=== PATIENT | female | born 1950 | race Caucasian/White ===

== ENCOUNTER 2017-09-28 16:41 | Observation (INO) | payer OTHER ==
--- NOTE | 2017-09-28 17:12 | RAD REPORT ---
EXAM DESCRIPTION: CT - Ct Stroke Brain Wo Cont - 09/28/2017 5:03 pm CLINICAL HISTORY: Right-sided numbness COMPARISON: None. TECHNIQUE: Computed axial tomography of the head was obtained. IV contrast was not requested. All CT scans are performed using dose optimization technique as appropriate and may include automated exposure control or mA/KV adjustment according to patient size. FINDINGS: An intracranial bleed is not seen . The ventricles are normal in caliber. No extra-axial fluid collection is noted. Fluid within the sinuses/ mastoids is not seen. IMPRESSION: No acute intracranial abnormality is seen. If patient's symptoms persist MRI of the bra in would be recommended. The exam was discussed with Doctor Henriquez 5:06 p.m. 09/28/2017
--- NOTE | 2017-09-28 17:13 | RAD REPORT ---
EXAM DESCRIPTION: Toby Single View09/28/2017 5:06 pm CLINICAL HISTORY: Chest pain COMPARISON: none FINDINGS: The lungs appear clear of acute infiltrate. The heart is normal size IMPRESSION: No acute abnormalities displayed
[2017-09-28] MEDS ORDERED: CLOPIDOGREL 75 MG TABLET ONE (17:17)
[2017-09-28] MEDS ORDERED: ASPIRIN 81 MG CHEWABLE TABLET ONE (17:17)
[2017-09-28] MEDS ORDERED: NA CHLORIDE 0.9% 1,000 ML ONE (17:18)
[2017-09-28] MEDS ORDERED: FOLIC ACID 5 MG/ML VIAL ONE (17:18)
--- NOTE | 2017-09-28 17:19 | EDPHYS ---
Physician Documentation [facility] Name: Kylee Mercado Age: 67 yrs Sex: Female : 1950 Arrival Date: 09/28/2017 Time: 16:46 Bed 2 Private MD: ED Physician Abundio Henriquez HPI: 09/28 17:08 This 67 yrs old Female presents to ER via Ambulatory with complaints of S/S alivia of Possible Stroke. 17:08 The patient's problem is reported as weakness, in the right upper extremity, in the alivia right lower extremity, in the right side of face. Onset: The symptoms/episode began/occurred this morning, 530 am. Duration: The episode is continuous, improved, only right face feels numb, tingling like. Context: occurred at home. The symptoms are alleviated by nothing. The symptoms are aggravated by nothing. Associated signs and symptoms: The patient has no apparent associated signs or symptoms. Severity of symptoms: At their worst the symptoms were mild in the emergency department the symptoms are unchanged. Patient's baseline: Neuro: alert and fully oriented, Motor: no deficits, Ambulation: walks without assistance, Speech: normal, normal for age. The patient has not experienced similar symptoms in the past. Historical: - Allergies: 17:35 pheradex; sv 17:35 possibly iodine; sv - Home Meds: 17:12 Levemir 100 unit/mL subcutaneous soln 18 unit daily [Active]; Cymbalta oral oral sg [Active]; BRILINTA oral oral [Active]; aspirin 81 mg Oral chew 1 tab once daily [Active]; Victoza 2-Adrian subcutaneous subcutaneous once daily [Active]; metformin 1,000 mg Oral tr24 1 tab once daily [Active]; - PMHx: 17:12 Diabetes - IDDM; sg 17:35 Myocardial infarction; Hypertension; sv - PSHx: 17:35 cardiac stents; sv - Immunization history:: Adult Immunizations unknown. - Family history:: not pertinent. - Social history:: Smoking status: . - Ebola Screening: : No symptoms or risks identified at this time. ROS: 17:08 Constitutional: Negative for fever, chills, and weight loss, Eyes: Negative for injury, alivia pain, redness, and discharge, ENT: Negative for injury, pain, and discharge, Neck: Negative for injury, pain, and swelling, Cardiovascular: Negative for chest pain, palpitations, and edema, Respiratory: Negative for shortness of breath, cough, wheezing, and pleuritic chest pain, Abdomen/GI: Negative for abdominal pain, nausea, vomiting, diarrhea, and constipation, Back: Negative for injury and pain, : Negative for injury, bleeding, discharge, and swelling, Skin: Negative for injury, rash, and discoloration, Psych: Negative for depression, anxiety, suicide ideation, homicidal ideation, and hallucinations, Allergy/Immunology: Negative for hives, rash, and allergies, Endocrine: Negative for neck swelling, polydipsia, polyuria, polyphagia, and marked weight changes. 17:08 MS/extremity: Positive for paresthesias, tingling, of the right arm and right leg and right cheek. Exam: 17:08 Radiologist reports: neg per dr orly bunch 17:08 Constitutional: This is a well developed, well nourished patient who is awake, alert, and in no acute distress. Head/Face: Normocephalic, atraumatic. Eyes: Pupils equal round and reactive to light, extra-ocular motions intact. Lids and lashes normal. Conjunctiva and sclera are non-icteric and not injected. Cornea within normal limits. Periorbital areas with no swelling, redness, or edema. ENT: Nares patent. No nasal discharge, no septal abnormalities noted. Tympanic membranes are normal and external auditory canals are clear. Oropharynx with no redness, swelling, or masses, exudates, or evidence of obstruction, uvula midline. Mucous membranes moist. Neck: Trachea midline, no thyromegaly or masses palpated, and no cervical lymphadenopathy. Supple, full range of motion without nuchal rigidity, or vertebral point tenderness. No Meningismus. Chest/axilla: Normal chest wall appearance and motion. Nontender with no deformity. No lesions are appreciated. Cardiovascular: Regular rate and rhythm with a normal S1 and S2. No gallops, murmurs, or rubs. Normal PMI, no JVD. No pulse deficits. Respiratory: Lungs have equal breath sounds bilaterally, clear to auscultation and percussion. No rales, rhonchi or wheezes noted. No increased work of breathing, no retractions or nasal flaring. Abdomen/GI: Soft, non-tender, with normal bowel sounds. No distension or tympany. No guarding or rebound. No evidence of tenderness throughout. Back: No spinal tenderness. No costovertebral tenderness. Full range of motion. Skin: Warm, dry with normal turgor. Normal color with no rashes, no lesions, and no evidence of cellulitis. MS/ Extremity: Pulses equal, no cyanosis. Neurovascular intact. Full, normal range of motion. Neuro: Awake and alert, GCS 15, oriented to person, place, time, and situation. Cranial nerves II-XII grossly intact. Motor strength 5/5 in all extremities. Sensory grossly intact. Cerebellar exam normal. Normal gait. Psych: Awake, alert, with orientation to person, place and time. Behavior, mood, and affect are within normal limits. Vital Signs: 17:01 Temp 98.3(TE); ss 17:13 BP 138 / 78; Pulse 70; Resp 18 S; Pulse Ox 100% on R/A; sg 19:07 BP 93 / 81; Pulse 74; Resp 16; Pulse Ox 99% ; sv 20:15 BP 135 / 64; Pulse 66; Resp 16; Pulse Ox 100% on R/A; Pain 0/10; aa1 NIH Stroke Scale Scores: 17:05 NIHSS Score: 0 sv 17:12 NIHSS Score: 0 alivia [place] Coma Score: 17:13 Eye Response: spontaneous(4). Verbal Response: oriented(5). Motor Response: obeys sg commands(6). Total: 15. MDM: 16:56 Patient medically screened. [facility] 17:12 Data reviewed: vital signs, nurses notes, lab test result(s), EKG, radiologic studies, [facility] CT scan, MRI, plain films. 18:45 ED course: no a tpa candidate, symptoms began well ove 3 hrs ago and have improved. [facility] 09/28 17:07 Order name: Basic Metabolic Panel; Complete Time: 17:55 [facility] 09/28 17:07 Order name: CBC with Diff; Complete Time: 17:55 [facility] 09/28 17:07 Order name: Ckmb; Complete Time: 17:55 [facility] 09/28 17:07 Order name: CPK; Complete Time: 17:55 [facility] 09/28 17:07 Order name: LFT's; Complete Time: 17:55 [facility] 09/28 17:07 Order name: Magnesium; Complete Time: 17:55 [facility] 09/28 17:07 Order name: NT PRO-BNP; Complete Time: 17:55 [facility] 09/28 17:07 Order name: PT-INR; Complete Time: 17:55 [facility] 09/28 17:07 Order name: Ptt, Activated; Complete Time: 17:55 [facility] 09/28 17:07 Order name: Troponin (emerg Dept Use Only); Complete Time: 17:55 [facility] 09/28 17:07 Order name: CRP; Complete Time: 17:55 [facility] 09/28 17:07 Order name: Sed Rate; Complete Time: 17:55 [facility] 09/28 17:13 Order name: Urine Culture [facility] 09/28 17:13 Order name: Urine Culture; Complete Time: 17:15 [facility] 09/28 16:54 Order name: CT Stroke Brain w/o Contrast; Complete Time: 17:55 09/28 17:04 Order name: Chest Single View; Complete Time: 17:55 [facility] 09/28 17:07 Order name: EKG; Complete Time: 17:08 [facility] 09/28 17:07 Order name: Brain Wo Cont MRI [facility] 09/28 17:13 Order name: US Carotid Artery Bilateral [facility] 09/28 17:24 Order name: CONS Physician Consult [facility] 09/28 17:24 Order name: Echo without Doppler (2D) [facility] 09/28 18:38 Order name: US; Complete Time: 18:44 [facility] 09/28 18:57 Order name: MRI; Complete Time: 19:03 [facility] 09/28 17:07 Order name: Cardiac monitoring; Complete Time: 17:45 [facility] 09/28 17:07 Order name: EKG - Nurse/Tech; Complete Time: 17:45 [facility] 09/28 17:07 Order name: IV Saline Lock; Complete Time: 17:45 [facility] 09/28 17:07 Order name: Labs collected and sent; Complete Time: 17:45 [facility] 09/28 17:07 Order name: O2 Per Protocol; Complete Time: 17:44 [facility] 09/28 17:07 Order name: O2 Sat Monitoring; Complete Time: 17:45 [facility] Administered Medications: 17:31 Drug: PlaVIX 75 mg Route: PO; sv 17:44 Follow up: Response: No adverse reaction sv 17:33 Drug: Aspirin Chewable Tablet 324 mg Route: PO; sv 17:44 Follow up: Response: No adverse reaction sv 17:33 Drug: NS 0.9% 1000 ml Route: IV; Rate: 1 bolus; Site: right antecubital; sv 18:24 Follow up: Response: No adverse reaction; IV Status: Completed infusion; IV Intake: sv 1000ml 17:33 Drug: foLIC Acid 1 mg Route: IVPB; Site: right antecubital; sv 18:24 Follow up: Response: No adverse reaction; IV Status: Completed infusion sv 18:24 Drug: Ativan 1 mg Route: IVP; Site: right antecubital; sv 19:00 Follow up: Response: No adverse reaction sv 19:04 Drug: Magnesium Sulfate 1 grams Route: IVPB; Infused Over: 1 hrs; Site: right sv antecubital; 20:25 Follow up: IV Status: Completed infusion aa1 Point of Care Testing: Blood Glucose: 17:02 Blood Glucose: 208 mg/dL; ss Ranges: Critical Glucose Levels:Adult <50 mg/dl or >400 mg/dl <40 mg/dl or >180 mg/dl Disposition: 09/28/17 17:18 Hospitalization ordered by Renetta Mejia for Observation. Preliminary diagnosis are Transient cerebral ischemic attack, unspecified, Type 1 diabetes mellitus, Hypo-osmolality and hyponatremia, Hypomagnesemia. - Bed requested for Telemetry/MedSurg (observation). - Status is Observation. aa1 - Condition is Fair. - Problem is new. - Symptoms have improved. UTI on Admission? No NIH Stroke Scale - NIH Stroke Score Date: 09/28/2017 Time: 17:05 Total Score = 0 1a. Level of Consciousness (LOC) - 0(Alert) 1b. Level of Consciousness (LOC) (Year \T\ Age) - 0(Both) 1c. LOC Commands (Open \T\ Closes Eyes/Lay Out Former) - 0(Both) 2. Best Gaze (Lateral Gaze Paresis) - 0(Normal) 3. Visual Field Loss - 0(No visual loss) 4. Facial Palsy - 0(Normal) 5a. Left Arm: Motor (10-second hold) - 0(No drift) 5b. Right Arm: Motor (10-second hold) - 0(No drift) 6a. Left Leg: Motor (5-second hold - always test supine) - 0(No drift) 6b. Right Leg: Motor (5-second hold - always test supine) - 0(No drift) 7. Limb Ataxia (finger/nose \T\ heel/dexter - test with eyes open) - 0(Absent) 8. Sensory Loss (pinprick arms/legs/face) - 0(Normal) 9. Best Language: Aphasia (description/naming/reading) - 0(No aphasia) 10. Dysarthria (speech clarity - read or repeat words) - 0(Normal) 11. Extinction and Inattention (visual/tactile/auditory/spatial/personal) - 0(No abnormality) Initials: NIH Stroke Scale - NIH Stroke Score Date: 09/28/2017 Time: 17:12 Total Score = 0 1a. Level of Consciousness (LOC) - 0(Alert) 1b. Level of Consciousness (LOC) (Year \T\ Age) - 0(Both) 1c. LOC Commands (Open \T\ Closes Eyes/Lay Out Former) - 0(Both) 2. Best Gaze (Lateral Gaze Paresis) - 0(Normal) 3. Visual Field Loss - 0(No visual loss) 4. Facial Palsy - 0(Normal) 5a. Left Arm: Motor (10-second hold) - 0(No drift) 5b. Right Arm: Motor (10-second hold) - 0(No drift) 6a. Left Leg: Motor (5-second hold - always test supine) - 0(No drift) 6b. Right Leg: Motor (5-second hold - always test supine) - 0(No drift) 7. Limb Ataxia (finger/nose \T\ heel/dexter - test with eyes open) - 0(Absent) 8. Sensory Loss (pinprick arms/legs/face) - 0(Normal) 9. Best Language: Aphasia (description/naming/reading) - 0(No aphasia) 10. Dysarthria (speech clarity - read or repeat words) - 0(Normal) 11. Extinction and Inattention (visual/tactile/auditory/spatial/personal) - 0(No abnormality) Initials: alivia Signatures: Dispatcher [employer] EDHermila Mai RN RN sv Gay, Steven, RN RN sg Nadia Kwong RN RN aa1 Lizett Munguia RN RN aj Anderson, Corey, MD MD cha Botello, Elizabeth eb Corrections: (The following items were deleted from the chart) 17:14 17:08 Chest Single View+[email or web address] ordered. EDMS EDMS 17:57 17:18 Hospitalization Ordered by Renteta Mejia MD for Observation. Preliminary alivia diagnosis is Transient cerebral ischemic attack, unspecified; Type 1 diabetes mellitus. Bed requested for Telemetry/MedSurg (observation). Status is Observation. Condition is Fair. Problem is new. Symptoms have improved. UTI on Admission? No. alivia 19:20 17:57 09/28/2017 17:18 Hospitalization Ordered by Renetta Mejia MD for eb Observation. Preliminary diagnosis is Transient cerebral ischemic attack, unspecified; Type 1 diabetes mellitus; Hypo-osmolality and hyponatremia; Hypomagnesemia. Bed requested for Telemetry/MedSurg (observation). Status is Observation. Condition is Fair. Problem is new. Symptoms have improved. UTI on Admission? No. alivia 21:29 19:20 09/28/2017 17:18 Hospitalization Ordered by Renetta Mejia MD for aa1 Observation. Preliminary diagnosis is Transient cerebral ischemic attack, unspecified; Type 1 diabetes mellitus; Hypo-osmolality and hyponatremia; Hypomagnesemia. Bed requested for Telemetry/MedSurg (observation). Status is Observation. Condition is Fair. Problem is new. Symptoms have improved. UTI on Admission? No. eb
--- NOTE | 2017-09-28 17:19 | ER ---
Nurse's Notes [facility] Name: Kylee Mercado Age: 67 yrs Sex: Female : 1950 Arrival Date: 09/28/2017 Time: 16:46 Bed 2 Private MD: Diagnosis: Transient cerebral ischemic attack, unspecified;Type 1 diabetes mellitus;Hypo-osmolality and hyponatremia;Hypomagnesemia Presentation: 09/28 16:49 No acute neurological deficit is noted. Pre-hospital glucose is not applicable to this aj patient. Onset of symptoms was September 28, 2017. Onset of symptoms was September 28, 2017 at 05:30. Risk Assessment: Do you want to hurt yourself or someone else? Patient reports no desire to harm self or others. Initial Sepsis Screen: Does the patient meet any 2 criteria? No. Patient's initial sepsis screen is negative. Does the patient have a suspected source of infection? No. Patient's initial sepsis screen is negative. Care prior to arrival: None. 16:49 Acuity: GERMAN 2 aj 16:52 Presenting complaint: Patient states: Numbness to right side of face, right arm and leg aj that started today at 0530. Patient reports numbness to right arm and leg has resolved,but numbness to right lip and cheek remain. Patient also reports that right legs was weak and foot was dragging during episode of numbness. Transition of care: patient was not received from another setting of care. 16:52 Method Of Arrival: Ambulatory Triage Assessment: 16:56 The onset of the patients symptoms was September 28, 2017 at 05:30. General: Appears in no aj apparent distress. comfortable, Behavior is calm, cooperative, appropriate for age. Pain: Denies pain. Neuro: Level of Consciousness is awake, alert, obeys commands, Oriented to person, place, time, situation, Appropriate for age Dough Mixer are equal bilaterally Moves all extremities. Full function Gait is steady, Speech is normal, Facial symmetry appears normal, Pupils are PERRLA, Numbness in right sikhism, right zygomatic area and right cheek Reports numbness in right sikhism, right zygomatic area and right cheek. Respiratory: Airway is patent Respiratory effort is even, unlabored, Respiratory pattern is regular, symmetrical. Derm: Skin is intact, is healthy with good turgor, Skin is pink, warm \T\ dry. normal. Stroke Activation: Symptom onset > 6 hours Physician: Stroke Attending; Name: ; Notified At: ; Arrived At: Physician: Chief Stroke Resident; Name: ; Notified At: ; Arrived At: Physician: Stroke Resident; Name: ; Notified At: ; Arrived At: Physician: ED Attending; Name: ; Notified At: ; Arrived At: Physician: ED Resident; Name: ; Notified At: ; Arrived At: Historical: - Allergies: 17:35 pheradex; sv 17:35 possibly iodine; sv - Home Meds: 17:12 Levemir 100 unit/mL subcutaneous soln 18 unit daily [Active]; Cymbalta oral oral sg [Active]; BRILINTA oral oral [Active]; aspirin 81 mg Oral chew 1 tab once daily [Active]; Victoza 2-Adrian subcutaneous subcutaneous once daily [Active]; metformin 1,000 mg Oral tr24 1 tab once daily [Active]; - PMHx: 17:12 Diabetes - IDDM; sg 17:35 Myocardial infarction; Hypertension; sv - PSHx: 17:35 cardiac stents; sv - Immunization history:: Adult Immunizations unknown. - Family history:: not pertinent. - Social history:: Smoking status: . - Ebola Screening: : No symptoms or risks identified at this time. Screenin:37 Abuse screen: Denies threats or abuse. Denies injuries from another. Nutritional sv screening: No deficits noted. Tuberculosis screening: No symptoms or risk factors identified. Fall Risk None identified. Assessment: 17:05 General: Appears in no apparent distress. comfortable, slender, well developed, sv Behavior is calm, cooperative, appropriate for age. Pain: Complains of pain in left side of forehead and left sikhism Pain currently is 3 out of 10 on a pain scale. Quality of pain is described as throbbing, Is intermittent. Neuro: Level of Consciousness is awake, alert, obeys commands, Oriented to person, place, time, situation, Dough Mixer are equal bilaterally Moves all extremities. Full function Gait is steady, Speech is normal, Facial symmetry appears normal, Pupils are PERRLA, Reports numbness in right zygomatic area, right cheek and anterior aspect of right ankle and right side of the bottom lip since 0530. Cardiovascular: Patient's skin is warm and dry. Pulses are 3+ in right radial artery and left radial artery. Respiratory: Airway is patent Respiratory effort is even, unlabored, Respiratory pattern is regular, symmetrical. GI: No signs and/or symptoms were reported involving the gastrointestinal system. : No signs and/or symptoms were reported regarding the genitourinary system. EENT: No signs and/or symptoms were reported regarding the EENT system. Derm: Skin is pink, warm \T\ dry. Musculoskeletal: Range of motion: intact in all extremities. 17:25 Patient has been NPO before screening. The patient is alert, and able to follow sv commands. The patient does not exhibit slurred or garbled speech. The patient is not exhibiting difficulty speaking. The patient does not exhibit difficulty understanding words. The patient is able to swallow own secretions with no drooling or need for suction. Patient tolerated one teaspoon of water. No drooling, immediate coughing, gurgling, or clearing of the throat was noted. The patient tolerated 90mL of water. No drooling, immediate coughing, gurgling, or clearing of the throat was noted. The patient passed the bedside swallow screening. Oral medications may be given as ordered. Contact Physician for further diet orders. Provider notified of bedside swallow screening results: Hermila Cooper RN. T-PA (Activase) Screening: Contraindications: Patient reports onset of signs and symptoms of stroke greater than 6 hours ago: Yes. 17:36 Reassessment: Ultrasound at the bedside. sv 18:25 Reassessment: Patient appears in no apparent distress at this time. No changes from sv previously documented assessment. Patient and/or family updated on plan of care and expected duration. Pain level reassessed. Patient is alert, oriented x 3, equal unlabored respirations, skin warm/dry/pink. 19:06 Reassessment: Patient appears in no apparent distress at this time. No changes from sv previously documented assessment. Patient and/or family updated on plan of care and expected duration. Pain level reassessed. Patient is alert, oriented x 3, equal unlabored respirations, skin warm/dry/pink. 20:24 Reassessment: Patient appears in no apparent distress at this time. Patient and/or aa1 family updated on plan of care and expected duration. Pain level reassessed. Patient is alert, oriented x 3, equal unlabored respirations, skin warm/dry/pink. Attempted to call report to floor. Charge nurse states to call back in 15 mins and she can take report. 20:42 Reassessment: Patient appears in no apparent distress at this time. Patient is alert, aa1 oriented x 3, equal unlabored respirations, skin warm/dry/pink. Report given to Hermila Beauchamp RN. Vital Signs: 17:01 Temp 98.3(TE); ss 17:13 BP 138 / 78; Pulse 70; Resp 18 S; Pulse Ox 100% on R/A; sg 19:07 BP 93 / 81; Pulse 74; Resp 16; Pulse Ox 99% ; sv 20:15 BP 135 / 64; Pulse 66; Resp 16; Pulse Ox 100% on R/A; Pain 0/10; aa1 [place] Coma Score: 17:13 Eye Response: spontaneous(4). Verbal Response: oriented(5). Motor Response: obeys sg commands(6). Total: 15. NIH Stroke Scale Scores: 17:05 NIHSS Score: 0 sv 17:12 NIHSS Score: 0 alivia ED Course: 16:46 Patient arrived in ED. sb2 16:54 Hermila Cooper RN is Primary Nurse. sv 16:55 Triage completed. aj 16:56 Abundio Henriquez MD is Attending Physician. alivia 16:56 Arm band placed on left wrist. Patient placed in an exam room, on a stretcher. CT aj ordered. 17:02 Inserted saline lock: 20 gauge in left antecubital area, using aseptic technique. ss ,using aseptic technique. Insertion by Hermila Cooper RN Blood collected. 17:03 CT Stroke Brain w/o Contrast In Process Unspecified. EDMS 17:05 X-ray completed. Portable x-ray completed in exam room. Patient tolerated procedure kc2 well. 17:05 gas appliance mechanic on. Pulse ox on. NIBP on. Door closed. Warm blanket given. Head of bed sv elevated. 17:06 Chest Single View In Process Unspecified. EDMS 17:15 Patient has correct armband on for positive identification. Placed in gown. Bed in low sv position. Call light in reach. Side rails up X2. 17:18 Renetta Mejia MD is Hospitalizing Provider. alivia 17:30 EKG done, by catechist. reviewed by Abundio Henriquez MD. 3 17:30 Inserted saline lock: 20 gauge in right antecubital area, using aseptic technique. sv Flushed right antecubital with 5 ml normal saline. 17:30 IV discontinued, intact, bleeding controlled, Pressure dressing applied, Left AC sv infiltrated. 18:11 US Carotid Artery Bilateral Sent. sv 18:29 Patient moved to MRI via wheelchair. sv 18:31 Patient moved to MRI via wheelchair. ka 19:08 Report given to Nadia FERRIS. sv 19:13 Primary Nurse role handed off by Hermila Cooper RN sv 20:42 No provider procedures requiring assistance completed. aa1 Administered Medications: 17:31 Drug: PlaVIX 75 mg Route: PO; sv 17:44 Follow up: Response: No adverse reaction sv 17:33 Drug: Aspirin Chewable Tablet 324 mg Route: PO; sv 17:44 Follow up: Response: No adverse reaction sv 17:33 Drug: NS 0.9% 1000 ml Route: IV; Rate: 1 bolus; Site: right antecubital; sv 18:24 Follow up: Response: No adverse reaction; IV Status: Completed infusion; IV Intake: sv 1000ml 17:33 Drug: foLIC Acid 1 mg Route: IVPB; Site: right antecubital; sv 18:24 Follow up: Response: No adverse reaction; IV Status: Completed infusion sv 18:24 Drug: Ativan 1 mg Route: IVP; Site: right antecubital; sv 19:00 Follow up: Response: No adverse reaction sv 19:04 Drug: Magnesium Sulfate 1 grams Route: IVPB; Infused Over: 1 hrs; Site: right sv antecubital; 20:25 Follow up: IV Status: Completed infusion aa1 Point of Care Testing: Blood Glucose: 17:02 Blood Glucose: 208 mg/dL; ss Ranges: Intake: 18:24 IV: 1000ml; Total: 1000ml. sv Outcome: 17:18 Decision to Hospitalize by Provider. alivia 20:42 Admitted to Tele accompanied by tech, family with patient, via wheelchair, room 203, aa1 with chart, Report called to Hermila Beauchamp RN 20:42 Condition: stable 20:42 Instructed on the need for admit, Demonstrated understanding of instructions. 20:45 Patient left the ED. aa1 NIH Stroke Scale - NIH Stroke Score Date: 09/28/2017 Time: 17:05 Total Score = 0 1a. Level of Consciousness (LOC) - 0(Alert) 1b. Level of Consciousness (LOC) (Year \T\ Age) - 0(Both) 1c. LOC Commands (Open \T\ Closes Eyes/Nurse Coordinator) - 0(Both) 2. Best Gaze (Lateral Gaze Paresis) - 0(Normal) 3. Visual Field Loss - 0(No visual loss) 4. Facial Palsy - 0(Normal) 5a. Left Arm: Motor (10-second hold) - 0(No drift) 5b. Right Arm: Motor (10-second hold) - 0(No drift) 6a. Left Leg: Motor (5-second hold - always test supine) - 0(No drift) 6b. Right Leg: Motor (5-second hold - always test supine) - 0(No drift) 7. Limb Ataxia (finger/nose \T\ heel/dexter - test with eyes open) - 0(Absent) 8. Sensory Loss (pinprick arms/legs/face) - 0(Normal) 9. Best Language: Aphasia (description/naming/reading) - 0(No aphasia) 10. Dysarthria (speech clarity - read or repeat words) - 0(Normal) 11. Extinction and Inattention (visual/tactile/auditory/spatial/personal) - 0(No abnormality) Initials: NIH Stroke Scale - NIH Stroke Score Date: 09/28/2017 Time: 17:12 Total Score = 0 1a. Level of Consciousness (LOC) - 0(Alert) 1b. Level of Consciousness (LOC) (Year \T\ Age) - 0(Both) 1c. LOC Commands (Open \T\ Closes Eyes/Nurse Coordinator) - 0(Both) 2. Best Gaze (Lateral Gaze Paresis) - 0(Normal) 3. Visual Field Loss - 0(No visual loss) 4. Facial Palsy - 0(Normal) 5a. Left Arm: Motor (10-second hold) - 0(No drift) 5b. Right Arm: Motor (10-second hold) - 0(No drift) 6a. Left Leg: Motor (5-second hold - always test supine) - 0(No drift) 6b. Right Leg: Motor (5-second hold - always test supine) - 0(No drift) 7. Limb Ataxia (finger/nose \T\ heel/dexter - test with eyes open) - 0(Absent) 8. Sensory Loss (pinprick arms/legs/face) - 0(Normal) 9. Best Language: Aphasia (description/naming/reading) - 0(No aphasia) 10. Dysarthria (speech clarity - read or repeat words) - 0(Normal) 11. Extinction and Inattention (visual/tactile/auditory/spatial/personal) - 0(No abnormality) Initials: alivia Signatures: Dispatcher [employer] EDMS Hermila Cooper RN Toby Dubois RN Nadia Allison RN RN aa1 Lizett Munguia RN Abundio Pedroza MD MD cha Smirch, Shelby, RN RN ss Raegan Kirby Kelsie kc2 Isabelle Cotter sb2 Chiquita Watson sm3 Corrections: (The following items were deleted from the chart) 21:30 21:29 Patient left the ED. aa1 aa1
[2017-09-28 17:21] LABS: Absolute Lymphocytes (CBC) 2.4 K/uL (0.7-4.9); Absolute Monocytes 0.8 K/uL (0.1-1.3); Absolute Neutrophil 8.4 K/uL (1.8-8.0); Eosinophils % 1.8 % (0-4.4); Hematocrit 40.2 % (36.0-45.0); Lymphocytes % 19.8 % (15.3-44.8); MCH 28.5 pg (27.0-35.0); MCV 85.6 fL (80-100); MPV 8.4 fL (7.6-11.3)
[2017-09-28 17:24] LABS: Protime INR 0.86
[2017-09-28 17:40] LABS: ALT/SGPT 33 U/L (12-78); AST/SGOT 20 U/L (15-37); Albumin 4.4 g/dL (3.4-5.0); Alkaline Phosphatase 74 U/L (45-117); BUN Blood Urea Nitrogen 14 mg/dL (7-18); Bicarbonate 26 mmol/L (21-32); Bilirubin Direct < 0.1 mg/dL (0-0.2); Bilirubin Total 0.2 mg/dL (0.2-1.0); C-Reactive Protein < 2.90 mg/L (<3.00); CKMB Creatine Kinase MB 2.3 ng/mL (0.3-3.6); Creatine Phosphokinase 117 U/L (26-192); Glucose Level 215 mg/dL (74-106); Magnesium 1.5 mg/dL (1.8-2.4); NT PRO-BNP 146 pg/mL (<125); Potassium 4.3 mmol/L (3.5-5.1); Protein, Total 7.8 g/dL (6.4-8.2); Sodium Level 128 mmol/L (136-145)
[2017-09-28] MEDS ORDERED: ONDANSETRON 4 MG/2 ML VIAL IV PRN (18:03)
[2017-09-28] MEDS ORDERED: ACETAMINOPHEN 500 MG TAB PO PRN (18:03)
[2017-09-28] MEDS ORDERED: GLUCAGON 1 MG/VIAL IM PRN (18:15)
[2017-09-28] MEDS ORDERED: D50W 25 GM/50 ML SYRINGE IV PRN (18:15)
[2017-09-28] MEDS ORDERED: LORazepam 2 MG/ML VIAL ONE (18:23)
--- NOTE | 2017-09-28 18:38 | RAD REPORT ---
EXAM DESCRIPTION: RAMILA - CP - 09/28/2017 6:09 pm CLINICAL HISTORY: DIZZINESS Syncope COMPARISON: No comparisons TECHNIQUE: Real-time sonographic evaluation of both carotid systems was performed. Doppler interroga tion was performed with waveform tracing bilaterally. FINDINGS: Normal high resistance waveforms are noted in both external carotid arteries. The common c arotid arteries and internal carotid arteries show normal low resistance waveforms. Mild to moderate hard plaquing is seen in both carotid bulbs, slightly greater on the left. Peak syst olic and end diastolic velocity values and the ICA/CCA ratios are in the non-hemodynamically signific ant range. Antegrade flow seen in both vertebral arteries. IMPRESSION: Mild to moderate hard plaquing in both carotid bulbs, slightly greater on the left. No evidence of a hemodynamically significant stenosis.
--- NOTE | 2017-09-28 18:56 | RAD REPORT ---
EXAM DESCRIPTION: MRI - Brain Wo Cont - 09/28/2017 6:43 pm CLINICAL HISTORY: NUMBNESS CVA COMPARISON: Ct Stroke Brain Wo Cont dated 09/28/2017; Carotid Artery Bilateral dated 09/28/2017 TECHNIQUE: Multi-sequence, multiplanar MR imaging of the brain was performed without contrast. FINDINGS: No intracranial hemorrhage, hydrocephalus or extra-axial fluid collections. No edema or sh ift of midline structures. No findings to suspect brain mass. DWI is negative for acute CVA. Midline structures are normally formed. Mastoid air cells and paranasal sinuses are clear. IMPRESSION: Negative for acute CVA or other acute intracranial abnormality.
[2017-09-28] MEDS ORDERED: FENTANYL CITR 100 MCG/2 ML ONE (20:34)
--- NOTE | 2017-09-28 20:52 | EKG ---
Test Date: 2017-09-28 Test Time: 17:06:33 Wagon Winder: DAYA MEASUREMENT RESULTS: Intervals: Rate: 66 GA: 160 QRSD: 72 QT: 434 QTc: 454 [place]: P: 23 GA: 160 QRS: 6 T: 42 INTERPRETIVE STATEMENTS: Normal sinus rhythm Normal ECG No previous ECG available for comparison Electronically Signed On 09-28-17 20:52:16 CDT by Jesus Venegas
[2017-09-28] MEDS: INSULIN -REGULAR HUMAN 50 UNIT/0.5 ML ML SQ SCH (21:00)
[2017-09-28] MEDS: ATORVASTATIN 40 MG TAB PO SCH (21:49)
[2017-09-28] MEDS: ENOXAPARIN 40 MG/0.4 ML SQ SCH (21:49)
[2017-09-28] MEDS: NA CHLORIDE 0.9% 1,000 ML IV SCH (21:50)
--- NOTE | 2017-09-29 05:24 | HP ---
Date of Admission: 09/28/2017 Code Status: Full. Chief Complaint: Numbness and tingling on the right side of the face, arm and leg. Primary Care Physician: Out of town in [place]. Consultants: Dr. Crooks with Neurology. History Of Present Illness: The patient is a 67-year-old female with past medical history of hypertension; diabetes, insulin dependent; coronary artery disease status post stent; seizure disorder, who was in her usual state of health until day of admission when the patient had sudden onset of right-sided facial numbness, tingling along with numbness and tingling in her right arm and right leg. The patient did report some weakness in her legs. The patient's symptoms were constant, moderate, and progressively worsening. The patient felt that this was related to her nerve pain, called her chiropractor who told her to go to the ER as soon as possible. The patient otherwise denies any facial asymmetry or word-finding difficulties. No speech abnormalities. Her symptoms occurred at work. The patient's symptoms gradually resolved and she no longer has any numbness or tingling in her legs or arm. She still does report some mild tingling underneath her right lip. The patient's workup in the ER revealed sodium of 128, magnesium was 1.5, white count [place] [address]. Initial CT scan of the brain showed no acute intracranial abnormalities. The patient was then referred for admission for TIA, rule out CVA. The patient was loaded with aspirin and Plavix. The patient was seen in the ER. She was awake , alert, oriented x3, not in any acute distress. Past Medical History: Hypertension; coronary artery disease status post stent; diabetes mellitus type 2, insulin requiring; history of seizure episode in 2016 , not on any medications. Has seen Neurology in the past. Past Surgical History: Cholecystectomy, hysterectomy, appendectomy, laminectomy and breast reduction surgery. Allergies: TO DYE. Medications: List reviewed. Social History: The patient denies any tobacco use, alcohol use or illicit drug use. The patient is independent in her activities of daily living. 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 Family History: Father had diabetes, stroke, [place] and of lung cancer. Mother had diabetes and of lymphatic cancer. Brother also has diabetes. Review of Systems: An 11-point system reviewed, negative except as per HPI. Physical Examination: Vital Signs: Temperature 98.3, blood pressure 138/78, pulse 70, respirations 18 , O2 100% on room air. General: Awake, alert, oriented x3. No acute distress. Elderly female. HEENT: Normocephalic, atraumatic. PERRLA. EOMI. Moist mucous membranes. Oropharynx is clear. Conjunctiva anicteric. Neck: Supple. No JVD. Trachea midline. CV: S1, S2. Regular rate and rhythm. No murmurs. Peripheral pulses present. Respiratory: Clear to auscultation bilaterally. No wheezing. No stridor. No use of accessory muscles. Gastrointestinal: Abdomen is soft, nontender, nondistended. Positive bowel sounds. No guarding or rigidity. Extremities: No clubbing, cyanosis or edema. No calf tenderness. Neurologic: Cranial nerves 2 through 12 intact grossly. No focal neurological deficit. Speech is normal. No facial asymmetry. The patient does have decreased sensation on the right side of the face, especially underneath the lip. [id number] is normal. Skin: No rashes. Normal skin turgor. Psych: Mood is okay. Affect is full. Insight and judgment are good. Laboratory Data: WBC 12, H and H 13.4 and 40.2, platelets 417. INR 0.86. Sodium 128, potassium 4.3, chloride 94, CO2 26, BUN 14, creatinine 1.10, glucose 215, calcium 9.2, magnesium 1.5. Troponin less than 0.082. CT scan of the brain shows no acute intracranial abnormality. Chest x-ray, personally reviewed, shows no acute abnormalities. Assessment And Plan: A 67-year-old female with, 1. Transient ischemic attack, rule out cerebrovascular accident. We will start on stroke guidelines. The patient has been loaded with Plavix, folic acid and full-dose aspirin. We will continue with statin. Dr. Crooks with Neurology has been consulted. We will obtain MRI of the brain. CT scan of the brain was negative. Carotid ultrasound and echocardiogram have been ordered. 2. Essential hypertension. We will allow permissive hypertension due to acute cerebrovascular accident possibility. 3. Coronary artery disease status post stent, [place] artery, [place] heart without angina, stable. 4. Diabetes mellitus type 2, insulin requiring. We will check hemoglobin A1c and place on sliding scale insulin. Monitor Accu-Cheks. 5. Hyponatremia. We will continue with IV fluids. 6. Hypomagnesemia. We will replace and monitor. 7. Thrombocytosis. We will repeat level in the a.m. 8. Gastrointestinal and deep venous thrombosis prophylaxis with PPI and Lovenox. Plan: Follow up with stroke workup. Admit the patient to Med-Surg, place as observation. No medical power of command and control specialist or living will MARYSOL Voice ID: [id number] MTDD
[2017-09-29 05:43] LABS: ALT/SGPT 26 U/L (12-78); AST/SGOT 18 U/L (15-37); Albumin 3.1 g/dL (3.4-5.0); Alkaline Phosphatase 60 U/L (45-117); BUN Blood Urea Nitrogen 11 mg/dL (7-18); Bicarbonate 29 mmol/L (21-32); Bilirubin Total 0.2 mg/dL (0.2-1.0); Glucose Level 244 mg/dL (74-106); HDL Cholesterol 37 mg/dL (40-60); LDL Cholesterol, Calculated 35 (<130); Magnesium 1.6 mg/dL (1.8-2.4); Potassium 3.9 mmol/L (3.5-5.1); Protein, Total 5.7 g/dL (6.4-8.2); Sodium Level 133 mmol/L (136-145)
[2017-09-29 05:52] LABS: Absolute Lymphocytes (CBC) 2.5 K/uL (0.7-4.9); Absolute Monocytes 0.8 K/uL (0.1-1.3); Absolute Neutrophil 5.4 K/uL (1.8-8.0); Hematocrit 35.3 % (36.0-45.0); Lymphocytes % 27.6 % (15.3-44.8); MCH 27.9 pg (27.0-35.0); MCV 85.8 fL (80-100); MPV 8.8 fL (7.6-11.3); Monocytes % 8.7 % (3.3-12.3); RBC Red Blood Cell Count 4.11 M/uL (3.86-4.86)
[2017-09-29] MEDS ORDERED: POTASSIUM CL SA 10 MEQ TAB PO ONE (05:57)
[2017-09-29] MEDS ORDERED: MAGNESIUM SULFATE 1 gm IVPB 1 GM/100 ML BAG IV ONE (06:00)
[2017-09-29 07:05] LABS: Urine Appearance CLEAR; Urine Bilirubin NEGATIVE (NEG); Urine Blood NEGATIVE (NEG); Urine Color YELLOW; Urine Glucose TRACE (NEG); Urine Protein NEGATIVE (NEG); Urine Urobilinogen 0.2 mg/dL (0.2-1.0); Urine pH 5.5 (5.0-7.0)
[2017-09-29 07:06] LABS: Urine Microscopic Reflex NO UMIC
[2017-09-29] MEDS ORDERED: CLOPIDOGREL 75 MG TABLET PO SCH (09:00)
[2017-09-29] MEDS: INSULIN -REGULAR HUMAN 50 UNIT/0.5 ML ML SQ SCH ×4 (09:22→20:32)
[2017-09-29] MEDS: NA CHLORIDE 0.9% 1,000 ML IV SCH ×2 (09:22→20:34)
[2017-09-29] MEDS: ENOXAPARIN 40 MG/0.4 ML SQ SCH (09:23)
[2017-09-29] MEDS ORDERED: CYANOCOBALAMIN 1000MCG/ML INJ IM SCH (10:00)
--- NOTE | 2017-09-29 15:42 | ECHO ---
HEIGHT: 5 ft 3 in WEIGHT: 134 lb 12.8 oz DATE OF STUDY: 09/29/[address]: Abundio Henriquez MD 2-DIMENSIONAL: YES M.MODE: YES DOPPLER: YES COLOR FLOW: YES TDS: NO PORTABLE: NO DEFINITY: NO BUBBLE STUDY: NO DIAGNOSIS: TIA, CVA CARDIAC HISTORY: CATHERIZATION: YES SURGERY: NO PROSTHETIC VALVE: NO PACEMAKER: NO MEASUREMENTS (cm) DIASTOLIC (NORMALS) SYSTOLIC (NORMALS) IVSd 0.9 (0.6-1.2) LA Diam 2.9 (1.9-4.0) LVEF 86% LVIDd 3.0 (3.5-5.7) LVIDs 1.4 (2.0-3.5) %FS 54% LVPWd 0.9 (0.6-1.2) Ao Diam 2.9 (2.0-3.7) 2 DIMENSIONAL ASSESSMENT: RIGHT ATRIUM: NORMAL LEFT ATRIUM: NORMAL RIGHT VENTRICLE: NORMAL LEFT VENTRICLE: NORMAL TRICUSPID VALVE: NORMAL MITRAL VALVE: MITRAL ANNULAR CALCIFICATION PULMONIC VALVE: NORMAL AORTIC VALVE: NORMAL PERICARDIAL EFFUSION: NONE AORTIC ROOT: NORMAL LEFT VENTRICULAR WALL MOTION: NORMAL DOPPLER/COLOR FLOW: MILD TRICUSPID REGURGITATION. COMMENTS: NORMAL LEFT VENTRICULAR SIZE AND FUNCTION. MILD TRICUSPID REGURGITATION. NORMAL RIGHT VENTRICULAR SYSTOLIC PRESSURE. MITRAL ANNULAR CALCIFICATION. NO THROMBUS. NO VEGETATION. TECHNOLOGIST: Fabien ROQUE
[2017-09-29] MEDS: ATORVASTATIN 40 MG TAB PO SCH (20:30)
[2017-09-29] MEDS ORDERED: METOPROLOL TAR 25 MG TAB PO SCH (21:00)
[2017-09-29] MEDS ORDERED: FAMCICLOVIR 250 MG PO SCH (21:00)
[2017-09-29] MEDS ORDERED: INSULIN DETEMIR 100 UNIT/1 ML INSULIN SQ SCH (21:00)
[2017-09-29] MEDS ORDERED: TICAGRELOR 90 MG TABLET PO SCH (21:00)
--- NOTE | 2017-09-29 21:00 | P.DS ---
Admission Date: 09/28/17 Discharge Date: 09/29/17 Disposition: ROUTINE DISCHARGE Discharge Condition: GOOD Brief History of Present Illness: Ms Mercado is a 67 years old woman who was admitted yesterday due to sudden onset of right-sided facial numbness, tingling along with numbness and tingling in her right arm and right leg. CT head done in ED was negative for acute abnormalities. Hospital Course: During her stay in the hospital, her symptoms resolved within 24 hr. Brain MRI showed no acute abnormalities either. Carotid doppler reported nos significant stenosis. ECHO consistent with normal LV function, EF estimated at 86%. The patient was already on double antiplatelets treatment. Lipitor was increased to 40 mg daily. She was evaluated by Dr Crooks, who feels comfortable discharging the patient home today. He will follow her up in his office in the next 2 weeks. The patient will be discharged home in stable condition. Vital Signs/Physical Exam: Temp Pulse Resp BP Pulse Ox 98.7 F 67 18 145/65 H 95 09/29/17 16:00 09/29/17 20:30 09/29/17 16:00 09/29/17 20:30 09/29/17 16:00 General: Alert, In no apparent distress HEENT: Atraumatic, PERRLA, EOMI Neck: Supple, JVD not distended Respiratory: Clear to auscultation bilaterally, Normal air movement Cardiovascular: Regular rate/rhythm, Normal S1 S2 Gastrointestinal: Normal bowel sounds, No tenderness Musculoskeletal: No tenderness Integumentary: No rashes Neurological: Normal speech, Normal tone, Normal affect Lymphatics: No axilla or inguinal lymphadenopathy Laboratory Data at Discharge: WBC 9.2 K/uL (4.3-10.9) D 09/29/17 04:20 Hgb 11.5 g/dL (12.0-15.0) L 09/29/17 04:20 Hct 35.3 % (36.0-45.0) L 09/29/17 04:20 Plt Count 310 K/uL (152-406) D 09/29/17 04:20 PT 10.1 SECONDS (9.5-12.5) 09/28/17 17:04 INR 0.86 09/28/17 17:04 APTT 28.1 SECONDS (24.3-36.9) 09/28/17 17:04 Sodium 133 mmol/L (136-145) L 09/29/17 04:20 Potassium 3.9 mmol/L (3.5-5.1) 09/29/17 04:20 BUN 11 mg/dL (7-18) 09/29/17 04:20 Creatinine 0.60 mg/dL (0.55-1.3) 09/29/17 04:20 Glucose 244 mg/dL (74-106) H 09/29/17 04:20 Magnesium 1.6 mg/dL (1.8-2.4) L 09/29/17 04:20 Total Bilirubin 0.2 mg/dL (0.2-1.0) 09/29/17 04:20 AST 18 U/L (15-37) 09/29/17 04:20 ALT 26 U/L (12-78) 09/29/17 04:20 Alkaline Phosphatase 60 U/L (45-117) 09/29/17 04:20 Triglycerides 147 mg/dL (<150) 09/29/17 04:20 Cholesterol 101 mg/dL (<200) 09/29/17 04:20 HDL Cholesterol 37 mg/dL (40-60) L 09/29/17 04:20 Cholesterol/HDL Ratio 2.73 09/29/17 04:20 Home Medications: Aspirin [Aspir-Low] 81 mg PO DAILY 09/28/17 Cyanocobalamin (Vitamin B-12) [Cyanocobalamin Injection] 1 ml IM Q30D 09/28/17 Duloxetine HCl [Cymbalta] 30 mg PO DAILY 09/28/17 Famciclovir [Famvir] 250 mg PO BID 09/28/17 Glimepiride 4 mg PO DAILY 09/28/17 Insulin Detemir [Levemir Flextouch] 18 units SQ BEDTIME 09/28/17 Lansoprazole 30 mg PO DAILY 09/28/17 Liraglutide [Victoza 2-Adrian] 1.8 mg SQ DAILY 09/28/17 Losartan Potassium 25 mg PO DAILY 09/28/17 Metformin HCl 1,000 mg PO BID 09/28/17 Metoprolol Tartrate 25 mg PO BID 09/28/17 Ticagrelor [Brilinta*] 90 mg PO BID 09/28/17 Atorvastatin Calcium [Lipitor] 40 mg PO BEDTIME #30 tab 09/29/17 New Medications: Atorvastatin Calcium [Lipitor] 40 mg PO BEDTIME #30 tab Diet: ADA Activity: Ad denis Followup: Jean Crooks MD [ACTIVE - CAN ADMIT] - Time spent managing pt's care (in minutes): 40
[2017-09-29 21:15] LABS: Thyroid Stimulating Hormone 5.68 uIU/mL (0.36-3.74)
--- NOTE | 2017-09-29 22:42 | PN ---
Date of Progress Note: 09/29/2017 Subjective: Patient seen and examined. Chart reviewed and case discussed with RN. The patient stat es her numbness and tingling have resolved. Case discussed with Dr. Crooks. Review of Systems: Negative except as above. Medications: Reviewed. Physical Examination: VITAL SIGNS: Temperature 97.4, heart rate 70, blood pressure 124/73, respirations 18, O2 100% on vanesa m air. GENERAL: Awake, alert, oriented x3. No acute distress. Elderly female. CV: S1, S2. No murmurs. Regular rate and rhythm. Peripheral pulses present. RESPIRATORY: Moving air well bilaterally. No wheezing. GASTROINTESTINAL: Abdomen is soft, nontender, nondistended. Positive bowel sounds. No guarding or rigidity. EXTREMITIES: No clubbing, cyanosis, or edema. NEURO: Cranial nerves 2 through 12 intact grossly. No focal neurological deficit. Speech is normal . Sensation is intact to light touch. Laboratory Data: Sodium 133, potassium 3.9, chloride 99, CO2 29, BUN 11, creatinine 0.6, glucose 244 , calcium 8.4, magnesium 1.6. Triglycerides 147, cholesterol 101, LDL 35, HDL 37. WBC 9.2, H and H 11.5 and 35.3, platelets 310. Urine culture is pending. Echocardiogram shows EF of 86%. Carotid ar dinesh ultrasound shows [id number] hard plaquing in both carotid bulbs, slightly greater on the l eft. No evidence of hemodynamically significant stenosis. MRI of the brain shows negative for acute CVA or other acute intracranial abnormality. Assessment And Plan: A 67-year-old female with: 1.Transient ischemic attack. Cerebrovascular accident ruled out. MRI is negative. Carotid ultraso und does not show any hemodynamically significant stenosis. We will continue Brilinta, statin, and f olic acid. Dr. Crooks with Neurology on board. Echocardiogram shows normal EF. 2.Essential hypertension. We will allow permissive hypertension due to possible cerebrovascular acc ident. 3.Coronary artery disease status post stent, [place] artery and [place] heart without angina, stable. 4.Diabetes mellitus type 2, insulin requiring with hyperglycemia. We will continue sliding scale in sulin. Monitor Accu-Chek. 5.Hyponatremia, improving. 6.Hypomagnesemia. We will replace and monitor. 7.Thrombocytosis, resolved. 8.Gastrointestinal and deep venous thrombosis prophylaxis with PPI and Lovenox. Plan: Follow with Neurology recommendations. The patient is already on Brilinta. May need MRA of t he neck. /JOEL Voice ID: [id number] Report ID: [id number]
[2017-09-30] MEDS ORDERED: PANTOPRAZOLE 40MG TABLET PO SCH (06:30)
[2017-09-30] MEDS ORDERED: GLIMEPIRIDE 2 MG TABLET PO SCH (08:00)
[2017-09-30] MEDS ORDERED: DULOXETINE 30 MG CAP PO SCH (09:00)
[2017-09-30] MEDS ORDERED: LOSARTAN POTASSIUM 50 MG TABLET PO SCH (09:00)
== END 2017-09-29 21:53 | disposition home or self-care (01) ==
LOC: ER 16:41 → ERHOLD 17:21 → 2ND 20:44
PROVIDERS: ADMIT Family Medicine; ATTEND Family Medicine
DX: G45.9 Transient cerebral ischemic attack, unspecified (principal); I25.10 Atherosclerotic heart disease of native coronary artery without angina pectoris; E11.65 Type 2 diabetes mellitus with hyperglycemia; E87.1 Hypo-osmolality and hyponatremia; E83.42 Hypomagnesemia; I10 Essential (primary) hypertension; D47.3 Essential (hemorrhagic) thrombocythemia; Z95.5 Presence of coronary angioplasty implant and graft
CPT/HCPCS: 36415; 70450; 70551; 71045; 80048; 80053; 80061; 80076; 81003; 82550; 82553; 82607; 82962; 83735; 83880; 84439; 84443; 84484; 85025; 85610; 85652; 85730; 86140; 87086; 87088; 93005; 93306; 93880; 94760; 96361; 96365; 96367; 96375; 97163; 99285; G0378; J1650; J3010; J3475; J7030

== ENCOUNTER → 2023-05-21 | Emergency (ER) | payer OTHER ==
[~2023-05-21] MED LIST: D5 0.9 NS 1,000 ML IV ONE; NA CHLORIDE 0.9% 1,000 ML ONE
[2023-05-21 09:26] LABS: Absolute Lymphocytes (CBC) 1.8 K/uL (0.7-4.9); Hematocrit 41.2 % (36.0-45.0); Lymphocytes % 23.1 % (15.3-44.8); MCV 85.5 fL (80-100); MPV 7.7 fL (7.6-11.3); Platelets 347 thou/uL (152-406); RBC Red Blood Cell Count 4.81 M/uL (3.86-4.86)
[2023-05-21 09:29] LABS: Protime INR 0.96
--- NOTE | 2023-05-21 09:40 | RAD REPORT ---
EXAM DESCRIPTION: Toby Single View05/21/2023 9:26 am CLINICAL HISTORY: cough COMPARISON: 2017 FINDINGS: The lungs appear clear of acute infiltrate. The heart is normal size IMPRESSION: No acute abnormalities displayed
[2023-05-21 09:45] LABS: Albumin 3.7 g/dL (3.4-5.0); Bilirubin Direct 0.1 mg/dL (0-0.2); Bilirubin Indirect, Calculated 0.2 mg/dL (0.2-0.8); Bilirubin Total 0.3 mg/dL (0.2-1.0); Potassium 3.9 mEq/L (3.5-5.1); Troponin High Sensitivity 5.2 pg/mL (<58.9)
[2023-05-21 10:12] LABS: Specific Gravity 1.013 (1.005-1.030); Urine Bilirubin NEGATIVE (Negative); Urine Blood Negative (Negative); Urine Clarity Clear (Clear); Urine Color Light-Yellow (Yellow); Urine Glucose 1+ (Negative); Urine Protein NEGATIVE (Negative); Urine Urobilinogen Normal (Normal); Urine pH 5.5 (5.0-7.0)
--- NOTE | 2023-05-21 11:55 | EDPHYS ---
Physician Documentation [facility] Name: Kylee Alvarado Age: 72 yrs Sex: Female : 1950 Arrival Date: 05/21/2023 Time: 08:58 Bed 14 Private MD: ED Physician Abundio Henriquez HPI: 05/21 11:31 This 72 yrs old Female presents to ER via Ambulatory with complaints of Blood alivia Sugar Problem. 11:31 The patient or guardian reports hypoglycemia. Onset: The symptoms/episode alivia began/occurred 1 day(s) ago. Associated signs and symptoms: Pertinent positives: None. Pertinent negatives: None. took 30 regular vs long acting. Current symptoms: In the emergency department the patient's symptoms are unchanged from the initial presentation. Severity of symptoms: At their worst the symptoms were mild in the emergency department the symptoms are unchanged. The patient has not experienced similar symptoms in the past. Historical: - Allergies: 09:06 pheradex; iw - PMHx: 09:06 Diabetes - IDDM; Hypertension; Myocardial infarction; iw - Immunization history:: Adult Immunizations not up to date. - Social history:: Smoking status: Patient denies any tobacco usage or history of. - Family history:: not pertinent. ROS: 11:31 Constitutional: Negative for fever, chills, and weight loss, Eyes: Negative for injury, alivia pain, redness, and discharge, ENT: Negative for injury, pain, and discharge, Neck: Negative for injury, pain, and swelling, Cardiovascular: Negative for chest pain, palpitations, and edema, Respiratory: Negative for shortness of breath, cough, wheezing, and pleuritic chest pain, Abdomen/GI: Negative for abdominal pain, nausea, vomiting, diarrhea, and constipation, Back: Negative for injury and pain, : Negative for injury, bleeding, discharge, and swelling, MS/Extremity: Negative for injury and deformity, Skin: Negative for injury, rash, and discoloration, Neuro: Negative for headache, weakness, numbness, tingling, and seizure, Psych: Negative for depression, anxiety, suicide ideation, homicidal ideation, and hallucinations, Allergy/Immunology: Negative for hives, rash, and allergies, Endocrine: Negative for neck swelling, polydipsia, polyuria, polyphagia, and marked weight changes, Hematologic/Lymphatic: Negative for swollen nodes, abnormal bleeding, and unusual bruising, Exam: 11:31 Constitutional: This is a well developed, well nourished patient who is awake, alert, alivia and in no acute distress. Head/Face: Normocephalic, atraumatic. Eyes: Pupils equal round and reactive to light, extra-ocular motions intact. Lids and lashes normal. Conjunctiva and sclera are non-icteric and not injected. Cornea within normal limits. Periorbital areas with no swelling, redness, or edema. ENT: Nares patent. No nasal discharge, no septal abnormalities noted. Tympanic membranes are normal and external auditory canals are clear. Oropharynx with no redness, swelling, or masses, exudates, or evidence of obstruction, uvula midline. Mucous membranes moist. Neck: Trachea midline, no thyromegaly or masses palpated, and no cervical lymphadenopathy. Supple, full range of motion without nuchal rigidity, or vertebral point tenderness. No Meningismus. Chest/axilla: Normal chest wall appearance and motion. Nontender with no deformity. No lesions are appreciated. Cardiovascular: Regular rate and rhythm with a normal S1 and S2. No gallops, murmurs, or rubs. Normal PMI, no JVD. No pulse deficits. Respiratory: Lungs have equal breath sounds bilaterally, clear to auscultation and percussion. No rales, rhonchi or wheezes noted. No increased work of breathing, no retractions or nasal flaring. Abdomen/GI: Soft, non-tender, with normal bowel sounds. No distension or tympany. No guarding or rebound. No evidence of tenderness throughout. Back: No spinal tenderness. No costovertebral tenderness. Full range of motion. Skin: Warm, dry with normal turgor. Normal color with no rashes, no lesions, and no evidence of cellulitis. MS/ Extremity: Pulses equal, no cyanosis. Neurovascular intact. Full, normal range of motion. Neuro: Awake and alert, GCS 15, oriented to person, place, time, and situation. Cranial nerves II-XII grossly intact. Motor strength 5/5 in all extremities. Sensory grossly intact. Cerebellar exam normal. Normal gait. Psych: Awake, alert, with orientation to person, place and time. Behavior, mood, and affect are within normal limits. 11:31 ECG was reviewed by the Attending Physician. Vital Signs: 09:06 BP 146 / 65; Pulse 58; Resp 16; Pulse Ox 99% on R/A; Weight 72.57 kg; Height 5 ft. 2 iw in. ; 11:50 BP 140 / 66; Pulse 66; Resp 17; Pulse Ox 99% on R/A; rs5 09:06 Body Mass Index 29.26 (72.57 kg, 157.48 cm) iw MDM: 09:03 Patient medically screened. alivia 11:36 Differential diagnosis: hyperglycemia, hypoglycemic episode. Differential Diagnosis alivia altered mental status, sepsis, flu. Data reviewed: vital signs, nurses notes, lab test result(s), EKG, radiologic studies, plain films. Consideration of Admission/Observation Escalation of care including admission/observation considered. I considered the following discharge prescriptions or medication management in the emergency department Medications were administered in the Emergency Department. See MAR. Independent interpretation of the following test(s) in the Emergency Department EKG: See my EKG interpretation above. Test considered but Not performed: CT: no ct head. Historians other than the Patient: patient well informed. 05/21 09:04 Order name: Basic Metabolic Panel; Complete Time: 10:59 alivia 05/21 09:04 Order name: CBC with Diff; Complete Time: 10:59 05/21 09:04 Order name: LFT's; Complete Time: 10:59 05/21 09:04 Order name: Magnesium; Complete Time: 10:59 alivia 05/21 09:04 Order name: NT PRO-BNP; Complete Time: 10:59 alivia 05/21 09:04 Order name: PT-INR; Complete Time: 10:59 05/21 09:04 Order name: Troponin HS; Complete Time: 10:59 alivia 05/21 09:04 Order name: Urinalysis w/ reflexes; Complete Time: 10:59 alivia 05/21 09:25 Order name: Glucose, Ancillary Testing; Complete Time: 10:59 EDMS 05/21 09:04 Order name: XRAY Chest (1 view); Complete Time: 10:59 alivia 05/21 09:04 Order name: EKG; Complete Time: 09:05 alivia 05/21 09:04 Order name: Cardiac monitoring; Complete Time: 09:19 alivia 05/21 09:04 Order name: EKG - Nurse/Tech; Complete Time: 09:19 alivia 05/21 09:04 Order name: IV Saline Lock; Complete Time: alivia 05/21 09:04 Order name: Labs collected and sent; Complete Time: alivia 05/21 09:04 Order name: O2 Per Protocol; Complete Time: alivia 05/21 09:04 Order name: O2 Sat Monitoring; Complete Time: [facility] EC:31 Rate is 56 beats/min. Rhythm is regular. QRS [place] is Normal. SC interval is normal. QRS alivia interval is normal. QT interval is normal. No Q waves. T waves are Normal. No ST changes noted. Clinical impression: Sinus bradycardia and No evidence of ischemia. Interpreted by me. Reviewed by me. Administered Medications: : Drug: NS 0.9% IV 1000 ml IV at 1 bolus Per protocol; 1000 mL bolus Route: IV; Rate: 1 rs5 bolus; Site: left antecubital; 09:40 Follow up: Response: No adverse reaction rs5 11:48 Drug: D5-1/2 NS IV 1000 ml IV at 150 ml/hr continuous Route: IV; Rate: 150 ml/hr; Site: rs5 right antecubital; 12:01 Follow up: Response: No adverse reaction rs5 Disposition Summary: 05/21/23 11:54 Discharge Ordered Notes: Location: Home alivia Problem: new alivia Symptoms: have improved alivia Condition: Stable alivia Diagnosis - Drug-induced hypoglycemia without coma alivia - Adverse effect of insulin and oral hypoglycemic [antidiabetic] drugs alivia Followup: alivia - With: Private Physician - When: 1 - 2 days - Reason: Recheck today's complaints, Continuance of care, Re-evaluation by your physician Discharge Instructions: - Discharge Summary Sheet alivia - Hypoglycemia alivia - Hypoglycemia, [id number] alivia - Preventing Hypoglycemia alivia Forms: - Medication Reconciliation Form alivia - Thank You Letter alivia - Antibiotic Education alivia - Prescription Opioid Use alivia - Patient Portal Instructions alivia - Leadership Thank You Letter alivia Signatures: Dispatcher [employer] Abundio Mitchell MD MD cha Williams, Irene, RN RN iw Sotelo, Ricky, RN RN rs5 Corrections: (The following items were deleted from the chart) 09:07 09:06 Allergies: possibly iodine; iw iw
--- NOTE | 2023-05-21 11:55 | ER ---
Nurse's Notes [facility] Name: Kylee Alvarado Age: 72 yrs Sex: Female : 1950 Arrival Date: 05/21/2023 Time: 08:58 Bed 14 Private MD: Diagnosis: Drug-induced hypoglycemia without coma;Adverse effect of insulin and oral hypoglycemic [antidiabetic] drugs Presentation: 05/21 09:03 Chief complaint: Patient states: took 25 units of Novolog instead of Tresiba at about iw 0830 , she has been drinking soda and sweets to keep it up , tight now her BS is 230. Coronavirus screen: At this time, the client does not indicate any symptoms associated with coronavirus-19. Ebola Screen: Patient negative for fever greater than or equal to 101.5 degrees Fahrenheit, and additional compatible Ebola Virus Disease symptoms Patient denies exposure to infectious person. Patient denies travel to an Ebola-affected area in the 21 days before illness onset. No symptoms or risks identified at this time. 09:03 Method Of Arrival: Ambulatory iw 09:03 Acuity: GERMAN 3 iw 09:05 Initial Sepsis Screen: Does the patient meet any 2 criteria? No. Patient's initial iw sepsis screen is negative. Does the patient have a suspected source of infection? No. Patient's initial sepsis screen is negative. Risk Assessment: Do you want to hurt yourself or someone else? Patient reports no desire to harm self or others. Onset of symptoms was May 21, 2023. Historical: - Allergies: 09:06 pheradex; iw - PMHx: 09:06 Diabetes - IDDM; Hypertension; Myocardial infarction; iw - Immunization history:: Adult Immunizations not up to date. - Social history:: Smoking status: Patient denies any tobacco usage or history of. - Family history:: not pertinent. Screenin:10 [facility] ED Fall Risk Assessment (Adult) History of falling in the last 3 months, rs5 including since admission No falls in past 3 months (0 pts) Confusion or Disorientation No (0 pts) Intoxicated or Sedated No (0 pts) Impaired Gait No (0 pts) Mobility Assist Device Used No (0 pt) Altered Elimination No (0 pt) Score/Fall Risk Level 0 - 2 = Low Risk Oriented to surroundings, Maintained a safe environment. Abuse screen: Denies threats or abuse. Nutritional screening: No deficits noted. Tuberculosis screening: No symptoms or risk factors identified. Assessment: 09:10 General: Appears in no apparent distress. comfortable, Behavior is calm, cooperative. rs5 Pain: Denies pain. Neuro: Level of Consciousness is awake, alert, obeys commands, Oriented to person, place, time, situation. Cardiovascular: Patient's skin is warm and dry. Rhythm is regular. Respiratory: Respiratory effort is even, unlabored, Respiratory pattern is regular, symmetrical. GI: Abdomen is round non-distended, Abd is soft and non tender X 4 quads. : No signs and/or symptoms were reported regarding the genitourinary system. EENT: No signs and/or symptoms were reported regarding the EENT system. Derm: Skin is intact, Skin is pink, warm \T\ dry. Musculoskeletal: Range of motion: intact in all extremities. 10:20 Reassessment: No changes from previously documented assessment. rs5 11:01 Reassessment: Patient and/or family updated on plan of care and expected duration. Pain rs5 level reassessed. Patient is alert, oriented x 3, equal unlabored respirations, skin warm/dry/pink. Patient denies pain at this time. Patient states feeling better. 11:45 Reassessment: No changes from previously documented assessment. rs5 Vital Signs: 09:06 BP 146 / 65; Pulse 58; Resp 16; Pulse Ox 99% on R/A; Weight 72.57 kg; Height 5 ft. 2 iw in. ; 11:50 BP 140 / 66; Pulse 66; Resp 17; Pulse Ox 99% on R/A; rs5 09:06 Body Mass Index 29.26 (72.57 kg, 157.48 cm) iw ED Course: 09:00 Patient arrived in ED. rg4 09:03 Abundio Henriquez MD is Attending Physician. alivia 09:05 Triage completed. iw 09:06 Arm band placed on. iw 09:12 Isaac Osman, [place] is Primary Nurse. rs5 09:19 Patient has correct armband on for positive identification. Bed in low position. Call rs5 light in reach. Side rails up X2. 09:19 No provider procedures requiring assistance completed. rs5 09:22 Initial lab(s) drawn, by me, sent to lab. EKG done, by ED staff. Inserted saline lock: [id number] 22 gauge in right antecubital area, using aseptic technique. Blood collected. 09:28 XRAY Chest (1 view) In Process Unspecified. EDNC 09:31 EKG done, reviewed by Abundio Henriquez MD. em1 12:01 IV discontinued, intact, bleeding controlled, No redness/swelling at site. Pressure rs5 dressing applied. Administered Medications: 09:19 Drug: NS 0.9% IV 1000 ml IV at 1 bolus Per protocol; 1000 mL bolus Route: IV; Rate: 1 rs5 bolus; Site: left antecubital; 09:40 Follow up: Response: No adverse reaction rs5 11:48 Drug: D5-1/2 NS IV 1000 ml IV at 150 ml/hr continuous Route: IV; Rate: 150 ml/hr; Site: rs5 right antecubital; 12:01 Follow up: Response: No adverse reaction rs5 Medication: 09:19 VIS not applicable for this client. rs5 Outcome: 11:54 Discharge ordered by . alivia 12:01 Discharged to home ambulatory, rs5 12:01 Condition: stable 12:01 Discharge instructions given to patient, Instructed on discharge instructions, follow up and referral plans. Demonstrated understanding of instructions, follow-up care, 12:12 Patient left the ED. rs5 Signatures: Dispatcher [employer] EDNC Abundio Henriquez MD MD cha Williams, Irene RN Neymar Chapin em1 Holly Christian rg4 Isaac Osman RN RN rs5 Kenny Moct[place]uma [id number] Corrections: (The following items were deleted from the chart) 09:07 09:06 Allergies: possibly iodine; yadira 19:12 10:15 Reassessment: No changes from previously documented assessment. rs5 rs5
[2023-05-21 12:36] VITALS: BP 146/65; O2SAT 99
--- NOTE | 2023-05-22 15:03 | EKG ---
Test Date: 2023-05-21 Test Time: 09:26:45 Heel Nail Rasper: WINDY MEASUREMENT RESULTS: Intervals: Rate: 56 ME: 184 QRSD: 80 QT: 468 QTc: 451 [place]: P: 60 ME: 184 QRS: 51 T: 72 INTERPRETIVE STATEMENTS: Sinus bradycardia Otherwise normal ECG No previous ECG available for comparison Electronically Signed On 05-22-23 15:00:50 [employer] WORK[employer] by Kiran Barajas
== END ==
LOC: ER 08:58
DX: E11.649 Type 2 diabetes mellitus with hypoglycemia without coma (principal); T38.3X5A Adverse effect of insulin and oral hypoglycemic [antidiabetic] drugs, initial encounter; I10 Essential (primary) hypertension; I25.2 Old myocardial infarction; Z88.8 Allergy status to other drugs, medicaments and biological substances
CPT/HCPCS: 93005; 85025; 80048; 36415; 83735; 85610; 82947; 80076; 81003; 84484; 83880; 71045; 99284; J7042; J7030

== ENCOUNTER 2023-06-03 04:32 | Inpatient (IN) | payer OTHER ==
[2023-06-03 05:21] LABS: Protime INR 0.94
[2023-06-03 05:24] LABS: Absolute Lymphocytes (CBC) 1.4 K/uL (0.7-4.9); Hematocrit 38.2 % (36.0-45.0); Lymphocytes % 15.9 % (15.3-44.8); MCV 84.5 fL (80-100); MPV 8.1 fL (7.6-11.3); Platelets 324 thou/uL (152-406); RBC Red Blood Cell Count 4.52 M/uL (3.86-4.86)
[2023-06-03 05:46] LABS: ALT/SGPT 30 U/L (13-56); AST/SGOT 15 U/L (15-37); Albumin 3.3 g/dL (3.4-5.0); Alkaline Phosphatase 90 U/L (45-117); BUN Blood Urea Nitrogen 18 mg/dL (7-18); Bicarbonate 27 mEq/L (21-32); Bilirubin Total 0.3 mg/dL (0.2-1.0); Glomerular Filtration Rate 62 ml/min (=/>90); Glucose Level 189 mg/dL (74-106); NT PRO-BNP 382 pg/mL (<125); Potassium 4.3 mEq/L (3.5-5.1); Protein, Total 6.2 g/dL (6.4-8.2); Sodium Level 133 mEq/L (136-145); Troponin High Sensitivity 6.6 pg/mL (<58.9)
[2023-06-03 05:50] LABS: Bilirubin Direct < 0.1 mg/dL (0-0.2); Bilirubin Indirect, Calculated ND mg/dL (0.2-0.8)
[2023-06-03] MEDS ORDERED: NA CHLORIDE 0.9% 1,000 ML ONE (05:59)
--- NOTE | 2023-06-03 07:02 | ER ---
Nurse's Notes [facility] Name: Kylee Alvarado Age: 72 yrs Sex: Female : 1950 Arrival Date: 06/03/2023 Time: 04:32 Bed 5 Private MD: Diagnosis: Unstable angina Presentation: 06/03 04:46 Chief complaint: EMS states: Patient felt like she was having indigestion all day vc1 yesterday. She woke up this morning with severe chest pain. She took 3 of her nitro and when we arrived her heart rate was in the 30's. We gave her 1 mg of atropine and 4 baby aspirin. When we arrived here her heart rate was 63 BPM. 04:46 Coronavirus screen: Vaccine status: Patient reports being unvaccinated. Client denies vc1 travel out of the [place] in the last 14 days. At this time, the client does not indicate any symptoms associated with coronavirus-19. Ebola Screen: Patient negative for fever greater than or equal to 101.5 degrees Fahrenheit, and additional compatible Ebola Virus Disease symptoms Patient denies exposure to infectious person. Patient denies travel to an Ebola-affected area in the 21 days before illness onset. No symptoms or risks identified at this time. Initial Sepsis Screen: Does the patient meet any 2 criteria? No. Patient's initial sepsis screen is negative. Does the patient have a suspected source of infection? No. Patient's initial sepsis screen is negative. Risk Assessment: Do you want to hurt yourself or someone else? Patient reports no desire to harm self or others. Note Chest pain has subsided. Onset of symptoms was June 02, 2023. Care prior to arrival: Medication(s) given: ASA, 81 mg, x 4, Atropine 1mg IV initiated. 22 GA, in the left hand, Oxygen administered. via nasal cannula. Activity prior to arrival: None. Mechanism of Injury: No Mechanism of Injury. Transition of care: patient was not received from another setting of care. 04:46 Method Of Arrival: EMS: [facility] vc1 04:46 Acuity: GERMAN 3 vc1 Triage Assessment: 05:23 General: Appears in no apparent distress. comfortable, Behavior is calm, cooperative, vc1 appropriate for age. Pain: Denies pain. EENT: No deficits noted. No signs and/or symptoms were reported regarding the EENT system. Neuro: Tse Agitation-Sedation Scale (RASS): 0 - Alert and Calm Level of Consciousness is awake, alert, obeys commands, Oriented to person, place, time, situation, Appropriate for age Denies weakness dizziness. 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 Respiratory: Airway is patent Respiratory effort is even, unlabored, Respiratory pattern is regular, symmetrical, Breath sounds are clear. GI: No deficits noted. No signs and/or symptoms were reported involving the gastrointestinal system. GI: Abdomen is flat, non-distended, Bowel sounds present X 4 quads. Abd is soft and non tender. : No deficits noted. No signs and/or symptoms were reported regarding the genitourinary system. :. Derm: No deficits noted. No signs and/or symptoms reported regarding the dermatologic system. Musculoskeletal: No deficits noted. No signs and/or symptoms reported regarding the musculoskeletal system. Historical: - Allergies: 04:49 pheradex; vc1 - Home Meds: 04:49 aspirin 81 mg Oral chew 1 tab once daily [Active]; Cymbalta 30 mg oral capsule,delayed vc1 release (e.c.) daily [Active]; losartan 50 mg oral tablet daily [Active]; clopidogrel 75 mg oral tablet daily [Active]; metoprolol succinate 25 mg oral Tablet, Extended Release 24 hr daily [Active]; famciclovir 250 mg Oral tablet [Active]; Vitamin D Oral [Active]; Magnesium Oxide Oral [Active]; biotin oral [Active]; ezetimibe 10 mg oral tablet daily [Active]; Tresiba FlexTouch U-100 100 unit/mL (3 mL) subcutaneous Insulin Pen [Active]; Novolog U-100 Insulin aspart 100 unit/mL Sub-Q solution [Active]; - PMHx: 04:49 Diabetes - IDDM; Hypertension; Myocardial infarction; vc1 - PSHx: 04:49 None; vc1 - Immunization history:: Client reports having NOT received the Covid vaccine. Pneumococcal vaccine is not up to date, Flu vaccine is not up to date. - Social history:: Smoking status: Patient denies any tobacco usage or history of. - Family history:: not pertinent. Screenin:[address] [facility] ED Fall Risk Assessment (Adult) History of falling in the last 3 months, vc1 including since admission No falls in past 3 months (0 pts) Confusion or Disorientation No (0 pts) Intoxicated or Sedated No (0 pts) Impaired Gait No (0 pts) Mobility Assist Device Used No (0 pt) Altered Elimination No (0 pt) Score/Fall Risk Level 0 - 2 = Low Risk Oriented to surroundings, Maintained a safe environment, Educated pt \T\ family on fall prevention, incl call for assistance when getting out of bed. Abuse screen: Denies threats or abuse. Nutritional screening: No deficits noted. Tuberculosis screening: No symptoms or risk factors identified. Assessment: 05:00 Reassessment: No changes from previously documented assessment. Patient and/or family vc1 updated on plan of care and expected duration. Pain level reassessed. Patient is alert, oriented x 3, equal unlabored respirations, skin warm/dry/pink. 06:00 Reassessment: Patient appears in no apparent distress at this time. No changes from vc1 previously documented assessment. Patient and/or family updated on plan of care and expected duration. Pain level reassessed. Patient is alert, oriented x 3, equal unlabored respirations, skin warm/dry/pink. 06:00 General: See triage assessment. vc1 Vital Signs: 04:46 BP 148 / 73; Pulse 59; Resp 20; Temp 97; Pulse Ox 97% ; Weight 61.69 kg; Height 5 ft. 2 vc1 in. ; Pain 0/10; 05:00 BP 142 / 71; Pulse 56; Resp 13; Pulse Ox 100% ; vc1 06:00 BP 154 / 97; Pulse 57; Resp 15; Pulse Ox 100% ; vc1 07:00 BP 106 / 73; Pulse 64; Resp 18; Pulse Ox 100% ; vc1 04:46 Body Mass Index 24.87 (61.69 kg, 157.48 cm) vc1 04:46 Pain Scale: Adult vc1 Pb Coma Score: 04:56 Eye Response: spontaneous(4). Motor Response: obeys commands(6). Verbal Response: sp4 oriented(5). Total: 15. NIH Stroke Scale Scores: 04:56 NIHSS Score: 0 sp4 ED Course: 04:46 Patient arrived in ED. jb4 04:46 Arm band placed on right wrist. vc1 04:46 Patient has correct armband on for positive identification. Bed in low position. Call vc1 light in reach. Side rails up X2. Client placed on continuous cardiac and pulse oximetry monitoring. NIBP monitoring applied. 04:49 Fabio Birmingham MD is Attending Physician. sp4 05:16 Triage completed. vc1 05:26 No provider procedures requiring assistance completed. Maintain EMS IV. Dressing vc1 intact. Good blood return noted. Site clean \T\ dry. Gauge \T\ site: 22G Left hand. 05:27 Provided Education on: EKG and lab work. vc1 05:35 XRAY Chest (1 view) In Process Unspecified. EDMS 06:23 IV discontinued, intact, bleeding controlled, No redness/swelling at site. Pressure jb4 dressing applied. Inserted saline lock: 20 gauge in right antecubital area, using aseptic technique. 07:01 Darren Oropeza MD is Hospitalizing Provider. sp4 07:05 Ana Cristina Dutta RN is Primary Nurse. iw Administered Medications: 06:14 Drug: NS 0.9% IV 1000 ml IV at 125 ml/hr continuous Route: IV; Rate: 125 ml/hr; Site: vc1 left hand; 08:00 Follow up: IV Status: Infusion continued upon admission iw Medication: 05:23 VIS not applicable for this client. vc1 Outcome: 07:02 Decision to Hospitalize by Provider. sp4 16:47 Admitted to ER Hold. [facility]. bp 16:47 Condition: stable 16:47 Instructed on the need for admit, 17:04 Patient left the ED. ld1 NIH Stroke Scale - NIH Stroke Score Date: 06/03/2023 Time: 04:56 Total Score = 0 10. Dysarthria (speech clarity - read or repeat words) - 0(Normal) 11. Extinction and Inattention (visual/tactile/auditory/spatial/personal) - 0(No abnormality) 1a. Level of Consciousness (LOC) - 0(Alert) 1b. Level of Consciousness (LOC) (Month \T\ Age) - 0(Both) 1c. LOC Commands (Open \T\ Closes Eyes/Cmm Technician) - 0(Both) 2. Best Gaze (Lateral Gaze Paresis) - 0(Normal) 3. Visual Field Loss - 0(No visual loss) 4. Facial Palsy - 0(Normal) 5a. Left Arm: Motor (10-second hold) - 0(No drift) 5b. Right Arm: Motor (10-second hold) - 0(No drift) 6a. Left Leg: Motor (5-second hold - always test supine) - 0(No drift) 6b. Right Leg: Motor (5-second hold - always test supine) - 0(No drift) 7. Limb Ataxia (finger/nose \T\ heel/dexter - test with eyes open) - 0(Absent) 8. Sensory Loss (pinprick arms/legs/face) - 0(Normal) 9. Best Language: Aphasia (description/naming/reading) - 0(No aphasia) Initials: sp4 Signatures: Dispatcher [employer] EDAna Cristina Oneill RN RN iw Denys Iglesias RN RN jb4 Irving Walton RN RN bp Dhara Mederos RN RN ld1 Alyson Bee RN RN vc1 Fabio Birmingham MD MD sp4
--- NOTE | 2023-06-03 07:03 | EDPHYS ---
Physician Documentation [facility] Name: Kylee Alvarado Age: 72 yrs Sex: Female : 1950 Arrival Date: 06/03/2023 Time: 04:32 Bed 5 Private MD: ED Physician Fabio Birmingham HPI: 06/03 04:49 This 72 yrs old Female presents to ER via Unassigned with complaints of chest sp4 pain . 04:49 72-year-old female with history of coronary artery disease and 4 stents, diabetes, sp4 presents with EMS for acute onset midsternal chest pressure associated with bradycardia at home. EMS noted that patient patient had heart rate in the 37-40 and administered IV atropine 1 mg . Patient also took 3 tablets of nitroglycerin prior to arrival. On examination in ER patient is chest pain-free. Heart rate is 60. . Historical: - Allergies: 04:49 pheradex; vc1 - Home Meds: 04:49 aspirin 81 mg Oral chew 1 tab once daily [Active]; Cymbalta 30 mg oral capsule,delayed vc1 release (e.c.) daily [Active]; losartan 50 mg oral tablet daily [Active]; clopidogrel 75 mg oral tablet daily [Active]; metoprolol succinate 25 mg oral Tablet, Extended Release 24 hr daily [Active]; famciclovir 250 mg Oral tablet [Active]; Vitamin D Oral [Active]; Magnesium Oxide Oral [Active]; biotin oral [Active]; ezetimibe 10 mg oral tablet daily [Active]; Tresiba FlexTouch U-100 100 unit/mL (3 mL) subcutaneous Insulin Pen [Active]; Novolog U-100 Insulin aspart 100 unit/mL Sub-Q solution [Active]; - PMHx: 04:49 Diabetes - IDDM; Hypertension; Myocardial infarction; vc1 - PSHx: 04:49 None; vc1 - Immunization history:: Client reports having NOT received the Covid vaccine. Pneumococcal vaccine is not up to date, Flu vaccine is not up to date. - Social history:: Smoking status: Patient denies any tobacco usage or history of. - Family history:: not pertinent. ROS: 04:49 Constitutional: Negative for fever, chills, and weight loss, sp4 04:49 All other systems are negative, Exam: 04:49 Constitutional: This is a well developed, well nourished patient who is awake, alert, sp4 and in no acute distress. Head/Face: Normocephalic, atraumatic. Eyes: Pupils equal round and reactive to light, extra-ocular motions intact. Lids and lashes normal. Conjunctiva and sclera are not injected. Cornea within normal limits. Periorbital areas with no swelling, redness, or edema. ENT: Nares patent. No nasal discharge, no septal abnormalities noted. Tympanic membranes are normal and external auditory canals are clear. Oropharynx with no redness, swelling, or masses, exudates, or evidence of obstruction, uvula midline. Mucous membranes moist. Neck: Trachea midline, no thyromegaly or masses palpated, and no cervical lymphadenopathy. Supple, full range of motion without nuchal rigidity, or vertebral point tenderness. Chest/axilla: Normal chest wall appearance and motion. Nontender with no deformity. No lesions are appreciated. Cardiovascular: Regular rate and rhythm with a normal S1 and S2. No gallops, murmurs, or rubs. Normal PMI, no JVD. No pulse deficits. Respiratory: Lungs have equal breath sounds bilaterally, clear to auscultation and percussion. No rales, rhonchi or wheezes noted. No increased work of breathing, no retractions or nasal flaring. Abdomen/GI: Soft, with normal bowel sounds. No distension or tympany. No guarding or rebound. No evidence of tenderness throughout. Back: No spinal tenderness. No costovertebral tenderness. Skin: Warm, dry with normal turgor. Normal color with no rashes, no lesions, and no evidence of cellulitis. MS/ Extremity: Pulses equal, no cyanosis. Neurovascular intact. Full, normal range of motion. Neuro: Awake and alert, GCS 15, oriented to person, place, time, and situation. Cranial nerves II-XII grossly intact. Motor strength 5/5 in all extremities. Sensory grossly intact. Psych: Awake, alert, with orientation to person, place and time. Behavior, mood, and affect are within normal limits 04:56 ECG was reviewed by the Attending Physician. EKG 0440 sinus bradycardia at the rate sp4 of 57 otherwise normal Vital Signs: 04:46 BP 148 / 73; Pulse 59; Resp 20; Temp 97; Pulse Ox 97% ; Weight 61.69 kg; Height 5 ft. 2 vc1 in. ; Pain 0/10; 05:00 BP 142 / 71; Pulse 56; Resp 13; Pulse Ox 100% ; vc1 06:00 BP 154 / 97; Pulse 57; Resp 15; Pulse Ox 100% ; vc1 07:00 BP 106 / 73; Pulse 64; Resp 18; Pulse Ox 100% ; vc1 04:46 Body Mass Index 24.87 (61.69 kg, 157.48 cm) vc1 04:46 Pain Scale: Adult vc1 NIH Stroke Scale Scores: 04:56 NIHSS Score: 0 sp4 [place] Coma Score: 04:56 Eye Response: spontaneous(4). Motor Response: obeys commands(6). Verbal Response: sp4 oriented(5). Total: 15. MDM: 04:56 Patient medically screened. sp4 06:57 Data reviewed: vital signs, nurses notes. ED course: CLINICAL HISTORY: CHEST PAIN sp4 COMPARISON: 03/17/2022. 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 Lungs are clear without consolidation, atelectasis, mass or edema. There is no pleural effusion. There is no pneumothorax. There are no acute osseous findings. IMPRESSION: Clear lungs. . 06/03 04:49 Order name: Basic Metabolic Panel; Complete Time: 06:47 sp4 06/03 04:49 Order name: CBC with Diff; Complete Time: 06:47 sp4 06/03 04:49 Order name: LFT's; Complete Time: 06:47 sp4 06/03 04:49 Order name: Magnesium; Complete Time: 06:47 sp4 06/03 04:49 Order name: NT PRO-BNP; Complete Time: 06:47 sp4 06/03 04:49 Order name: PT-INR; Complete Time: 06:47 sp4 06/03 04:49 Order name: Troponin HS; Complete Time: 06:47 sp4 06/03 07:52 Order name: CBC with Automated Diff EDMS 06/03 07:52 Order name: CBC with Automated Diff EDMS 06/03 07:52 Order name: CBC with Automated Diff EDMS 06/03 07:52 Order name: CBC with Automated Diff EDMS 06/03 07:52 Order name: Comprehensive Metabolic Panel EDMS 06/03 07:52 Order name: Comprehensive Metabolic Panel [facility] 06/03 07:52 Order name: Comprehensive Metabolic Panel [facility] 06/03 07:52 Order name: Comprehensive Metabolic Panel [facility] 06/03 07:52 Order name: Lipid Profile [facility] 06/03 07:52 Order name: Lipid Profile [facility] 06/03 07:52 Order name: Magnesium [facility] 06/03 07:52 Order name: Magnesium [facility] 06/03 07:52 Order name: Magnesium [facility] 06/03 07:52 Order name: Troponin High Sensitivity [facility] 06/03 07:52 Order name: Troponin High Sensitivity [facility] 06/03 07:52 Order name: Troponin High Sensitivity [facility] 06/03 07:52 Order name: Troponin High Sensitivity [facility] 06/03 09:34 Order name: Glucose, Ancillary Testing [facility] 06/03 12:01 Order name: Glucose, Ancillary Testing [facility] 06/03 16:50 Order name: Glucose, Ancillary Testing [facility] 06/03 04:49 Order name: XRAY Chest (1 view) [facility] 06/03 08:05 Order name: Echo with Doppler [facility] 06/03 08:05 Order name: Carotid Artery Bilateral [facility] 06/03 04:49 Order name: EKG; Complete Time: 04:49 4 06/03 07:52 Order name: CONS Physician Consult [facility] 06/03 04:49 Order name: Cardiac monitoring; Complete Time: 04:55 4 06/03 04:49 Order name: EKG - Nurse/Tech; Complete Time: 04:55 4 06/03 04:49 Order name: IV Saline Lock; Complete Time: 05:27 4 06/03 04:49 Order name: Labs collected and sent; Complete Time: 05:27 sp4 06/03 04:49 Order name: O2 Per Protocol; Complete Time: 05:27 4 06/03 04:49 Order name: O2 Sat Monitoring; Complete Time: 05:27 EC:56 Rate is 57 beats/min. Rhythm is regular, Sinus bradycardia. QRS [place] is Normal. VT sp4 interval is normal. QRS interval is normal. QT interval is normal. No Q waves. T waves are Normal. No ST changes noted. Clinical impression: No evidence of ischemia. Interpreted by me. Reviewed by me. Administered Medications: 06:14 Drug: NS 0.9% IV 1000 ml IV at 125 ml/hr continuous Route: IV; Rate: 125 ml/hr; Site: [facility] left hand; 08:00 Follow up: IV Status: Infusion continued upon admission iw Disposition Summary: 06/03/23 07:02 Hospitalization Ordered Notes: Hospitalization Status: Observation sp4 Provider: Darren Oropeza Condition: Stable sp4 Problem: new sp4 Symptoms: are unchanged sp4 Bed/Room Type: Standard sp4 Location: Telemetry/MedSurg (observation)(06/03/23 15:57) bd Room Assignment: 205(06/03/23 15:57) bd Diagnosis - Unstable angina sp4 Forms: - Medication Reconciliation Form sp4 - SBAR form sp4 - Leadership Thank You Letter sp4 NIH Stroke Scale - NIH Stroke Score Date: 06/03/2023 Time: 04:56 Total Score = 0 10. Dysarthria (speech clarity - read or repeat words) - 0(Normal) 11. Extinction and Inattention (visual/tactile/auditory/spatial/personal) - 0(No abnormality) 1a. Level of Consciousness (LOC) - 0(Alert) 1b. Level of Consciousness (LOC) (Month \T\ Age) - 0(Both) 1c. LOC Commands (Open \T\ Closes Eyes/Tanker Serviceman) - 0(Both) 2. Best Gaze (Lateral Gaze Paresis) - 0(Normal) 3. Visual Field Loss - 0(No visual loss) 4. Facial Palsy - 0(Normal) 5a. Left Arm: Motor (10-second hold) - 0(No drift) 5b. Right Arm: Motor (10-second hold) - 0(No drift) 6a. Left Leg: Motor (5-second hold - always test supine) - 0(No drift) 6b. Right Leg: Motor (5-second hold - always test supine) - 0(No drift) 7. Limb Ataxia (finger/nose \T\ heel/dexter - test with eyes open) - 0(Absent) 8. Sensory Loss (pinprick arms/legs/face) - 0(Normal) 9. Best Language: Aphasia (description/naming/reading) - 0(No aphasia) Initials: sp4 Signatures: Dispatcher [employer] EDBreana Angulo Vanessa, RN RN vc1 Phyllis Gaviria RN RN kb3 Fabio Birmingham MD MD sp4 Ana Cristina Dutta RN iw Corrections: (The following items were deleted from the chart) 08: 07:02 Telemetry/MedSurg (observation) sp4 kb3 08: 07:02 sp4 kb3 15:57 08:31 [facility] ER HOLD kb3 bd 15:57 08:31 ERHOLD- kb3 bd
--- NOTE | 2023-06-03 07:57 | P.HP ---
Certification for Inpatient With expected LOS: >2 Midnights Patient will require the following post-hospital care: None Practitioner: I am a practitioner with admitting privileges, knowledge of patient current condition, hospital course, and medical plan of care. Services: Services provided to patient in accordance with Admission requirements found in Title 42 Section 412.3 of the Code of Federal Regulations Patient History Date of Service: 06/03/23 Reason for admission: unstable angina, hypertension, bradycardia History of Present Illness: Ms. Alvarado is a 72 yo with a hx of IDDM, HTN, CAD with history of MN x 2. She takes Plavix and ASA. Yesterday she was experiencing stuttering chest pressure which she felt was indigestion. She awoke this am with severe substernal pain with radiation to back. She took Nitroglycerin and called EMS. On their arrival she was diaphoretic and bradycardic. They administered Atropine 0.5mg IV and transported her to the ED. On arrival, her heartrate was 60bpm and chest pain was resolved. On record in [facility] her last ECHO and Carotid Doppler Ultrasound was in 2018. Speaking with Ms. Alvarado, she had these studies recently at Dr. Elina ballard's office. Will admit and consult Dr. Barajas for evaluation of angina. Allergies ferumoxides [From Feridex IV] Adverse Reaction (Verified 09/28/17 21:59) Itching/Hives/Rash iodine Adverse Reaction (Verified 09/28/17 21:59) Itching/Hives/Rash Home medications list reviewed: Yes Home Medications: Aspirin [Aspir-Low] 81 mg PO DAILY 09/28/17 Cyanocobalamin (Vitamin B-12) [Cyanocobalamin Injection] 1 ml IM Q30D 09/28/17 Duloxetine HCl [Cymbalta] 30 mg PO DAILY 09/28/17 Famciclovir [Famvir] 250 mg PO BID 09/28/17 Glimepiride 4 mg PO DAILY 09/28/17 Insulin Detemir [Levemir Flextouch] 18 units SQ BEDTIME 09/28/17 Lansoprazole 30 mg PO DAILY 09/28/17 Liraglutide [Victoza 2-Adrian] 1.8 mg SQ DAILY 09/28/17 Losartan Potassium 25 mg PO DAILY 09/28/17 Metformin HCl 1,000 mg PO BID 09/28/17 Metoprolol Tartrate 25 mg PO BID 09/28/17 Ticagrelor [Brilinta*] 90 mg PO BID 09/28/17 Atorvastatin Calcium [Lipitor] 40 mg PO BEDTIME #30 tab 09/29/17 - Past Medical/Surgical History Diabetic: Yes -: iddm -: MN -: Hypertension -: GERD -: Cardiac Stents Psychosocial/ Personal History: Lives at home with her - Family History Mother -: Heart disease, Hypertension, Lung disease - Social History Smoking Status: Never smoker Alcohol use: No CD- Drugs: No Caffeine use: Yes Place of Residence: Home Review of Systems 10-point ROS is otherwise unremarkable General: Unremarkable Eyes: Unremarkable ENT: Unremarkable Respiratory: Unremarkable Cardiovascular: Chest Pain Gastrointestinal: Unremarkable Genitourinary: Unremarkable Musculoskeletal: Unremarkable Integumentary: Unremarkable Neurological: Unremarkable Lymphatics: Unremarkable Physical Examination - Vital Signs Blood Pressure: 180/70 Pulse: 60 Respirations: 11 Pulse Ox (%): 99 - Physical Exam General: Alert, In no apparent distress, Oriented x3, Other (anxious) HEENT: Atraumatic, Normocephalic Neck: 2+ carotid pulse no bruit Respiratory: Clear to auscultation bilaterally, Normal air movement Cardiovascular: No edema, Normal pulses Capillary refill: <2 Seconds Gastrointestinal: Normal bowel sounds, Soft and benign Musculoskeletal: No clubbing, No swelling Integumentary: No rashes, Other (cat scratch to right lower arm, ecchymosis to left inner arm) Neurological: Normal speech, Normal tone Lymphatics: No axilla or inguinal lymphadenopathy External genitalia: Deferred Rectal: Deferred - Studies Laboratory Data (last 24 hrs) 06/03/23 06/03/23 06/03/23 05:05 05:05 05:05 WBC 8.90 Hgb 13.2 Hct 38.2 Plt Count 324 PT 10.4 INR 0.94 Sodium 133 L Potassium 4.3 BUN 18 Creatinine 0.96 Glucose 189 H Magnesium 2.0 Total Bilirubin 0.3 AST 15 ALT 30 Alkaline Phosphatase 90 Assessment and Plan - Plan Unstable angina: last ECHO on record 09/29/2017 (as Kylee Mercado) last Carotid eval 09/28/2017 Above studies apparently just performed in Dr. Barajas's office, cancelled for now Continue current medications except Metoprolol (pt reports accidentally doubling dose recently) Glucagon 3mg IV x 1 prn significant, symptomatic bradycardia with hypotension ASA 81mg po daily Plavix 75mg po daily Essential hypertension: Losartan 50mg po daily Hold Metoprolol for now Hypertriglyceridemia: Zetia 10mg po daily Diabetes Mellitus: FSBS ac and HS with mild SSI coverage Anxiety: Continue duloxetine Lovenox 40mg sq daily DVT prophylaxis Full Code - Advance Directives Does patient have a Living Will: No Does patient have a Durable POA for Healthcare: No
[2023-06-03 09:19] VITALS: BMI 24.8
--- NOTE | 2023-06-03 11:03 | RAD REPORT ---
EXAM DESCRIPTION: RAD - Chest Single View - 06/03/2023 5:33 am CLINICAL HISTORY: CHEST PAIN COMPARISON: 03/17/2022. TECHNIQUE: XR CHEST 1 VIEW 06/03/2023 4:49 AM BI SPECIALIST FINDINGS: Cardiac silhouette is normal in size. Lungs are clear without consolidation, atelectasis, mass or edema. There is no pleural effusion. There is no pneumothorax. There are no acute osseous fin dings. IMPRESSION: Clear lungs. Electronically signed by: Tucker Carrasco MD 06/03/2023 05:54 AM BI SPECIALIST Due to temporary technical issues with the PACS/Fluency reporting system, reports are being signed by the in house radiologist without review as a courtesy to ensure prompt reporting. The interpreting r adiologist is fully responsible for the content of the report.
[2023-06-03] MEDS: INSULIN REGULAR (HUMAN) 100 UNIT/ML SQ SCH (11:30)
[2023-06-03] MEDS ORDERED: INSULIN REGULAR (HUMAN) 100 UNIT/ML ONE ×2 (12:05→16:41)
[2023-06-03] MEDS ORDERED: SODIUM CHLORIDE 0.9% 10ML INJ IV PRN (12:06)
[2023-06-03] MEDS ORDERED: GLUCAGON 1 MG/VIAL IV PRN (12:06)
[2023-06-03] MEDS ORDERED: ENOXAPARIN 40 MG/0.4 ML SQ ONE (14:45)
[2023-06-03] MEDS: ENOXAPARIN 40 MG/0.4 ML SQ SCH (16:45)
[2023-06-03] MEDS: EZETIMIBE 10 MG TAB PO SCH (20:50)
[2023-06-03] MEDS: TICAGRELOR 90 MG TABLET PO SCH (20:50)
[2023-06-03] MEDS: ATORVASTATIN 40 MG TAB PO SCH (20:50)
[2023-06-03] MEDS: HYDRALAZINE HCL 20 MG/ML VIAL IV PRN (20:51)
[2023-06-03] MEDS: INSULIN GLARGINE 100 UNIT/ML SQ SCH (20:52)
[2023-06-03] MEDS: FAMCICLOVIR 250 MG PO SCH (21:00)
[2023-06-03] MEDS ORDERED: HOME MED 1 EA UNK (Metformin Hcl [Metformin Hcl] 1,000 MG Tablet) PO SCH (21:00)
[2023-06-03] MEDS ORDERED: INSULIN GLARGINE 100 UNIT/ML SQ SCH (21:00)
[2023-06-03] MEDS ORDERED: [UNRECOGNIZED DRUG - OTHER] SQ SCH (21:00)
[2023-06-03] MEDS ORDERED: FAMCICLOVIR 250 MG PO SCH (21:00)
[2023-06-03] MEDS: ACETAMINOPHEN 325 MG TABLET PO PRN (23:08)
[2023-06-04 04:41] LABS: Absolute Lymphocytes (CBC) 2.4 K/uL (0.7-4.9); Hematocrit 39.5 % (36.0-45.0); Lymphocytes % 25.4 % (15.3-44.8); MCV 84.8 fL (80-100); MPV 8.1 fL (7.6-11.3); Platelets 351 thou/uL (152-406); RBC Red Blood Cell Count 4.66 M/uL (3.86-4.86)
[2023-06-04 05:02] LABS: Albumin 3.3 g/dL (3.4-5.0); Bilirubin Total 0.4 mg/dL (0.2-1.0); Magnesium 1.8 mg/dL (1.6-2.4); Potassium 4.2 mEq/L (3.5-5.1); Protein, Total 6.5 g/dL (6.4-8.2); Troponin High Sensitivity 7.5 pg/mL (<58.9)
[2023-06-04] MEDS: GLIMEPIRIDE 2 MG TABLET PO SCH (08:00)
[2023-06-04] MEDS: METFORMIN HCL 500 MG TAB PO SCH (08:00)
[2023-06-04] MEDS ORDERED: LOSARTAN POTASSIUM 50 MG TABLET PO SCH ×2 (09:00→21:00)
[2023-06-04] MEDS: CYANOCOBALAMIN 1000MCG/ML INJ IM SCH (09:00)
[2023-06-04] MEDS ORDERED: GLIMEPIRIDE PO SCH (09:00)
[2023-06-04] MEDS ORDERED: HOME MED 1 EA UNK (Losartan Potassium [Losartan Potassium] 25 MG Tablet) PO SCH (09:00)
[2023-06-04] MEDS: LIRAGLUTIDE 0.6 MG/0.1 ML SQ SCH (09:00)
[2023-06-04] MEDS ORDERED: PANTOPRAZOLE 40 MG INJ IVP SCH (09:00)
[2023-06-04] MEDS ORDERED: DULOXETINE 30 MG CAP PO SCH (09:00)
[2023-06-04] MEDS ORDERED: CLOPIDOGREL 75 MG TABLET PO SCH (09:00)
[2023-06-04] MEDS ORDERED: LANSOPRAZOLE PO SCH (09:00)
[2023-06-04] MEDS: PANTOPRAZOLE 40MG TABLET PO SCH (09:17)
[2023-06-04] MEDS: LOSARTAN POTASSIUM 50 MG TABLET PO SCH (09:18)
[2023-06-04] MEDS: DULOXETINE 30 MG CAP PO SCH (09:23)
[2023-06-04] MEDS: ASPIRIN EC 81 MG TAB PO SCH (09:23)
[2023-06-04] MEDS: MAGNESIUM SULFATE 1 gm IVPB 1 GM/100 ML BAG IV ONE (09:24)
[2023-06-04] MEDS: FAMCICLOVIR 250 MG PO SCH (10:10)
[2023-06-04 11:13] VITALS: O2SAT 98
[2023-06-04] MEDS: AMLODIPINE 5 MG TAB PO ONE (14:40)
--- NOTE | 2023-06-04 15:28 | EKG ---
Test Date: 2023-06-03 Test Time: 04:40:13 Telephonic Case Manager: HECTOR MEASUREMENT RESULTS: Intervals: Rate: 57 AK: 174 QRSD: 72 QT: 464 QTc: 451 [place]: P: 45 AK: 174 QRS: 34 T: 57 INTERPRETIVE STATEMENTS: Sinus bradycardia Otherwise normal ECG Compared to ECG 05/21/2023 09:26:45 No significant changes Electronically Signed On 06-04-23 15:24:45 PULLMAN CLERK by Kiran Barajas
--- NOTE | 2023-06-04 15:58 | P.DS ---
Admission Date: 06/03/23 Discharge Date: 06/04/23 Disposition: ROUTINE DISCHARGE Discharge Condition: GOOD Reason for Admission: unstable angina, hypertension, bradycardia Brief History of Present Illness: Ms. Alvarado is a 72 yo with a hx of IDDM, HTN, CAD with history of SC x 2. She takes Plavix and ASA. Yesterday she was experiencing stuttering chest pressure which she felt was indigestion. She awoke this am with severe substernal pain with radiation to back. She took Nitroglycerin and called EMS. On their arrival she was diaphoretic and bradycardic. They administered Atropine 0.5mg IV and transported her to the ED. On arrival, her heartrate was 60bpm and chest pain was resolved. On record in [facility] her last ECHO and Carotid Doppler Ultrasound was in 2018. Speaking with Ms. Alvarado, she had these studies recently at Dr. Barajas's office. Will admit and consult Dr. Barajas for evaluation of angina. Hospital Course: Dr. Barajas cleared Ms. Alvarado from office studies, seeing her now. Will go home with blood pressure control and follow up in his office. Vital Signs/Physical Exam: Temp Pulse Resp BP Pulse Ox 98.4 F 66 18 162/70 H 99 06/04/23 12:00 06/04/23 12:00 06/04/23 12:00 06/04/23 12:00 06/04/23 12:00 General: In no apparent distress HEENT: Atraumatic, Normocephalic Neck: Supple Respiratory: Normal air movement Cardiovascular: No edema, Normal pulses Capillary refill: <2 Seconds Gastrointestinal: Soft and benign Musculoskeletal: No clubbing, No swelling Integumentary: No rashes Neurological: Normal tone Lymphatics: No axilla or inguinal lymphadenopathy External genitalia: Deferred Rectal: Deferred Laboratory Data at Discharge: WBC 9.40 thou/uL (4.3-10.9) 06/04/23 04:21 Hgb 13.3 g/dL (12.0-15.0) 06/04/23 04:21 Hct 39.5 % (36.0-45.0) 06/04/23 04:21 Plt Count 351 thou/uL (152-406) 06/04/23 04:21 PT 10.4 SECONDS (9.5-12.5) 06/03/23 05:05 INR 0.94 06/03/23 05:05 Sodium 133 mEq/L (136-145) L 06/04/23 04:21 Potassium 4.2 mEq/L (3.5-5.1) 06/04/23 04:21 BUN 15 mg/dL (7-18) 06/04/23 04:21 Creatinine 0.94 mg/dL (0.55-1.02) 06/04/23 04:21 Glucose 175 mg/dL (74-106) H 06/04/23 04:21 Magnesium 1.8 mg/dL (1.6-2.4) 06/04/23 04:21 Total Bilirubin 0.4 mg/dL (0.2-1.0) 06/04/23 04:21 AST 24 U/L (15-37) 06/04/23 04:21 ALT 28 U/L (13-56) 06/04/23 04:21 Alkaline Phosphatase 84 U/L (45-117) 06/04/23 04:21 Triglycerides 88 mg/dL (<150) 06/03/23 05:05 Cholesterol 185 mg/dL (<200) 06/03/23 05:05 HDL Cholesterol 49 mg/dL (40-60) 06/03/23 05:05 Cholesterol/HDL Ratio 3.78 06/03/23 05:05 Home Medications: Aspirin [Aspir-Low] 81 mg PO DAILY 09/28/17 Duloxetine HCl [Cymbalta] 30 mg PO DAILY 09/28/17 Famciclovir [Famvir] 250 mg PO DAILY 09/28/17 Clopidogrel Bisulfate [Plavix*] 75 mg PO DAILY 06/04/23 Ezetimibe [Zetia*] 10 mg PO DAILY 06/04/23 Insulin Degludec [Tresiba Flextouch U-100] 26 units SQ DAILY 06/04/23 Losartan Potassium 100 mg PO DAILY #60 tab 06/04/23 New Medications: Losartan Potassium 100 mg PO DAILY #60 tab Followup: Kiran Barajas MD [ACTIVE - CAN ADMIT] - Eunice Buenrostro NP [OUTSIDE PHYSICIAN] -
[2023-06-04 17:55] VITALS: BP 165/76; TEMP 98.2
--- NOTE | 2023-06-04 18:59 | CON ---
Date of Consultation: 06/04/2023 Reason For Consultation: Chest pain. History Of Present Illness: A 72-year-old female, history of diabetes, hypertension, coronary artery disease, dyslipidemia, presented to emergency room with chest pressure. It was at rest, woke her up , radiated to her back, took nitroglycerin, and called EMS. It was reported she was diaphoretic and bradycardic on arrival. She was given atropine and transported to the emergency room. Chest pain nam s resolved completely and she feels much better. Cardiac enzymes have been negative. She had a rece nt stress test in my office in March, it was normal. Past Medical History: As outlined above in HPI. Medications: Refer reconciliation sheet for detailed list. Allergies: FUROSEMIDE AND IODINE. Family History: No premature coronary artery disease or cancer. Social History: She does not smoke or drink. Does not use any drugs. Review of Systems: All systems were reviewed and were negative except as mentioned in the HPI. Physical Examination: Vital Signs: Reviewed. Head and Neck: Pupils are equal, reactive to light. Intact eye movements. No JVD. No cervical lym phadenopathy. Neck: Supple. Thyroid is not enlarged. Lungs: Clear to auscultation bilaterally. No rhonchi, rales, or crackles. No accessory muscle use. Heart: Regular rate and rhythm. No extra sounds. Abdomen: Soft, nontender. Bowel sounds positive. No organomegaly. No masses or hernia. No rigidi ty or rebound. Extremities: No edema, clubbing, cyanosis. Intact pulses. Skin: No rashes. Neurologic: Alert, awake, oriented x3. No acute focal deficits appreciated. Investigations: Cardiac enzymes are negative. BUN 15, creatinine 0.94, and hemoglobin is 13.3. Assessment/recommendation: 1.Chest pain. It is atypical. Negative cardiac enzymes, negative stress test in March, likely n oncardiac. At this point, no further cardiac workup will be done unless she gets recurrent symptoms that are exertional. 2.Hypertension. Blood pressure is very high. I recommend to continue current management. If blood pressure continues to be elevated, I would add a low-dose hydrochlorothiazide 12.5 mg daily. 3.Dyslipidemia. Continue statin. Thank you for the consult. /JOEL Voice ID: [id number] Report ID: [id number]
[2023-06-04] MEDS ORDERED: FAMCICLOVIR 250 MG PO SCH (21:00)
[2023-06-05] MEDS ORDERED: AMLODIPINE 10 MG TAB PO SCH (09:00)
== END 2023-06-04 18:13 | disposition home or self-care (01) | DRG 303 ==
LOC: ER 04:32 → ERHOLD 08:05 → 2ND 16:04
PROVIDERS: ADMIT Hospitalist; ATTEND Hospitalist
DX: I25.110 Atherosclerotic heart disease of native coronary artery with unstable angina pectoris (principal); I10 Essential (primary) hypertension; E11.9 Type 2 diabetes mellitus without complications; F41.9 Anxiety disorder, unspecified; E78.1 Pure hyperglyceridemia; K21.9 Gastro-esophageal reflux disease without esophagitis; I25.2 Old myocardial infarction; R00.1 Bradycardia, unspecified; Z79.4 Long term (current) use of insulin; Z88.8 Allergy status to other drugs, medicaments and biological substances; Z95.5 Presence of coronary angioplasty implant and graft; Z79.82 Long term (current) use of aspirin; Z79.02 Long term (current) use of antithrombotics/antiplatelets; Z28.310 Unvaccinated for COVID-19; Z79.899 Other long term (current) drug therapy
CPT/HCPCS: 36415; 71045; 80048; 80053; 80061; 80076; 82947; 83735; 83880; 84484; 85025; 85610; 93005; 96360; 96361; 99285; J0360; J1650; J1815; J3475; J7030

== ENCOUNTER 2023-07-28 10:50 | Inpatient (IN) | payer OTHER ==
[2023-07-28 11:19] LABS: Absolute Basophils 0.1 K/uL (0-0.5); Absolute Eosinophils 0.1 K/uL (0-0.5); Absolute Lymphocytes (CBC) 1.5 K/uL (0.7-4.9); Absolute Monocytes 0.6 K/uL (0.1-1.3); Basophils % 0.8 % (0-1.3); Hematocrit 39.3 % (36.0-45.0); Hemoglobin 13.1 g/dL (12.0-15.0); Lymphocytes % 18.5 % (15.3-44.8); MCH 28.5 pg (27.0-35.0); MCHC 33.5 g/dL (32.0-36.0); MPV 7.8 fL (7.6-11.3); Monocytes % 7.6 % (3.3-12.3); Neutrophils % 72.1 % (41.7-73.7); Nucleated Red Blood Cells % 0.1 % (0-0); Platelets 392 thou/uL (152-406); RBC Red Blood Cell Count 4.62 M/uL (3.86-4.86); Red Cell Distribution Width 13.5 % (12.1-15.2)
[2023-07-28 11:36] LABS: Anion Gap 7.9 mEq/L (5.0-15.0); Potassium 4.9 mEq/L (3.5-5.1); Troponin High Sensitivity 3.7 pg/mL (<58.9)
--- NOTE | 2023-07-28 11:48 | RAD REPORT ---
EXAM DESCRIPTION: CT - Head Brain Wo Cont - 07/28/2023 11:20 am CLINICAL HISTORY: Aphasia;Dizziness COMPARISON: Head angio dated 07/28/2023; Ct Stroke Brain Wo Cont dated 09/28/2017; Neck Angio dated ; Brain Wo Cont dated 08/22/2021 TECHNIQUE: Noncontrast head CT images were obtained without IV contrast. Multiplanar reformats were generated and reviewed. All CT scans are performed using dose optimization technique as appropriate and may include automated exposure control or mA/KV adjustment according to patient size. FINDINGS: No intracranial hemorrhage, mass, or edema. Midline structures are unremarkable. Normal ventricular caliber for age. Right anterior basal ganglia focus of hypoattenuation and volume loss, and another small right centru m semiovale focus of hypoattenuation, both are stable since the prior MRI, and suggestive of sequelae of remote ischemia. Other nonspecific mild periventricular and deep white matter hypodensities, most suggestive of chronic small vessel ischemic changes. Marte-white matter differentiation elsewhere is preserved, without evidence of acute infarct. No abnormal extra-axial fluid collections. Mastoid air cells and visualized portions of the paranasal sinuses are clear. No acute bony findings. IMPRESSION: No evidence of an acute intracranial process. Stable chronic findings as above.
--- NOTE | 2023-07-28 12:10 | RAD REPORT ---
EXAM DESCRIPTION: CT - Head angio - 07/28/2023 11:20 am CLINICAL HISTORY: Aphasia;Dizziness COMPARISON: Ct Stroke Brain Wo Cont dated 09/28/2017 TECHNIQUE: Axial CT angiography images of the head was performed with multiplanar and maximum intens ity projection reconstructions. Images performed following intravenous administration of 100mL Isovue 370. All CT scans are performed using dose optimization technique as appropriate and may include automated exposure control or mA/KV adjustment according to patient size. FINDINGS: No evidence of large vessel occlusion. Multifocal and short-segment mild degrees of stenos is along the left more than right MCA branches and left posterior cerebral artery. No evidence of ane urysm or dissection flap is detected. No flow-limiting stenosis or vascular malformation identified. Antegrade flow is seen in the vertebral arteries. The vertebral arteries are codominant. The visualized dural venous sinuses are grossly patent. IMPRESSION: No evidence of large vessel occlusion or flow-limiting stenosis. Multifocal and short segment mild degrees of stenosis along the anterior and posterior circulation ve ssels.
--- NOTE | 2023-07-28 12:14 | RAD REPORT ---
EXAM DESCRIPTION: CT - Neck Angio - 07/28/2023 11:20 am CLINICAL HISTORY: dizziness COMPARISON: No comparisons TECHNIQUE: Axial CT angiography images of the neck was performed with multiplanar and maximum intens ity projection reconstructions. Images performed following intravenous administration of 100mL Isovue 370. All CT scans are performed using dose optimization technique as appropriate and may include automated exposure control or mA/KV adjustment according to patient size. Quantification of carotid stenosis, if any, is performed according to NASCET criteria. FINDINGS: A left aortic arch is identified with normal three vessel configuration of the great vesse ls. No significant flow abnormality is seen of the common carotid bilaterally. No significant stenosis is identified involving the cervical segments of both internal carotid arteri es. Mild calcified plaque at the carotid bulbs bilaterally. Normal flow is seen within both vertebral arteries. Up to moderate multilevel cervical spine degenerative changes. IMPRESSION: No significant flow abnormality of the neck vessels is identified. CAROTID STENOSIS REFERENCE USING NASCET CRITERIA: % ICA stenosis = (1 - narrowest ICA diameter/diameter of distal cervical ICA) x 100. Mild - <50% stenosis. Moderate - 50-69% stenosis. Severe - 70-94% stenosis. Near occlusion - 95-99% stenosis. Occluded - 100% stenosis.
[2023-07-28] MEDS ORDERED: NA CHLORIDE 0.9% 500 ML ONE (12:38)
--- NOTE | 2023-07-28 13:21 | EDPHYS ---
Physician Documentation [facility] Name: Kylee Alvarado Age: 72 yrs Sex: Female : 1950 Arrival Date: 07/28/2023 Time: 10:50 Bed 5 Private MD: ED Physician Cong Aguilar HPI: 07/27 11:01 This 72 yrs old Female presents to ER via Unassigned with complaints of S/S of Possible rn Stroke. 11:01 The patient's problem is reported as difficulty walking, dysphasia. Onset: The rn symptoms/episode began/occurred yesterday. Duration: The episode is continuous. The symptoms are alleviated by nothing. The symptoms are aggravated by nothing. Associated signs and symptoms: Pertinent positives: ataxia, Pertinent negatives: abdominal pain, blurred vision, chest pain, headache, seizure, shortness of breath. Severity of symptoms: At their worst the symptoms were mild in the emergency department the symptoms are worse. The patient has experienced a previous episode. Patient reports difficulty walking and difficulty with speech since yesterday. States last known normal was sometime yesterday. No head injury. 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 Takes Plavix. Denies focal weakness or numbness. No vision changes. [place] symptoms were worse so came in. Historical: - Allergies: 11:09 pheradex; ap3 - PMHx: 11:09 Diabetes - IDDM; Hypertension; Myocardial infarction; ap3 - Immunization history:: Client reports having NOT received the Covid vaccine. Flu vaccine is not up to date. - Infectious Disease History:: Denies. - Family history:: not pertinent. - Social history:: Smoking status: Patient denies any tobacco usage or history of. - Hospitalizations: : No recent hospitalization is reported. ROS: 11:01 Constitutional: Negative for fever, chills, and weight loss, Eyes: Negative for injury, rn pain, redness, and discharge, Neck: Negative for injury, pain, and swelling, Cardiovascular: Negative for chest pain, palpitations, and edema, Respiratory: Negative for shortness of breath, cough, wheezing, and pleuritic chest pain, Abdomen/GI: Negative for abdominal pain, nausea, vomiting, diarrhea, and constipation, MS/Extremity: Negative for injury and deformity, Skin: Negative for injury, rash, and discoloration, Neuro: Positive for difficulty walking and with speech. No focal weakness or numbness. Exam: 11:01 Constitutional: This is a well developed, well nourished patient who is awake, alert, rn and in no acute distress. Requires assistance out of wheelchair to bed. Head/Face: Normocephalic, atraumatic. Eyes: Pupils equal round and reactive to light, extra-ocular motions intact. Cardiovascular: Regular rate and rhythm. No pulse deficits. Respiratory: No increased work of breathing, no retractions or nasal flaring. Abdomen/GI: Soft, non-tender Skin: Warm, dry MS/ Extremity: Pulses equal, no cyanosis. Neuro: Awake and alert, GCS 15, oriented to person, place, time, and situation. Cranial nerves II-XII grossly intact. Motor strength 5/5 in all extremities. Sensory grossly intact. Difficulty with ambulation into bed, requires assistance. Slight disruption in speech but all words comprehensible and correct identification of objects 11:21 ECG was reviewed by the Attending Physician. rn Vital Signs: 11:01 BP 149 / 70; Pulse 52; Resp 19; Pulse Ox 100% ; Weight 70.76 kg; ap3 12:52 BP 156 / 67; Pulse 51; Resp 16; Pulse Ox 100% on R/A; Pain 0/10; ld2 14:36 BP 126 / 63; Pulse 59; Resp 16 S; Pulse Ox 99% on R/A; as6 12:52 Pain Scale: Adult ld2 NIH Stroke Scale Scores: 10:55 NIHSS Score: 0 rs5 12:57 NIHSS Score: 0 rs5 13:18 NIHSS Score: 1 rn Pb Coma Score: 12:52 Eye Response: spontaneous(4). Motor Response: obeys commands(6). Verbal Response: ld2 oriented(5). Total: 15. MDM: 10:54 Patient medically screened. rn 13:18 Differential diagnosis: CVA, TIA, metabolic disorder. Data reviewed: vital signs, rn nurses notes, lab test result(s), EKG, radiologic studies, CT scan, and as a result, I will admit patient. Consideration of Admission/Observation Patient was admitted/placed on observation. Escalation of care including admission/observation considered. Counseling: I had a detailed discussion with the patient and/or guardian regarding the historical points, exam findings, and any diagnostic results supporting the discharge/admit diagnosis, lab results, radiology results, the need for further work-up and treatment in the hospital. 07/27 10:59 Order name: Basic Metabolic Panel; Complete Time: 12:17 rn 07/27 10:59 Order name: CBC with Diff; Complete Time: 12:17 rn 07/27 10:59 Order name: High Sensitivity Troponin; Complete Time: 12:17 rn 07/27 10:59 Order name: Protime (+inr) rn 07/27 10:59 Order name: Ptt, Activated rn 07/27 11:33 Order name: CREATININE WHOLE BLOOD; Complete Time: 12:17 EDMS 07/27 13:45 Order name: Thyroid Stimulating Hormone EDMS 07/27 13:45 Order name: Urinalysis w/ reflexes EDMS 07/27 13:45 Order name: CBC with Automated Diff EDMS 07/27 13:45 Order name: CBC with Automated Diff EDMS 07/27 13:45 Order name: CBC with Automated Diff EDMS 07/27 13:45 Order name: CBC with Automated Diff EDMS 07/27 13:45 Order name: Comprehensive Metabolic Panel EDMS 07/27 13:45 Order name: Comprehensive Metabolic Panel EDMS 07/27 13:45 Order name: Comprehensive Metabolic Panel EDMS 07/27 13:45 Order name: Comprehensive Metabolic Panel EDMS 07/27 13:45 Order name: Creatine Phosphokinase EDMS 07/27 13:45 Order name: Creatine Phosphokinase EDMS 07/27 13:45 Order name: Lipid Profile EDMS 07/27 13:45 Order name: Lipid Profile EDMS 07/27 13:45 Order name: Magnesium EDMS 07/27 13:45 Order name: Magnesium EDMS 07/27 13:45 Order name: Magnesium EDMS 07/27 13:45 Order name: Magnesium EDMS 07/27 13:45 Order name: Phosphorus EDMS 07/27 13:45 Order name: Phosphorus EDMS 07/27 13:45 Order name: Phosphorus EDMS 07/27 13:45 Order name: Phosphorus EDMS 07/27 10:59 Order name: CT Head Brain wo Cont; Complete Time: 12:17 rn 07/27 10:59 Order name: Head Angio CT; Complete Time: 12:17 rn 07/27 10:59 Order name: Neck Angio CT; Complete Time: 12:17 rn 07/27 10:59 Order name: EKG; Complete Time: 10:59 rn 07/27 13:45 Order name: CONS Physician Consult EDMS 07/27 10:59 Order name: Accucheck; Complete Time: 11: rn 07/27 10:59 Order name: Cardiac monitoring; Complete Time: 11: rn 07/27 10:59 Order name: EKG - Nurse/Tech; Complete Time: 11: rn 07/27 10:59 Order name: IV Saline Lock; Complete Time: 11: rn 07/27 10:59 Order name: Labs collected and sent; Complete Time: 11: rn 07/27 10:59 Order name: NPO; Complete Time: 11: rn 07/27 10:59 Order name: O2 Per Protocol; Complete Time: 11: rn 07/27 10:59 Order name: O2 Sat Monitoring; Complete Time: 11: rn 07/27 10:59 Order name: Stroke Swallow Screen; Complete Time: 11:17 rn EC:21 Rate is 51 beats/min. Rhythm is regular. QRS [place] is Normal. MA interval is normal. QRS rn interval is normal. QT interval is normal. No Q waves. T waves are Normal. No ST changes noted. Clinical impression: Sinus bradycardia. Interpreted by me. Administered Medications: 12:51 Drug: NS 0.9% IV 500 ml IV at bolus once Route: IV; Rate: bolus; Infused Over: 1 hrs; ld2 Site: right antecubital; 14:08 Follow up: IV Status: Completed infusion; IV Intake: 500ml ld2 Disposition Summary: 07/28/23 13:20 Hospitalization Ordered Notes: Hospitalization Status: Inpatient Admission rn Provider: Telma Marie rn [facility] (Inpatient) rn Condition: Stable rn Problem: new rn Symptoms: have improved rn Bed/Room Type: Standard rn Room Assignment: 216(07/28/23 13:52) bd Diagnosis - Ataxia, unspecified rn - Slurred speech rn - Hypo-osmolality and hyponatremia rn Forms: - Medication Reconciliation Form rn - SBAR form rn - Leadership Thank You Letter rn NIH Stroke Scale - NIH Stroke Score Date: 07/28/2023 Time: 10:55 Total Score = 0 10. Dysarthria (speech clarity - read or repeat words) - 0(Normal) 11. Extinction and Inattention (visual/tactile/auditory/spatial/personal) - 0(No abnormality) 1a. Level of Consciousness (LOC) - 0(Alert) 1b. Level of Consciousness (LOC) (Month \T\ Age) - 0(Both) 1c. LOC Commands (Open \T\ Closes Eyes/Hand Packer/Packager) - 0(Both) 2. Best Gaze (Lateral Gaze Paresis) - 0(Normal) 3. Visual Field Loss - 0(No visual loss) 4. Facial Palsy - 0(Normal) 5a. Left Arm: Motor (10-second hold) - 0(No drift) 5b. Right Arm: Motor (10-second hold) - 0(No drift) 6a. Left Leg: Motor (5-second hold - always test supine) - 0(No drift) 6b. Right Leg: Motor (5-second hold - always test supine) - 0(No drift) 7. Limb Ataxia (finger/nose \T\ heel/dexter - test with eyes open) - 0(Absent) 8. Sensory Loss (pinprick arms/legs/face) - 0(Normal) 9. Best Language: Aphasia (description/naming/reading) - 0(No aphasia) Initials: rs5 NIH Stroke Scale - NIH Stroke Score Date: 07/28/2023 Time: 12:57 Total Score = 0 10. Dysarthria (speech clarity - read or repeat words) - 0(Normal) 11. Extinction and Inattention (visual/tactile/auditory/spatial/personal) - 0(No abnormality) 1a. Level of Consciousness (LOC) - 0(Alert) 1b. Level of Consciousness (LOC) (Month \T\ Age) - 0(Both) 1c. LOC Commands (Open \T\ Closes Eyes/Hand Packer/Packager) - 0(Both) 2. Best Gaze (Lateral Gaze Paresis) - 0(Normal) 3. Visual Field Loss - 0(No visual loss) 4. Facial Palsy - 0(Normal) 5a. Left Arm: Motor (10-second hold) - 0(No drift) 5b. Right Arm: Motor (10-second hold) - 0(No drift) 6a. Left Leg: Motor (5-second hold - always test supine) - 0(No drift) 6b. Right Leg: Motor (5-second hold - always test supine) - 0(No drift) 7. Limb Ataxia (finger/nose \T\ heel/dexter - test with eyes open) - 0(Absent) 8. Sensory Loss (pinprick arms/legs/face) - 0(Normal) 9. Best Language: Aphasia (description/naming/reading) - 0(No aphasia) Initials: rs5 NIH Stroke Scale - NIH Stroke Score Date: 07/28/2023 Time: 13:18 Total Score = 1 10. Dysarthria (speech clarity - read or repeat words) - 1(Mild to Moderate) 11. Extinction and Inattention (visual/tactile/auditory/spatial/personal) - 0(No abnormality) 1a. Level of Consciousness (LOC) - 0(Alert) 1b. Level of Consciousness (LOC) (Month \T\ Age) - 0(Both) 1c. LOC Commands (Open \T\ Closes Eyes/Hand Packer/Packager) - 0(Both) 2. Best Gaze (Lateral Gaze Paresis) - 0(Normal) 3. Visual Field Loss - 0(No visual loss) 4. Facial Palsy - 0(Normal) 5a. Left Arm: Motor (10-second hold) - 0(No drift) 5b. Right Arm: Motor (10-second hold) - 0(No drift) 6a. Left Leg: Motor (5-second hold - always test supine) - 0(No drift) 6b. Right Leg: Motor (5-second hold - always test supine) - 0(No drift) 7. Limb Ataxia (finger/nose \T\ heel/dexter - test with eyes open) - 0(Absent) 8. Sensory Loss (pinprick arms/legs/face) - 0(Normal) 9. Best Language: Aphasia (description/naming/reading) - 0(No aphasia) Initials: rn Signatures: Dispatcher [employer] EDMS Breana Hodgson Roman, MD MD rn Prokisch, Amanda, RN RN ap3 Terrie Cabral, RN RN ld2 Corrections: (The following items were deleted from the chart) 10:59 10:59 BASIC METABOLIC PANEL+C.LAB.BRZ ordered. EDMS EDMS 10:59 10:59 CBC+H.LAB.BRZ ordered. EDMS EDMS 10:59 10:59 Troponin High Sensitivity+C.LAB.BRZ ordered. EDMS EDMS 10:59 10:59 PROTIME (+INR)+COAG.LAB.BRZ ordered. EDMS EDMS 10:59 10:59 PTT, ACTIVATED+COAG.LAB.BRZ ordered. EDMS EDMS 10:59 10:59 Head Brain Wo Cont+CT.RAD.BRZ ordered. EDMS EDMS 11:00 11:00 Head Angio+CT.RAD.BRZ ordered. EDMS EDMS 11:00 11:00 Neck Angio+CT.RAD.BRZ ordered. EDMS EDMS 11:03 11:01 Patient reports difficulty walking and difficulty with speech since rn yesterday. States last known normal was sometime yesterday. No head injury. 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 Takes Plavix. Denies focal weakness or numbness. No vision changes.. rn 13:52 13:20 rn bd
--- NOTE | 2023-07-28 13:21 | ER ---
Nurse's Notes [facility] [place] Name: Kylee Alvarado Age: 72 yrs Sex: Female : 1950 Arrival Date: 07/28/2023 Time: 10:50 Bed 5 Private MD: Diagnosis: Ataxia, unspecified;Slurred speech;Hypo-osmolality and hyponatremia Presentation: 07/27 11:01 Chief complaint: Patient states: she has been having increased difficulty walking and ap3 talking over the last two days. patient states she feels her tongue feels "heavy" and feels that her walk is as though she feels intoxicated. Coronavirus screen: At this time, the client does not indicate any symptoms associated with coronavirus-19. Ebola Screen: No symptoms or risks identified at this time. Initial Sepsis Screen: Does the patient meet any 2 criteria? No. Patient's initial sepsis screen is negative. Does the patient have a suspected source of infection? No. Patient's initial sepsis screen is negative. Risk Assessment: Do you want to hurt yourself or someone else? Patient reports no desire to harm self or others. Onset of symptoms was July 26, 2023. 11:01 Method Of Arrival: Wheelchair ap3 11:01 Acuity: GERMAN 3 ap3 11:05 An acute neurological deficit is present. The charge nurse has been notified. The rs5 patients blood glucose was checked before arriving to the hospital and was found to be normal. Triage Assessment: 11:10 The onset of the patients symptoms was July 26, 2023 at 00:00. General: Appears in no ap3 apparent distress. Behavior is calm, cooperative. Pain: Denies pain. Neuro: Reports difficulty speaking and walking. Neuro:. Cardiovascular: Patient's skin is warm and dry. Respiratory: Airway is patent Respiratory effort is even, unlabored, Respiratory pattern is regular, symmetrical. Historical: - Allergies: 11:09 pheradex; ap3 - PMHx: 11:09 Diabetes - IDDM; Hypertension; Myocardial infarction; ap3 - Immunization history:: Client reports having NOT received the Covid vaccine. Flu vaccine is not up to date. - Infectious Disease History:: Denies. - Family history:: not pertinent. - Social history:: Smoking status: Patient denies any tobacco usage or history of. - Hospitalizations: : No recent hospitalization is reported. Screenin:58 [facility] ED Fall Risk Assessment (Adult) History of falling in the last 3 months, rs5 including since admission No falls in past 3 months (0 pts) Confusion or Disorientation No (0 pts) Intoxicated or Sedated No (0 pts) Impaired Gait Yes (1 pt) Mobility Assist Device Used No (0 pt) Altered Elimination No (0 pt) Score/Fall Risk Level 0 - 2 = Low Risk Oriented to surroundings, Maintained a safe environment. Abuse screen: Denies threats or abuse. Nutritional screening: No deficits noted. Tuberculosis screening: No symptoms or risk factors identified. Assessment: 10:55 VAN Scoring: Arm Drift: Patients demonstrates NO arm weakness. Patient is VAN Negative. rs5 Visual Disturbance: No visual disturbance noted. Aphasia: No aphasia noted. Neglect: No neglect noted. 10:56 Neuro: Level of Consciousness is awake, alert, obeys commands, Oriented to person, rs5 place, time, situation, Water Resources Engineer are equal bilaterally Moves all extremities. Gait is steady, Speech is normal, Facial symmetry appears normal, Pupils are PERRLA, Intact. 10:56 General: Appears in no apparent distress. comfortable, Behavior is calm, cooperative. rs5 Pain: Denies pain. Neuro: Level of Consciousness is awake, alert, obeys commands, Oriented to person, place, time, situation, Water Resources Engineer are equal bilaterally Moves all extremities. Gait is steady, Speech is normal, Facial symmetry appears normal, Pupils are PERRLA, Intact pt states "I'm having trouble saying my S's and I feel a bit uncoordinated when I walk. I feel like a bit clumsy like I might fall". 10:56 Cardiovascular: Patient's skin is warm and dry. Rhythm is regular. Respiratory: Airway rs5 is patent Respiratory effort is even, unlabored, Respiratory pattern is regular, symmetrical. GI: Abdomen is round non-distended, Abd is soft and non tender X 4 quads. : No signs and/or symptoms were reported regarding the genitourinary system. EENT: No signs and/or symptoms were reported regarding the EENT system. Derm: Skin is intact, Skin is pink, warm \\T\\ dry. Musculoskeletal: Range of motion: intact in all extremities. 11:10 Cara Swallow Protocol Exclusion Criteria: Exclusion Criteria Result: Proceed Brief rs5 Cognitive Screen What is your name? Normal, Where are you right now? Normal, What year is it? Normal. Oral Mechanism Examination Facial Symmetry: Normal, Motion: Normal, Lip Closure: Normal, Oral Mechanism Result: Normal. 3 oz Water Swallow Challenge: Pt able to drink all water without stopping, coughing, choking or throat clearing: Yes Result: PASS MD Notified: Cong Aguilar MD. TNKase (Tenecteplase) Screening: Indications: Treatment will start within 4.5 hours onset of symptoms: No. Pain: Denies pain. 12:15 Reassessment: Patient and/or family updated on plan of care and expected duration. Pain rs5 level reassessed. Patient is alert, oriented x 3, equal unlabored respirations, skin warm/dry/pink. 12:57 Reassessment: No changes from previously documented assessment. rs5 14:37 General: attempted to call floor to notify that pt is coming up. no answer . as6 Vital Signs: 11:01 BP 149 / 70; Pulse 52; Resp 19; Pulse Ox 100% ; Weight 70.76 kg; ap3 12:52 BP 156 / 67; Pulse 51; Resp 16; Pulse Ox 100% on R/A; Pain 0/10; ld2 14:36 BP 126 / 63; Pulse 59; Resp 16 S; Pulse Ox 99% on R/A; as6 12:52 Pain Scale: Adult ld2 [place] Coma Score: 12:52 Eye Response: spontaneous(4). Motor Response: obeys commands(6). Verbal Response: ld2 oriented(5). Total: 15. NIH Stroke Scale Scores: 10:55 NIHSS Score: 0 rs5 12:57 NIHSS Score: 0 rs5 13:18 NIHSS Score: 1 internal audit senior manager Course: 10:51 Patient arrived in ED. mg5 10:54 Cong Aguilar MD is Attending Physician. rn 10:57 Isaac Osman RN is Primary Nurse. rs5 10:58 No provider procedures requiring assistance completed. rs5 10:58 Patient has correct armband on for positive identification. Placed in gown. Bed in low rs5 position. Call light in reach. Side rails up X2. 11:09 Triage completed. ap3 11:10 EKG done, by ED staff, reviewed by Cong Aguilar MD. ld2 11:11 Arm band placed on right wrist. ap3 11:21 CT Head Brain wo Cont In Process Unspecified. EDMS 11:[address] In Process Unspecified. EDMS 11:[address] In Process Unspecified. EDMS 13:19 Telma Marie MD is Hospitalizing Provider. rn 14:37 Patient admitted, IV remains in place. as6 14:37 Provided Education on: need for admit. as6 Administered Medications: 12:51 Drug: NS 0.9% IV 500 ml IV at bolus once Route: IV; Rate: bolus; Infused Over: 1 hrs; ld2 Site: right antecubital; 14:08 Follow up: IV Status: Completed infusion; IV Intake: 500ml ld2 Medication: 11:16 VIS not applicable for this client. rs5 Intake: 14:08 IV: 500ml; Total: 500ml. ld2 Outcome: 13:20 Decision to Hospitalize by Provider. rn 14:37 Admitted to Med/surg accompanied by nurse, via wheelchair, room 216, with chart, as6 14:37 Condition: stable 14:37 Instructed on the need for admit, 14:38 Patient left the ED. as6 NIH Stroke Scale - NIH Stroke Score Date: 07/28/2023 Time: 10:55 Total Score = 0 10. Dysarthria (speech clarity - read or repeat words) - 0(Normal) 11. Extinction and Inattention (visual/tactile/auditory/spatial/personal) - 0(No abnormality) 1a. Level of Consciousness (LOC) - 0(Alert) 1b. Level of Consciousness (LOC) (Month \\T\\ Age) - 0(Both) 1c. LOC Commands (Open \\T\\ Closes Eyes/Field Tax Auditor) - 0(Both) 2. Best Gaze (Lateral Gaze Paresis) - 0(Normal) 3. Visual Field Loss - 0(No visual loss) 4. Facial Palsy - 0(Normal) 5a. Left Arm: Motor (10-second hold) - 0(No drift) 5b. Right Arm: Motor (10-second hold) - 0(No drift) 6a. Left Leg: Motor (5-second hold - always test supine) - 0(No drift) 6b. Right Leg: Motor (5-second hold - always test supine) - 0(No drift) 7. Limb Ataxia (finger/nose \\T\\ heel/dexter - test with eyes open) - 0(Absent) 8. Sensory Loss (pinprick arms/legs/face) - 0(Normal) 9. Best Language: Aphasia (description/naming/reading) - 0(No aphasia) Initials: rs5 NIH Stroke Scale - NIH Stroke Score Date: 07/28/2023 Time: 12:57 Total Score = 0 10. Dysarthria (speech clarity - read or repeat words) - 0(Normal) 11. Extinction and Inattention (visual/tactile/auditory/spatial/personal) - 0(No abnormality) 1a. Level of Consciousness (LOC) - 0(Alert) 1b. Level of Consciousness (LOC) (Month \\T\\ Age) - 0(Both) 1c. LOC Commands (Open \\T\\ Closes Eyes/Field Tax Auditor) - 0(Both) 2. Best Gaze (Lateral Gaze Paresis) - 0(Normal) 3. Visual Field Loss - 0(No visual loss) 4. Facial Palsy - 0(Normal) 5a. Left Arm: Motor (10-second hold) - 0(No drift) 5b. Right Arm: Motor (10-second hold) - 0(No drift) 6a. Left Leg: Motor (5-second hold - always test supine) - 0(No drift) 6b. Right Leg: Motor (5-second hold - always test supine) - 0(No drift) 7. Limb Ataxia (finger/nose \\T\\ heel/dexter - test with eyes open) - 0(Absent) 8. Sensory Loss (pinprick arms/legs/face) - 0(Normal) 9. Best Language: Aphasia (description/naming/reading) - 0(No aphasia) Initials: rs5 NIH Stroke Scale - NIH Stroke Score Date: 07/28/2023 Time: 13:18 Total Score = 1 10. Dysarthria (speech clarity - read or repeat words) - 1(Mild to Moderate) 11. Extinction and Inattention (visual/tactile/auditory/spatial/personal) - 0(No abnormality) 1a. Level of Consciousness (LOC) - 0(Alert) 1b. Level of Consciousness (LOC) (Month \\T\\ Age) - 0(Both) 1c. LOC Commands (Open \\T\\ Closes Eyes/Field Tax Auditor) - 0(Both) 2. Best Gaze (Lateral Gaze Paresis) - 0(Normal) 3. Visual Field Loss - 0(No visual loss) 4. Facial Palsy - 0(Normal) 5a. Left Arm: Motor (10-second hold) - 0(No drift) 5b. Right Arm: Motor (10-second hold) - 0(No drift) 6a. Left Leg: Motor (5-second hold - always test supine) - 0(No drift) 6b. Right Leg: Motor (5-second hold - always test supine) - 0(No drift) 7. Limb Ataxia (finger/nose \\T\\ heel/dexter - test with eyes open) - 0(Absent) 8. Sensory Loss (pinprick arms/legs/face) - 0(Normal) 9. Best Language: Aphasia (description/naming/reading) - 0(No aphasia) Initials: rn Signatures: Dispatcher [employer] EDCong Lyman MD MD rn Prokisch, Amanda, RN RN ap3 Timur Cummins RN RN as6 Isaac Osman RN RN 5 Teresita Mota 5 Terrie Cabral RN RN ld2
[2023-07-28] MEDS ORDERED: SODIUM CHLORIDE 0.9% 10ML INJ IV PRN (13:44)
--- NOTE | 2023-07-28 13:59 | P.HP ---
Certification for Inpatient Patient admitted to: Inpatient With expected LOS: >2 Midnights Patient will require the following post-hospital care: None Practitioner: I am a practitioner with admitting privileges, knowledge of patient current condition, hospital course, and medical plan of care. Services: Services provided to patient in accordance with Admission requirements found in Title 42 Section 412.3 of the Code of Federal Regulations <Penny Maldonadolen - Last Filed: 07/28/23 19:07> Patient History Date of Service: 07/28/23 <FrankToyjos Burt - Last Filed: 07/28/23 16:43> Date of Service: 07/28/23 Reason for admission: hyponatremia, ataxia, speech change History of Present Illness: Mrs. Alvarado is a 72-year-old female with a past medical history of hypertension, hyperlipidemia, coronary artery disease, CVA, insulin-dependent diabetes, GERD, and anxiety who lives in a one-story home with her . She was in her normal state of health, but dieting for weight loss. She states her diet called for 2 to 3 L of water per day. She states she has not noted a large change in her urinary frequency. 3 days ago, she states she had a severe headache and noted difficulty ambulating, she states her speech seems off, and her tongue feels swollen. She presented to the emergency department today for ataxia, slurred speech, and strokelike symptoms. On laboratory evaluation her CBC is normal, troponin 3.7, Chem-7 significant for a sodium of 124, potassium 4.9, chloride 90, CO2 31, glucose 176, BUN 25, creatinine 1.09, GFR 54. Mrs. Alvarado states she does not take any supplements or diuretics, and has never had a history of hyponatremia. She does not drink alcohol. She takes duloxetine for her anxiety. There have been no recent medication changes or dose adjustments. Her EKG is significant for bradycardia with heart rate between [address] 52. [address] evaluation of CT brain shows "no evidence of an acute intracranial process. Stable chronic findings." CT head angio shows "no evidence of large vessel occlusion or flow-limiting stenosis. Multifocal and short segment mild degrees of stenosis along the anterior and posterior circulation vessels." CT neck angio shows "no significant flow abnormality of the neck vessels is identified". Mrs. Alvarado has a GCS of 15, NIH scale only positive for ataxia. We will admit her to the hospital, fluid restrict her, give 0.9% normal saline for gentle hydration, stop duloxetine, and obtain consultation from Nephrology. Home medications list reviewed: Yes - Past Medical/Surgical History Has patient received pneumonia vaccine in the past: No Diabetic: Yes -: iddm -: [place] x 2 with PCI -: Hypertension -: GERD -: anxiety -: CVA -: Cardiac Stents -: Appy -: Monisha Psychosocial/ Personal History: Lives at home with her - Family History Mother -: Heart disease, Hypertension, Lung disease - Social History Smoking Status: Never smoker Alcohol use: No CD- Drugs: No Caffeine use: Yes Place of Residence: Home <Penny Maldonado - Last Filed: 07/28/23 19:07> Allergies ferumoxides [From Feridex IV] Adverse Reaction (Verified 09/28/17 21:59) Itching/Hives/Rash iodine Adverse Reaction (Verified 09/28/17 21:59) Itching/Hives/Rash Home Medications: Aspirin [Aspir-Low] 81 mg PO DAILY 09/28/17 Duloxetine HCl [Cymbalta] 30 mg PO DAILY 09/28/17 Famciclovir [Famvir] 250 mg PO DAILY 09/28/17 Clopidogrel Bisulfate [Plavix*] 75 mg PO DAILY 06/04/23 Ezetimibe [Zetia*] 10 mg PO DAILY 06/04/23 Insulin Degludec [Tresiba Flextouch U-100] 26 units SQ DAILY 06/04/23 Losartan Potassium 100 mg PO DAILY #30 tab 06/04/23 Review of Systems 10-point ROS is otherwise unremarkable General: Weakness, Malaise Cardiovascular: Light Headedness Neurological: Incoordination, Change in Speech, Other (headache), As per HPI <Penny Maldonado Marc - Last Filed: 07/28/23 19:07> Physical Examination - Studies Laboratory Data (last 24 hrs) 07/28/23 07/28/23 11:05 11:05 WBC 8.30 Hgb 13.1 Hct 39.3 Plt Count 392 Sodium 124 L Potassium 4.9 BUN 25 H Creatinine 1.09 H Glucose 176 H <Telma Marie - Last Filed: 04/23/24 16:43> - Physical Exam General: Alert, In no apparent distress, Oriented x3 HEENT: Atraumatic, Normocephalic Neck: Supple, JVD not distended Respiratory: Normal air movement Cardiovascular: No edema, Regular rate/rhythm, Systolic murmur Capillary refill: <2 Seconds Gastrointestinal: Soft and benign Musculoskeletal: No clubbing, No swelling Integumentary: No rashes Neurological: Abnormal gait, Abnormal speech Lymphatics: No axilla or inguinal lymphadenopathy External genitalia: Deferred Rectal: Deferred - Studies Laboratory Data (last 24 hrs) 07/28/23 07/28/23 11:05 11:05 WBC 8.30 Hgb 13.1 Hct 39.3 Plt Count 392 Sodium 124 L Potassium 4.9 BUN 25 H Creatinine 1.09 H Glucose 176 H <Penny Maldonado - Last Filed: 07/28/23 19:07> Assessment and Plan - Plan Pt seen and examined. I agree with the note by the PRECINCT POLICE SERGEANT. Pt is a 72 yo male with past medical history of DM II, Htn, and CAD s/p AR who presents with ataxia and slurred speech that started 3 days ago. Of note pt started a diet program that requires drinking 2 - 3 Liters of water per day. The symptoms worsened and pt came to the ER for evaluation. On admission, lab studies show wbc 8.3, Hgb 13.1, Na 124, k 4.9, Cr 1.[address] head is unremarkable. CTA head and neck is negative for large vessel occlusion. At bedside, pt is in NAD. A/P: CVA symptoms: Likely due to hyponatremia. Will r/o CVA. Will continue permissive htn. CT head and CTA head and neck are unremarkable. Will f/u MRI brain and Echo. Continue aspirin, Plavix and atorvastatin. Will consult Neurology. Hyponatremia: Na is 124. Due to recent increase in water intake at home. Will continue NS IVF and trend sodium. Will f/u urine sodium and osm DM II: Continue accuchek, SSI and ADA diet. F/u A1c Htn: Continue permissive htn. Hx of CAD s/p AR: Continue home meds. Code: full <Telma Marie - Last Filed: 07/28/23 16:43> - Plan Hyponatremia with ataxia and speech change: Fluid restrict to 1.2L/day 0.9NS at 80ml/hr Strict I&O Daily weight TSH Random urine Na, osmolality Consult Dr. Kim MRI brain stroke protocol Consult Neurology Insulin dependent diabetes mellitus FSBS with SSI mild protocol HTN Metoprolol 25mg po BID hold for HR <60 bpm Losartan per home schedule HLD Zetia 10mg po q HS Lipid eval in am Coronary artery disease Plavix 75mg po daily telemetry ECHO GERD Protonix 40mg SIVP daily CVA history Asa 81mg po daily Folic acid po daily anxiety/depression hold duloxetine DVT/GI prophylaxis: on ASA/plavix, SCDs, Protonix - Advance Directives Does patient have a Living Will: No Does patient have a Durable POA for Healthcare: No - Code Status/Comfort Care Code Status Assessed: Yes (Full) <Penny Maldonado - Last Filed: 07/28/23 19:07>
[2023-07-28 14:28] LABS: Thyroid Stimulating Hormone 3.97 uIU/mL (0.358-3.740)
[2023-07-28] MEDS: INSULIN REGULAR (HUMAN) 100 UNIT/ML SQ SCH (15:41)
[2023-07-28] MEDS: NA CHLORIDE 0.9% 1,000 ML IV SCH (15:43)
[2023-07-28] MEDS: METOPROLOL TAR 25 MG TAB PO SCH (17:15)
[2023-07-28 17:56] LABS: PT Prothrombin Time 10.8 SECONDS (9.5-12.5); Protime INR 0.9
--- NOTE | 2023-07-28 20:14 | RAD REPORT ---
EXAM DESCRIPTION: MRI - Brain Wo Cont - 07/28/2023 7:55 pm CLINICAL HISTORY: Dizziness /aphasia COMPARISON: Head CT July 28, 2023 TECHNIQUE: Axial, sagittal, and coronal magnetic resonance images of the brain were obtained. FINDINGS: Mild signal within periventricular, deep and subcortical white matter probably ischemic changes seco ndary to small vessel disease Diffusion-weighted/ADC mapping demonstrate a 20 x 8 millimeter area of abnormal signal within blu to the right of midline consistent with acute infarction The ventricles are normal caliber. An extra-axial fluid collection is not noted. Fluid within the sinuses/mastoids is not seen IMPRESSION: 20 x 8 millimeter acute pontine infarction The patient's nurse Carlos was notified a 8;08 p.m. July 28, 2023
[2023-07-28] MEDS: ASPIRIN EC 81 MG TAB PO ONE (20:52)
[2023-07-28] MEDS: EZETIMIBE 10 MG TAB PO SCH (20:52)
[2023-07-28] MEDS: ATORVASTATIN 40 MG TAB PO SCH (20:53)
[2023-07-28 21:25] LABS: Specific Gravity 1.018 (1.005-1.030); Urine Bilirubin NEGATIVE (Negative); Urine Blood Negative (Negative); Urine Clarity Clear (Clear); Urine Color Colorless (Yellow); Urine Glucose NEGATIVE (Negative); Urine Ketones NEGATIVE (Negative); Urine Microscopic Reflex YN NO UMIC; Urine Nitrite NEGATIVE (Negative); Urine Protein NEGATIVE (Negative); Urine Urobilinogen Normal (Normal); Urine pH 7.5 (5.0-7.0)
[2023-07-28] MEDS: ACETAMINOPHEN 325 MG TABLET PO ONE (23:06)
[2023-07-29] MEDS: D5W 1,000 ML IV SCH (03:13)
[2023-07-29 04:22] LABS: Absolute Basophils 0.1 K/uL (0-0.5); Absolute Eosinophils 0.1 K/uL (0-0.5); Absolute Lymphocytes (CBC) 3.8 K/uL (0.7-4.9); Absolute Monocytes 0.9 K/uL (0.1-1.3); Basophils % 0.9 % (0-1.3); Eosinophils % 1.3 % (0-4.4); Hematocrit 37.1 % (36.0-45.0); Hemoglobin 12.8 g/dL (12.0-15.0); Lymphocytes % 34.5 % (15.3-44.8); MCH 29.4 pg (27.0-35.0); MCHC 34.5 g/dL (32.0-36.0); MCV 85.1 fL (80-100); MPV 7.8 fL (7.6-11.3); Neutrophils % 55.3 % (41.7-73.7); Nucleated Red Blood Cells % 0.2 % (0-0); Platelets 369 thou/uL (152-406); RBC Red Blood Cell Count 4.36 M/uL (3.86-4.86); Red Cell Distribution Width 13.6 % (12.1-15.2)
[2023-07-29 04:56] LABS: Albumin 3.5 g/dL (3.4-5.0); Albumin/Globulin Ratio 1.2 (1.1-1.8); Anion Gap 9.6 mEq/L (5.0-15.0); Bilirubin Total 0.3 mg/dL (0.2-1.0); Globulin 2.9 g/dL (2.3-3.5); Magnesium 2.2 mg/dL (1.6-2.4); Phosphorus 4.3 mg/dL (2.5-4.9); Potassium 3.6 mEq/L (3.5-5.1); Protein, Total 6.4 g/dL (6.4-8.2)
[2023-07-29] MEDS: D5 0.9 NS 1,000 ML IV SCH (08:00)
[2023-07-29] MEDS: FOLIC ACID 1 MG TABLET PO SCH (08:38)
[2023-07-29] MEDS: POTASSIUM CL SA 10 MEQ TAB PO ONE (08:38)
[2023-07-29] MEDS: VALACYCLOVIR 500 MG TAB PO SCH (08:39)
[2023-07-29] MEDS: CLOPIDOGREL 75 MG TABLET PO SCH (08:39)
[2023-07-29] MEDS: LOSARTAN POTASSIUM 50 MG TABLET PO SCH (08:39)
[2023-07-29] MEDS: PANTOPRAZOLE 40 MG INJ IVP SCH (08:40)
[2023-07-29] MEDS: ASPIRIN EC 325 MG TABLET PO SCH (08:44)
[2023-07-29] MEDS ORDERED: ASPIRIN EC 81 MG TAB PO SCH (09:00)
[2023-07-29] MEDS: NA CHLORIDE 0.9% 1,000 ML IV SCH (09:39)
--- NOTE | 2023-07-29 11:53 | P.CNS ---
Date of Consult: 07/29/23 Reason for Consult: Hyponatremia Requesting Physician: Penny Maldonado (s) Chief Complaint: hyponatremia, ataxia, speech change History of Present Illness: Pt is a 72-year-old female with a past medical history of chronic hypertension, hyperlipidemia, coronary artery disease, prior TIA, unspecified Type II DM, who was he was in her normal state of health, until recently but yesterday presented to the ED for various symptoms including ataxia, difficulty ambulatin gand and other strokelike symptoms. MRI of the brain did end up revealing a acute Rt pontine infarction. She reports weakness a bit better but still has fatigue although did ambulate with PT in the hallways with some mild balance issues. Nephrology consulted for hyponatremia management. Allergies ferumoxides [From Feridex IV] Adverse Reaction (Verified 09/28/17 21:59) Itching/Hives/Rash iodine Adverse Reaction (Verified 09/28/17 21:59) Itching/Hives/Rash Home Medications: Aspirin [Aspir-Low] 81 mg PO DAILY 09/28/17 Duloxetine HCl [Cymbalta] 30 mg PO DAILY 09/28/17 Famciclovir [Famvir] 250 mg PO DAILY 09/28/17 Clopidogrel Bisulfate [Plavix*] 75 mg PO DAILY 06/04/23 Ezetimibe [Zetia*] 10 mg PO DAILY 06/04/23 Insulin Degludec [Tresiba Flextouch U-100] 26 units SQ DAILY 06/04/23 Losartan Potassium 100 mg PO DAILY #30 tab 06/04/23 Latanoprost Ophth [Xalatan 0.005%*] 1 gtt RIGHT EYE BEDTIME 07/28/23 - Past Medical/Surgical History Diabetic: Yes -: iddm -: [place] x 2 with PCI -: Hypertension -: GERD -: anxiety -: CVA -: Hyponatremia followed by Dr. Myles/Julio -: Cardiac Stents -: Appy -: Monisha Psychosocial/ Personal History: Lives at home with her - Family History Mother Medical History: Heart disease, Hypertension, Lung disease - Social History Alcohol use: No CD- Drugs: No Caffeine use: Yes Place of Residence: Home Review of Systems General: As per HPI Eyes: Unremarkable ENT: Unremarkable Respiratory: Unremarkable Cardiovascular: As per HPI Gastrointestinal: Unremarkable Genitourinary: Unremarkable Musculoskeletal: Other (Denies muscle weakness) Integumentary: Unremarkable Neurological: Incoordination, As per HPI Physical Examination Temp Pulse Resp BP Pulse Ox 97.5 F 47 L 16 155/74 H 98 07/29/23 08:00 07/29/23 08:00 07/29/23 08:00 07/29/23 08:00 07/29/23 08:00 General: Alert, In no apparent distress, Cooperative HEENT: Atraumatic, Normocephalic, EOMI Neck: Supple Respiratory: Clear to auscultation bilaterally, Normal air movement Cardiovascular: No edema, Regular rate/rhythm, Systolic murmur Gastrointestinal: Soft and benign, Non-distended, No tenderness Musculoskeletal: No swelling, No contractures Integumentary: No rashes, No tenderness/swelling Neurological: Normal speech, Normal tone, Normal affect Laboratory Data (last 24 hrs) 07/28/23 11:05 PT 10.8 INR 0.90 APTT 32.0 Conclusions/Impression: A/P) 1. Acute on chronic hypotonic hyponatremia, symptomatic, relative euvolemic likely multifactorial with some Na deficiency due to reduced PO solute intake in addition to prior increased water intake in the setting of ADH excess (with elevated Uosm) either drug induced or other. No reports of polyuria to suggest MARKETING PROJECT COORDINATOR. Appears euvolemic currently although may have been mildly hypovolemic on admission 2. Na did improved from 124 to 129 on isotonic IVF, will pause NS IVF temp to recheck Na STAT this AM. 3. With pt's acute CVA, additional caution is needed to avoid rapid correction in Na levels. Target 6-8 meq correction over 24h period. 4. Acute Rt pontine infarction -management per IM/Neurology, allow for initial permissive HTN if recommended by Neurology 5. No reports of ICH. 6. Serum Cr raised above reference range on admission -post hydration levels lower.
--- NOTE | 2023-07-29 12:47 | P.PN ---
Subjective Date of Service: 07/29/23 Chief Complaint: hyponatremia, ataxia, speech change Pt is resting comfortably in bed. She denies any fever, chills, SOB or chest pain. Her speech is better. Waiting for PT eval. MRI shows right cute pontine infarct. No other complaints. Review of Systems General: Unremarkable Eyes: Unremarkable ENT: Unremarkable Respiratory: Unremarkable Cardiovascular: Unremarkable Gastrointestinal: Unremarkable Genitourinary: Unremarkable Musculoskeletal: Unremarkable Integumentary: Unremarkable Neurological: Unremarkable Lymphatics: Unremarkable Physical Examination - Vital Signs Temperature: 97.5 F Blood Pressure: 155/74 Pulse: 47 Respirations: 16 Pulse Ox (%): 98 - Physical Exam General: Alert, In no apparent distress, Oriented x3 HEENT: Atraumatic, Normocephalic, PERRLA Neck: Supple, 2+ carotid pulse no bruit Respiratory: Clear to auscultation bilaterally, Normal air movement, Diminished Cardiovascular: No edema, Normal pulses, Regular rate/rhythm, Normal S1 S2 Capillary refill: <2 Seconds Gastrointestinal: Normal bowel sounds, Soft and benign, Non-distended Musculoskeletal: No clubbing, No swelling Integumentary: No rashes, No breakdown Neurological: Normal speech, Normal strength at 5/5 x4 extr, Normal tone, Sensation intact Lymphatics: No axilla or inguinal lymphadenopathy - Studies Laboratory Data (last 24 hrs) 07/28/23 11:05 PT 10.8 INR 0.90 APTT 32.0 Assessment And Plan - Plan CVA symptoms: Likely due to hyponatremia. Will r/o CVA. Will continue permissive htn. CT head and CTA head and neck are unremarkable. MRI brain shows 20 x 8 mm acute right pontine infarct. Will f/u Echo. Continue aspirin, Plavix and atorvastatin. Will consult Neurology and PT Hyponatremia: Na is 129<- 124. Due to recent increase in water intake at home. Will continue NS IVF and trend sodium. Will f/u urine sodium and osm. Consulted Nephrology. DM I: Continue accuchek, SSI and ADA diet. F/u A1c. Htn: Continue permissive htn. Hx of CAD s/p MO: Continue home meds. Code: full
[2023-07-29] MEDS: UREA 15 GM POWDER PACKET PO SCH (18:00)
[2023-07-29] MEDS: SODIUM CHLORIDE 1 GM TAB PO SCH (18:17)
[2023-07-30] MEDS: HYDROCODONE/APAP 5/325 MG TAB PO ONE (00:33)
[2023-07-30 07:22] LABS: Absolute Basophils 0.1 K/uL (0-0.5); Absolute Eosinophils 0.2 K/uL (0-0.5); Absolute Lymphocytes (CBC) 2.7 K/uL (0.7-4.9); Absolute Monocytes 0.8 K/uL (0.1-1.3); Basophils % 1.3 % (0-1.3); Eosinophils % 2.2 % (0-4.4); Hematocrit 38.9 % (36.0-45.0); Hemoglobin 12.9 g/dL (12.0-15.0); Lymphocytes % 30.8 % (15.3-44.8); MCH 28.2 pg (27.0-35.0); MCV 85.5 fL (80-100); MPV 7.7 fL (7.6-11.3); Monocytes % 8.7 % (3.3-12.3); Platelets 342 thou/uL (152-406); RBC Red Blood Cell Count 4.55 M/uL (3.86-4.86); Red Cell Distribution Width 13.4 % (12.1-15.2)
[2023-07-30 07:47] LABS: Albumin 3.4 g/dL (3.4-5.0); Albumin/Globulin Ratio 1.2 (1.1-1.8); Anion Gap 8.6 mEq/L (5.0-15.0); Bilirubin Total 0.4 mg/dL (0.2-1.0); Globulin 2.9 g/dL (2.3-3.5); Magnesium 1.9 mg/dL (1.6-2.4); Phosphorus 3.6 mg/dL (2.5-4.9); Potassium 4.6 mEq/L (3.5-5.1); Protein, Total 6.3 g/dL (6.4-8.2)
[2023-07-30] MEDS ORDERED: PNEUMOCOCCAL VACCINE 0.5 ML IMVAC ONE (08:00)
[2023-07-30] MEDS ORDERED: SODIUM CHLORIDE 1 GM TAB PO SCH (08:00)
[2023-07-30] MEDS: PANTOPRAZOLE 40MG TABLET PO SCH (10:00)
[2023-07-30] MEDS: LOSARTAN POTASSIUM 50 MG TABLET PO SCH (10:00)
--- NOTE | 2023-07-30 10:50 | P.PN ---
Subjective Date of Service: 07/30/23 Chief Complaint: hyponatremia, ataxia, speech change Subjective: Tolerating diet, Improving (+MRI stroke in [place] area, sodium improved, corrected for glucose to 131-132, continue fluid restriction) <EricaPenny Tran - Last Filed: 07/30/23 10:44> Date of Service: 07/30/23 <Telma Marie - Last Filed: 07/30/23 14:12> Review of Systems 10-point ROS is otherwise unremarkable General: As per HPI Neurological: Change in Speech, Other (ataxia), As per HPI <Penny Maldonado - Last Filed: 07/30/23 10:44> Physical Examination - Vital Signs Temperature: 97 F Blood Pressure: 147/55 Pulse: 50 Respirations: 16 Pulse Ox (%): 100 - Physical Exam General: Alert, In no apparent distress, Oriented x3 HEENT: Atraumatic, Normocephalic Neck: Supple, JVD not distended Respiratory: Clear to auscultation bilaterally Cardiovascular: Normal pulses, Regular rate/rhythm Capillary refill: <2 Seconds Gastrointestinal: Soft and benign Musculoskeletal: No clubbing Integumentary: No rashes Neurological: Normal tone, Other (walked with assist with PT yesterday, venice nued mild ataxia), Abnormal speech (mild impairment) Lymphatics: No axilla or inguinal lymphadenopathy External genitalia: Deferred Rectal: Deferred <Naida Maldonadoy Marc - Last Filed: 07/30/23 10:44> Assessment And Plan - Plan Hyponatremia with ataxia and speech change: Fluid restrict to 1.2L/day 0.9NS at 80ml/hr - stopped 07/28, small D5W infusion overnight and then all fluids stopped 0807/28. Afternoon Na drawn was 131-132 post correction for glucose Strict I&O Daily weight TSH Random urine Na, osmolality Consult Dr. Kim/Shar MRI brain stroke protocol + for pontine infarct (07/28) Consult Neurology - Dr. Mehta Consult PT - walked halls with pt 07/28 Consult SW for outpt rehab 07/29 Insulin dependent diabetes mellitus FSBS with SSI mild protocol HTN Metoprolol 25mg po BID hold for HR <60 bpm Losartan per home schedule HLD Zetia 10mg po q HS Lipid eval in am Coronary artery disease Plavix 75mg po daily telemetry ECHO GERD Protonix 40mg SIVP daily CVA history Asa 81mg po daily Folic acid po daily anxiety/depression hold duloxetine DVT/GI prophylaxis: on ASA/plavix, SCDs, Protonix <Penny Maldonado - Last Filed: 07/30/23 10:44> - Plan Pt seen and examined. I agree with the note by the MEDICAL TRANSCRIPTION RADIOLOGY. Sodium is stable at 129. Will continue salt tablets. Nephrology is following. Continue aspirin, atorvastatin and folic acid. Consulted Neurology. Pt wants outpt rehab. <Telma Marie - Last Filed: 07/30/23 14:12>
--- NOTE | 2023-07-30 12:05 | P.PN ---
(S) Pt reports a left posterior PALACIOS this AM, is ambulating but reports some mild imbalance, weakness. Discussed latest tests in detail (O) vitals reviewed in the EMR General: Alert, In no apparent distress, Cooperative HEENT: Atraumatic, Normocephalic, EOMI Neck: Supple Respiratory: Clear to auscultation bilaterally, Normal air movement Cardiovascular: No edema, Regular rate/rhythm, Systolic murmur Gastrointestinal: Soft and benign, Non-distended, No tenderness Musculoskeletal: No swelling, No contractures Integumentary: No rashes, No tenderness/swelling Neurological: Normal speech, Normal tone, Normal affect, no tremors Conclusions/Impression: A/P) 1. Acute on chronic hypotonic hyponatremia, symptomatic, relative euvolemic likely multifactorial with some Na deficiency due to reduced PO solute intake in addition to prior increased water intake in the setting of ADH excess (with elevated Uosm) either drug induced or other. No reports of polyuria to suggest DATA CLERK. Appears euvolemic currently although may have been mildly hypovolemic on admission 2. Na did improved from 124 to 129 on isotonic IVF, latest Na level after correction for glucose remains stable at 131. Temp added salt tabs (does not need to cont these on discharge) and Ure-Na. Cont fluid restriction of < 45 oz/day, pt was prev consuming far more than 64 oz/day 3. With pt's acute CVA, additional caution was needed to avoid rapid correction in Na levels. Targeted 6-8 meq correction over 24h period. Rate of correction acceptable 4. Acute Rt pontine infarction -management per IM/Neurology, allowed for initial permissive HTN if recommended by Neurology. Can increase Losartan to 50 mg BID on discharge to target BP < 140/90 5. Complete CVA w/u per IM/Neuro 6. Serum Cr raised above reference range on admission -post hydration levels lower. 7. IDDM with hyperglycemia -BG > 200, defer to primary team to address
[2023-07-30] MEDS: ACETAMINOPHEN 500 MG TAB PO ONE (12:16)
--- NOTE | 2023-07-30 12:39 | ECHO ---
HEIGHT: 5 ft 2 in WEIGHT: 155 lb 14.4 oz DATE OF STUDY: 07/30/[address]: Penny Maldonado 2-DIMENSIONAL: YES M.MODE: YES DOPPLER: YES COLOR FLOW: YES TDS: PORTABLE: YES DEFINITY: BUBBLE STUDY: DIAGNOSIS: ATAXIA, SLURRED SPEECH CARDIAC HISTORY: CATHERIZATION: YES SURGERY: NO PROSTHETIC VALVE: NO PACEMAKER: NO MEASUREMENTS (cm) DIASTOLIC (NORMALS) SYSTOLIC (NORMALS) IVSd 0.9 (0.6-1.2) LA Diam 2.5 (1.9-4.0) LVEF 62% LVIDd 4.0 (3.5-5.7) LVIDs 2.7 (2.0-3.5) %FS 33% LVPWd 1.1 (0.6-1.2) Ao Diam 2.7 (2.0-3.7) 2 DIMENSIONAL ASSESSMENT: RIGHT ATRIUM: NORMAL LEFT ATRIUM: NORMAL RIGHT VENTRICLE: NORMAL LEFT VENTRICLE: NORMAL TRICUSPID VALVE: NORMAL MITRAL VALVE: NORMAL PULMONIC VALVE: NORMAL AORTIC VALVE: NORMAL PERICARDIAL EFFUSION: NONE AORTIC ROOT: NORMAL LEFT VENTRICULAR WALL MOTION: NORMAL DOPPLER/COLOR FLOW: GRADE I DIASTOLIC DYSFUCNTION COMMENTS: 1. NORMAL LEFT VENTRICULAR SYSTOLIC FUNCTION, EJECTION FRACTION 60-65%, NORMAL WALL MOTION 2. GRADE I DIASTOLIC DYSFUNCTION TECHNOLOGIST: RU COPELAND
[2023-07-30] MEDS: INSULIN GLARGINE 100 UNIT/ML SQ ONE (15:33)
[2023-07-30] MEDS: SODIUM CHLORIDE 1 GM TAB PO SCH (15:35)
--- NOTE | 2023-07-30 16:51 | EKG ---
Test Date: 2023-07-28 Test Time: 11:07:06 Livestock Inspector: CELSA MEASUREMENT RESULTS: Intervals: Rate: 51 MA: 188 QRSD: 74 QT: 486 QTc: 447 [place]: P: 35 MA: 188 QRS: 31 T: 37 INTERPRETIVE STATEMENTS: Sinus bradycardia Otherwise normal ECG Compared to ECG 06/03/2023 04:40:13 No significant changes Electronically Signed On 07-30-23 16:44:01 CDT by Kiran Barajsa
[2023-07-30 18:07] VITALS: BMI 28.5
[2023-07-31] MEDS ORDERED: LOSARTAN POTASSIUM 50 MG TABLET PO SCH (09:00)
--- NOTE | 2023-07-31 09:03 | P.PN ---
Subjective Date of Service: 07/31/23 Chief Complaint: hyponatremia, ataxia, speech change Subjective: Improving (States she is remembering more and more. People are telling her that she was complaining of "stroke" headache for 1-2 weeks before she admitted that she thought she was having a stroke. Concerned for her who "has had to care for someone before". States she walked better with PT yesterday.) <Penny Maldonado - Last Filed: 07/31/23 08:58> Date of Service: 07/31/23 <HolleyTelma squires Carmel - Last Filed: 07/31/23 11:13> Review of Systems 10-point ROS is otherwise unremarkable General: As per HPI Neurological: As per HPI <Penny Maldonado - Last Filed: 07/31/23 08:58> Physical Examination - Vital Signs Temperature: 97.0 F Blood Pressure: 166/70 Pulse: 56 Respirations: 14 Pulse Ox (%): 98 - Physical Exam General: Alert, In no apparent distress, Oriented x3 HEENT: Atraumatic, Normocephalic Neck: JVD not distended Respiratory: Normal air movement Cardiovascular: No edema, Regular rate/rhythm Capillary refill: <2 Seconds Gastrointestinal: Soft and benign Musculoskeletal: No clubbing Integumentary: No rashes Neurological: Normal speech, Normal tone, Other (working with PT) Lymphatics: No axilla or inguinal lymphadenopathy External genitalia: Deferred Rectal: Deferred <Penny Maldonado - Last Filed: 07/31/23 08:58> Assessment And Plan - Plan Hyponatremia with ataxia and speech change: Fluid restrict to 1.2L/day 0.9NS at 80ml/hr - stopped 07/28, small D5W infusion overnight and then all fluids stopped 0807/28. Afternoon Na drawn was 131-132 post correction for glucose Strict I&O Daily weight Consult Dr. Kim/Shar MRI brain stroke protocol + for pontine infarct (07/28) Consult Neurology - Dr. Mehta Consult PT - walked halls with pt 07/28, better 07/29 Consult SW for outpt rehab 07/29 Awaiting morning labs (07/31/23) Insulin dependent diabetes mellitus FSBS with SSI mild protocol, added Lantus 18 units 07/29 HTN Metoprolol 25mg po BID hold for HR <60 bpm Losartan per home schedule HLD Zetia 10mg po q HS Coronary artery disease Plavix 75mg po daily telemetry ECHO - COMMENTS: 1. NORMAL LEFT VENTRICULAR SYSTOLIC FUNCTION, EJECTION FRACTION 60-65%, NORMAL WALL MOTION 2. GRADE I DIASTOLIC DYSFUNCTION GERD Protonix 40mg SIVP daily CVA history Asa 81mg po daily Folic acid po daily anxiety/depression hold duloxetine DVT/GI prophylaxis: on ASA/plavix, SCDs, Protonix <Penny Maldonado - Last Filed: 07/31/23 08:58> - Plan Pt seen and examined. I agree withe the note by the TECH WRITER. NA is 132. Will continue salt tablets. Pt wants to do rehab on outpt. Continue home meds for other chronic medical problems. <Telma Marie - Last Filed: 07/31/23 11:13>
[2023-07-31 09:05] LABS: Absolute Basophils 0.1 K/uL (0-0.5); Absolute Eosinophils 0.1 K/uL (0-0.5); Absolute Lymphocytes (CBC) 1.7 K/uL (0.7-4.9); Absolute Monocytes 0.6 K/uL (0.1-1.3); Absolute Neutrophil 5.9 K/uL (1.8-8.0); Eosinophils % 1.3 % (0-4.4); Hematocrit 40.3 % (36.0-45.0); Hemoglobin 13.5 g/dL (12.0-15.0); Lymphocytes % 20.5 % (15.3-44.8); MCH 28.5 pg (27.0-35.0); MCHC 33.5 g/dL (32.0-36.0); MPV 7.8 fL (7.6-11.3); Monocytes % 7.3 % (3.3-12.3); Neutrophils % 69.9 % (41.7-73.7); Nucleated Red Blood Cells % 0.1 % (0-0); Platelets 364 thou/uL (152-406); RBC Red Blood Cell Count 4.74 M/uL (3.86-4.86); Red Cell Distribution Width 13.6 % (12.1-15.2)
[2023-07-31 09:22] LABS: Albumin 3.7 g/dL (3.4-5.0); Albumin/Globulin Ratio 1.2 (1.1-1.8); Anion Gap 9.6 mEq/L (5.0-15.0); Bilirubin Total 0.5 mg/dL (0.2-1.0); Globulin 3.2 g/dL (2.3-3.5); Magnesium 1.9 mg/dL (1.6-2.4); Phosphorus 3.6 mg/dL (2.5-4.9); Potassium 4.6 mEq/L (3.5-5.1); Protein, Total 6.9 g/dL (6.4-8.2)
[2023-07-31] MEDS: LOSARTAN POTASSIUM 50 MG TABLET PO SCH (09:48)
[2023-07-31] MEDS: INSULIN GLARGINE 100 UNIT/ML SQ SCH (09:51)
--- NOTE | 2023-07-31 12:09 | P.PN ---
(S) Pt feels better, no acute complaints, no reports of PALACIOS this AM. BG elevated but pt blames it on hospital food. (O) vitals reviewed in the EMR General: Alert, In no apparent distress, Cooperative HEENT: Atraumatic, Normocephalic, EOMI Neck: Supple Respiratory: Clear to auscultation bilaterally, Normal air movement Cardiovascular: No edema, Regular rate/rhythm, Systolic murmur Gastrointestinal: Soft and benign, Non-distended, No tenderness Musculoskeletal: No swelling, No contractures Integumentary: No rashes, No tenderness/swelling Neurological: Normal speech, Normal tone, Normal affect, no tremors Conclusions/Impression: A/P) 1. Acute on chronic hypotonic hyponatremia, symptomatic, relative euvolemic likely multifactorial with some Na deficiency due to reduced PO solute intake in addition to prior increased water intake in the setting of ADH excess (with elevated Uosm) either drug induced or other. No reports of polyuria to suggest MANAGER LOAN. Appears euvolemic currently although may have been mildly hypovolemic on admission 2. Na did improved from 124 to 129 on isotonic IVF, latest Na level after correction for glucose remains higher and closer to 125. D/c salt tabs and Ure- Na. Cont fluid restriction of < 45 oz/day, pt was prev consuming far more than 64 oz/day 3. With pt's acute CVA, additional caution was needed to avoid rapid correction in Na levels. Rate of correction acceptable 4. Acute Rt pontine infarction -management per IM/Neurology, allowed for initial permissive HTN if recommended by Neurology. Can now increase Losartan to 50 mg BID on discharge to target BP < 140/90 5. Complete CVA w/u per IM/Neuro 6. Serum Cr raised above reference range on admission -post hydration levels lower. 7. IDDM with hyperglycemia -BG > 200, defer to primary team to address
[2023-07-31] MEDS: ACETAMINOPHEN 325 MG TABLET PO PRN (21:11)
[2023-08-01 00:18] VITALS: O2SAT 95
[2023-08-01 04:47] LABS: Absolute Basophils 0.1 K/uL (0-0.5); Absolute Eosinophils 0.2 K/uL (0-0.5); Absolute Lymphocytes (CBC) 3.1 K/uL (0.7-4.9); Absolute Monocytes 0.8 K/uL (0.1-1.3); Absolute Neutrophil 5.9 K/uL (1.8-8.0); Basophils % 1.3 % (0-1.3); Eosinophils % 2.2 % (0-4.4); Hemoglobin 13.1 g/dL (12.0-15.0); Lymphocytes % 30.5 % (15.3-44.8); MCH 28.6 pg (27.0-35.0); MCHC 33.7 g/dL (32.0-36.0); MCV 84.9 fL (80-100); MPV 8.4 fL (7.6-11.3); Monocytes % 8.3 % (3.3-12.3); Neutrophils % 57.7 % (41.7-73.7); Nucleated Red Blood Cells % 0.1 % (0-0); Platelets 354 thou/uL (152-406); Red Cell Distribution Width 13.5 % (12.1-15.2)
[2023-08-01 05:08] LABS: Anion Gap 7.9 mEq/L (5.0-15.0); Potassium 3.9 mEq/L (3.5-5.1)
[2023-08-01] MEDS: POTASSIUM CL SA 10 MEQ TAB PO ONE (08:14)
[2023-08-01] MEDS: DULOXETINE 30 MG CAP PO SCH (08:14)
--- NOTE | 2023-08-01 11:22 | P.PN ---
Subjective Date of Service: 08/01/23 Chief Complaint: hyponatremia, ataxia, speech change Subjective: Tolerating diet, Other (tearful and feels like she did something to bring on CVA. Discussed genetics and role of DM and HTN with progression to CVA. Feeling better. Noted that speech changes worsen with fatigue, discussed fatigue/stress/insomnia) <Naida Maldonadoy Marc - Last Filed: 08/01/23 11:14> Date of Service: 08/01/23 <HolleyTelma squires Carmel - Last Filed: 08/01/23 11:57> Review of Systems 10-point ROS is otherwise unremarkable General: As per HPI Neurological: As per HPI <MaldonadoNaidaritesh Tran - Last Filed: 08/01/23 11:14> Physical Examination - Vital Signs Temperature: 96.8 F Blood Pressure: 144/66 Pulse: 62 Respirations: 16 Pulse Ox (%): 96 - Physical Exam General: Alert, In no apparent distress, Oriented x3 HEENT: Atraumatic, Normocephalic Neck: Supple Respiratory: Normal air movement Cardiovascular: Normal pulses, Regular rate/rhythm Capillary refill: <2 Seconds Gastrointestinal: Soft and benign Musculoskeletal: No clubbing, No swelling Integumentary: No rashes Neurological: Other (working with PT and walker with improvement in ataxia), Abnormal speech Lymphatics: No axilla or inguinal lymphadenopathy External genitalia: Deferred Rectal: Deferred <Penny Maldonadolen - Last Filed: 08/01/23 11:14> Assessment And Plan - Plan Hyponatremia with ataxia and speech change: Fluid restrict to 1.2L/day 0.9NS at 80ml/hr - stopped 07/28, small D5W infusion overnight and then all fluids stopped 07/28. Afternoon Na drawn was 131-132 post correction for glucose Strict I&O Daily weight Consult Dr. Kim/Shar MRI brain stroke protocol + for pontine infarct (07/28) Consult Neurology - Dr. Mehta Consult PT - walked halls with pt 07/28, better 07/29 Consult SW for outpt rehab 07/29 Awaiting morning labs (07/31/23) 07/31 Sodium level stabilized Insulin dependent diabetes mellitus FSBS with SSI mild protocol, added Lantus 18 units 07/29 HTN Metoprolol 25mg po BID hold for HR <60 bpm Losartan per home schedule HLD Zetia 10mg po q HS Coronary artery disease Plavix 75mg po daily telemetry ECHO - COMMENTS: 1. NORMAL LEFT VENTRICULAR SYSTOLIC FUNCTION, EJECTION FRACTION 60-65%, NORMAL WALL MOTION 2. GRADE I DIASTOLIC DYSFUNCTION GERD Protonix 40mg SIVP daily CVA history Asa 81mg po daily Folic acid po daily anxiety/depression hold duloxetine DVT/GI prophylaxis: on ASA/plavix, SCDs, Protonix <Penny Maldonado - Last Filed: 08/01/23 11:14> - Plan Pt seen and examined. I agree with the note by the STORE GIFT WRAP ASSOCIATE. NA is much better. Will give fioricet for headache. Will dc pt soon. <Telma Marie - Last Filed: 08/01/23 11:57>
[2023-08-01] MEDS ORDERED: ACETAMIN/CAFFEINE/BUTALB TAB PO PRN (11:48)
--- NOTE | 2023-08-01 13:36 | P.DS ---
Admission Date: 07/28/23 Discharge Date: 08/01/23 Reason for Admission: hyponatremia, ataxia, speech change Brief History of Present Illness: Mrs. Alvarado is a 72-year-old female with a past medical history of hypertension, hyperlipidemia, coronary artery disease, CVA, insulin-dependent diabetes, GERD, and anxiety who lives in a one-story home with her . She was in her normal state of health, but dieting for weight loss. She states her diet called for 2 to 3 L of water per day. She states she has not noted a large change in her urinary frequency. 3 days ago, she states she had a severe headache and noted difficulty ambulating, she states her speech seems off, and h er tongue feels swollen. She presented to the emergency department today for ataxia, slurred speech, and strokelike symptoms. On laboratory evaluation her CBC is normal, troponin 3.7, Chem-7 significant for a sodium of 124, potassium 4.9, chloride 90, CO2 31, glucose 176, BUN 25, creatinine 1.09, GFR 54. Mrs. Alvarado states she does not take any supplements or diuretics, and has never had a history of hyponatremia. She does not drink alcohol. She takes duloxetine for her anxiety. There have been no recent medication changes or dose adjustments. Her EKG is significant for bradycardia with heart rate between 48 and 52. Rad[address] evaluation of CT brain shows "no evidence of an acute intracranial process. Stable chronic findings." CT head angio shows "no evidence of large vessel occlusion or flow-limiting stenosis. Multifocal and short segment mild degrees of stenosis along the anterior and posterior circulation vessels." CT neck angio shows "no significant flow abnormality of the neck vessels is identified". Mrs. Alvarado has a GCS of 15, NIH scale only positive for ataxia. We will admit her to the hospital, fluid restrict her, give 0.9% normal saline for gentle hydration, stop duloxetine, and obtain consultation from Nephrology. Hospital Course: Mrs. Alvarado's MRI did return with evidence of an acute CVA. Her hyponatremic state was carefully resolved. She has been working well with PT. She is able to ambulate with a walker. She is very determined to remain independent we discussed inpatient rehab. She declined and felt maybe outpatient rehab would be better. On further conversation, she would prefer home health with in-home PT. Hospital social workers are working on arranging this for her. Mrs. Alvarado is stable at this time, her chemistries have stabilized, and she desires discharge. She was on some additional sodium chloride tablets which will not need continuation upon discharge. It is my hope she will follow-up with Dr. Mehta in 1 to 2 weeks. <Penny Maldonado - Last Filed: 08/01/23 13:30> Admission Date: 07/28/23 Discharge Date: 08/01/23 Hospital Course: Pt seen and examined. I agree with the note by the TOMBSTONE ERECTOR HELPER. Continue homemeds a sprescribed. Stop drinking liters of water at home. Follow up with PCP within 2 weeks. Ok to discharge pt. <Telma Marei - Last Filed: 08/01/23 14:04> Disposition: DC HOME/HOME HEALTH CARE Vital Signs/Physical Exam: Temp Pulse Resp BP Pulse Ox 96.8 F 62 16 144/66 H 96 08/01/23 11:30 08/01/23 11:30 08/01/23 11:30 08/01/23 11:30 08/01/23 11:30 Laboratory Data at Discharge: WBC 10.20 thou/uL (4.3-10.9) 08/01/23 03:37 Hgb 13.1 g/dL (12.0-15.0) 08/01/23 03:37 Hct 39.0 % (36.0-45.0) 08/01/23 03:37 Plt Count 354 thou/uL (152-406) 08/01/23 03:37 PT 10.8 SECONDS (9.5-12.5) 07/28/23 11:05 INR 0.90 07/28/23 11:05 APTT 32.0 SECONDS (24.3-36.9) 07/28/23 11:05 Sodium 134 mEq/L (136-145) L 08/01/23 03:37 Potassium 3.9 mEq/L (3.5-5.1) D 08/01/23 03:37 BUN 29 mg/dL (7-18) H 08/01/23 03:37 Creatinine 0.95 mg/dL (0.55-1.02) 08/01/23 03:37 Glucose 141 mg/dL (74-106) H 08/01/23 03:37 Phosphorus 3.6 mg/dL (2.5-4.9) 07/31/23 08:48 Magnesium 1.9 mg/dL (1.6-2.4) 07/31/23 08:48 Total Bilirubin 0.5 mg/dL (0.2-1.0) 07/31/23 08:48 AST 17 U/L (15-37) 07/31/23 08:48 ALT 32 U/L (13-56) 07/31/23 08:48 Alkaline Phosphatase 92 U/L (45-117) 07/31/23 08:48 Triglycerides 82 mg/dL (<150) 07/29/23 02:59 Cholesterol 142 mg/dL (<200) 07/29/23 02:59 HDL Cholesterol 52 mg/dL (40-60) 07/29/23 02:59 Cholesterol/HDL Ratio 2.73 07/29/23 02:59 <Maldonado,Penny Marc - Last Filed: 08/01/23 13:30> Vital Signs/Physical Exam: Temp Pulse Resp BP Pulse Ox 96.8 F 62 16 144/66 H 96 08/01/23 11:30 08/01/23 11:30 08/01/23 11:30 08/01/23 11:30 08/01/23 11:30 Laboratory Data at Discharge: WBC 10.20 thou/uL (4.3-10.9) 08/01/23 03:37 Hgb 13.1 g/dL (12.0-15.0) 08/01/23 03:37 Hct 39.0 % (36.0-45.0) 08/01/23 03:37 Plt Count 354 thou/uL (152-406) 08/01/23 03:37 PT 10.8 SECONDS (9.5-12.5) 07/28/23 11:05 INR 0.90 07/28/23 11:05 APTT 32.0 SECONDS (24.3-36.9) 07/28/23 11:05 Sodium 134 mEq/L (136-145) L 08/01/23 03:37 Potassium 3.9 mEq/L (3.5-5.1) D 08/01/23 03:37 BUN 29 mg/dL (7-18) H 08/01/23 03:37 Creatinine 0.95 mg/dL (0.55-1.02) 08/01/23 03:37 Glucose 141 mg/dL (74-106) H 08/01/23 03:37 Phosphorus 3.6 mg/dL (2.5-4.9) 07/31/23 08:48 Magnesium 1.9 mg/dL (1.6-2.4) 07/31/23 08:48 Total Bilirubin 0.5 mg/dL (0.2-1.0) 07/31/23 08:48 AST 17 U/L (15-37) 07/31/23 08:48 ALT 32 U/L (13-56) 07/31/23 08:48 Alkaline Phosphatase 92 U/L (45-117) 07/31/23 08:48 Triglycerides 82 mg/dL (<150) 07/29/23 02:59 Cholesterol 142 mg/dL (<200) 07/29/23 02:59 HDL Cholesterol 52 mg/dL (40-60) 07/29/23 02:59 Cholesterol/HDL Ratio 2.73 07/29/23 02:59 <Telma Marie - Last Filed: 08/01/23 14:04> Diet: ADA Activity: Ad denis <Penny Maldonado - Last Filed: 08/01/23 13:30> <Telma Marie - Last Filed: 08/01/23 14:04> Home Medications: Aspirin [Aspir-Low] 81 mg PO DAILY 09/28/17 Duloxetine HCl [Cymbalta] 30 mg PO DAILY 09/28/17 Famciclovir [Famvir] 250 mg PO DAILY 09/28/17 Clopidogrel Bisulfate [Plavix*] 75 mg PO DAILY 06/04/23 Ezetimibe [Zetia*] 10 mg PO DAILY 06/04/23 Insulin Degludec [Tresiba Flextouch U-100] 26 units SQ DAILY 06/04/23 Latanoprost Ophth [Xalatan 0.005%*] 1 gtt RIGHT EYE BEDTIME 07/28/23 Losartan Potassium [Cozaar*] 50 mg PO BID #240 tab 08/01/23 New Medications: Losartan Potassium [Cozaar*] 50 mg PO BID #240 tab Physician Discharge Instructions: Okay to DC IV and DC home Follow-up with primary care provider in 1 to 2 weeks Follow-up with neurology in 1 to 2-week Please call the inpatient unit for any questions or concerns regarding hospital stay Return to the ER for worsening symptoms Mrs. Alvarado's MRI did return with evidence of an acute CVA. Her hyponatremic state was carefully resolved. She has been working well with PT. She is able to ambulate with a walker. She is very determined to remain independent we discussed inpatient rehab. She declined and felt maybe outpatient rehab would be better. On further conversation, she would prefer home health with in-home PT. Hospital social workers are working on arranging this for her. Mrs. Alvarado is stable at this time, her chemistries have stabilized, and she desires discharge. She was on some additional sodium chloride tablets which will not need continuation upon discharge. It is my hope she will follow-up with Dr. Mehta and also Dr. Myles in 1 to 2 weeks. Followup: ROBBIE AVALOS [Primary Care Provider] - Bogdan Myles [ACTIVE - CAN ADMIT] - Smith Mehta MD [ASSOCIATE-ACTIVE - CAN ADMIT] -
[2023-08-01 14:59] VITALS: BP 142/71; TEMP 97
== END 2023-08-01 15:39 | disposition home health service (06) | DRG 640 ==
LOC: ER 10:50 → ERHOLD 13:33 → 2ND 14:00
PROVIDERS: ADMIT Hospitalist; ATTEND Hospitalist
DX: E87.1 Hypo-osmolality and hyponatremia (principal); I63.9 Cerebral infarction, unspecified; I10 Essential (primary) hypertension; E78.5 Hyperlipidemia, unspecified; F41.9 Anxiety disorder, unspecified; G47.00 Insomnia, unspecified; F32.A Depression, unspecified; E11.65 Type 2 diabetes mellitus with hyperglycemia; K21.9 Gastro-esophageal reflux disease without esophagitis; I25.2 Old myocardial infarction; I25.10 Atherosclerotic heart disease of native coronary artery without angina pectoris; R47.81 Slurred speech; R47.02 Dysphasia; R27.0 Ataxia, unspecified; R00.1 Bradycardia, unspecified; R29.700 NIHSS score 0; Z79.4 Long term (current) use of insulin; Z95.5 Presence of coronary angioplasty implant and graft; Z88.8 Allergy status to other drugs, medicaments and biological substances; Z79.82 Long term (current) use of aspirin; Z79.02 Long term (current) use of antithrombotics/antiplatelets; Z90.49 Acquired absence of other specified parts of digestive tract; Z86.73 Personal history of transient ischemic attack (TIA), and cerebral infarction without residual deficits; Z28.310 Unvaccinated for COVID-19; Z79.899 Other long term (current) drug therapy
CPT/HCPCS: 36415; 70450; 70496; 70498; 70551; 80048; 80053; 80061; 81003; 82550; 82565; 82947; 83036; 83735; 83935; 84100; 84295; 84300; 84439; 84443; 84484; 85025; 85610; 85730; 93005; 93306; 96360; 97112; 97116; 97161; 99285; C9113; J1815; J7030; J7040; Q9967

== ENCOUNTER 2023-09-03 18:46 | Emergency (ER) | payer OTHER ==
--- NOTE | 2023-09-03 19:11 | RAD REPORT ---
EXAM DESCRIPTION: CT - Ct Stroke Brain Wo Cont - 09/03/2023 7:03 pm CLINICAL HISTORY: STROKE ALERT Headache and high drowsiness, CVA symptomology COMPARISON: <Comparisons> TECHNIQUE: All CT scans are performed using dose optimization technique as appropriate and may inclu de automated exposure control or mA/KV adjustment according to patient size. FINDINGS: No intracranial hemorrhage, hydrocephalus or extra-axial fluid collection.18 mm diminished density adjacent right frontal horn appears chronic.No areas of brain edema or evidence of midline s hift. The paranasal sinuses and mastoids are clear. The calvarium is intact. IMPRESSION: No acute intracranial abnormality. The findings were discussed with Jeannine Deleon in the ER on 09/03/2023 at 7:04 p.m. by telephone.
--- NOTE | 2023-09-03 19:25 | RAD REPORT ---
EXAM DESCRIPTION: CT - Head angio - 09/03/2023 7:18 pm CLINICAL HISTORY: 1. STROKE ALER Headache, drowsiness, CVA COMPARISON: <Comparisons> TECHNIQUE: CT angiography of the head was performed with MIPs. All CT scans are performed using dose optimization technique as appropriate and may include automated exposure control or mA/KV adjustment according to patient size. FINDINGS: No evidence of large vessel occlusion. No evidence of aneurysm is detected. No flow-limiti ng stenosis or vascular malformation identified. Antegrade flow is seen in the vertebral arteries. The vertebral arteries are codominant. The visualized dural venous sinuses are patent. IMPRESSION: No significant flow abnormality is detected.
--- NOTE | 2023-09-03 19:28 | RAD REPORT ---
EXAM DESCRIPTION: CT - Neck Angio - 09/03/2023 7:18 pm CLINICAL HISTORY: stroke Headache, drowsiness COMPARISON: <Comparisons> TECHNIQUE: CT angiography of the neck vessels was performed with MIPs. All CT scans are performed using dose optimization technique as appropriate and may include automated exposure control or mA/KV adjustment according to patient size. FINDINGS: A left aortic arch is identified with normal three vessel configuration of the great vesse ls. No significant flow abnormality is seen of the common carotid bilaterally. There is a moderate mixed plaque involving the left proximal ICA resulting in 50-70% stenosis based o n NASCET criteria. Mild hard plaque is present in the right carotid bulb. Normal flow is seen within both vertebral arteries. Prominent C5-6 degenerative change. IMPRESSION: Moderate mixed plaque involving left proximal ICA resulting in 50-70%. Mild hard plaque involves the right carotid bulb. NASCET criteria used. Mild 0-49% stenosis Moderate 50-69% stenosis Severe 70-99% stenosis
[2023-09-03 19:41] LABS: Absolute Basophils 0.1 K/uL (0-0.5); Absolute Eosinophils 0.1 K/uL (0-0.5); Absolute Lymphocytes (CBC) 2.2 K/uL (0.7-4.9); Absolute Monocytes 0.9 K/uL (0.1-1.3); Absolute Neutrophil 9.2 K/uL (1.8-8.0); Basophils % 1.1 % (0-1.3); Eosinophils % 1.2 % (0-4.4); Hematocrit 35.2 % (36.0-45.0); Hemoglobin 11.9 g/dL (12.0-15.0); Lymphocytes % 17.5 % (15.3-44.8); MCHC 33.7 g/dL (32.0-36.0); MCV 86.1 fL (80-100); MPV 7.7 fL (7.6-11.3); Monocytes % 7.2 % (3.3-12.3); Platelets 284 thou/uL (152-406); RBC Red Blood Cell Count 4.09 M/uL (3.86-4.86); Red Cell Distribution Width 13.6 % (12.1-15.2)
[2023-09-03 19:43] LABS: PT Prothrombin Time 11.1 SECONDS (9.5-12.5); PTT, Activated Partial Thromb 29.6 SECONDS (24.3-36.9); Protime INR 1.01
[2023-09-03] MEDS ORDERED: ONDANSETRON 4 MG/2 ML VIAL ONE (19:56)
[2023-09-03 19:57] LABS: ALT/SGPT 26 U/L (13-56); AST/SGOT 14 U/L (15-37); Albumin 3.2 g/dL (3.4-5.0); Alkaline Phosphatase 86 U/L (45-117); Anion Gap 6.2 mEq/L (5.0-15.0); BUN Blood Urea Nitrogen 15 mg/dL (7-18); Bicarbonate 28 mEq/L (21-32); Bilirubin Total 0.3 mg/dL (0.2-1.0); Globulin 3.1 g/dL (2.3-3.5); Glomerular Filtration Rate 59 ml/min (=/>90); Glucose Level 96 mg/dL (74-106); Magnesium 2.2 mg/dL (1.6-2.4); Potassium 4.2 mEq/L (3.5-5.1); Protein, Total 6.3 g/dL (6.4-8.2); Sodium Level 130 mEq/L (136-145); Troponin High Sensitivity 4.1 pg/mL (<58.9)
[2023-09-03] MEDS ORDERED: MORPHINE 4 MG/ML SYR ONE (19:57)
[2023-09-03 19:58] LABS: Bilirubin Direct < 0.2 mg/dL (0-0.2); Bilirubin Indirect, Calculated 0.1 mg/dL (0.2-0.8)
--- NOTE | 2023-09-03 22:47 | ER ---
Nurse's Notes [facility] Name: Kylee Alvarado Age: 73 yrs Sex: Female : 1950 Arrival Date: 09/03/2023 Time: 18:46 Bed 2 Private MD: Diagnosis: Episodic tension-type headache;Chronic left internal carotid artery plaque 50 to 70% stenosis. Presentation: 09/02 18:43 Chief complaint: Patient states: Posterior PALACIOS and sudden dizziness started at 1800, hx jl7 of CVA to [facility] x2, in rehab for left sided deficits. NIHSS 0 in triage. Coronavirus screen: At this time, the client does not indicate any symptoms associated with coronavirus-19. Ebola Screen: No symptoms or risks identified at this time. Initial Sepsis Screen: Does the patient meet any 2 criteria? No. Patient's initial sepsis screen is negative. Does the patient have a suspected source of infection? No. Patient's initial sepsis screen is negative. Risk Assessment: Do you want to hurt yourself or someone else? Patient reports no desire to harm self or others. Onset of symptoms was September 03, 2023 at 18:00. 18:43 Method Of Arrival: Ambulatory [facility] 18:43 Acuity: GERMAN 2 jl7 19:28 No acute neurological deficit is noted. Pre-hospital glucose is not applicable to this jl7 patient. Triage Assessment: 18:54 The onset of the patients symptoms was September 03, 2023 at 18:00. Headache History: The jl7 patient has had previous headaches and this one is similar to previous episodes. General: Appears in no apparent distress. uncomfortable, Behavior is calm, cooperative, appropriate for age. Pain: Complains of pain in base of the skull Pain currently is 7 out of 10 on a pain scale. Pain began 1 hour ago. Also complains of no other associated symptoms. Neuro: Reports dizziness. Stroke Activation: Physician: ED Attending; Name: [place]; Notified At: 18:56; Arrived At: 19:20 Physician: Mid-Level Provider; Name: ; Notified At: 18:56; Arrived At: Physician: [not used]; Name: ; Notified At: ; Arrived At: Physician: [not used]; Name: ; Notified At: ; Arrived At: Physician: [not used]; Name: ; Notified At: ; Arrived At: Historical: - Allergies: 19:28 pheradex; jl7 - Home Meds: 19:28 aspirin 81 mg Oral chew 1 tab once daily [Active]; ezetimibe 10 mg Oral tablet daily jl7 [Active]; losartan 50 mg Oral tablet daily [Active]; Metoprolol Tartrate Oral [Active]; Tresiba FlexTouch U-100 100 unit/mL (3 mL) subcutaneous Insulin Pen [Active]; Novolog U-100 Insulin aspart 100 unit/mL Sub-Q solution [Active]; - PMHx: 19:30 Diabetes - IDDM; Hypertension; Myocardial infarction; Cerebrovascular accident; - PSHx: 19:30 cardiac stent (Myocardial infarction); - Immunization history:: Adult Immunizations unknown. - Infectious Disease History:: Denies. - Social history:: Smoking status: Patient denies any tobacco usage or history of. Screenin:33 [place] Swallow Protocol Exclusion Criteria: Unable to remain alert for testing: No NPO km8 for medical/surgical reason by provider order No Tracheostomy tube present No No thin liquids due to preexisting dysphagia/baseline modified diet thickened liquids No Exclusion Criteria Result: Proceed Brief Cognitive Screen What is your name? Normal, Where are you right now? Normal, What year is it? Normal. Oral Mechanism Examination Facial Symmetry: Normal, Motion: Normal, Lip Closure: Normal, Oral Mechanism Result: Normal. 3 oz Water Swallow Challenge: Pt able to drink all water without stopping, coughing, choking or throat clearing: Yes Result: PASS. 19:33 [facility] ED Fall Risk Assessment (Adult) History of falling in the last 3 months, km8 including since admission No falls in past 3 months (0 pts) Confusion or Disorientation No (0 pts) Intoxicated or Sedated No (0 pts) Impaired Gait Yes (1 pt) Mobility Assist Device Used No (0 pt) Altered Elimination No (0 pt) Score/Fall Risk Level 0 - 2 = Low Risk Oriented to surroundings, Maintained a safe environment, Educated pt \T\ family on fall prevention, incl call for assistance when getting out of bed, Assessed \T\ reinforced patient's understanding of fall precautions. Abuse screen: Denies threats or abuse. Denies injuries from another. Nutritional screening: No deficits noted. Tuberculosis screening: No symptoms or risk factors identified. Assessment: 18:54 VAN Scoring: Arm Drift: Patients demonstrates NO arm weakness. Patient is VAN Negative. jl7 18:54 TNKase (Tenecteplase) Screening: Indications: Definite evidence of stroke, ischemic, tm6 embolic, or hypertensive: No. Treatment will start within 4.5 hours onset of symptoms: Yes. No evidence of intracranial hemorrhage or CT of head and no evidence of peripheral hemorrhage or recent CVA: No. Contraindications:. 19:33 [place] Swallow Protocol Exclusion Criteria: Unable to remain alert for testing: No NPO km8 for medical/surgical reason by provider order No Tracheostomy tube present No No thin liquids due to preexisting dysphagia/baseline modified diet thickened liquids No Exclusion Criteria Result: Proceed Brief Cognitive Screen What is your name? Normal, Where are you right now? Normal, What year is it? Normal. Oral Mechanism Examination Facial Symmetry: Normal, Motion: Normal, Lip Closure: Normal, Oral Mechanism Result: Normal. 3 oz Water Swallow Challenge: Pt able to drink all water without stopping, coughing, choking or throat clearing: Yes Result: PASS MD Notified: Amelia Tim MD. General: Appears in no apparent distress. uncomfortable, Behavior is calm, cooperative, appropriate for age. Pain: Complains of pain in head Pain does not radiate. Pain currently is 7 out of 10 on a pain scale. Quality of pain is described as aching, Pain began suddenly, Is continuous. Neuro: Level of Consciousness is awake, alert, obeys commands, Oriented to person, place, time, situation, Airplane Inspector are equal bilaterally Moves all extremities. Gait is unsteady, Speech is normal, Facial symmetry appears normal, Pupils are PERRLA, Intact Reports dizziness, headache in entire. Cardiovascular: Denies chest pain, shortness of breath, Patient's skin is warm and dry. Respiratory: Airway is patent Respiratory effort is even, unlabored, Respiratory pattern is regular, symmetrical. GI: No signs and/or symptoms were reported involving the gastrointestinal system. : No signs and/or symptoms were reported regarding the genitourinary system. EENT: No signs and/or symptoms were reported regarding the EENT system. Derm: No signs and/or symptoms reported regarding the dermatologic system. Skin is intact, is healthy with good turgor, Skin is dry, Skin is pink, warm \T\ dry. normal, Skin temperature is warm. Musculoskeletal: Range of motion: intact in all extremities, Reports weakness in left leg. 20:37 Reassessment: Patient appears in no apparent distress at this time. No changes from km8 previously documented assessment. Patient and/or family updated on plan of care and expected duration. Pain level reassessed. Patient is alert, oriented x 3, equal unlabored respirations, skin warm/dry/pink. 21:51 Reassessment: Patient appears in no apparent distress at this time. No changes from tm6 previously documented assessment. 22:41 Reassessment: Patient appears in no apparent distress at this time. No changes from km8 previously documented assessment. Patient and/or family updated on plan of care and expected duration. Pain level reassessed. Patient is alert, oriented x 3, equal unlabored respirations, skin warm/dry/pink. Dr. Birmingham at bedside updating pt and on results. Vital Signs: 18:43 Weight 70.76 kg; Height 5 ft. 2 in. ; Pain 7/10; jl7 19:33 BP 164 / 52; Pulse 61; Resp 16; Pulse Ox 100% on R/A; Pain 7/10; km8 20:04 Temp 97.4(O); tm6 21:49 BP 173 / 66; Pulse 59; Resp 15; Pulse Ox 97% on R/A; tm6 22:41 BP 155 / 62; Pulse 63; Resp 16; Pulse Ox 99% on R/A; km8 18:43 Body Mass Index 28.53 (70.76 kg, 157.48 cm) jl7 18:43 Pain Scale: Adult jl7 19:33 Pain Scale: Adult km8 Pb Coma Score: 19:33 Eye Response: spontaneous(4). Motor Response: obeys commands(6). Verbal Response: km8 oriented(5). Total: 15. 22:44 Eye Response: spontaneous(4). Motor Response: obeys commands(6). Verbal Response: sp4 oriented(5). Total: 15. 22:44 Eye Response: spontaneous(4). Motor Response: obeys commands(6). Verbal Response: sp4 oriented(5). Total: 15. NIH Stroke Scale Scores: 18:54 NIHSS Score: 0 jl7 22:44 NIHSS Score: 0 sp4 ED Course: 18:49 Patient arrived in ED. im 18:57 Amelia Tim MD is Attending Physician. sp3 19:00 Missed attempt(s): 20 gauge in right antecubital area. Bleeding controlled, band aid jl7 applied, catheter tip intact. 19:05 CT Stroke Brain w/o Contrast In Process Unspecified. EDMS 19:05 Inserted saline lock: 22 gauge in right forearm, using aseptic technique. jl7 19:20 CT Head Angio In Process Unspecified. EDMS 19:20 CT Neck Angio In Process Unspecified. EDMS 19:25 Arm band placed on right wrist. jl7 19:27 Triage completed. jl7 19:32 Basic Metabolic Panel Sent. tm6 19:32 CBC with Diff Sent. tm6 19:32 Hepatic Function Sent. tm6 19:32 High Sensitivity Troponin Sent. tm6 19:32 Magnesium Sent. tm6 19:32 Protime (+inr) Sent. tm6 19:32 Ptt, Activated Sent. tm6 19:32 EKG done, by ED staff, reviewed by Amelia Tim MD. tm6 19:33 Jessica Garduno, RN is Primary Nurse. km8 19:33 Patient has correct armband on for positive identification. Placed in gown. Bed in low km8 position. Call light in reach. Side rails up X2. Client placed on continuous cardiac and pulse oximetry monitoring. NIBP monitoring applied. electronic device monitor on. Pulse ox on. NIBP on. Warm blanket given. 20:11 Attending Physician role handed off by Amelia Tim MD sp4 20:11 Fabio Birmingham MD is Attending Physician. sp4 20:54 Assisted to bathroom. km8 22:46 Kiran Barajas MD is Referral Physician. sp4 23:02 No provider procedures requiring assistance completed. IV discontinued, intact, km8 bleeding controlled, No redness/swelling at site. Pressure dressing applied. 23:02 Provided Education on: d/c teaching. km8 Administered Medications: 20:04 Drug: morphine IVP or IV 4 mg IVP once over 4 mins Route: IVP; Infused Over: 4 mins; tm6 Site: right forearm; 20:35 Follow up: Response: No adverse reaction; Pain is decreased km8 20:04 Drug: Ondansetron IVP 4 mg IVP once; over 2 minutes Route: IVP; Site: right forearm; tm6 20:35 Follow up: Response: No adverse reaction km8 Medication: 18:54 VIS not applicable for this client. jl7 Point of Care Testing: Blood Glucose: 19:25 Blood Glucose: 96 mg/dL; jl7 Ranges: Outcome: 22:47 Discharge ordered by MD. malave 23:02 Discharged to home via wheelchair, with significant other, 8 23:02 Condition: good 23:02 Discharge instructions given to patient, significant other, Instructed on discharge instructions, follow up and referral plans. Demonstrated understanding of instructions, follow-up care, 23:03 Patient left the ED. km8 NIH Stroke Scale - NIH Stroke Score Date: 09/03/2023 Time: 18:54 Total Score = 0 10. Dysarthria (speech clarity - read or repeat words) - 0(Normal) 11. Extinction and Inattention (visual/tactile/auditory/spatial/personal) - 0(No abnormality) 1a. Level of Consciousness (LOC) - 0(Alert) 1b. Level of Consciousness (LOC) (Month \T\ Age) - 0(Both) 1c. LOC Commands (Open \T\ Closes Eyes/Health Tech) - 0(Both) 2. Best Gaze (Lateral Gaze Paresis) - 0(Normal) 3. Visual Field Loss - 0(No visual loss) 4. Facial Palsy - 0(Normal) 5a. Left Arm: Motor (10-second hold) - 0(No drift) 5b. Right Arm: Motor (10-second hold) - 0(No drift) 6a. Left Leg: Motor (5-second hold - always test supine) - 0(No drift) 6b. Right Leg: Motor (5-second hold - always test supine) - 0(No drift) 7. Limb Ataxia (finger/nose \T\ heel/dexter - test with eyes open) - 0(Absent) 8. Sensory Loss (pinprick arms/legs/face) - 0(Normal) 9. Best Language: Aphasia (description/naming/reading) - 0(No aphasia) Initials: jl7 NIH Stroke Scale - NIH Stroke Score Date: 09/03/2023 Time: 22:44 Total Score = 0 10. Dysarthria (speech clarity - read or repeat words) - 0(Normal) 11. Extinction and Inattention (visual/tactile/auditory/spatial/personal) - 0(No abnormality) 1a. Level of Consciousness (LOC) - 0(Alert) 1b. Level of Consciousness (LOC) (Month \T\ Age) - 0(Both) 1c. LOC Commands (Open \T\ Closes Eyes/Health Tech) - 0(Both) 2. Best Gaze (Lateral Gaze Paresis) - 0(Normal) 3. Visual Field Loss - 0(No visual loss) 4. Facial Palsy - 0(Normal) 5a. Left Arm: Motor (10-second hold) - 0(No drift) 5b. Right Arm: Motor (10-second hold) - 0(No drift) 6a. Left Leg: Motor (5-second hold - always test supine) - 0(No drift) 6b. Right Leg: Motor (5-second hold - always test supine) - 0(No drift) 7. Limb Ataxia (finger/nose \T\ heel/dexter - test with eyes open) - 0(Absent) 8. Sensory Loss (pinprick arms/legs/face) - 0(Normal) 9. Best Language: Aphasia (description/naming/reading) - 0(No aphasia) Initials: sp4 Signatures: Dispatcher [employer] Thi Sanchez RN RN jl7 Amelia Tim MD MD sp3 Fabio Birmingham MD MD sp4 Leticia Arauz Katie RN RN km8 Carolina Maradiaga RN RN tm6 Corrections: (The following items were deleted from the chart) 19:33 18:54 Blood Glucose: Blood Glucose Reading=96 mg/dL. juan c irizarry 19:40 19:33 Musculoskeletal: No signs and/or symptoms reported regarding the [facility] musculoskeletal system. Range of motion: intact in all extremities, [facility]
--- NOTE | 2023-09-03 22:47 | EDPHYS ---
Physician Documentation [facility] Name: Kylee Alvarado Age: 73 yrs Sex: Female : 1950 Arrival Date: 09/03/2023 Time: 18:46 Bed 2 Private MD: ED Physician Fabio Birmingham HPI: 09/02 19:48 This 73 yrs old Female presents to ER via Ambulatory with complaints of Headache, sp3 Dizziness. 19:48 73-year-old female with a history of hypertension, prior IN, CVA with blu infarct sp3 discharged home after admission here and currently in stroke rehab now presents to the ED with chief complaint posterior headache and continued dizziness. The dizziness is subsided however posterior headache is present. No other focal weakness or other focal symptoms noted. She denies chest pain, shortness of breath, neck pain, abdominal pain, vomiting, diarrhea, or any other neurological signs or symptoms on ROS at this time. Stroke alert was activated please see MDM for further documentation.. Historical: - Allergies: 19:28 pheradex; jl7 - Home Meds: 19:28 aspirin 81 mg Oral chew 1 tab once daily [Active]; ezetimibe 10 mg Oral tablet daily jl7 [Active]; losartan 50 mg Oral tablet daily [Active]; Metoprolol Tartrate Oral [Active]; Tresiba FlexTouch U-100 100 unit/mL (3 mL) subcutaneous Insulin Pen [Active]; Novolog U-100 Insulin aspart 100 unit/mL Sub-Q solution [Active]; - PMHx: 19:30 Diabetes - IDDM; Hypertension; Myocardial infarction; Cerebrovascular accident; jl7 - PSHx: 19:30 cardiac stent (Myocardial infarction); jl7 - Immunization history:: Adult Immunizations unknown. - Infectious Disease History:: Denies. - Social history:: Smoking status: Patient denies any tobacco usage or history of. ROS: 19:49 Constitutional: Negative for fever, chills, and weight loss, Eyes: Negative for injury, sp3 pain, redness, and discharge, Neck: Negative for injury, pain, and swelling, Cardiovascular: Negative for chest pain, palpitations, and edema, Respiratory: Negative for shortness of breath, cough, wheezing, and pleuritic chest pain, Abdomen/GI: Negative for abdominal pain, nausea, vomiting, diarrhea, and constipation, Back: Negative for injury and pain, MS/Extremity: Negative for injury and deformity, Skin: Negative for injury, rash, and discoloration, Psych: Negative for depression, anxiety, suicide ideation, homicidal ideation, and hallucinations, Allergy/Immunology: Negative for hives, rash, and allergies, Endocrine: Negative for neck swelling, polydipsia, polyuria, polyphagia, and marked weight changes, Hematologic/Lymphatic: Negative for swollen nodes, abnormal bleeding, and unusual bruising, 19:49 All other systems are negative, Exam: 19:50 Constitutional: This is a well developed, well nourished patient who is awake, alert, sp3 and in no acute distress. Head/Face: Normocephalic, atraumatic. Eyes: Pupils equal round and reactive to light, extra-ocular motions intact. Lids and lashes normal. Conjunctiva and sclera are non-icteric and not injected. Cornea within normal limits. Periorbital areas with no swelling, redness, or edema. ENT: Nares patent. No nasal discharge, no septal abnormalities noted. External auditory canals are clear. Oropharynx with no redness, swelling, or masses, exudates, or evidence of obstruction, uvula midline. Mucous membranes moist. Neck: Trachea midline, no thyromegaly or masses palpated, and no cervical lymphadenopathy. Supple, full range of motion without nuchal rigidity, or vertebral point tenderness. No Meningismus. Chest/axilla: Normal chest wall appearance and motion. Nontender with no deformity. No lesions are appreciated. Cardiovascular: Regular rate and rhythm with a normal S1 and S2. No gallops, murmurs, or rubs. Normal PMI, no JVD. No pulse deficits. Respiratory: Lungs have equal breath sounds bilaterally, clear to auscultation and percussion. No rales, rhonchi or wheezes noted. No increased work of breathing, no retractions or nasal flaring. Abdomen/GI: Soft, non-tender, with normal bowel sounds. No distension or tympany. No guarding or rebound. No evidence of tenderness throughout. Back: No spinal tenderness. No costovertebral tenderness. Full range of motion. Skin: Warm, dry with normal turgor. Normal color with no rashes, no lesions, and no evidence of cellulitis. MS/ Extremity: Pulses equal, no cyanosis. Neurovascular intact. Full, normal range of motion. Psych: Awake, alert, with orientation to person, place and time. Behavior, mood, and affect are within normal limits. 19:50 ECG was reviewed by the Attending Physician. EKG demonstrates normal sinus rhythm at 61 bpm with normal intervals, normal QRS, normal axis, normal ST's ST segments without evidence of acute ischemia. 19:50 Neuro: Speech normal, cranial nerves II through XII normal, strength normal, sp3 motor/sensory normal, gait not tested. Denies stroke scale other than gait is 0., Vital Signs: 18:43 Weight 70.76 kg; Height 5 ft. 2 in. ; Pain 7/10; jl7 19:33 BP 164 / 52; Pulse 61; Resp 16; Pulse Ox 100% on R/A; Pain 7/10; km8 20:04 Temp 97.4(O); tm6 21:49 BP 173 / 66; Pulse 59; Resp 15; Pulse Ox 97% on R/A; tm6 22:41 BP 155 / 62; Pulse 63; Resp 16; Pulse Ox 99% on R/A; km8 18:43 Body Mass Index 28.53 (70.76 kg, 157.48 cm) jl7 18:43 Pain Scale: Adult jl7 19:33 Pain Scale: Adult km8 NIH Stroke Scale Scores: 18:54 NIHSS Score: 0 jl7 22:44 NIHSS Score: 0 sp4 [place] Coma Score: 19:33 Eye Response: spontaneous(4). Motor Response: obeys commands(6). Verbal Response: km8 oriented(5). Total: 15. 22:44 Eye Response: spontaneous(4). Motor Response: obeys commands(6). Verbal Response: sp4 oriented(5). Total: 15. 22:44 Eye Response: spontaneous(4). Motor Response: obeys commands(6). Verbal Response: sp4 oriented(5). Total: 15. MDM: 18:57 Patient medically screened. sp3 19:51 Data reviewed: vital signs, nurses notes, old medical records, lab test result(s), EKG, sp3 radiologic studies. ED course: 73-year-old female with new posterior headache after recent blu CVA. Patient currently in stroke rehab. Stroke alert was activated and initial CT scan of the head noncontrast as well as CTA of the brain and neck are without significant findings. Headache is improved however still present off-and-on. We will treat with pain medication and await laboratory values and reevaluation. If workup is negative, the agreed-upon plan with family, patient and myself is to discharge home with follow-up with Dr. Mehta. Patient will be signed out to nighttime physician for final disposition and any plan changes as indicated.. 22:44 Differential diagnosis: migraine, neoplasm, trigeminal neuralgia, vasomotor headache. sp4 ED course: EXAM DESCRIPTION: CT - Head angio - 09/03/2023 7:18 pm CLINICAL HISTORY: 1. STROKE ALER Headache, drowsiness, CVA COMPARISON: TECHNIQUE: CT angiography of the head was performed with MIPs. All CT scans are performed using dose optimization technique as appropriate and may include automated exposure control or mA/KV adjustment according to patient size. FINDINGS: No evidence of large vessel occlusion. No evidence of aneurysm is detected. No flowlimiting stenosis or vascular malformation identified. Antegrade flow is seen in the vertebral arteries. The vertebral arteries are codominant. The visualized dural venous sinuses are patent. IMPRESSION: No significant flow abnormality is detected. . ED course: EXAM DESCRIPTION: CT - Neck Angio - 09/03/2023 7:18 pm CLINICAL HISTORY: stroke Headache, drowsiness COMPARISON: TECHNIQUE: CT angiography of the neck vessels was performed with MIPs. All CT scans are performed using dose optimization technique as appropriate and may include automated exposure control or mA/KV adjustment according to patient size. FINDINGS: A left aortic arch is identified with normal three vessel configuration of the great vessels. No significant flow abnormality is seen of the common carotid bilaterally. There is a moderate mixed plaque involving the left proximal ICA resulting in 50-70% stenosis based on NASCET criteria. Mild hard plaque is present in the right carotid bulb. Normal flow is seen within both vertebral arteries. Prominent C5-6 degenerative change. IMPRESSION: Moderate mixed plaque involving left proximal ICA resulting in 50-70%. Mild hard plaque involves the right carotid bulb. NASCET criteria used.. ED course: CTA revealed - Moderate mixed plaque involving left proximal ICA resulting in 50-70%. Mild hard plaque involves the right carotid bulb. Patient advised to see her importer exporter in the next 7 to 10 days for referral to vascular surgeon for evaluation for carotid plaque on the left side. Otherwise headache is improved patient stable for discharge home. . ED course: EXAM DESCRIPTION: CT - Ct Stroke Brain Wo Cont - 09/03/2023 7:03 pm CLINICAL HISTORY: STROKE ALERT Headache and high drowsiness, CVA symptomology COMPARISON: TECHNIQUE: All CT scans are performed using dose optimization technique as appropriate and may include automated exposure control or mA/KV adjustment according to patient size. FINDINGS: No intracranial hemorrhage, hydrocephalus or extra-axial fluid collection.18 mm diminished density adjacent right frontal horn appears chronic.No areas of brain edema or evidence of midline shift. The paranasal sinuses and mastoids are clear. The calvarium is intact. IMPRESSION: No acute intracranial abnormality. The findings were discussed with Jeannine Deleon in the ER on 09/03/2023 at 7:04 p.m. by telephone.. 09/02 18:58 Order name: Basic Metabolic Panel; Complete Time: 19:59 sp3 09/02 18:58 Order name: CBC with Diff; Complete Time: 19:59 sp3 09/02 18:58 Order name: Hepatic Function; Complete Time: 19:59 sp3 09/02 18:58 Order name: High Sensitivity Troponin; Complete Time: 19:59 sp3 09/02 18:58 Order name: Magnesium; Complete Time: 19:59 sp3 09/02 18:58 Order name: Protime (+inr); Complete Time: 19:59 sp3 09/02 18:58 Order name: Ptt, Activated; Complete Time: 19:59 sp3 09/02 19:42 Order name: Glucose, Ancillary Testing; Complete Time: 19:59 EDMS 09/02 20:25 Order name: Glucose, Ancillary Testing; Complete Time: 22:36 EDMS 09/02 18:58 Order name: CT Head Angio; Complete Time: 19:32 sp3 09/02 18:58 Order name: CT Neck Angio; Complete Time: 19:32 sp3 09/02 18:58 Order name: CT Stroke Brain w/o Contrast; Complete Time: 19:16 sp3 09/02 18:58 Order name: Cardiac monitoring; Complete Time: 19:25 sp3 09/02 18:58 Order name: EKG - Nurse/Tech; Complete Time: 19:32 sp3 09/02 18:58 Order name: IV Saline Lock; Complete Time: 19:25 sp3 09/02 18:58 Order name: Labs collected and sent; Complete Time: 19:32 sp3 09/02 18:58 Order name: NPO; Complete Time: 19:32 sp3 09/02 18:58 Order name: O2 Per Protocol; Complete Time: 19:26 sp3 09/02 18:58 Order name: O2 Sat Monitoring; Complete Time: 19:26 sp3 09/02 18:58 Order name: Stroke Swallow Screen; Complete Time: 19:33 sp3 Administered Medications: 20:04 Drug: morphine IVP or IV 4 mg IVP once over 4 mins Route: IVP; Infused Over: 4 mins; tm6 Site: right forearm; 20:35 Follow up: Response: No adverse reaction; Pain is decreased km8 20:04 Drug: Ondansetron IVP 4 mg IVP once; over 2 minutes Route: IVP; Site: right forearm; tm6 20:35 Follow up: Response: No adverse reaction km8 Point of Care Testing: Blood Glucose: 19:25 Blood Glucose: 96 mg/dL; jl7 Ranges: Critical Glucose Levels:Adult <50 mg/dl or >400 mg/dl <40 mg/dl or >180 mg/dl Disposition Summary: 09/03/23 22:47 Discharge Ordered Problem: new sp4 Symptoms: have improved sp4 Condition: Stable sp4 Diagnosis - Episodic tension-type headache sp4 - Chronic left internal carotid artery plaque 50 to 70% stenosis. sp4 Followup: sp4 - With: Kiran Barajas MD - When: 7 - 10 days - Reason: Recheck today's complaints Discharge Instructions: - Discharge Summary Sheet sp4 - Carotid Artery Disease, [id number] sp4 Forms: - Patient Portal Instructions sp4 NIH Stroke Scale - NIH Stroke Score Date: 09/03/2023 Time: 18:54 Total Score = 0 10. Dysarthria (speech clarity - read or repeat words) - 0(Normal) 11. Extinction and Inattention (visual/tactile/auditory/spatial/personal) - 0(No abnormality) 1a. Level of Consciousness (LOC) - 0(Alert) 1b. Level of Consciousness (LOC) (Month \T\ Age) - 0(Both) 1c. LOC Commands (Open \T\ Closes Eyes/Warehouse Team Member) - 0(Both) 2. Best Gaze (Lateral Gaze Paresis) - 0(Normal) 3. Visual Field Loss - 0(No visual loss) 4. Facial Palsy - 0(Normal) 5a. Left Arm: Motor (10-second hold) - 0(No drift) 5b. Right Arm: Motor (10-second hold) - 0(No drift) 6a. Left Leg: Motor (5-second hold - always test supine) - 0(No drift) 6b. Right Leg: Motor (5-second hold - always test supine) - 0(No drift) 7. Limb Ataxia (finger/nose \T\ heel/dexter - test with eyes open) - 0(Absent) 8. Sensory Loss (pinprick arms/legs/face) - 0(Normal) 9. Best Language: Aphasia (description/naming/reading) - 0(No aphasia) Initials: jl7 NIH Stroke Scale - NIH Stroke Score Date: 09/03/2023 Time: 22:44 Total Score = 0 10. Dysarthria (speech clarity - read or repeat words) - 0(Normal) 11. Extinction and Inattention (visual/tactile/auditory/spatial/personal) - 0(No abnormality) 1a. Level of Consciousness (LOC) - 0(Alert) 1b. Level of Consciousness (LOC) (Month \T\ Age) - 0(Both) 1c. LOC Commands (Open \T\ Closes Eyes/Warehouse Team Member) - 0(Both) 2. Best Gaze (Lateral Gaze Paresis) - 0(Normal) 3. Visual Field Loss - 0(No visual loss) 4. Facial Palsy - 0(Normal) 5a. Left Arm: Motor (10-second hold) - 0(No drift) 5b. Right Arm: Motor (10-second hold) - 0(No drift) 6a. Left Leg: Motor (5-second hold - always test supine) - 0(No drift) 6b. Right Leg: Motor (5-second hold - always test supine) - 0(No drift) 7. Limb Ataxia (finger/nose \T\ heel/dexter - test with eyes open) - 0(Absent) 8. Sensory Loss (pinprick arms/legs/face) - 0(Normal) 9. Best Language: Aphasia (description/naming/reading) - 0(No aphasia) Initials: sp4 Signatures: Dispatcher [employer] EDThi Kimbrough RN RN jl7 Amelia Tim MD MD sp3 Fabio Birmingham MD MD sp4 Carolina Maradiaga RN RN tm6 Jessica Garduno RN km8 Corrections: (The following items were deleted from the chart) 18:58 18:58 Head Angio+CT.RAD.BRZ ordered. EDMS EDMS 18:58 18:58 Neck Angio+CT.RAD.BRZ ordered. EDMS EDMS 18:58 18:58 CT-STROKE BRAIN W/O CONTRAST+CT.RAD.BRZ ordered. EDMS EDMS 19:50 19:49 Constitutional: Negative for fever, chills, and weight loss, Eyes: sp3 Negative for injury, pain, redness, and discharge, Neck: Negative for injury, pain, and swelling, Cardiovascular: Negative for chest pain, palpitations, and edema, Respiratory: Negative for shortness of breath, cough, wheezing, and pleuritic chest pain, Abdomen/GI: Negative for abdominal pain, nausea, vomiting, diarrhea, and constipation, Back: Negative for injury and pain, MS/Extremity: Negative for injury and deformity, Skin: Negative for injury, rash, and discoloration, Neuro: Negative for headache, weakness, numbness, tingling, and seizure, Psych: Negative for depression, anxiety, suicide ideation, homicidal ideation, and hallucinations, Allergy/Immunology: Negative for hives, rash, and allergies, Endocrine: Negative for neck swelling, polydipsia, polyuria, polyphagia, and marked weight changes, Hematologic/Lymphatic: Negative for swollen nodes, abnormal bleeding, and unusual bruising, sp3
[2023-09-04 00:01] VITALS: BP 155/62; TEMP 97.4; O2SAT 99
--- NOTE | 2023-09-04 16:49 | EKG ---
Test Date: 2023-09-03 Test Time: 19:26:12 Census Clerk: JOB MEASUREMENT RESULTS: Intervals: Rate: 61 DE: 170 QRSD: 70 QT: 450 QTc: 453 [place]: P: 54 DE: 170 QRS: 20 T: 60 INTERPRETIVE STATEMENTS: Normal sinus rhythm Low voltage QRS Borderline ECG Compared to ECG 07/28/2023 11:07:06 Low QRS voltage now present Sinus bradycardia no longer present Electronically Signed On 09-04-23 16:47:36 CDT by Kiran Barajas
== END 2023-09-03 23:03 | disposition home or self-care (01) ==
LOC: ER 18:46
DX: G44.219 Episodic tension-type headache, not intractable (principal); I65.22 Occlusion and stenosis of left carotid artery; I10 Essential (primary) hypertension; I25.2 Old myocardial infarction; Z95.818 Presence of other cardiac implants and grafts
CPT/HCPCS: 93005; 85025; 80048; 36415; 83735; 85610; 82947 ×2; 80076; 85730; 84484; 70496; 70498; 70450; 96375; 96374; 99285; Q9967; J2405

== ENCOUNTER 2023-09-17 10:30 | Day surgery (SDC) | payer OTHER ==
[2023-09-17] MEDS ORDERED: NA CHLORIDE 0.9% 500 ML ONE (10:52)
[2023-09-17] MEDS ORDERED: MIDAZOLAM HCL 2 MG/2 ML INJ ONE (11:52)
[2023-09-17] MEDS ORDERED: VERAPAMIL HCL 10 MG/4 ML VIAL IV ONE (11:52)
[2023-09-17] MEDS ORDERED: HEPA 1000U/500MLS 2,000 UNIT/1,000 ML BAG IV ONE (11:52)
[2023-09-17] MEDS ORDERED: FENTANYL CITR 100 MCG/2 ML ONE (11:52)
[2023-09-17] MEDS ORDERED: LIDOCAINE 1% 20 ML MDV ONE (11:52)
[2023-09-17] MEDS ORDERED: ATROPINE SULF 1 MG/10 ML SYR IV ONE (11:53)
[2023-09-17] MEDS ORDERED: HEPARIN 5000 UNIT/ML 1 ML VIAL ONE (11:53)
[2023-09-17] MEDS ORDERED: TICAGRELOR 90 MG TABLET PO ONE (11:53)
[2023-09-17] MEDS ORDERED: HEPARIN 10,000 UNIT/10 ML VIAL IV ONE (11:53)
[2023-09-17] MEDS ORDERED: FLUMAZENIL 0.1 MG/ML (5 mL VIAL) IV ONE (11:54)
[2023-09-17] MEDS ORDERED: NALOXONE 0.4 MG/ML VIAL ONE (11:54)
[2023-09-17] MEDS ORDERED: ASPIRIN 325 MG TAB ONE (11:54)
[2023-09-17] MEDS ORDERED: CLOPIDOGREL 75 MG TABLET ONE (11:54)
[2023-09-17] MEDS ORDERED: METHYLPREDNISOLONE 125 MG INJ ONE (12:21)
[2023-09-17] MEDS ORDERED: DIPHENHYDRAMINE 50 MG/ML VIAL ONE (12:22)
[2023-09-17] MEDS ORDERED: REGADENOSON 0.4 MG/5 ML SYR IV ONE (13:02)
[2023-09-17 13:55] VITALS: TEMP 97
[2023-09-17 16:44] VITALS: BP 118/64; O2SAT 98
--- NOTE | 2023-09-18 00:11 | OP ---
Date of Procedure: 09/17/2023 Surgeon: WILFRED THOMAS Procedures Performed: 1.Selective coronary angiogram. 2.Left heart catheterization. 3.Fractional flow reserve of proximal left anterior descending moderate stenosis, value was 0.82, wh ich is insignificant. 4.Bilateral selective carotid angiogram. Indication: 1.Unstable angina. 2.Carotid artery stenosis by CT. Access: Right common femoral artery, 6-Welsh, closed with 6-Welsh Angio-Seal. Complications: None. Bleeding: Less than 50 mL. Total Sedation Time: 1 hour, used fentanyl and Versed. Description Of Procedure: After risks, benefits, and alternatives were explained, the patient agreed to procedure and signed informed consent. The patient was brought into the cardiac catheterization laboratory, prepped and draped in usual sterile fashion. Then, I accessed right common femoral arter y using micropuncture kit, ultrasound guidance, and fluoroscopy, placed 6-Welsh Denair sheath and took a 4-Welsh JL4 catheter into the aortic root, engaged the left main, took standard views, exchan ged for 6-Welsh JR4 catheter, engaged the RCA and took standard views, and crossed the aortic valve over the wire and measured the LVEDP. Pullback did not record any gradient. Then engaged the right common carotid, took standard views and then left common carotid, took standard views and then exchan ged for 6-Welsh EBU 3.5 guide, engaged the left main, took a pressure wire into the aortic root. Ga ve systemic heparin to assure ACT level above 250 throughout the procedure. Then pressures were equa lized and then the pressure wire was advanced into the LAD, placed distally and performed FFR using L exiscan, value was 0.82. Then pulling the wire back into the aortic root, there was no drift. Then, final angiogram showed no complications. I removed the guide and the sheath. Placed 6-Welsh Angio -Seal for closure with good hemostasis. Findings: Coronary angiogram: 1.Left main is normal. 2.LAD: Proximal diffuse 50% to 60% with FFR being negative 0.82. Then, there is a mid LAD stent th at has only 10% ISR. Then, the LAD becomes luminal irregularities with diffuse 20% to 30% stenosis i n multiple areas and diagonal branches with luminal irregularities. 3.Left circumflex: Small artery. There is a stent from left circumflex to the OM that has diffuse 20% ISR. 4.RCA: Very large and dominant, patent proximal to mid RCA stent. 5.LVEDP is elevated at 20 mmHg. Carotid angiogram: 1.Right common carotid is normal. Right internal carotid has 30% stenosis diffusely. Right externa l carotid is small. 2.Left common carotid, distally before the bifurcation, there is focal 40% stenosis and then left in ternal carotid has 30% stenosis. Conclusion: 1.Moderate coronary artery disease with patent stents and proximal LAD moderate to severe disease wi th FFR of 0.82. 2.Mild bilateral carotid stenosis. Plan: Medical management. SR/MODL Voice ID: [id number] Report ID: [id number]
== END 2023-09-17 16:33 | disposition home or self-care (01) ==
LOC: CCL 10:30
PROVIDERS: ATTEND Internal Medicine
DX: I25.110 Atherosclerotic heart disease of native coronary artery with unstable angina pectoris (principal); T82.855A Stenosis of coronary artery stent, initial encounter; I65.23 Occlusion and stenosis of bilateral carotid arteries; I10 Essential (primary) hypertension; E78.2 Mixed hyperlipidemia; E11.9 Type 2 diabetes mellitus without complications; Z79.82 Long term (current) use of aspirin; Z79.02 Long term (current) use of antithrombotics/antiplatelets; Z79.4 Long term (current) use of insulin; Z79.899 Other long term (current) drug therapy; Z88.8 Allergy status to other drugs, medicaments and biological substances
CPT/HCPCS: 36415; 83721; 82947 ×2; 93458; 36222; 76937; 93571; C1893; C1760; Q9967; G0269; J1644; J2785; J2001; J1200; J2250; J3010; J2919; J7040; C1769; 99152; 99153; J0461; J2310

== ENCOUNTER 2023-12-06 09:44 | Inpatient (IN) | payer OTHER ==
[2023-12-06 10:09] LABS: Absolute Basophils 0.1 K/uL (0-0.5); Absolute Eosinophils 0.1 K/uL (0-0.5); Absolute Lymphocytes (CBC) 1.5 K/uL (0.7-4.9); Absolute Monocytes 0.5 K/uL (0.1-1.3); Absolute Neutrophil 5.1 K/uL (1.8-8.0); Basophils % 0.9 % (0-1.3); Eosinophils % 1.6 % (0-4.4); Hematocrit 41.8 % (36.0-45.0); Hemoglobin 13.4 g/dL (12.0-15.0); Lymphocytes % 20.9 % (15.3-44.8); MCH 27.7 pg (27.0-35.0); MCHC 32.1 g/dL (32.0-36.0); MCV 86.4 fL (80-100); MPV 7.8 fL (7.6-11.3); Monocytes % 7.1 % (3.3-12.3); Neutrophils % 69.5 % (41.7-73.7); Platelets 343 thou/uL (152-406); RBC Red Blood Cell Count 4.83 M/uL (3.86-4.86)
[2023-12-06 10:11] LABS: PT Prothrombin Time 10.8 SECONDS (9.4-12.5); Protime INR 0.96
[2023-12-06 10:27] LABS: ALT/SGPT 29 U/L (13-56); AST/SGOT 23 U/L (15-37); Albumin 3.6 g/dL (3.4-5.0); Albumin/Globulin Ratio 1.1 (1.1-1.8); Alkaline Phosphatase 84 U/L (45-117); Anion Gap 6.1 mEq/L (5.0-15.0); BUN Blood Urea Nitrogen 16 mg/dL (7-18); Bicarbonate 30 mEq/L (21-32); Bilirubin Direct < 0.2 mg/dL (0-0.2); Bilirubin Indirect, Calculated 0.2 mg/dL (0.2-0.8); Bilirubin Total 0.4 mg/dL (0.2-1.0); Globulin 3.3 g/dL (2.3-3.5); Glomerular Filtration Rate 60 ml/min (=/>90); Glucose Level 121 mg/dL (74-106); NT PRO-BNP 198 pg/mL (<125); Potassium 4.1 mEq/L (3.5-5.1); Protein, Total 6.9 g/dL (6.4-8.2); Sodium Level 137 mEq/L (136-145); Troponin High Sensitivity 6.5 pg/mL (<58.9)
--- NOTE | 2023-12-06 10:29 | RAD REPORT ---
EXAM DESCRIPTION: CT - Ct Stroke Brain Wo Cont - 12/06/2023 10:17 am CLINICAL HISTORY: STROKE ALERT CVA, headache COMPARISON: Head angio dated 12/06/2023; Head angio dated 09/03/2023 TECHNIQUE: All CT scans are performed using dose optimization technique as appropriate and may inclu de automated exposure control or mA/KV adjustment according to patient size. FINDINGS: No intracranial hemorrhage, hydrocephalus or extra-axial fluid collection.Mild brain atrop hy and chronic microvascular ischemic changes. 18 mm area of diminished density adjacent to the right frontal again seen, unchanged, likely chronic.Area of diminished density measuring 12 mm in the blu likely related to old infarct. The paranasal sinuses and mastoids are clear. The calvarium is intact. IMPRESSION: No acute intracranial abnormality. Areas of prior infarcts suspected in the blu as well as adjacent The findings were discussed with Dr Tim in the ER on 12/05/2022 at 10:20 a.m. by telephone.
--- NOTE | 2023-12-06 10:29 | RAD REPORT ---
EXAM DESCRIPTION: CT - Head angio - 12/06/2023 10:18 am CLINICAL HISTORY: DIZZINESS Headache, drowsiness, dizziness COMPARISON: Head angio dated 09/03/2023; Ct Stroke Brain Wo Cont dated 09/03/2023 TECHNIQUE: CT angiography of the head was performed with MIPs. All CT scans are performed using dose optimization technique as appropriate and may include automated exposure control or mA/KV adjustment according to patient size. FINDINGS: No evidence of large vessel occlusion. No evidence of aneurysm is detected. No flow-limiti ng stenosis or vascular malformation identified. Antegrade flow is seen in the vertebral arteries. The vertebral arteries are codominant. The visualized dural venous sinuses are patent. IMPRESSION: No significant flow abnormality is detected.
--- NOTE | 2023-12-06 10:31 | RAD REPORT ---
EXAM DESCRIPTION: CT - Neck Angio - 12/06/2023 10:17 am CLINICAL HISTORY: stroke Headache, drowsiness, dizziness COMPARISON: Neck Angio dated 09/03/2023; Neck Angio dated 07/28/2023 TECHNIQUE: CT angiography of the neck vessels was performed with MIPs. All CT scans are performed using dose optimization technique as appropriate and may include automated exposure control or mA/KV adjustment according to patient size. FINDINGS: A left aortic arch is identified with normal three vessel configuration of the great vesse ls. No significant flow abnormality is seen of the common carotid bilaterally. Moderate hard plaque is present in both carotid bulbs. Stenosis of the left carotid bulb is estimated at less than 50% based on NASCET criteria. Stenosis of the right carotid bulb is estimated at 50-70% based on NASCET criteria. Normal flow is seen within both vertebral arteries. IMPRESSION: Moderate hard plaquing is seen in both carotid bulbs. Stenosis of the right carotid bulb with estimated at 50-70% based on NASCET criteria. NASCET criteria used. Mild 0-49% stenosis Moderate 50-69% stenosis Severe 70-99% stenosis
--- NOTE | 2023-12-06 11:21 | RAD REPORT ---
EXAM DESCRIPTION: RAD - Chest Single View - 12/06/2023 10:38 am CLINICAL HISTORY: malaise,dizzy Chest pain. COMPARISON: Chest Single View dated 06/03/2023; Chest Single View dated 05/21/2023; Chest Single View dated 09/28/2017 FINDINGS: Portable technique limits examination quality. The lungs are grossly clear. The heart is normal in size. No displaced fractures. IMPRESSION: No acute intrathoracic process suspected.
--- NOTE | 2023-12-06 11:33 | EDPHYS ---
Physician Documentation [facility] Name: Kylee Alvarado Age: 73 yrs Sex: Female : 1950 Arrival Date: 12/06/2023 Time: 09:44 Bed 19 Private MD: ED Physician Amelia Tim HPI: 12/05 10:01 This 73 yrs old Female presents to ER via Unassigned with complaints of Dizziness. sp3 10:01 73-year-old female with a history of prior stroke in the blu currently on Plavix, sp3 diabetes, hypertension, prior CO now presents to the ED with chief complaint dizziness and ataxia type symptoms that occurred upon waking up this morning. Patient has not been able to see a neurologist after her last event in August of this year. She denies any headache, chest pain, shortness of breath, abdominal pain, other neurological symptoms, memory loss, speech changes, or any other signs or symptoms on ROS at this time. Stroke alert was called upon patient arrival.. Historical: - Allergies: 10:05 pheradex; ap3 - PMHx: 10:05 Cerebrovascular accident; Diabetes - IDDM; Hypertension; Myocardial infarction; ap3 - Immunization history:: Adult Immunizations up to date. - Infectious Disease History:: Denies. - Social history:: Smoking status: Patient denies any tobacco usage or history of. ROS: 10:02 Constitutional: Negative for fever, chills, and weight loss, Eyes: Negative for injury, sp3 pain, redness, and discharge, ENT: Negative for injury, pain, and discharge, Neck: Negative for injury, pain, and swelling, Cardiovascular: Negative for chest pain, palpitations, and edema, Respiratory: Negative for shortness of breath, cough, wheezing, and pleuritic chest pain, Abdomen/GI: Negative for abdominal pain, nausea, vomiting, diarrhea, and constipation, Back: Negative for injury and pain, MS/Extremity: Negative for injury and deformity, Psych: Negative for depression, anxiety, suicide ideation, homicidal ideation, and hallucinations, Allergy/Immunology: Negative for hives, rash, and allergies, Endocrine: Negative for neck swelling, polydipsia, polyuria, polyphagia, and marked weight changes, Hematologic/Lymphatic: Negative for swollen nodes, abnormal bleeding, and unusual bruising, 10:02 All other systems are negative, Exam: 10:02 Constitutional: This is a well developed, well nourished patient who is awake, alert, sp3 and in no acute distress. Head/Face: Normocephalic, atraumatic. Eyes: Pupils equal round and reactive to light, extra-ocular motions intact. Lids and lashes normal. Conjunctiva and sclera are non-icteric and not injected. Cornea within normal limits. Periorbital areas with no swelling, redness, or edema. ENT: Nares patent. No nasal discharge, no septal abnormalities noted. External auditory canals are clear. Oropharynx with no redness, swelling, or masses, exudates, or evidence of obstruction, uvula midline. Mucous membranes moist. Neck: Trachea midline, no thyromegaly or masses palpated, and no cervical lymphadenopathy. Supple, full range of motion without nuchal rigidity, or vertebral point tenderness. No Meningismus. Chest/axilla: Normal chest wall appearance and motion. Nontender with no deformity. No lesions are appreciated. Cardiovascular: Regular rate and rhythm with a normal S1 and S2. No gallops, murmurs, or rubs. Normal PMI, no JVD. No pulse deficits. Respiratory: Lungs have equal breath sounds bilaterally, clear to auscultation and percussion. No rales, rhonchi or wheezes noted. No increased work of breathing, no retractions or nasal flaring. Abdomen/GI: Soft, non-tender, with normal bowel sounds. No distension or tympany. No guarding or rebound. No evidence of tenderness throughout. Back: No spinal tenderness. No costovertebral tenderness. Full range of motion. Skin: Warm, dry with normal turgor. Normal color with no rashes, no lesions, and no evidence of cellulitis. MS/ Extremity: Pulses equal, no cyanosis. Neurovascular intact. Full, normal range of motion. Psych: Awake, alert, with orientation to person, place and time. Behavior, mood, and affect are within normal limits. 10:02 Neuro: Stroke alert called upon patient arrival. Patient has normal cranial nerves II through XII, normal sensory, normal motor however does have ataxia on gait attempt. [id number] also slow and abnormal. Mild spontaneous nystagmus also noted bilateral eyes. Stroke scale at 1-[address] head, angiograms, laboratory values, EKG, chest x-ray, all pending. Probable admission given no established neurological follow-up and new stroke type symptoms. Differential diagnosis includes TIA/CVA spectrum, intracranial hemorrhage, electrolyte abnormality, nonspecific vertigo peripherally, among others., 12:32 ECG was reviewed by the Attending Physician. EKG demonstrates normal sinus rhythm at 60 sp3 bpm with normal intervals, normal QRS, normal axis, normal ST's ST segments without evidence of acute ischemia. Vital Signs: 10:03 BP 194 / 77; Pulse 61; Resp 17; Temp 98.6(O); Pulse Ox 98% on R/A; Weight 70.31 kg; ap3 Height 5 ft. 1 in. ; Pain 0/10; 10:45 BP 188 / 83; Pulse 65; Resp 16; Pulse Ox 99% ; bp 12:45 BP 180 / 65; Pulse 58; Resp 16; Temp 98.6; Pulse Ox 100% ; bp 10:03 Body Mass Index 29.29 (70.31 kg, 154.94 cm) ap3 10:03 Pain Scale: Adult ap3 NIH Stroke Scale Scores: 10:01 NIHSS Score: 0 bp MDM: 09:50 Patient medically screened. sp3 11:31 Data reviewed: vital signs, nurses notes. sp3 11:31 ED course: 73-year-old female with TIA/CVA spectrum versus other abnormality. Scans are sp3 negative except for carotid stenosis. Patient has not yet establish yourself with neurology and we will admit her for continued ataxia and neurological evaluation.. 12/05 09:53 Order name: Basic Metabolic Panel; Complete Time: 10:29 sp3 12/05 09:53 Order name: CBC with Diff; Complete Time: 10:17 sp3 12/05 09:53 Order name: LFT's; Complete Time: 10:29 sp3 12/05 09:53 Order name: Magnesium; Complete Time: 10:29 sp3 12/05 09:53 Order name: NT PRO-BNP; Complete Time: 10:29 sp3 12/05 09:53 Order name: PT-INR; Complete Time: 10:17 sp3 12/05 09:53 Order name: Troponin HS; Complete Time: 10:29 sp3 12/05 10:12 Order name: Glucose, Ancillary Testing; Complete Time: 10:17 EDMS 12/05 12:37 Order name: CBC with Automated Diff EDMS 12/05 12:37 Order name: CBC with Automated Diff EDMS 12/05 12:37 Order name: Comprehensive Metabolic Panel EDMS 12/05 12:37 Order name: Comprehensive Metabolic Panel EDLA 12/05 12:37 Order name: Lipid Profile EDMS 12/05 12:37 Order name: Lipid Profile EDMS 12/05 12:37 Order name: Magnesium EDLA 12/05 12:37 Order name: Magnesium EDMS 12/05 09:53 Order name: XRAY Chest (1 view); Complete Time: 11:31 sp3 12/05 09:59 Order name: CT Neck Angio; Complete Time: 11:31 sp3 12/05 09:59 Order name: CT Stroke Brain w/o Contrast; Complete Time: 10:29 sp3 12/05 10:12 Order name: Head angio; Complete Time: 11:31 EDMS 12/05 12:37 Order name: Stroke Protocol EDLA 12/05 09:53 Order name: EKG; Complete Time: 09:53 sp3 12/05 12:37 Order name: Patient Safety Orders EDLA 12/05 12:37 Order name: Physical Therapy Consult EDLA 12/05 09:53 Order name: Cardiac monitoring; Complete Time: 09:54 sp3 12/05 09:53 Order name: EKG - Nurse/Tech; Complete Time: 10:49 sp3 12/05 09:53 Order name: IV Saline Lock; Complete Time: 10:02 sp3 12/05 09:53 Order name: Labs collected and sent; Complete Time: 10:02 sp3 12/05 09:53 Order name: O2 Per Protocol; Complete Time: 09:54 sp3 12/05 09:53 Order name: O2 Sat Monitoring; Complete Time: 09:54 sp3 12/05 09:59 Order name: Stroke Swallow Screen; Complete Time: 10:02 sp3 Administered Medications: No medications were administered Disposition Summary: 12/06/23 11:33 Hospitalization Ordered Notes: Hospitalization Status: Inpatient Admission sp3 Provider: Karel Aguilar sp3 Location: Telemetry/MedSurg (Inpatient) sp3 Condition: Stable sp3 Problem: an acute exacerbation sp3 Symptoms: have worsened sp3 Bed/Room Type: Standard sp3 Room Assignment: 403(12/06/23 12:23) eb Diagnosis - Ataxia, dizziness sp3 Forms: - Medication Reconciliation Form sp3 - SBAR form sp3 - Leadership Thank You Letter sp3 NIH Stroke Scale - NIH Stroke Score Date: 12/06/2023 Time: 10:01 Total Score = 0 10. Dysarthria (speech clarity - read or repeat words) - 0(Normal) 11. Extinction and Inattention (visual/tactile/auditory/spatial/personal) - 0(No abnormality) 1a. Level of Consciousness (LOC) - 0(Alert) 1b. Level of Consciousness (LOC) (Month \T\ Age) - 0(Both) 1c. LOC Commands (Open \T\ Closes Eyes/Preschool Teacher) - 0(Both) 2. Best Gaze (Lateral Gaze Paresis) - 0(Normal) 3. Visual Field Loss - 0(No visual loss) 4. Facial Palsy - 0(Normal) 5a. Left Arm: Motor (10-second hold) - 0(No drift) 5b. Right Arm: Motor (10-second hold) - 0(No drift) 6a. Left Leg: Motor (5-second hold - always test supine) - 0(No drift) 6b. Right Leg: Motor (5-second hold - always test supine) - 0(No drift) 7. Limb Ataxia (finger/nose \T\ heel/dexter - test with eyes open) - 0(Absent) 8. Sensory Loss (pinprick arms/legs/face) - 0(Normal) 9. Best Language: Aphasia (description/naming/reading) - 0(No aphasia) Initials: bp Signatures: Dispatcher [employer] EDMS Penny Maldonado, GAME PRODUCER-C GAME PRODUCER-Csnw Irving Walton RN RN bp Prokisch, Amanda, RN RN ap3 Deanna Casiano Setul, MD MD sp3 Corrections: (The following items were deleted from the chart) 09:53 09:53 BASIC METABOLIC PANEL+C.LAB.BRZ ordered. EDMS EDMS 09:53 09:53 CBC+H.LAB.BRZ ordered. EDMS EDMS 09:53 09:53 HEPATIC FUNCTION+C.LAB.BRZ ordered. EDMS EDMS 09:53 09:53 MAGNESIUM+C.LAB.BRZ ordered. EDMS EDMS 09:53 09:53 PROBNP+C.LAB.BRZ ordered. EDMS EDMS 09:53 PROTIME (+INR)+COAG.LAB.BRZ ordered. EDMS EDMS 09:53 Troponin High Sensitivity+C.LAB.BRJohnnie ordered. EDMS EDMS 10:12 09:53 Head Brain Wo Cont+CT.RAD.BRZ ordered. EDMS EDMS 12: 11:33 sp3 eb
--- NOTE | 2023-12-06 11:33 | ER ---
Nurse's Notes [facility] Name: Kylee Alvarado Age: 73 yrs Sex: Female : 1950 Arrival Date: 12/06/2023 Time: 09:44 Bed 19 Private MD: Diagnosis: Ataxia, dizziness Presentation: 12/05 10:03 Chief complaint: Patient states: she woke up this morning feeling dizzy and was unable ap3 to properly ambulate without bumping into crabtree. patient also complains of a "funny feeling" in the back of her head. patient reports that her last known well was last night at 10pm. Coronavirus screen: At this time, the client does not indicate any symptoms associated with coronavirus-19. Ebola Screen: No symptoms or risks identified at this time. Initial Sepsis Screen: Does the patient meet any 2 criteria? No. Patient's initial sepsis screen is negative. Does the patient have a suspected source of infection? No. Patient's initial sepsis screen is negative. Risk Assessment: Do you want to hurt yourself or someone else? Patient reports no desire to harm self or others. Onset of symptoms is unknown. 10:03 Method Of Arrival: Wheelchair ap3 10:03 Acuity: GERMAN 2 ap3 Triage Assessment: 10:03 General: Appears in no apparent distress. Behavior is cooperative, appropriate for age, bp anxious. 10:03 Pain: Denies pain. EENT: No deficits noted. Neuro: Reports dizziness. Cardiovascular: bp No deficits noted. Respiratory: No deficits noted. GI: No signs and/or symptoms were reported involving the gastrointestinal system. : No signs and/or symptoms were reported regarding the genitourinary system. Derm: No deficits noted. Musculoskeletal: No deficits noted. Historical: - Allergies: 10:05 pheradex; ap3 - PMHx: 10:05 Cerebrovascular accident; Diabetes - IDDM; Hypertension; Myocardial infarction; ap3 - Immunization history:: Adult Immunizations up to date. - Infectious Disease History:: Denies. - Social history:: Smoking status: Patient denies any tobacco usage or history of. Screenin:03 [facility] ED Fall Risk Assessment (Adult) History of falling in the last 3 months, bp including since admission No falls in past 3 months (0 pts) Confusion or Disorientation No (0 pts) Intoxicated or Sedated No (0 pts) Impaired Gait Yes (1 pt) Mobility Assist Device Used No (0 pt) Altered Elimination No (0 pt) Score/Fall Risk Level 0 - 2 = Low Risk. Abuse screen: Denies threats or abuse. Denies injuries from another. Nutritional screening: No deficits noted. Tuberculosis screening: No symptoms or risk factors identified. Assessment: 09:58 General: CODE STROKE CALLED BY [employer]ANT GRINDER. bp 10:03 Reassessment: PT TO CT WITH RN. bp 10:45 Reassessment: Patient appears in no apparent distress at this time. Patient is alert, bp oriented x 3, equal unlabored respirations, skin warm/dry/pink. 12:45 Reassessment: REPORT FAXED TO 403. bp Vital Signs: 10:03 BP 194 / 77; Pulse 61; Resp 17; Temp 98.6(O); Pulse Ox 98% on R/A; Weight 70.31 kg; ap3 Height 5 ft. 1 in. ; Pain 0/10; 10:45 BP 188 / 83; Pulse 65; Resp 16; Pulse Ox 99% ; bp 12:45 BP 180 / 65; Pulse 58; Resp 16; Temp 98.6; Pulse Ox 100% ; bp 10:03 Body Mass Index 29.29 (70.31 kg, 154.94 cm) ap3 10:03 Pain Scale: Adult ap3 NIH Stroke Scale Scores: 10:01 NIHSS Score: 0 bp ED Course: 09:45 Patient arrived in ED. im 09:50 Amelia Tim MD is Attending Physician. sp3 09:53 Irving Walton, RN is Primary Nurse. bp 10:03 Patient has correct armband on for positive identification. bp 10:03 Provided Education on: N/A. bp 10:03 Inserted saline lock: 20 gauge in right antecubital area, using aseptic technique. bp Blood collected. 10:05 Triage completed. ap3 10:06 Arm band placed on left wrist. ap3 10:19 CT Neck Angio In Process Unspecified. EDMS 10:19 CT Stroke Brain w/o Contrast In Process Unspecified. EDMS 10:19 Head angio In Process Unspecified. EDMS 10:40 XRAY Chest (1 view) In Process Unspecified. EDMS 10:45 Initial lab(s) drawn, by me, sent to lab. EKG done, by ED staff, reviewed by Amelia Tim MD. 11:32 Karel Aguilar MD is Hospitalizing Provider. sp3 12:45 No provider procedures requiring assistance completed. Patient admitted, IV remains in bp place. Administered Medications: No medications were administered Medication: 12:45 VIS not applicable for this client. bp Outcome: 11:33 Decision to Hospitalize by Provider. sp3 12:46 Admitted to Med/surg accompanied by tech, family with patient, via stretcher, room 403, bp with chart, Report called to 403 12:46 Condition: stable 12:46 Instructed on the need for admit, 13:44 Patient left the ED. bp NIH Stroke Scale - NIH Stroke Score Date: 12/06/2023 Time: 10:01 Total Score = 0 10. Dysarthria (speech clarity - read or repeat words) - 0(Normal) 11. Extinction and Inattention (visual/tactile/auditory/spatial/personal) - 0(No abnormality) 1a. Level of Consciousness (LOC) - 0(Alert) 1b. Level of Consciousness (LOC) (Month \\T\\ Age) - 0(Both) 1c. LOC Commands (Open \\T\\ Closes Eyes/Lead Sprinkler) - 0(Both) 2. Best Gaze (Lateral Gaze Paresis) - 0(Normal) 3. Visual Field Loss - 0(No visual loss) 4. Facial Palsy - 0(Normal) 5a. Left Arm: Motor (10-second hold) - 0(No drift) 5b. Right Arm: Motor (10-second hold) - 0(No drift) 6a. Left Leg: Motor (5-second hold - always test supine) - 0(No drift) 6b. Right Leg: Motor (5-second hold - always test supine) - 0(No drift) 7. Limb Ataxia (finger/nose \\T\\ heel/dexter - test with eyes open) - 0(Absent) 8. Sensory Loss (pinprick arms/legs/face) - 0(Normal) 9. Best Language: Aphasia (description/naming/reading) - 0(No aphasia) Initials: bp Signatures: Dispatcher [employer] EDMS Irving Walton, Lizett Nicolas RN, RN RN ap3 Amelia Tim MD MD sp3 Leticia Arauz
[2023-12-06] MEDS ORDERED: ONDANSETRON 4 MG/2 ML VIAL IV PRN (12:29)
[2023-12-06] MEDS ORDERED: GLUCAGON 1 MG/VIAL IM PRN (12:37)
[2023-12-06] MEDS ORDERED: D10W 125 ML IV PRN (12:37)
--- NOTE | 2023-12-06 13:20 | P.HP ---
Certification for Inpatient Patient admitted to: Observation With expected LOS: <2 Midnights Practitioner: I am a practitioner with admitting privileges, knowledge of patient current condition, hospital course, and medical plan of care. Services: Services provided to patient in accordance with Admission requirements found in Title 42 Section 412.3 of the Code of Federal Regulations Patient History Date of Service: 12/06/23 Reason for admission: dizziness/ataxia History of Present Illness: Patient is a 73-year-old female with a past medical history of prior CVA in 2015 and 2023, hypertension, hyperlipidemia, CAD s/p stents x 4, DM type I, who presented to the ED with complaints of dizziness/unsteadiness. She states when she got out of bed this morning at 8 AM, she felt uncoordinated/unsteady and dizzy when trying to walk, and had to grab onto the crabtree/tables to get to the kitchen. Patient also reports headache located at back of head radiating to left mandaen which also began this morning. She states she did not take her blood pressure medication last night or this morning. She denies any weakness, numbness, tingling, nausea or vomiting. Denies tinnitus or blurry vision. Of note she was recently hospitalized in July 2023, found to have acute pontine infarction at that time. Current NIHSS 0. CT head revealing "No acute intracranial abnormality. Areas of prior infarcts suspected in the blu as well as adjacent." CTA neck revealing "Moderate hard plaquing is seen in both carotid bulbs. Stenosis of the right carotid bulb with estimated at 50-70% based on NASCET criteria." Patient admitted for ataxia/dizziness, possible CVA/TIA. Allergies ferumoxides [From Feridex IV] Adverse Reaction (Verified 09/11/23 13:35) Itching/Hives/Rash Home medications list reviewed: Yes Home Medications: Aspirin [Aspir-Low] 81 mg PO DAILY 09/28/17 Duloxetine HCl [Cymbalta] 30 mg PO DAILY 09/28/17 Famciclovir [Famvir] 250 mg PO DAILY 09/28/17 Clopidogrel Bisulfate [Plavix*] 75 mg PO DAILY 06/04/23 Ezetimibe [Zetia*] 10 mg PO DAILY 06/04/23 Insulin Degludec [Tresiba Flextouch U-100] 26 units SQ DAILY 06/04/23 Latanoprost Ophth [Xalatan 0.005%*] 1 gtt RIGHT EYE BEDTIME 07/28/23 Losartan Potassium [Cozaar*] 50 mg PO BID #240 tab 08/01/23 Lansoprazole 30 mg PO DAILY 12/06/23 - Past Medical/Surgical History Diabetic: Yes -: Diabetes mellitus type 1, insulin-dependent -: KS x 2 with PCI -: Hypertension -: GERD -: anxiety -: CVA 01/2016, 07/2023 -: Hyponatremia followed by Dr. Myles/Julio -: Hyperlipidemia -: Cardiac Stents -: Appendectomy -: Cholecystectomy Psychosocial/ Personal History: Lives at home with her - Family History Mother -: Heart disease, Hypertension, Lung disease - Social History Smoking Status: Never smoker Alcohol use: No CD- Drugs: No Caffeine use: Yes Review of Systems 10-point ROS is otherwise unremarkable Cardiovascular: Unremarkable Genitourinary: Unremarkable Musculoskeletal: Unremarkable Neurological: Other (+dizziness/unsteadiness. + headache) Physical Examination - Physical Exam General: Alert, In no apparent distress, Oriented x3 HEENT: Atraumatic, Normocephalic, PERRLA, Mucous membr. moist/pink, Sclerae nonicteric Neck: Supple, 2+ carotid pulse no bruit Respiratory: Clear to auscultation bilaterally, Normal air movement Cardiovascular: Normal pulses, Regular rate/rhythm Gastrointestinal: Normal bowel sounds, Soft and benign, Non-distended Musculoskeletal: No clubbing, No swelling, No tenderness Integumentary: No rashes, No breakdown Neurological: Normal speech, Normal strength at 5/5 x4 extr, Normal tone, Se nsation intact, Normal affect, Other (romberg positive. Face is symmetric. PERRLA.), Abnormal gait (unsteady) - Studies Laboratory Data (last 24 hrs) 12/06/23 12/06/23 12/06/23 10:00 10:00 10:00 WBC 7.30 Hgb 13.4 Hct 41.8 Plt Count 343 PT 10.8 INR 0.96 Sodium 137 Potassium 4.1 BUN 16 Creatinine 0.99 Glucose 121 H Magnesium 2.0 Total Bilirubin 0.4 AST 23 ALT 29 Alkaline Phosphatase 84 Assessment and Plan - Plan Problem list Ataxia Dizziness/unsteadiness Headache Recent CVA 07/28/2023, acute pontine infarction Hx CVA 2016 Hypertension Hyperlipidemia Diabetes mellitus type 1, insulin-dependent CAD s/p stent placement x 4 Ataxia Dizziness Headache Recent CVA 07/28/2023, acute pontine infarction -Acute CVA rule out -MRI Brain wo contrast ordered, pending -Lipid panel ordered -Resume home aspirin, plavix, Ezetimibe - Patient states unable to take statins due to adverse effect of myalgia/stiffness -Folic acid PO started -Neurochecks every 4 hours -NIH stroke scale every shift - Tele monitoring - Neurology consult CTA neck 12/05: Moderate hard plaquing is seen in both carotid bulbs. Stenosis of the right carotid bulb with estimated at 50-70% based on NASCET criteria. CT Brain 12/05: : No acute intracranial abnormality. Areas of prior infarcts suspected in the blu as well as adjacent CTA Head 12/05: No significant flow abnormality is detected. --Prior Imaging Reports: CTA Neck 09/03/23: : Moderate mixed plaque involving left proximal ICA resulting in 50-70%. Mild hard plaque involves the right carotid bulb. MRI Brain 07/28/23: 20 x 8 millimeter acute pontine infarction Hypertension Hyperlipidemia CAD s/p stent x4 -Resume home BP medications once verified -Prior Echocardiogram 07/30/23: Normal left ventricular systolic function, EF 60- 65%, normal wall motion. Grade 1 diastolic dysfunction -Underwent left heart cath 09/17/23: Findings-"(1) Moderate coronary artery disease with patent stents and proximal LAD moderate to severe disease with FFR of 0.82. (2) Mild bilateral carotid stenosis. Plan: Medical management." Diabetes Mellitus type I, insulin-dependent -Accu-Cheks ACHS -Insulin per sliding scale -HgbA1c 7.2 DVT prophylaxis: Lovenox - Advance Directives Does patient have a Living Will: No Does patient have a Durable POA for Healthcare: No
[2023-12-06 13:54] VITALS: O2SAT 100
[2023-12-06] MEDS: ACETAMINOPHEN 325 MG TABLET PO PRN (14:07)
[2023-12-06] MEDS: NA CHLORIDE 0.9% 1,000 ML IV SCH (14:07)
[2023-12-06 14:27] VITALS: BMI 29.2
[2023-12-06] MEDS: INSULIN REGULAR (HUMAN) 100 UNIT/ML SQ SCH (17:04)
[2023-12-06 18:35] LABS: Specific Gravity 1.021 (1.005-1.030); Urine Bilirubin NEGATIVE (Negative); Urine Blood Negative (Negative); Urine Clarity Clear (Clear); Urine Color Colorless (Yellow); Urine Glucose 2+ (Negative); Urine Ketones TRACE (Negative); Urine Microscopic Reflex YN NO UMIC; Urine Nitrite NEGATIVE (Negative); Urine Protein NEGATIVE (Negative); Urine Urobilinogen Normal (Normal); Urine pH 6.5 (5.0-7.0)
[2023-12-06] MEDS: EZETIMIBE 10 MG TAB PO SCH (20:27)
[2023-12-07 05:44] LABS: Absolute Basophils 0.1 K/uL (0-0.5); Absolute Eosinophils 0.2 K/uL (0-0.5); Absolute Monocytes 0.7 K/uL (0.1-1.3); Absolute Neutrophil 4.6 K/uL (1.8-8.0); Basophils % 1.5 % (0-1.3); Eosinophils % 2.8 % (0-4.4); Hematocrit 38.3 % (36.0-45.0); Hemoglobin 12.9 g/dL (12.0-15.0); Lymphocytes % 26.3 % (15.3-44.8); MCH 28.6 pg (27.0-35.0); MCHC 33.6 g/dL (32.0-36.0); MCV 85.2 fL (80-100); MPV 7.8 fL (7.6-11.3); Monocytes % 8.8 % (3.3-12.3); Neutrophils % 60.6 % (41.7-73.7); Nucleated Red Blood Cells % 0.1 % (0-0); Platelets 324 thou/uL (152-406); Red Cell Distribution Width 13.8 % (12.1-15.2)
[2023-12-07 05:57] LABS: Albumin 3.1 g/dL (3.4-5.0); Anion Gap 3.8 mEq/L (5.0-15.0); Bilirubin Total 0.3 mg/dL (0.2-1.0); Globulin 3.1 g/dL (2.3-3.5); Magnesium 1.9 mg/dL (1.6-2.4); Potassium 3.8 mEq/L (3.5-5.1); Protein, Total 6.2 g/dL (6.4-8.2)
[2023-12-07] MEDS: ENOXAPARIN 40 MG/0.4 ML SQ SCH (07:46)
[2023-12-07] MEDS: CLOPIDOGREL 75 MG TABLET PO SCH (07:47)
[2023-12-07] MEDS: FOLIC ACID 1 MG TABLET PO SCH (07:47)
[2023-12-07] MEDS: POTASSIUM 25 MEQ EFFERV TAB PO ONE (07:47)
[2023-12-07] MEDS: ASPIRIN EC 81 MG TAB PO SCH (07:47)
--- NOTE | 2023-12-07 12:35 | RAD REPORT ---
EXAM DESCRIPTION: MRI - Brain Wo Cont - 12/07/2023 12:23 pm CLINICAL HISTORY: r/o CVA, unsteady gait/ incoordination COMPARISON: Brain Wo Cont dated 07/28/2023; Brain Wo Cont dated 08/22/2021; Brain Wo Cont dated 018 TECHNIQUE: Sagittal T1-weighted images were obtained along with PD/heavily T2-weighted and T2-FLAIR images. Axial DWI and ADC mapping sequences were also obtained along with coronal heavily T2-weighted images were obtained. FINDINGS: No intracranial hemorrhage, mass or acute infarction. There is no edema or shift of midlin e structures. No extra-axial fluid collections. Signal voids are seen as a normal finding in the madie r intracranial vessels. Small remote right bruner radiata lacunar infarct. Remote pontine infarct. Mi ld chronic small vessel ischemic changes. IMPRESSION: No acute intracranial abnormality. Specifically, no evidence of acute infarct.
--- NOTE | 2023-12-07 18:22 | P.PN ---
Date of Service: 12/07/23 Subjective Awake and continues to feel dizzy and unable to walk without leaning to the rights. Concerned about having a several strokes in a row ROS 10 point ROS as noted above, otherwise negative Physical Exam General: Alert and Oriented x3, NAD HEENT: Atraumatic, Normocephalic, PERRLA, Mucous membr. moist/pink, Sclerae nonicteric Neck: Supple, 2+ carotid pulse no bruit Respiratory: Clear to auscultation bilaterally, Normal air movement Cardiovascular: Normal pulses, RRR, S1 S2 present Gastrointestinal: Normal bowel sounds, Soft and benign on palpation, Non-d istended Musculoskeletal: No clubbing, No swelling, No tenderness Integumentary: No rashes, No breakdown Neurological: Normal speech, Normal strength at 5/5 x4 extr, Normal tone, Sensation intact, Normal affect, Other (romberg positive. Face is symmetric. 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 Specifically, no evidence of acute infarct." -Lipid panel (triglyceride 86, cholesterol 185, LDL 118, HDL 50) -Resume home aspirin, plavix, Ezetimibe - Patient states unable to take statins due to adverse effect of myalgia/stiffness -continue Folic acid PO -Neurochecks every 4 hours -NIH stroke scale every shift - Tele monitoring - Neurology consult -IPR CTA neck 12/05: Moderate hard plaquing is seen in both carotid bulbs. Stenosis of the right carotid bulb with estimated at 50-70% based on NASCET criteria. CT Brain 12/05: : No acute intracranial abnormality. Areas of prior infarcts suspected in the blu as well as adjacent CTA Head 12/05: No significant flow abnormality is detected. --Prior Imaging Reports: CTA Neck 09/03/23: : Moderate mixed plaque involving left proximal ICA resulting in 50-70%. Mild hard plaque involves the right carotid bulb. MRI Brain 07/28/23: 20 x 8 millimeter acute pontine infarction Hypertension Hyperlipidemia CAD s/p stent x4 -Resume home BP medications once verified -Prior Echocardiogram 07/30/23: Normal left ventricular systolic function, EF 60- 65%, normal wall motion. Grade 1 diastolic dysfunction -Underwent left heart cath 09/17/23: Findings-"(1) Moderate coronary artery disease with patent stents and proximal LAD moderate to severe disease with FFR of 0.82. (2) Mild bilateral carotid stenosis. Plan: Medical management." Diabetes Mellitus type I, IDDM -Accu-Cheks ACHS -Insulin per sliding scale -HgbA1c 7.2 DVT prophylaxis: Lovenox Full code DISPO in the AM to IPR
--- NOTE | 2023-12-07 19:12 | CON ---
Reason For Consultation: Consultation called because of possible stroke. History Of Present Illness: Ms. Alvarado is a 73-year-old patient with prior stroke in the blu that occurred in 2015 and in 2023 in August, from which she recovered fairly well with some residual unstead iness, dizziness, and balance problems. She was doing fairly well until the morning of 12/06/2023 wh en she woke up and had reported more dizziness, unsteadiness, and a pain in the back of her head, mor e in the actual middle, radiating somewhat anteriorly to the right retroauricular region. Pain was a lso on the left side and to somewhat of a lesser extent. She had some tenderness to palpation in the back of her head. She came [facility] and was evaluated with an NIH Stroke Scale of 0. CT scan of the head showed no acute ischemic hemorrhagic change. MRI of the brain did identify a ch ronic remote pontine infarct and mild chronic small vessel ischemic disease. There was small remote right bruner radiata lacunar infarct as well. Laboratory studies were completely normal for complete blood count with differential, INR 0.96, and comprehensive metabolic panel remarkable for glucose el evated to 310, is most the highest and down to 151. Liver function studies normal. Total cholestero l 185, LDL cholesterol 118, HDL cholesterol 50. Sodium, potassium, chloride all unremarkable. Urina lysis showed trace ketones, 2+ glucose, otherwise unremarkable. CT angiogram of her head and neck sh owed no significant large vessel occlusion. The patient notes symptoms of somewhat mitigated a bit, but still slightly present in the back of the head where there is an area of tenderness. Past Medical History: As noted above. Past medical history does include diabetes mellitus type 1, m yocardial infarction and she had 2 coronary stents placed, hypertension, GERD, anxiety, and strokes i n 01/2016 and 07/2023, had hyponatremia, followed by Dr. Myles and Dr. Kim under Renal Service, h as dyslipidemia. Allergies: FERUMOXIDES CAUSES HIVES, RASH. Medications At Home: Current Medications: Tylenol 650 every 6 hours as needed, aspirin 81 mg daily, Plavix 75 mg daily, Lovenox 40 mg subcutaneously daily for DVT prophylaxis, Zetia 10 mg at bedtime, folic acid 1 mg daily, Zofran 4 mg every 6 hours as needed. Prior home medications do include Cymbal ta, that was in 2018, 30 mg daily, and losartan 50 mg twice daily on 08/01/2023. Past Surgical History: Cardiac stents, appendectomy, cholecystectomy. Family History: Heart disease, hypertension, lung disease in mother. Social History: No alcohol, tobacco, or IV drug use. Lives at home with her , single-reuben home. Review of Systems: As noted, some dizziness and tenderness to the back of her head. Otherwise, no positive findings on a 10-point systems review. Physical Examination: Vital Signs: Blood pressure 191/88, pulse of 64, respiratory rate 16, temperature 97.8, oxygen satur ation 100%. Weight 155 pounds. Height 5 feet 1 inch. BMI 29.3. General: Ms. Alvarado is resting in her bed. at bedside. She is now in no acute distress. HEENT: She is normocephalic, atraumatic. Sclerae anicteric. Oropharynx is pink and moist. Neck: Supple. Chest: Clear. Heart: Regular. Extremities: Show no clubbing, cyanosis, or edema. She has mild tenderness to palpation in the post erior kind of a mid area of the back of her head above the neck and base of the skull junction. Othe rwise, cranial nerves intact, 2 through 12. She has no significant cranial nerve findings. She in t erms of motor, full strength in upper and lower extremities. Coordination of subtle dysmetria noted in both upper extremities. Reflexes symmetric and depressed. Gait, she has good stance and stride, but the dizziness limits her ability to stand and ambulate. Assessment: Ms. Alvarado is a 73-year-old patient with multiple stroke risk factors and multiple lac unar infarcts, uncontrolled hypertension, and diabetes mellitus along with LDL greater than 70. She is of course at risk for additional strokes. However, her current symptoms do appear to be occipital neuralgia and not a new stroke. MRI of the brain ruled out a new stroke. She will benefit from luis fernando e aggressive physical therapy as her blood pressure and blood sugars are brought under control and as she is able to mobilize without significant ataxia, nystagmus, or dysmetria noted as she tries to mo bilize. It potentially may be related to her uncontrolled hypertension along with diabetes. Plan: Aspirin, Plavix, folic acid, statin, and systolic blood pressure may target around maybe 150 t o 160 over the next few days and eventually down to the 130s and 140s following that over 7 more days towards 120 to 130 systolic. This may be achieved as she is in inpatient rehabilitation. Please ad harry to inpatient rehabilitation to facilitate improvement and recovery and her ability to mobilize sa rangel as her blood sugars and blood pressures are managed and brought under control. Meclizine may be used as needed. Gait belt and 2-wheeled walker to be used at all times as she mobilizes and will be on cautious lookup for orthostatic type changes. She will be followed while hospitalized. AMAURY/JOEL Voice ID: [id number] Report ID: [id number]
[2023-12-08] MEDS: HYDRALAZINE HCL 20 MG/ML VIAL IV PRN (01:19)
[2023-12-08 08:25] LABS: Anion Gap 11.3 mEq/L (5.0-15.0); Potassium 4.3 mEq/L (3.5-5.1)
[2023-12-08] MEDS: FAMCICLOVIR 250 MG PO SCH (08:54)
[2023-12-08] MEDS: HOME MED 1 EA UNK (Lansoprazole [Lansoprazole] 30 MG Capsule.Dr) PO SCH (08:55)
[2023-12-08] MEDS: INSULIN DEGLUDEC 100 UNIT/ML SQ SCH ×3 (08:55→13:15)
[2023-12-08] MEDS: INSULN SQ SCH ×3 (08:55→13:15)
[2023-12-08] MEDS: EZETIMIBE 10 MG TAB PO SCH (09:35)
[2023-12-08] MEDS: LOSARTAN POTASSIUM 50 MG TABLET PO SCH (09:37)
[2023-12-08] MEDS: DULOXETINE 30 MG CAP PO SCH (09:37)
[2023-12-08] MEDS: PANTOPRAZOLE 40MG TABLET PO SCH (09:37)
--- NOTE | 2023-12-08 12:43 | EKG ---
Test Date: 2023-12-06 Test Time: 10:44:09 Food And Beverage Checker: BP MEASUREMENT RESULTS: Intervals: Rate: 59 NM: 174 QRSD: 72 QT: 466 QTc: 461 [place]: P: 51 NM: 174 QRS: 27 T: 56 INTERPRETIVE STATEMENTS: Sinus bradycardia Otherwise normal ECG Compared to ECG 09/03/2023 19:26:12 Sinus rhythm no longer present Electronically Signed On 12-08-23 12:40:08 CDT by Anand Alvares
[2023-12-08 12:46] VITALS: TEMP 97.1
--- NOTE | 2023-12-08 12:56 | P.DS ---
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 She states when she got out of bed this morning at 8 AM, she felt uncoordinated/unsteady and dizzy when trying to walk, and had to grab onto the crabtree/tables to get to the kitchen. Patient also reports headache located at back of head radiating to left religion which also began this morning. She states she did not take her blood pressure medication last night or this morning. She denies any weakness, numbness, tingling, nausea or vomiting. Denies tinnitus or blurry vision. Of note she was recently hospitalized in July 2023, found to have acute pontine infarction at that time. Current NIHSS 0. CT head revealing "No acute intracranial abnormality. Areas of prior infarcts suspected in the blu as well as adjacent." CTA neck revealing "Moderate hard plaquing is seen in both carotid bulbs. Stenosis of the right carotid bulb with estimated at 50-70% based on NASCET criteria." Patient admitted for ataxia/dizziness, possible CVA/TIA. Hospital Course: Kylee Alvarado is a pleasant 73 year old female with a past medical history significant for prior CVA in 2015 and 2023, hypertension, hyperlipidemia, CAD s/p stents x 4, DM type I who was admitted to the [facility] on 12/06/23 for CVA r/o. Kylee presented to the ED with chief complaint of uncoordination, unsteady, and dizziness. Her last known normal was before bedtime the night before coming to the ED. At time of evaluation NIHSS 0. Stroke work up was completed, MRI negative for acute stroke. Dr. Mehta consulted and diagnosed her with occipital neuralgia rather than a new stroke. She was able to work with Physical therapy and was transferred to inpatient rehab. She has an allergy to statin medications but will be able to remain on plavix, aspirin, and folic acid. On 12/08/23, Kylee was seen on morning rounds and deemed medically stable for discharge to inpatient rehab. Kylee was discharged with instructions to schedule follow-up appointments with PCP and Dr. Mehta. Kylee was provided prescription for folic acid. CTA neck 12/05: Moderate hard plaquing is seen in both carotid bulbs. Stenosis of the right carotid bulb with estimated at 50-70% based on NASCET criteria. CT Brain 12/05: : No acute intracranial abnormality. Areas of prior infarcts suspected in the blu as well as adjacent CTA Head 12/05: No significant flow abnormality is detected. Physical Exam General: Alert and Oriented x3, NAD, calm HEENT: Atraumatic, Normocephalic, PERRLA, Mucous membr. moist/pink Neck: Supple, 2+ carotid pulse no bruit Respiratory: Clear to auscultation bilaterally, Symmetrical chest wall movement, on RA Cardiovascular: Normal pulses, NSR, S1 S2 present Gastrointestinal: Normal bowel sounds, Soft on palpation, ND/NT Musculoskeletal: No clubbing, No swelling, No tenderness Integumentary: No rashes, No breakdown Neurological: Normal speech, Normal strength at 5/5 x4 extr, Normal tone Vital Signs/Physical Exam: Temp Pulse Resp BP Pulse Ox 97.1 F 98 H 16 178/82 H 100 12/08/23 12:00 12/08/23 12:00 12/08/23 12:00 12/08/23 12:00 12/08/23 12:00 Laboratory Data at Discharge: WBC 7.60 thou/uL (4.3-10.9) 12/07/23 04:31 Hgb 12.9 g/dL (12.0-15.0) 12/07/23 04:31 Hct 38.3 % (36.0-45.0) 12/07/23 04:31 Plt Count 324 thou/uL (152-406) 12/07/23 04:31 PT 10.8 SECONDS (9.4-12.5) 12/06/23 10:00 INR 0.96 12/06/23 10:00 Sodium 134 mEq/L (136-145) L 12/08/23 08:01 Potassium 4.3 mEq/L (3.5-5.1) D 12/08/23 08:01 BUN 18 mg/dL (7-18) 12/08/23 08:01 Creatinine 1.00 mg/dL (0.55-1.02) 12/08/23 08:01 Glucose 270 mg/dL (74-106) H 12/08/23 08:01 Magnesium 1.9 mg/dL (1.6-2.4) 12/07/23 04:31 Total Bilirubin 0.3 mg/dL (0.2-1.0) 12/07/23 04:31 AST 16 U/L (15-37) 12/07/23 04:31 ALT 25 U/L (13-56) 12/07/23 04:31 Alkaline Phosphatase 85 U/L (45-117) 12/07/23 04:31 Triglycerides 86 mg/dL (<150) 12/07/23 04:31 Cholesterol 185 mg/dL (<200) 12/07/23 04:31 HDL Cholesterol 50 mg/dL (40-60) 12/07/23 04:31 Cholesterol/HDL Ratio 3.70 12/07/23 04:31 Home Medications: Aspirin [Aspir-Low] 81 mg PO DAILY 09/28/17 Duloxetine HCl [Cymbalta] 30 mg PO DAILY 09/28/17 Famciclovir [Famvir] 250 mg PO DAILY 09/28/17 Ezetimibe [Zetia*] 10 mg PO DAILY 06/04/23 Insulin Degludec [Tresiba Flextouch U-100] 28 units SQ DAILY 06/04/23 Latanoprost Ophth [Xalatan 0.005%*] 1 gtt RIGHT EYE BEDTIME 07/28/23 Losartan Potassium [Cozaar*] 50 mg PO BID #240 tab 08/01/23 Lansoprazole 30 mg PO DAILY 12/06/23 Clopidogrel Bisulfate [Plavix*] 75 mg PO DAILY 12/08/23 Folic Acid 1 mg PO DAILY 30 Days #30 tab 12/08/23 New Medications: Folic Acid 1 mg PO DAILY 30 Days #30 tab Physician Discharge Instructions: Kylee was evaluated for a possible new stroke, MRI has ruled out a new stroke but reveals old infarcts. Residual dizziness will take time to resolve per Dr. Campos assessment. Discharge to inpatient rehab for more aggressive physical therapy. 1. Please call and schedule a follow-up appointment with your PCP in 3-5 days - Please follow-up with your PCP for medication refills/adjustments 2. Please call and schedule a follow-up appointment with Dr. Mehta in two weeks 3. Continue ADA diet 4. activity restrictions, fall precautions 5. Return to the ED if symptoms worsen New medications Folic Acid 1 mg daily Diet: ADA Activity: Fall precautions Followup: Smith Mehta MD [ASSOCIATE-ACTIVE - CAN ADMIT] - 1-2 Weeks Krishna Leonard NP [Primary Care Provider] -
[2023-12-08 15:02] VITALS: BP 166/83
[2023-12-08] MEDS ORDERED: LATANOPROST 0.005% 2.5ML OPTH OPTH SCH (21:00)
[2023-12-09] MEDS ORDERED: PANTOPRAZOLE 40MG TABLET PO SCH (06:30)
== END 2023-12-08 16:35 | disposition home or self-care (01) | DRG 552 ==
LOC: ER 09:44 → 4TH 12:16 → OBSVTOIN 12-07 15:37
PROVIDERS: ADMIT Hospitalist; ATTEND Internal Medicine
DX: M54.81 Occipital neuralgia (principal); I10 Essential (primary) hypertension; E78.5 Hyperlipidemia, unspecified; K21.9 Gastro-esophageal reflux disease without esophagitis; E10.9 Type 1 diabetes mellitus without complications; I25.10 Atherosclerotic heart disease of native coronary artery without angina pectoris; I25.2 Old myocardial infarction; R27.0 Ataxia, unspecified; R29.700 NIHSS score 0; Z79.4 Long term (current) use of insulin; Z95.1 Presence of aortocoronary bypass graft; Z95.5 Presence of coronary angioplasty implant and graft; Z88.8 Allergy status to other drugs, medicaments and biological substances; Z79.82 Long term (current) use of aspirin; Z79.02 Long term (current) use of antithrombotics/antiplatelets; Z90.49 Acquired absence of other specified parts of digestive tract; Z86.73 Personal history of transient ischemic attack (TIA), and cerebral infarction without residual deficits; Z79.899 Other long term (current) drug therapy; Z91.148 Patient's other noncompliance with medication regimen for other reason
CPT/HCPCS: 36415; 70450; 70496; 70498; 70551; 71045; 80048; 80053; 80061; 80076; 81003; 82947; 83735; 83880; 84484; 85025; 85610; 93005; 94760; 97116; 97161; 97165; 97530; 97535; 99285; G0378; J0360; J1650; J7030; Q9967

== ENCOUNTER 2025-01-04 16:01 | Inpatient (IN) | payer OTHER ==
--- OUTSIDE RECORDS SUMMARY | 2025-01-04 16:10 | XMS REPORT | Continuity of Care Document ---
Author Name Unknown Address [address] [facility] [address] [place] [address] [facility] [place] Address [address] [facility] [address] [place] [address] Care Team Providers Care Manager Client Name Role Phone Horacio ST, Krishna Hicks Primary Care Physician [phone] ROSALIE AGUIAR Attending Clinician Unav Rosalie Waters MD Attending Clinician + VIOLA BUNN Attending Clinician UnavailVIOLA Reyes Attending Clinician UnavailRadha Jimenez PT, [place] Attending Clinician Un available Marta Dove PTA Attending Clinician Unavail Viola Yun MD Attending Clinician [phone] Irving Wells MD Attending Clinician Dinesh Dove PTA Attending Clinician Unavailalba Zuniga PT, Bridget Attending Clinician UnavailIRVING Harmon Attending Clinician Unavailable Doctor Unassigned, [place] Attending Clinician U navailable HORACIO_Jimmy Attending Clinician Unavailable DAVID_Elina Attending Clinician Unavailable Tray EMERY, Swapna Attending Clinician [phone] Kwame, [place] Attending Clinician Unavailable Naun Hernandez Attending Clinician [phone] Seymour Garcia MD Attending Clinician [phone] SWAPNA FELIZ Attending Clinician Unavailable Darnell Bauer - Jerry Attending Clinician Unavailable Fide Quiñones Attending Clinician [phone] FIDE DOVE Attending Clinician Unavailable SEYMOUR GARCIA Attending Clinician Nannette perales RADIOLOGY Attending Clinician Unavailable VERN LEE Attending Clinician DALIA Monterroso Attending Clinician Unavailable MARCUS ENAMORADO Attending Clinician Unava NIKOLE Del Valle Attending Clinician Unavailable HORACIO_F Admitting Clinician Unavailable DAVID_R Admitting Clinician Unavailable Kwame, Onofre Admitting Clinician Unavailable NIKOLE TRISTAN Admitting Clinician Unavailable Payers Payer Name Policy Type Policy Number Effective Date Expirati on Date Source MEDICARE PART A AND B Medicare [id number] 2023 00:00:00 [employer] Other [id number] 2024 00:00:00 MEDICARE PART A \\T\\ B [id number] 2014 00:00:00 [employer] [employer] [id number] 2018 00:00:00 [place]: [employer] [id number] 2014 00:00:00 [employer] [employer] (MEDICARE SUPPLEMENT) [id number] 2018 00:00:00 Problems Condition Name Condition Details Condition Category Status Onset Date Resolution Date Last Treatment Date Treating Clinician Comments Source Varicose veins of lower extremity Varicose Veins of Lower Extremity Problem Active 7-14 00:00: 00 [facility] Osteopenia Osteopenia Problem Active 1-19 00:00: 00 [facility] Hypoosmola rity Hypoosmola rity Problem Active 8 00:00: 00 [facility] History of cerebrovas cular accident History of Cerebrovas cular Accident Problem Active 5-07 00:00: 00 [facility] Mass of left breast Mass of Left Breast Problem Active 1-18 00:00: 00 [facility] Hyperkalem ia Hyperkalem ia Problem Active 1-18 00:00: 00 [facility] Sciatica Sciatica Problem Active 7-18 00:00: 00 [facility] History of headache History of Headache Problem Active 4-27 00:00: 00 [facility] Mixed anxiety and depressive disorder Mixed Anxiety and Depressive Disorder Problem Active 2-20 00:00: 00 [facility] Placement of stent in cardiac conduit Placement of Stent in Cardiac Conduit Problem Active 2021-04 2-15 00:00: 00 [facility] Urinary incontinen ce Urinary Incontinen ce Problem Active 9-29 00:00: 00 [facility] Degenerati on of interverte bral disc Degenerati on of Interverte bral Disc Problem Active 7-26 00:00: 00 [facility] Hyponatrem ia Hyponatrem ia Problem Active 5-09 00:00: 00 [facility] Chronic kidney disease stage 3A Chronic Kidney Disease Stage 3a Problem Active 3-17 00:00: 00 [facility] Dyslipidem ia Dyslipidem ia Disease Active 1-25 00:00: 00 [facility] Mixed hyperlipid emia Mixed Hyperlipid emia Problem Active 1-17 00:00: 00 [facility] Asthma Asthma Problem Active 1-17 00:00: 00 [facility] Herpesviru s infection Herpesviru s Infection Problem Active 2020-04 2-23 00:00: 00 [facility] Sarcoidosi s Sarcoidosi s Problem Active 2020-04 0-11 00:00: 00 [facility] Diabetes mellitus Diabetes Mellitus Problem Active 2020-04 00:00: 00 [facility] Diabetic peripheral neuropathy Diabetic Peripheral Neuropathy Problem Active 2020-04 00:00: 00 [facility] Hypertensi ve disorder Hypertensi ve Disorder Problem Active 2020-04 00:00: 00 [facility] Gastroesop hageal reflux disease Gastroesop hageal Reflux Disease Problem Active 2020-04 00:00: 00 [facility] Intraocula r pressure right eye Intraocula r Pressure Right Eye Problem Active 2020-04 00:00: 00 [facility] History of myocardial infarction History of Myocardial Infarction Problem Active 2020-04 00:00: 00 [facility] History of polyp of colon History of Polyp of Colon Problem Active 2020-04 00:00: 00 [facility] History of SARS-CoV-2 History of SARS-CoV-2 Problem Active 2019-04 2 00:00: 00 [facility] Acute viral syndrome Acute viral syndrome Disease Active 4- 00:00: 00 [facility] Fever, unspecifie d fever cause Fever, unspecifie d fever cause Disease Active 4- 00:00: 00 [facility] Cough Cough Disease Active 4- 00:00: 00 [facility] Other headache syndrome Other headache syndrome Disease Active 4- 00:00: 00 [facility] Seasonal allergic rhinitis, unspecifie d trigger Seasonal allergic rhinitis, unspecifie d trigger Disease Active 4- 00:00: 00 [facility] Cerebrovas cular accident Cerebrovas cular Accident Problem Active 12-02 00:00: 00 [facility] Well woman exam with routine gynecologi whitney exam Well woman exam with routine gynecologi whitney exam Disease Active -08 00:00: 00 [facility] Acute myocardial infarction Acute myocardial infarction Disease Active 2015-04 00:00: 00 Overview: Formattin g of this note might be different from the original. 6 [facility] Coronary artery disease Coronary artery disease Disease Active 2015-04 00:00: 00 [facility] Anemia Anemia Disease Active 12-17 00:00: 00 [facility] Herpes simplex infection Herpes simplex infection Disease Active 12-12 00:00: 00 [facility] Type I diabetes mellitus with complicati on, uncontroll ed Type I diabetes mellitus with complicati on, uncontroll ed Disease Active 08-23 00:00: 00 [facility] Depression Depression Disease Active 08-23 00:00: 00 [facility] Essential hypertensi on Essential hypertensi on Disease Active 08-23 00:00: 00 [facility] Neck pain Neck pain Disease Active 08-23 00:00: 00 [facility] Hyperchole sterolemia Hyperchole sterolemia Disease Active 08-23 00:00: 00 [facility] Dupuytren' s contractur e (disorder) Dupuytren' s contractur e (disorder) Active Problem 10/03/2022 [facility] her [facility] Problem Active 2022-10-03 23:54:38 Marcella Palomo Finding of body mass index (finding) Finding of body mass index (finding) Active Problem 10/03/2022 [facility] her [facility] Problem Active 2022-10-03 23:54:38 Marcella Palomo Headache (finding) Headache (finding) Active Problem 10/03/2022 [facility] her [facility] Problem Active 2022-10-03 23:54:38 Marcella Palomo Hyperlipid emia (disorder) Hyperlipid emia (disorder) Active Problem 10/03/2022 [facility] her [facility] Problem Active 2022-10-03 23:54:38 Marcella Palomo Hypothyroi dism (disorder) Hypothyroi dism (disorder) Active Problem 10/03/2022 [facility] Problem Active 2022-10-03 23:54:38 Memoria derek Palomo Muscle pain (finding) Muscle pain (finding) Active Problem 10/03/2022 [facility] Problem Active 2022-10-03 23:54:38 Memoria derek Palomo Pain in thumb (finding) Pain in thumb (finding) Active Problem 10/03/2022 [facility] Problem Active 2022-10-03 23:54:38 Memoria derek Palomo Pain in wrist (finding) Pain in wrist (finding) Active Problem 10/03/2022 [facility] Problem Active 2022-10-03 23:54:38 Ravioria derek Palomo Paresthesi a (finding) Paresthesi a (finding) Active Problem 10/03/2022 [facility] Problem Active 2022-10-03 23:54:38 Ravioria derek Palomo Paresthesi a of foot (finding) Paresthesi a of foot (finding) Active Problem 10/03/2022 [facility] Problem Active 2022-10-03 23:54:38 Marcella Palomo Prolapsed thoracic interverte bral disc (disorder) Prolapsed thoracic interverte bral disc (disorder) Active Problem 10/03/2022 [facility] Problem Active 2022-10-03 23:54:38 Memoria derek Palomo Transient ischemic attack (disorder) Transient ischemic attack (disorder) Active Problem 10/03/2022 [facility] her [facility] Problem Active 2022-10-03 23:54:38 Marcella Palomo Incontinen ce of feces (finding) Incontinen ce of feces (finding) Active Problem 10/03/2022 [facility] Problem Active 2022-10-03 23:54:38 Ravioria l Dewey Overactive bladder Overactive bladder Active Problem 10/03/2022 [facility] Problem Active 2022-10-03 23:54:38 Marcella Palomo Urge incontinen ce of urine (finding) Urge incontinen ce of urine (finding) Active Problem 10/03/2022 [facility] Problem Active 2022-10-03 23:54:38 Marcella Palomo Carpal tunnel syndrome (disorder) Carpal tunnel syndrome (disorder) Active Problem 10/03/2022 [facility] Problem Active 2022-10-03 23:54:38 Ravioria derek Palomo Cervical radiculopa thy (disorder) Cervical radiculopa thy (disorder) Active Problem 10/03/2022 [facility] Problem Active 2022-10-03 23:54:38 Marcella Palomo Cervical spondylosi s (disorder) Cervical spondylosi s (disorder) Active Problem 10/03/2022 [facility] Problem Active 2022-10-03 23:54:38 Marcella Palomo Disease caused by 2019-nCoV Disease caused by 2019-nCoV Active Problem 10/03/2022 [facility] Problem Active 2022-10-03 23:54:38 Marcella Palomo Cramp (finding) Cramp (finding) Active Problem 10/03/2022 [facility] Problem Active 2022-10-03 23:54:38 Marcella Palomo Diabetes mellitus type 2 (disorder) Diabetes mellitus type 2 (disorder) Active Problem 10/03/2022 Automatica lly added by Discern Expert with order of Add Problem Diabetes Type II on May 04, 2019 14:10:44 [employer] with order ID: [id number] 3.0 entered by Jean Crooks. [facility] Problem Active 2022-10-03 23:54:38 Marcella Palomo Tubular adenoma of colon Tubular adenoma of colon Disease Resolve d 2015-04 00:00: 2016-02-07 00:00:00 2016-02-07 12:32:09 [facility] Allergies, Adverse Reactions, Alerts Allergy Name Allergy Type Status Severity Reaction(s) Onset Date Inactive Date Treating Clinician Comments Source No Known Allergie s DA Active U 2021-04 00:00: 00 [facility] Codeine Sulfate Propensi ty to adverse reaction s Active Unknown - See comments 2018-04 00:00: 00 [facility] CODEINE SULFATE DRUG INGREDI Active Unknown-Cmnt 2018-04 00:00: 00 [facility] Codeine Propensi ty to adverse reaction s Active 2018-04 00:00: 00 Other Reaction( s): Other (see comments) , Unknown - See comments, Unknown - See comments Marcella Iniguez Ibuprofe n Propensi ty to adverse reaction s Active 2015-04 00:00: 00 Marcella Iniguez Ferumoxi bernard Propensi ty to adverse reaction s Active Unknown - See comments 2007-04 00:00: 00 [facility] FERUMOXI BERNARD DRUG INGREDI Active Unknown-Cmnt 2007-04 00:00: 00 [facility] Ferumoxi bernard Propensi ty to adverse reaction s Active 2007-04 00:00: 00 Other Reaction( s): Itching/H bella/Rash , Other (see comments) , Unknown - See comments, Unknown - See comments Marcella Iniguez No Known Medicati on Allergie s No Known Medicati on Allergie s Active Marcella Palomo Social History Social Habit Start Date Stop Date Quantity Comments Source Gender identity 2023-06-27 18:46:13 Identifies as female gender (finding) Kush Iniguez ASSERTION Possible Kush Iniguez Sexual orientation [facility] Exposure to SARS-CoV-2 (event) Not sure [facility] Alcoholic beverage intake 2024-10-11 00:00:00 2024-10-11 00:00:00 Lifetime non-drinker (finding) Kush Iniguez History of Social function 2024-10-11 00:00:00 2024-10-11 00:00:00 [facility] Tobacco use and exposure 2023-12-08 00:00:00 2023-12-08 00:00:00 Smokeless tobacco non-user [facility] Sex 2023-06-27 18:46:13 2023-06-27 18:46:13 Female (finding) [facility] Alcohol intake 2021-04-30 00:00:00 2021-04-30 00:00:00 Current non-drinker of alcohol (finding) [facility] Sex assigned at 1950 00:00:00 1950 00:00:00 [facility] Smoking Status Start Date Stop Date Source Tobacco smoking status Mahin Palomo Medications Ordered Medication Name Filled Medication Name Start Date Stop Date Current Medication? Ordering Clinician Indication Dosage Frequency Signature (SIG) Comments Components Source clopidogrel 75 mg tablet TAKE 1 TABLET BY MOUTH EVERY DAY clopidogrel 75 mg tablet TAKE 1 TABLET BY MOUTH EVERY DAY 10-24 00:00: 00 No clopidogre l 75 mg tablet TAKE 1 TABLET BY MOUTH EVERY DAY [facility] lansoprazol e 30 mg capsule 09-04 00:00: 00 Yes [id number] TAKE 1 CAPSULE BY MOUTH EVERY DAY [facility] cyclobenzap rine 10 mg oral tablet 08-15 15:31: 00 Yes TAKE 1 TABLET 3 TIMES A DAY BY ORAL ROUTE. Marcella Palomo tramadol 08-15 15:31: 00 Yes 50 mg, PO, Q4-6H, PRN Pain, # 20 tab, 0 Refill(s) Marcella Palomo cyclobenzap rine (Flexeril) 10 MG tablet cyclobenzap rine (Flexeril) 10 MG tablet 08-15 00:00: 00 Yes TAKE 1 TABLET 3 TIMES A DAY BY ORAL ROUTE. Marcella Iniguez insulin degludec (TRESIBA FLEXTOUCH U-100) 100 unit/mL (3 mL) InPn 04-30 00:00: 00 Yes [id number] 26U inject 26 Units under the skin every morning. E10.9 [facility] ezetimibe 10 mg tablet 04-30 00:00: 00 Yes [id number] 10mg Take 1 tablet by mouth daily. [facility] latanoprost 0.005 % ophthalmic drops 1-24 00:00: 00 Yes [facility] metoprolol tartrate 25 mg tablet 1-11 00:00: 00 Yes [facility] clopidogreL 75 mg tablet 2020-04 2-22 00:00: 00 Yes [facility] NOVOLOG FLEXPEN U-100 INSULIN 100 unit/mL (3 mL) injection 2020-04 1-17 00:00: 00 09-04 00:00 :00 No [id number] INJECT 6-14 UNITS UNDER THE SKIN 3 (THREE) TIMES DAILY BEFORE MEALS. E10.9 [facility] nitroglycer in 0.4 mg sublingual tablet 2020-04 0-29 00:00: 00 Yes [facility] ezetimibe 10 mg tablet 8- 00:00: 00 04-30 00:00 :00 No [id number] 10mg Take 1 tablet by mouth daily. [facility] losartan 50 mg tablet 14 00:00: 00 Yes [id number] 50mg Take 1 tablet by mouth daily. [facility] lansoprazol e 30 mg capsule 5 00:00: 00 09-04 00:00 :00 No [id number] TAKE 1 CAPSULE ONCE DAILY [facility] latanoprost 0.05 MG/ML Ophthalmic Solution 08-03 15:09: 00 Yes PUT ONE DROP INTO RIGHT EYE AT BEDTIME Marcella Palomo Budesonide 0.25 MG/ML Inhalant Solution 08-03 15:09: 00 Yes USE WITH NEBULIZER 2 TIMES A DAY Marcella Palomo losartan 50 mg oral tablet 08-03 15:09: 00 Yes TAKE 1 TABLET BY MOUTH EVERY DAY Marcella Palomo ezetimibe 10 mg oral tablet 08-03 15:09: 00 Yes TAKE 1 TABLET BY MOUTH EVERY DAY Marcella Palomo latanoprost ophthalmic 0.005% solution 08-03 15:09: 00 Yes PUT ONE DROP INTO RIGHT EYE AT BEDTIME Marcella Palomo budesonide 0.5 mg/2 mL inhalation suspension 08-03 15:09: 00 Yes USE WITH NEBULIZER 2 TIMES A DAY Marcella Palomo 3 ML insulin degludec 100 UNT/ML Pen Injector [Tresiba] 08-03 15:05: 00 Yes INJECT 26 UNITS UNDER THE SKIN EVERY MORNING. E10.9 Marcella Palomo Tresiba FlexTouch 100 units/mL subcutaneou s solution 08-03 15:05: 00 Yes INJECT 26 UNITS UNDER THE SKIN EVERY MORNING. E10.9 Marcella Palomo insulin degludec (Tresiba FlexTouch) 100 UNIT/ML injection insulin degludec (Tresiba FlexTouch) 100 UNIT/ML injection 08-03 00:00: 00 Yes INJECT 26 UNITS UNDER THE SKIN EVERY MORNING. E10.9 Marcella Palomo Epic losartan (Cozaar) 50 MG tablet losartan (Cozaar) 50 MG tablet 08-03 00:00: 00 Yes TAKE 1 TABLET BY MOUTH EVERY DAY Marcella Palomo Epic ezetimibe (Zetia) 10 MG tablet ezetimibe (Zetia) 10 MG tablet 08-03 00:00: 00 Yes TAKE 1 TABLET BY MOUTH EVERY DAY Marcella Iniguez budesonide (Pulmicort) 0.5 MG/2ML nebulizer solution budesonide (Pulmicort) 0.5 MG/2ML nebulizer solution 08-03 00:00: 00 Yes USE WITH NEBULIZER 2 TIMES A DAY Marcella Palomo Epic TRESIBA FLEXTOUCH U-100 100 unit/mL (3 mL) InPn 07-17 00:00: 00 04-30 00:00 :00 No [id number] 26U inject 26 Units under the skin every morning. E10.9 [facility] albuterol (PROAIR HFA) 90 mcg/actuati on inhaler 2019-04 2-03 00:00: 00 Yes [id number] 2{puff} Inhale 2 Puffs every 6 (six) hours as needed for Wheezing. [facility] flash glucose scanning reader (FREESTYLE JASVIR 2 READER) Misc 12-27 00:00: 00 04-30 00:00 :00 No [id number] 1{each} 1 Each daily. [facility] flash glucose sensor (FREESTYLE JASVIR 2 SENSOR) Kit 12-27 00:00: 00 04-30 00:00 :00 No [id number] 1{each} 1 Each every 14 (fourteen) days. [facility] Insulin Buchanan, Disposable, (PEN NEEDLE) 30 gauge x 5/16" Ndle 09-26 00:00: 00 Yes [id number] Use as directed 4 times a day [facility] Insulin Buchanan, Disposable, (PEN NEEDLE) 30 gauge x 5/16" Ndle 09-26 00:00: 00 Yes [id number] Use as directed 4 times a day [facility] Nitroglycer in 0.4 MG Sublingual Tablet 08-09 16:23: 00 Yes 0 Refill(s) Marcella Palomo nitroglycer in 0.4 mg sublingual tablet 08-09 16:23: 00 Yes 0 Refill(s) Marcella Palomo gabapentin 100 MG Oral Capsule 08-09 16:22: 00 Yes 100 mg = 1 cap, PO, BID, # 60 cap, 3 Refill(s), Pharmacy: [facility] #[id number] Marcella Palomo nitroglycer in (Nitrostat) 0.4 MG SL tablet nitroglycer in (Nitrostat) 0.4 MG SL tablet 08-09 00:00: 00 Yes 0 Refill(s) Marcella Palomo Epic aspirin 81 mg chewable tablet 07-05 10:56: 10 Yes 81mg Take 81 mg by mouth daily. [facility] Plavix 2018-04 15:19: 00 Yes PO, 0 Refill(s) Marcella Palomo Plavix 2018-04 15:19: 00 Yes 75 mg, PO, Daily, 0 Refill(s) Marcella Palomo Clopidogrel Bisulfate (PLAVIX PO) Clopidogrel Bisulfate (PLAVIX PO) 2018-04 00:00: 00 Yes 75mg 75 mg, PO, Daily, 0 Refill(s) Ravishakeel derek Dewey Epic baclofen 10 mg oral tablet 2018-04 0-07 15:34: 29 Yes = 1 tab, PO, Bedtime, # 90 tab, 3 Refill(s), Pharmacy: [facility] #[id number] Marcella Palomo NovoLog 08-13 15:31: 00 Yes 3 unit, SUB-Q, TID-Before Meals, 0 Refill(s) Marcella Palomo NovoLOG 08-13 15:31: 00 Yes 3 unit, SUB-Q, TID-Before Meals, 0 Refill(s) aMrcella Palomo baclofen 10 mg oral tablet 08-13 15:27: 00 Yes 10 mg = 1 tab, PO, Bedtime, # 30 tab, 3 Refill(s), Pharmacy: [facility] #[id number] Marcella Palomo atorvastati n 20 mg oral tablet 08-13 15:22: 12 Yes 20 mg = 1 tab, PO, Daily, # 30 tab, 3 Refill(s), Pharmacy: [facility] #[id number] Marcella Palomo ticagrelor (BRILINTA) 90 mg tablet 1-16 00:00: 00 Yes [id number] 90mg Take 1 tablet by mouth 2 (two) times daily. [facility] DULOXETINE 30 mg capsule 2017-04 00:00: 00 Yes TAKE 1 CAPSULE TWICE DAILY (MAKE AN APPOINTMEN T FOR FURTHER REFILLS) [facility] aspirin 81 mg tablet, enteric coated 10-08 20:36: 00 Yes 81 mg = 1 tab, PO, Daily, # 90 tab, 3 Refill(s) Marcella Palomo lansoprazol e 30 mg oral delayed release capsule 10-08 20:25: 00 Yes 30 mg = 1 cap, PO, Daily, # 30 cap, 0 Refill(s) Marcella Palomo metoprolol tartrate 25 mg oral tablet 10-08 20:25: 00 Yes 25 mg = 1 tab, PO, BID, # 180 tab, 0 Refill(s) Marcella Palomo glimepiride 4 mg oral tablet 10-08 20:25: 00 Yes 4 mg = 1 tab, PO, Breakfast, # 30 tab, 0 Refill(s) Marcella Palomo cyanocobala min 10-08 20:25: 00 Yes See Instructlucian casillas, 1,000 microgram SUB-Q once a month, 0 Refill(s) Marcella Palomo DULoxetine 30 mg oral delayed release capsule 10-08 20:25: 00 Yes 30 mg = 1 cap, PO, BID, # 60 cap, 0 Refill(s) Marcella Palomo lansoprazol e (Prevacid) [address] capsule lansoprazol e (Prevacid) [address] capsule 10-08 00:00: 00 Yes 30mg 30 mg = 1 cap, PO, Daily, # 30 cap, 0 Refill(s) Marcella Iniguez metoprolol tartrate (Lopressor) 25 MG tablet metoprolol tartrate (Lopressor) 25 MG tablet 10-08 00:00: 00 Yes 25mg 25 mg = 1 tab, PO, BID, # 180 tab, 0 Refill(s) Marcella Iniguez glimepiride (Amaryl) 4 MG tablet glimepiride (Amaryl) 4 MG tablet 10-08 00:00: 00 Yes 4mg 4 mg = 1 tab, PO, Breakfast, # 30 tab, 0 Refill(s) Marcella Iniguez aspirin EC 81 MG EC tablet aspirin EC 81 MG EC tablet 10-08 00:00: 00 Yes 81mg 81 mg = 1 tab, PO, Daily, # 90 tab, 3 Refill(s) Marcella Iniguez blood sugar diagnostic (ONETOUCH ULTRA TEST) strip 08-27 00:00: 00 Yes Using once a day and as needed to monitor blood glucose for ICD code of E11.9 [facility] blood sugar diagnostic (ONETOUCH ULTRA TEST) strip 08-27 00:00: 00 Yes Using once a day and as needed to monitor blood glucose for ICD code of E11.9 [facility] Quan Bautista U-100 Insulin 100 unit/mL (3 mL) subcutaneou s Inject 20 units every day by subcutaneou s route for 28 days. Basaglar KwikPen U-100 Insulin 100 unit/mL (3 mL) subcutaneou s Inject 20 units every day by subcutaneou s route for 28 days. No 20unit( s) Q1D Basaglar KwikPen U-100 Insulin 100 unit/mL (3 mL) subcutaneo us Inject 20 units every day by subcutaneo us route for 28 days. [facility] famciclovir 250 mg tablet TAKE 1 TABLET BY MOUTH EVERY DAY DIRECTED famciclovir 250 mg tablet TAKE 1 TABLET BY MOUTH EVERY DAY DIRECTED No 1 Q1D famciclovi r 250 mg tablet TAKE 1 TABLET BY MOUTH EVERY DAY DIRECTED [facility] buspirone 5 mg tablet Take 1 tablet every day by oral route as directed for 30 days, for Anxiety. buspirone 5 mg tablet Take 1 tablet every day by oral route as directed for 30 days, for Anxiety. No 1 Q1D buspirone 5 mg tablet Take 1 tablet every day by oral route as directed for 30 days, for Anxiety. [facility] Novolog FlexPen U-100 Insulin aspart 100 unit/mL (3 mL) subcutaneou s Sliding Scale: 150-180 = 2 U; 181-210 = 4 U, 211-240 = 6 U, 241-270 = 8 U, 271-300 = 10 U, and over 300 = 12 U. Then recheck BG level 1 hour after eating. Novolog FlexPen U-100 Insulin aspart 100 unit/mL (3 mL) subcutane s Sliding Scale: 150-180 = 2 U; 181-210 = 4 U, 211-240 = 6 U, 241-270 = 8 U, 271-300 = 10 U, and over 300 = 12 U. Then recheck BG level 1 hour after eating. No Novolog FlexPen U-100 Insulin aspart 100 unit/mL (3 mL) subcutaneo us Sliding Scale: 150-180 = 2 U; 181-210 = 4 U, 211-240 = 6 U, 241-270 = 8 U, 271-300 = 10 U, and over 300 = 12 U. Then recheck BG level 1 hour after eating. [facility] Immunizations Ordered Immunization Name Filled Immunization Name Date Status Comments Source Pneumococcal Polysaccharide, PPSV23 (PNEUMOVAX) 2023-05-04 00:00:00 Completed [facility] Influenza Virus Vaccine Quad .5 mL IM 6+ MO (FLUZONE/FLULAVAL/FL UARIX) 2023-05-04 00:00:00 Completed [facility] TDAP 2023-05-04 00:00:00 Completed [facility] Zoster(Zostavax)(Marguerite ngles) 2023-05-04 00:00:00 Completed [facility] Zoster Vaccine Recombinant 2023-05-04 00:00:00 Completed [facility] Pneumococcal 13 Conjugate, PCV13 (Prevnar 13) 2023-05-04 00:00:00 Completed [facility] Influenza High Dose 2023-05-04 00:00:00 Completed [facility] Zoster Vaccine Recombinant 2019-06-27 00:00:00 Completed [facility] Zoster Vaccine Recombinant 2019-06-27 00:00:00 Completed [facility] Zoster Vaccine Recombinant 2019-06-27 00:00:00 Completed [facility] Zoster Vaccine Recombinant 2019-06-27 00:00:00 Completed [facility] Zoster Vaccine Recombinant 2019-06-27 00:00:00 Completed [facility] Zoster Vaccine Recombinant 2019-06-27 00:00:00 Completed [facility] Zoster Vaccine Recombinant 2019-06-27 00:00:00 Completed [facility] Zoster Vaccine Recombinant 2019-06-27 00:00:00 Completed [facility] Zoster Vaccine Recombinant 2019-06-27 00:00:00 Completed [facility] Zoster Vaccine Recombinant 2019-06-27 00:00:00 Completed [facility] Zoster Vaccine Recombinant 2019-06-27 00:00:00 Completed TDAP 2019-04-28 00:00:00 Completed [facility] Zoster Vaccine Recombinant 2019-04-28 00:00:00 Completed [facility] TDAP 2019-04-28 00:00:00 Completed [facility] Zoster Vaccine Recombinant 2019-04-28 00:00:00 Completed [facility] TDAP 2019-04-28 00:00:00 Completed [facility] Zoster Vaccine Recombinant 2019-04-28 00:00:00 Completed [facility] TDAP 2019-04-28 00:00:00 Completed [facility] Zoster Vaccine Recombinant 2019-04-28 00:00:00 Completed [facility] TDAP 2019-04-28 00:00:00 Completed [facility] Zoster Vaccine Recombinant 2019-04-28 00:00:00 Completed [facility] TDAP 2019-04-28 00:00:00 Completed [facility] Zoster Vaccine Recombinant 2019-04-28 00:00:00 Completed [facility] TDAP 2019-04-28 00:00:00 Completed [facility] Zoster Vaccine Recombinant 2019-04-28 00:00:00 Completed [facility] TDAP 2019-04-28 00:00:00 Completed [facility] Zoster Vaccine Recombinant 2019-04-28 00:00:00 Completed [facility] TDAP 2019-04-28 00:00:00 Completed [facility] Zoster Vaccine Recombinant 2019-04-28 00:00:00 Completed [facility] TDAP 2019-04-28 00:00:00 Completed [facility] Zoster Vaccine Recombinant 2019-04-28 00:00:00 Completed [facility] TDAP 2019-04-28 00:00:00 Completed [facility] Zoster Vaccine Recombinant 2019-04-28 00:00:00 Completed Zoster(Zostavax)(Marguerite ngles) 2019-04-21 00:00:00 Completed [facility] Zoster(Zostavax)(Marguerite ngles) 2019-04-21 00:00:00 Completed [facility] Zoster(Zostavax)(Marguerite ngles) 2019-04-21 00:00:00 Completed [facility] Zoster(Zostavax)(Marguerite ngles) 2019-04-21 00:00:00 Completed [facility] Zoster(Zostavax)(Marguerite ngles) 2019-04-21 00:00:00 Completed [facility] Zoster(Zostavax)(Marguerite ngles) 2019-04-21 00:00:00 Completed [facility] Zoster(Zostavax)(Marguerite ngles) 2019-04-21 00:00:00 Completed [facility] Zoster(Zostavax)(Marguerite ngles) 2019-04-21 00:00:00 Completed [facility] Zoster(Zostavax)(Marguerite ngles) 2019-04-21 00:00:00 Completed [facility] Zoster(Zostavax)(Marguerite ngles) 2019-04-21 00:00:00 Completed [facility] Zoster(Zostavax)(Marguerite ngles) 2019-04-21 00:00:00 Completed Pneumococcal Polysaccharide, PPSV23 (PNEUMOVAX) 2019-04-06 00:00:00 Completed [facility] Pneumococcal Polysaccharide, PPSV23 (PNEUMOVAX) 2019-04-06 00:00:00 Completed [facility] Pneumococcal Polysaccharide, PPSV23 (PNEUMOVAX) 2019-04-06 00:00:00 Completed [facility] Pneumococcal Polysaccharide, PPSV23 (PNEUMOVAX) 2019-04-06 00:00:00 Completed [facility] Pneumococcal Polysaccharide, PPSV23 (PNEUMOVAX) 2019-04-06 00:00:00 Completed [facility] Pneumococcal Polysaccharide, PPSV23 (PNEUMOVAX) 2019-04-06 00:00:00 Completed [facility] Pneumococcal Polysaccharide, PPSV23 (PNEUMOVAX) 2019-04-06 00:00:00 Completed [facility] Pneumococcal Polysaccharide, PPSV23 (PNEUMOVAX) 2019-04-06 00:00:00 Completed [facility] Pneumococcal Polysaccharide, PPSV23 (PNEUMOVAX) 2019-04-06 00:00:00 Completed [facility] Pneumococcal Polysaccharide, PPSV23 (PNEUMOVAX) 2019-04-06 00:00:00 Completed [facility] Pneumococcal Polysaccharide, PPSV23 (PNEUMOVAX) 2019-04-06 00:00:00 Completed [facility] Pneumococcal 13 Conjugate, PCV13 (Prevnar 13) 2019-01-12 00:00:00 Completed [facility] Influenza High Dose 2019-01-12 00:00:00 Completed [facility] Pneumococcal 13 Conjugate, PCV13 (Prevnar 13) 2019-01-12 00:00:00 Completed [facility] Influenza High Dose 2019-01-12 00:00:00 Completed [facility] Pneumococcal 13 Conjugate, PCV13 (Prevnar 13) 2019-01-12 00:00:00 Completed [facility] Influenza High Dose 2019-01-12 00:00:00 Completed [facility] Pneumococcal 13 Conjugate, PCV13 (Prevnar 13) 2019-01-12 00:00:00 Completed [facility] Influenza High Dose 2019-01-12 00:00:00 Completed [facility] Pneumococcal 13 Conjugate, PCV13 (Prevnar 13) 2019-01-12 00:00:00 Completed [facility] Influenza High Dose 2019-01-12 00:00:00 Completed [facility] Pneumococcal 13 Conjugate, PCV13 (Prevnar 13) 2019-01-12 00:00:00 Completed [facility] Influenza High Dose 2019-01-12 00:00:00 Completed [facility] Pneumococcal 13 Conjugate, PCV13 (Prevnar 13) 2019-01-12 00:00:00 Completed [facility] Influenza High Dose 2019-01-12 00:00:00 Completed [facility] Pneumococcal 13 Conjugate, PCV13 (Prevnar 13) 2019-01-12 00:00:00 Completed [facility] Influenza High Dose 2019-01-12 00:00:00 Completed [facility] Pneumococcal 13 Conjugate, PCV13 (Prevnar 13) 2019-01-12 00:00:00 Completed [facility] Influenza High Dose 2019-01-12 00:00:00 Completed [facility] Pneumococcal 13 Conjugate, PCV13 (Prevnar 13) 2019-01-12 00:00:00 Completed [facility] Influenza High Dose 2019-01-12 00:00:00 Completed [facility] Pneumococcal 13 Conjugate, PCV13 (Prevnar 13) 2019-01-12 00:00:00 Completed Influenza, High-Dose, Trivalent, PF (FLUZONE) 2019-01-12 00:00:00 Completed Influenza Virus Vaccine Quad .5 mL IM 6+ MO 2019-01-04 00:00:00 Completed [facility] Influenza Virus Vaccine Quad .5 mL IM 6+ MO 2019-01-04 00:00:00 Completed [facility] Influenza Virus Vaccine Quad .5 mL IM 6+ MO 2019-01-04 00:00:00 Completed [facility] Influenza Virus Vaccine Quad .5 mL IM 6+ MO 2019-01-04 00:00:00 Completed [facility] Influenza Virus Vaccine Quad .5 mL IM 6+ MO 2019-01-04 00:00:00 Completed [facility] Influenza Virus Vaccine Quad .5 mL IM 6+ MO 2019-01-04 00:00:00 Completed [facility] Influenza Virus Vaccine Quad .5 mL IM 6+ MO 2019-01-04 00:00:00 Completed [facility] Influenza Virus Vaccine Quad .5 mL IM 6+ MO 2019-01-04 00:00:00 Completed [facility] Influenza Virus Vaccine Quad .5 mL IM 6+ MO 2019-01-04 00:00:00 Completed [facility] Influenza Virus Vaccine Quad .5 mL IM 6+ MO 2019-01-04 00:00:00 Completed [facility] Influenza Virus Vaccine Quad .5 mL IM 6+ MO (FLUZONE/FLULAVAL/FL UARIX) 2019-01-04 00:00:00 Completed Influenza High Dose 2018-02-24 00:00:00 Completed [facility] Influenza High Dose 2018-02-24 00:00:00 Completed [facility] Influenza High Dose 2018-02-24 00:00:00 Completed [facility] Influenza High Dose 2018-02-24 00:00:00 Completed [facility] Influenza High Dose 2018-02-24 00:00:00 Completed [facility] Influenza High Dose 2018-02-24 00:00:00 Completed [facility] Influenza High Dose 2018-02-24 00:00:00 Completed [facility] Influenza High Dose 2018-02-24 00:00:00 Completed [facility] Influenza High Dose 2018-02-24 00:00:00 Completed [facility] Influenza High Dose 2018-02-24 00:00:00 Completed [facility] Influenza, High-Dose, Trivalent, PF (FLUZONE) 2018-02-24 00:00:00 Completed zoster recombinant zoster recombinant Unknown Completed [facility] Tdap Tdap Unknown Completed [facility] zoster live zoster live Unknown Completed [facility] pneumococcal polysaccharide PPV23 pneumococcal polysaccharide PPV23 Unknown Completed [facility] influenza, high dose seasonal influenza, high dose seasonal Unknown Completed [facility] pneumococcal conjugate PCV 13 pneumococcal conjugate PCV 13 Unknown Completed [facility] influenza, injectable, quadrivalent, preservative free influenza, injectable, quadrivalent, preservative free Unknown Completed [facility] Vital Signs Vital Name Observation Time Observation Value Comments S adri BP Systolic 2024-12-29 00:00:00 134 mm[Hg] [facility] BP Diastolic 2024-12-29 00:00:00 78 mm[Hg] [facility] BMI (Body Mass Index) 2024-12-29 00:00:00 28.1 kg/m2 [facility] Height 2024-12-29 00:00:00 62.5 [in_i] [facility] Body Weight 2024-12-29 00:00:00 2496 [oz_av] [facility] BP Diastolic 2024-12-27 00:00:00 78 mm[Hg] [facility] Height 2024-12-27 00:00:00 62.5 [in_i] [facility] Body Weight 2024-12-27 00:00:00 2503 [oz_av] [facility] BP Systolic 2024-12-27 00:00:00 125 mm[Hg] [facility] BMI (Body Mass Index) 2024-12-27 00:00:00 28.2 kg/m2 [facility] BP Diastolic 2024-10-24 00:00:00 60 mm[Hg] [facility] Body Weight 2024-10-24 00:00:00 2548.8 [oz_av] [facility] BP Systolic 2024-10-24 00:00:00 122 mm[Hg] [facility] Height 2024-10-24 00:00:00 62.5 [in_i] [facility] BMI (Body Mass Index) 2024-10-24 00:00:00 28.7 kg/m2 [facility] Systolic blood pressure 2024-10-11 13:28:00 132 mm[Hg] [facility] Diastolic blood pressure 2024-10-11 13:28:00 74 mm[Hg] [facility] Heart rate 2024-10-11 13:28:00 68 /min [facility] height 2024-10-11 13:28:00 154.9 cm [facility] Body weight 2024-10-11 13:28:00 71.215 kg [facility] BMI 2024-10-11 13:28:00 29.66 kg/m2 [facility] Systolic blood pressure 2024-10-11 13:28:00 132 mm[Hg] [facility] Diastolic blood pressure 2024-10-11 13:28:00 74 mm[Hg] [facility] Heart rate 2024-10-11 13:28:00 68 /min [facility] Body height 2024-10-11 13:28:00 154.9 cm [facility] Body weight 2024-10-11 13:28:00 71.215 kg Frank [facility] BMI 2024-10-11 13:28:00 29.66 kg/m2 [facility] Height 2024-09-12 00:00:00 62.5 [in_i] [facility] BMI (Body Mass Index) 2024-09-12 00:00:00 28.6 kg/m2 [facility] BP Diastolic 2024-09-12 00:00:00 68 mm[Hg] [facility] Body Weight 2024-09-12 00:00:00 2544 [oz_av] [facility] BP Systolic 2024-09-12 00:00:00 138 mm[Hg] [facility] Height 2024-07-25 00:00:00 62.5 [in_i] [facility] BMI (Body Mass Index) 2024-07-25 00:00:00 28.6 kg/m2 [facility] Body Weight 2024-07-25 00:00:00 2544 [oz_av] [facility] BP Diastolic 2024-07-25 00:00:00 72 mm[Hg] [facility] BP Systolic 2024-07-25 00:00:00 118 mm[Hg] [facility] BMI (Body Mass Index) 2024-06-28 00:00:00 28.6 kg/m2 [facility] BP Systolic 2024-06-28 00:00:00 142 mm[Hg] [facility] Height 2024-06-28 00:00:00 62.5 [in_i] [facility] Body Weight 2024-06-28 00:00:00 2544 [oz_av] [facility] BP Diastolic 2024-06-28 00:00:00 78 mm[Hg] [facility] Height 2024-05-31 00:00:00 62.5 [in_i] [facility] Body Weight 2024-05-31 00:00:00 2544 [oz_av] [facility] BP Systolic 2024-05-31 00:00:00 134 mm[Hg] [facility] BMI (Body Mass Index) 2024-05-31 00:00:00 28.6 kg/m2 [facility] BP Diastolic 2024-05-31 00:00:00 72 mm[Hg] [facility] Height 2024-05-17 00:00:00 62.5 [in_i] [facility] BP Systolic 2024-05-17 00:00:00 148 mm[Hg] [facility] BP Diastolic 2024-05-17 00:00:00 78 mm[Hg] [facility] Body Weight 2024-05-17 00:00:00 2544 [oz_av] [facility] BMI (Body Mass Index) 2024-05-17 00:00:00 28.6 kg/m2 [facility] BP Systolic 2024-05-09 00:00:00 130 mm[Hg] [facility] BP Diastolic 2024-05-09 00:00:00 72 mm[Hg] [facility] Height 2024-05-09 00:00:00 62.5 [in_i] [facility] BMI (Body Mass Index) 2024-04-25 00:00:00 29.9 kg/m2 [facility] Body Weight 2024-04-25 00:00:00 2656 [oz_av] [facility] BP Diastolic 2024-04-25 00:00:00 68 mm[Hg] [facility] BP Systolic 2024-04-25 00:00:00 130 mm[Hg] [facility] Height 2024-04-25 00:00:00 62.5 [in_i] [facility] Height 2024-03-01 00:00:00 62.5 [in_i] [facility] BP Systolic 2024-03-01 00:00:00 116 mm[Hg] [facility] BP Diastolic 2024-03-01 00:00:00 62 mm[Hg] [facility] BP Diastolic 2024-02-24 00:00:00 78 mm[Hg] [facility] BP Systolic 2024-02-24 00:00:00 132 mm[Hg] [facility] Body Weight 2024-02-24 00:00:00 2432 [oz_av] [facility] BMI (Body Mass Index) 2024-02-24 00:00:00 27.4 kg/m2 [facility] Height 2024-02-24 00:00:00 62.5 [in_i] [facility] Height 2024-01-25 00:00:00 62.5 [in_i] [facility] BP Diastolic 2024-01-25 00:00:00 64 mm[Hg] [facility] BP Systolic 2024-01-25 00:00:00 124 mm[Hg] [facility] BP Systolic 2023-11-12 00:00:00 134 mm[Hg] [facility] Body Weight 2023-11-12 00:00:00 2464 [oz_av] [facility] Height 2023-11-12 00:00:00 62.5 [in_i] [facility] BMI (Body Mass Index) 2023-11-12 00:00:00 27.7 kg/m2 [facility] BP Diastolic 2023-11-12 00:00:00 74 mm[Hg] [facility] Body Weight 2023-11-02 00:00:00 2448 [oz_av] [facility] Height 2023-11-02 00:00:00 62.5 [in_i] [facility] BP Systolic 2023-11-02 00:00:00 116 mm[Hg] [facility] BMI (Body Mass Index) 2023-11-02 00:00:00 27.5 kg/m2 [facility] BP Diastolic 2023-11-02 00:00:00 72 mm[Hg] [facility] BP Diastolic 2023-10-22 00:00:00 78 mm[Hg] [facility] Height 2023-10-22 00:00:00 62.5 [in_i] [facility] BP Systolic 2023-10-22 00:00:00 118 mm[Hg] [facility] Height 2023-08-11 00:00:00 62.5 [in_i] [facility] BP Diastolic 2023-08-11 00:00:00 98 mm[Hg] [facility] BP Systolic 2023-08-11 00:00:00 170 mm[Hg] [facility] Height 2023-06-15 00:00:00 62.5 [in_i] [facility] BP Systolic 2023-06-15 00:00:00 118 mm[Hg] [facility] Body Weight 2023-06-15 00:00:00 2544 [oz_av] [facility] BP Diastolic 2023-06-15 00:00:00 74 mm[Hg] [facility] BMI (Body Mass Index) 2023-06-15 00:00:00 28.6 kg/m2 [facility] BMI (Body Mass Index) 2023-04-23 00:00:00 28.8 kg/m2 [facility] BP Systolic 2023-04-23 00:00:00 124 mm[Hg] [facility] Body Weight 2023-04-23 00:00:00 2560 [oz_av] [facility] Height 2023-04-23 00:00:00 62.5 [in_i] [facility] BP Diastolic 2023-04-23 00:00:00 84 mm[Hg] [facility] BMI (Body Mass Index) 2023-03-04 00:00:00 29.2 kg/m2 [facility] Height 2023-03-04 00:00:00 62.5 [in_i] [facility] BP Diastolic 2023-03-04 00:00:00 76 mm[Hg] [facility] BP Systolic 2023-03-04 00:00:00 142 mm[Hg] [facility] Body Weight 2023-03-04 00:00:00 2592 [oz_av] [facility] BP Diastolic 2022-10-21 00:00:00 64 mm[Hg] [facility] Height 2022-10-21 00:00:00 62.5 [in_i] [facility] BMI (Body Mass Index) 2022-10-21 00:00:00 29.2 kg/m2 [facility] BP Systolic 2022-10-21 00:00:00 116 mm[Hg] [facility] Body Weight 2022-10-21 00:00:00 2592 [oz_av] [facility] BP Diastolic 2022-10-03 00:00:00 68 mm[Hg] [facility] Height 2022-10-03 00:00:00 62.5 [in_i] [facility] BMI (Body Mass Index) 2022-10-03 00:00:00 29 kg/m2 [facility] BP Systolic 2022-10-03 00:00:00 126 mm[Hg] [facility] Body Weight 2022-10-03 00:00:00 2576 [oz_av] [facility] BP Diastolic 2022-09-23 00:00:00 74 mm[Hg] [facility] Height 2022-09-23 00:00:00 62.5 [in_i] [facility] BMI (Body Mass Index) 2022-09-23 00:00:00 28.4 kg/m2 [facility] BP Systolic 2022-09-23 00:00:00 122 mm[Hg] [facility] Body Weight 2022-09-23 00:00:00 2528 [oz_av] [facility] BP Diastolic 2022-08-26 00:00:00 74 mm[Hg] [facility] Height 2022-08-26 00:00:00 62.5 [in_i] [facility] BP Systolic 2022-08-26 00:00:00 124 mm[Hg] [facility] BP Diastolic 2022-07-31 00:00:00 72 mm[Hg] [facility] Height 2022-07-31 00:00:00 62.5 [in_i] [facility] BMI (Body Mass Index) 2022-07-31 00:00:00 28.8 kg/m2 [facility] BP Systolic 2022-07-31 00:00:00 116 mm[Hg] [facility] Body Weight 2022-07-31 00:00:00 2560 [oz_av] [facility] BP Diastolic 2022-04-22 00:00:00 72 mm[Hg] [facility] Height 2022-04-22 00:00:00 62.5 [in_i] [facility] BMI (Body Mass Index) 2022-04-22 00:00:00 28.3 kg/m2 [facility] BP Systolic 2022-04-22 00:00:00 112 mm[Hg] [facility] Body Weight 2022-04-22 00:00:00 2512 [oz_av] [facility] BP Diastolic 2022-03-24 00:00:00 64 mm[Hg] [facility] Height 2022-03-24 00:00:00 62.5 [in_i] [facility] BP Systolic 2022-03-24 00:00:00 108 mm[Hg] [facility] BP Diastolic 2022-01-14 00:00:00 62 mm[Hg] [facility] Height 2022-01-14 00:00:00 62.5 [in_i] [facility] BMI (Body Mass Index) 2022-01-14 00:00:00 28.4 kg/m2 [facility] BP Systolic 2022-01-14 00:00:00 106 mm[Hg] [facility] Body Weight 2022-01-14 00:00:00 2528 [oz_av] [facility] BP Diastolic 2022-01-02 00:00:00 72 mm[Hg] [facility] Height 2022-01-02 00:00:00 62.5 [in_i] [facility] BMI (Body Mass Index) 2022-01-02 00:00:00 28.6 kg/m2 [facility] BP Systolic 2022-01-02 00:00:00 110 mm[Hg] [facility] Body Weight 2022-01-02 00:00:00 2544 [oz_av] [facility] BP Diastolic 2021-10-29 00:00:00 80 mm[Hg] [facility] Height 2021-10-29 00:00:00 62.5 [in_i] [facility] BMI (Body Mass Index) 2021-10-29 00:00:00 28.6 kg/m2 [facility] BP Systolic 2021-10-29 00:00:00 114 mm[Hg] [facility] Body Weight 2021-10-29 00:00:00 2544 [oz_av] [facility] BP Diastolic 2021 00:00:00 82 mm[Hg] [facility] Height 2021 00:00:00 62.5 [in_i] [facility] BMI (Body Mass Index) 2021 00:00:00 28.8 kg/m2 [facility] BP Systolic 2021 00:00:00 118 mm[Hg] [facility] Body Weight 2021 00:00:00 2560 [oz_av] [facility] BP Diastolic 2021-08-05 00:00:00 78 mm[Hg] [facility] Height 2021-08-05 00:00:00 62.5 [in_i] [facility] BMI (Body Mass Index) 2021-08-05 00:00:00 28.3 kg/m2 [facility] BP Systolic 2021-08-05 00:00:00 118 mm[Hg] [facility] Body Weight 2021-08-05 00:00:00 2512 [oz_av] [facility] BP Diastolic 2021-07-30 00:00:00 72 mm[Hg] [facility] Height 2021-07-30 00:00:00 62.5 [in_i] [facility] BMI (Body Mass Index) 2021-07-30 00:00:00 28.8 kg/m2 [facility] BP Systolic 2021-07-30 00:00:00 114 mm[Hg] [facility] Body Weight 2021-07-30 00:00:00 2560 [oz_av] [facility] BP Diastolic 2021-07-08 00:00:00 82 mm[Hg] [facility] Height 2021-07-08 00:00:00 62.5 [in_i] [facility] BMI (Body Mass Index) 2021-07-08 00:00:00 28.8 kg/m2 [facility] BP Systolic 2021-07-08 00:00:00 146 mm[Hg] [facility] Body Weight 2021-07-08 00:00:00 2560 [oz_av] [facility] BP Diastolic 2021-06-27 00:00:00 74 mm[Hg] [facility] Height 2021-06-27 00:00:00 62.5 [in_i] [facility] BMI (Body Mass Index) 2021-06-27 00:00:00 28.8 kg/m2 [facility] Systolic 2021-06-27 00:00:00 134 mm[Hg] [facility] Body Weight 2021-06-27 00:00:00 2560 [oz_av] [facility] BP Diastolic 2021-06-20 00:00:00 84 mm[Hg] [facility] Height 2021-06-20 00:00:00 62.5 [in_i] [facility] BMI (Body Mass Index) 2021-06-20 00:00:00 28.6 kg/m2 [facility] BP Systolic 2021-06-20 00:00:00 122 mm[Hg] [facility] Body Weight 2021-06-20 00:00:00 2544 [oz_av] [facility] Systolic blood pressure 2021-04-30 16:37:00 144 mm[Hg] [facility] Diastolic blood pressure 2021-04-30 16:37:00 70 mm[Hg] [facility] Heart rate 2021-04-30 16:37:00 53 /min [facility] Body height 2021-04-30 16:36:00 160 cm [facility] Body weight 2021-04-30 16:36:00 73.982 kg [facility] BMI 2021-04-30 16:36:00 28.89 kg/m2 [facility] Oxygen saturation in Arterial blood by Pulse oximetry 2021-04-30 16:36:00 99 /min [facility] BP Diastolic 2021-04-22 00:00:00 80 mm[Hg] [facility] Height 2021-04-22 00:00:00 62.5 [in_i] [facility] BMI (Body Mass Index) 2021-04-22 00:00:00 28.6 kg/m2 [facility] BP Systolic 2021-04-22 00:00:00 138 mm[Hg] [facility] Body Weight 2021-04-22 00:00:00 2544 [oz_av] [facility] BP Diastolic 2021-01-14 00:00:00 70 mm[Hg] [facility] Height 2021-01-14 00:00:00 62.5 [in_i] [facility] BMI (Body Mass Index) 2021-01-14 00:00:00 28.4 kg/m2 [facility] BP Systolic 2021-01-14 00:00:00 112 mm[Hg] [facility] Body Weight 2021-01-14 00:00:00 2528 [oz_av] [facility] Systolic (mm Hg) 2021-10-11 14:41:00 [facility] Diastolic (mm Hg) 2021-10-11 14:41:00 [facility] Heart Rate 2021-10-11 14:41:00 [facility]itory Rate 2021-10-11 14:41:00 [facility] Height 2021-10-11 14:41:00 157.48 cm [facility] Weight 2021-10-11 14:41:00 [facility] BMI Calculated 2021-10-11 14:41:00 [facility] Systolic (mm Hg) 2021-09-18 20:57:00 [facility] Diastolic (mm Hg) 2021-09-18 20:57:00 [facility] Heart Rate 2021-09-18 20:57:00 [facility] Respitory Rate 2021-09-18 20:57:00 [facility] Height 2021-09-18 20:57:00 156.21 cm [facility] Weight 2021-09-18 20:57:00 [facility] BMI Calculated 2021-09-18 20:57:00 [facility] Systolic (mm Hg) 2021-08-15 15:13:00 [facility] Diastolic (mm Hg) 2021-08-15 15:13:00 [facility] Heart Rate 2021-08-15 15:13:00 [facility] Respitory Rate 2021-08-15 15:13:00 [facility] Height 2021-08-15 15:13:00 157.48 cm [facility] Weight 2021-08-15 15:13:00 [facility] BMI Calculated 2021-08-15 15:13:00 [facility] Systolic (mm Hg) 2020-09-14 19:31:00 [facility] Diastolic (mm Hg) 2020-09-14 19:31:00 [facility] Heart Rate 2020-09-14 19:31:00 [facility] Respitory Rate 2020-09-14 19:31:00 [facility] Height 2020-09-14 19:31:00 160.02 cm [facility] Weight 2020-09-14 19:31:00 [facility] BMI Calculated 2020-09-14 19:31:00 [facility] Systolic (mm Hg) 2020-08-03 14:34:00 [facility] Diastolic (mm Hg) 2020-08-03 14:34:00 [facility] Heart Rate 2020-08-03 14:34:00 [facility] Respitory Rate 2020-08-03 14:34:00 [facility] Height 2020-08-03 14:34:00 160.02 cm [facility] Weight 2020-08-03 14:34:00 [facility] BMI Calculated 2020-08-03 14:34:00 [facility] Systolic (mm Hg) 2019-08-10 15:56:00 [facility] Diastolic (mm Hg) 2019-08-10 15:56:00 [facility] Heart Rate 2019-08-10 15:56:00 [facility] Respitory Rate 2019-08-10 15:56:00 [facility] Height 2019-08-10 15:56:00 157.48 cm [facility] Weight 2019-08-10 15:56:00 [facility] BMI Calculated 2019-08-10 15:56:00 [facility] Systolic (mm Hg) 2019-05-04 19:23:00 [facility] Diastolic (mm Hg) 2019-05-04 19:23:00 [facility] Heart Rate 2019-05-04 19:23:00 [facility] Respitory Rate 2019-05-04 19:23:00 [facility] Height 2019-05-04 19:23:00 160.02 cm [facility] Weight 2019-05-04 19:23:00 [facility] BMI Calculated 2019-05-04 19:23:00 [facility] Systolic (mm Hg) 2019-03-24 15:07:00 [facility] Diastolic (mm Hg) 2019-03-24 15:07:00 [facility] Heart Rate 2019-03-24 15:07:00 [facility] Respitory Rate 2019-03-24 15:07:00 [facility] Height 2019-03-24 15:07:00 157.48 cm [facility] Weight 2019-03-24 15:07:00 [facility] BMI Calculated 2019-03-24 15:07:00 [facility] Systolic (mm Hg) 2018-12-24 14:24:00 [facility] Diastolic (mm Hg) 2018-12-24 14:24:00 [facility] Heart Rate 2018-12-24 14:24:00 [facility] Respitory Rate 2018-12-24 14:24:00 [facility] Height 2018-12-24 14:24:00 157.48 cm [facility] Weight 2018-12-24 14:24:00 [facility] BMI Calculated 2018-12-24 14:24:00 [facility] BMI Calculated 2018-09-24 14:59:00 [facility] Respitory Rate 2018-09-24 14:59:00 [facility] Heart Rate 2018-09-24 14:59:00 [facility] Weight 2018-09-24 14:59:00 [facility] Height 2018-09-24 14:59:00 157.48 cm [facility] Systolic (mm Hg) 2018-09-24 14:59:00 [facility] Diastolic (mm Hg) 2018-09-24 14:59:00 [facility] BMI Calculated 2018-08-13 14:57:00 [facility] Weight 2018-08-13 14:57:00 [facility] Respitory Rate 2018-08-13 14:57:00 [facility] Heart Rate 2018-08-13 14:57:00 [facility] Height 2018-08-13 14:57:00 154.94 cm [facility] Systolic (mm Hg) 2018-08-13 14:57:00 [facility] Diastolic (mm Hg) 2018-08-13 14:57:00 [facility] Systolic (mm Hg) 2018-04-30 15:45:00 [facility] Diastolic (mm Hg) 2018-04-30 15:45:00 [facility] Heart Rate 2018-04-30 15:45:00 [facility] Respitory Rate 2018-04-30 15:45:00 [facility] Height 2018-04-30 15:45:00 154.94 cm [facility] Weight 2018-04-30 15:45:00 [facility] BMI Calculated 2018-04-30 15:45:00 [facility] Procedure Date / Time Performed Performing Clinician Source XR, toe(s), 2 or more view 2024-06-28 00:00:00 [facility] MAMMO, screening, bilateral 2024-04-25 00:00:[address] [facility] [address], head, w/o contrast 2024-03-01 00:00:[address] [facility] [address], head, w/o contrast 2023-11-02 00:00:00 [facility] electrocardiogram 2023-08-11 00:00:00 [facility] XR, chest, 2 view 2023-08-11 00:00:00 [facility] EXTERNAL PROVIDER RECORDS 2023-05-04 06:01:00 Do ctor Unassigned, [place] [facility] MAMMO, screening, bilateral 2023-04-23 00:00:00 [facility] DEXA, axial skeleton + vertebral fracture assessment 2023-04-23 00:00:00 [facility] MAMMO, diagnostic, digital, bilateral 2023-04-23 00:00:00 [facility] XR, hip + pelvis, unilateral, 2 or 3 view 2022-10-03 00:00:00 [facility] Measurement of post-voiding residual urine and/or bladder capacity by ultrasound, non-imaging 2022-09-04 20:10:00 Kush Palomo [id number] 2022-03-18 00:00:00 [facility] [id number] 2022-03-18 00:00:00 [facility] [id number] 2022-03-18 00:00:00 [facility] MRI, brain + brain stem, w/o contrast 2021 00:00:00 [facility] DME/SUPPLY JUSTIFICATION 2021-07-05 05:01:00 Doc tor Unassigned, [place] [facility] POCT HEMOGLOBIN A1C TEST 2021-04-30 16:42:00 Benny Feliz [facility] PATIENT QUESTIONNAIRE 2021-04-30 06:01:00 Doctor Unassigned, [place] [facility] REFERRAL- REQUEST/RESPONSE 2021-04-15 06:01:00 D octor Unassigned, [place] [facility] Ligation of Fallopian Tube S [facility] Partial Hysterectomy [facility] Laminectomy [facility] Cholecystectomy [facility] Tonsilectomy/adenoids [facility] Encounters Start Date/Time End Date/Time Encounter Type Admission Type Attending Clinicians Care Facility Care Department Encounter ID Source 2022-03-17 07:55:00 Inpatient HCAWU GENARO [id number] 47 [facility] 2024-12-29 00:00:00 2024-12-29 00:00:00 JOHNATHON Mosley: [place] [address] , Ph. [phone] [facility], JOHNATHON MOSLEY [id number] 0925 [facility] 2024-12-27 00:00:00 2024-12-27 00:00:00 JOHNATHON Mosley: [address] [place] [address] , Ph. [facility], [facility] [address] 0923 [facility] [place] [facility] 2024-10-24 00:00:00 2024-10-24 00:00:00 Krishna Leonard [facility]: [address] [place] [address] , Ph. [facility], [facility] 0721 [facility] 2024-10-11 13:24:05 2024-10-11 14:33:36 Outpatient Elective ROSALIE AGUIAR [facility] [id number] 3 [facility] 2024-10-11 13:15:00 2024-10-11 14:33:36 Consult [facility]alie [facility] [id number] [id number] [facility] 2024-09-12 00:00:00 2024-09-12 [facility]00 [facility]: [address] [facility] [place] [address] , Ph. [facility], [facility] [id number] 0609 [facility] 2024-07-25 00:00:00 2024-07-25 00:00:00 Krishna Leonard [employer]-C: [address] [facility] [place] [address] , Ph. [facility], [employer]-C [id number] 0421 [facility] 2024-06-28 00:00:00 2024-06-28 00:00:00 Krishna Ailey, AMP[employer]IAN [employer]BER-C: [address], [place] [address] , Ph. [phone] [facility], [facility], [employer]C [id number] 0325 [place] [facility] 2024-05-31 00:00:00 2024-05-31 00:00:00 Krishna Leonard [employer] CREWMEMBER-C: [address], [place] [address] , Ph. [phone] [facility], [facility], [employer]-C 0225 [place] [facility] 2024-05-17 00:00:00 2024-05-17 00:00:00 Krishna Leonard [employer]WMEMBER-C: [address], [place] [address] , Ph. [facility], [facility], [employer]-C 0211 [place] [facility] 2024-05-09 00:00:00 2024-05-09 00:00:00 Krishna Leonard [employer]WMEMBER-C: [address], [place] [address] , Ph. [phone] [facility], [facility], [employer]-C [address] 0203 [place] [facility] 2024-04-25 00:00:00 2024-04-25 00:00:00 Krishna Leonard [employer]WMEMBER-C: [address], [place] [address] , Ph. [phone] [facility], [employer] CREW[employer]BER-C 0120 [place] [facility] 2024-03-02 09:30:00 2024-03-02 09:30:00 Outpatient VIOLA KNAPP CRAIG [facility] [id number] [facility] 2024-03-01 00:00:00 2024-03-01 09:50:51 Telephone [place] Rosa Meisha [facility] [id number] 350.1.13.10 4.2.7.2.686 [id number] [facility] 2024-03-01 00:00:00 2024-03-01 00:00:00 JOHNATHON Mosley: [address] [place] [address] , Ph. [facility], [facility] 1125 [facility] [place] [facility] 2024-02-24 10:15:00 2024-02-24 10:57:09 Ancillary Visit Marta Dove Craig L Brown, Melissa K [facility] 1..840.114 350.1.13.10 4.2.7.2.686 [id number] [facility] 2024-02-24 00:00:00 2024-02-24 00:00:00 JOHNATHON Mosley: [address] [place] [address] , Ph. [facility], [facility] 1119 [facility] [place] [facility] 2024-02-23 11:00:00 2024-02-23 11:12:15 Ancillary Visit Marta Dove Craig L Brown, Melissa K [facility] 1.2.840.114 350.1.13.10 4.2.7.2.686 [id number] [facility] 2024-02-18 14:30:00 2024-02-18 15:15:00 Ancillary Visit Marta Dove Brian A Brown, Melissa K [facility] 1.2.840.114 350.1.13.10 4.2.7.2.686 [id number] [facility] 2024-02-15 14:30:00 2024-02-15 15:15:00 Ancillary Visit Dinesh Dove Brian A Brown, Robert F [facility] 1.2.840.114 350.1.13.10 4.2.7.2.686 [id number] [facility] 2024-02-11 16:00:00 2024-02-11 16:05:45 Ancillary Visit Bridget Zuniga [facility] 1.2.840.114 350.1.13.10 4.2.7.2.686 [id number] [facility] 2024-02-09 16:00:00 2024-02-09 16:45:00 Ancillary Visit Marta Dove Brian A Brown, Melissa K [facility] 1.2.840.114 350.1.13.10 4.2.7.2.686 [id number] [facility] 2024-02-04 13:00:00 2024-02-04 13:52:57 Outpatient R IRVING WELLS [facility] [id number] [facility] 2024-02-04 13:00:00 2024-02-04 13:52:57 Ancillary Visit Bridget Zuniga Brian A Joh[facility] 1.2.840.114 350.1.13.10 4.2.7.2.686 [id number] [facility] 2024-01-25 00:00:00 2024-01-25 00:00:00 CHRISTINA MosleyP-C: [address], [place] [address] , Ph. [facility], [employer]IAN CREWMEMBER-C [address] 1021 [facility] 2023-11-12 00:00:00 2023-11-12 00:00:00 Krishna Leonard DELANEY-C: [address], [place] [address] , Ph. [facility], DELANEY-C 0808 [facility] 2023-11-02 00:00:00 2023-11-02 00:00:00 Krishna Leonard DELANEY-C: [address], [place] [address] , Ph. [phone] [facility], AMPHIBIAN CREWMEMBER-C 0729 [facility] 2023-10-22 00:00:00 2023-10-22 00:00:00 Krishna Leonard DELANEY-C: [address], [place] [address] , Ph. [phone] [facility], [employer]IAN CREWMEMBER-C [address] 0718 [facility] 2023-08-11 00:00:00 2023-08-11 00:00:00 Krishna Leonard DELANEY-C: [address], [place] [address] , Ph. [facility], MARY JOAVANI PAUL, DELANEY-C [address] 0507 [facility] 2023-06-15 00:00:00 2023-06-15 00:00:00 Mary Joavani DELANEY Leonard-C: [address], [place] [address] , Ph. [facility], DR. HERNANDEZ [id number] [facility] 2023-05-04 00:00:00 2023-05-04 00:00:00 Orders Only Doctor Unassigned, [place] [facility] 1.2.840.114 350.1.13.10 4.2.7.2.686 [id number] [facility] 2023-04-23 00:00:00 2023-04-23 00:00:00 DELANEY Mosley-C: [address], [place] [address] , Ph. [phone] [facility], DR. HERNANDEZ [id number] [facility] 2023-03-04 00:00:00 2023-03-04 00:00:00 DELANEY Carlton-C: [address], [place] [address] , Ph. [facility], DR. HERNANDEZ [id number] [facility] 2022-10-21 00:00:00 2022-10-21 00:00:00 Naun Henrandez, DO: [address], [place] [address] , Ph. [facility] [place] [facility], DR. HERNANDEZ [id number] [facility] 2022-10-03 00:00:00 2022-10-03 00:00:00 Naun Hernandez, DO: [address], [place] [address] , Ph. [phone] [facility], DR. HERNANDEZ [id number] [facility] 2022-09-23 00:00:00 2022-09-23 00:00:00 Naun Hernandez, DO: [address], [place] [address] , Ph. [phone] [facility], DR. HERNANDEZ [id number] [facility] 2022-08-26 00:00:00 2022-08-26 00:00:00 Naun Hernandez, DO: [address], [place] [address] , Ph. [facility], DR. HERNANDEZ [id number] [facility] 2022-07-31 00:00:00 2022-07-31 00:00:00 Naun Hernandez, DO: [address], [place] [address] , Ph. [facility], DR. HERNANDEZ [id number] [facility] 2022-04-22 00:00:00 2022-04-22 00:00:00 Naun Hernandez, DO: [address], [place] [address] , Ph. [facility], DR. HERNANDEZ [id number] [facility] 2022-03-26 00:00:00 2022-03-26 00:00:00 Refill Tray [facility] 1.2.840.114 350.1.13.10 4.2.7.2.686 [id number] [facility] 2022-03-24 00:00:00 2022-03-24 00:00:00 Naun Hernandez, DO: [address] [place] [address] , Ph. [facility], DR. HERNANDEZ [id number] [facility] 2022-03-17 13:19:00 2022-03-22 14:45:00 Inpatient EM Onofre Puente [facility] [id number] [address] [place] [address] 2022-03-11 00:00:00 2022-03-11 00:00:00 Refill Tray [facility] 1.2.840.114 350.1.13.10 4.2.7.2.686 [id number] [facility] 2022-01-14 00:00:00 2022-01-14 00:00:00 Naun Hernandez, DO: [place] [address] , Ph. [phone] [facility], DR. HERNANDEZ [id number] [facility] 2022-01-02 00:00:00 2022-01-02 00:00:00 Naun Hernandez, DO: [address] [place] [address] , Ph. [facility], DR. HERNANDEZ [id number] [facility] 2021-10-29 00:00:00 2021-10-29 00:00:00 Naun Hernandez, DO: [place] [address] , Ph. [phone] [facility], DR. HERNANDEZ [id number] [facility] 2021-10-29 00:00:00 2021-10-29 00:00:00 Outpatient Naun Hernandez [facility] [id number] 2021-09-04 00:00:00 2021-09-04 00:00:00 RefSwapna Willis [facility] 1.2.840.114 350.1.13.10 4.2.7.2.686 [id number] [facility] 2021-09-04 00:00:00 2021-09-04 00:00:00 Refill Seymour Garcia [facility] JANELLE ROSARIO?[facility] 1.2.840.114 350.1.13.10 4.2.7.2.686 [id number] [facility] 2021-08-28 10:30:00 2021-08-28 10:30:00 Outpatient SWAPNA OCONNOR [facility] [id number] [facility] 2021 00:00:00 2021 00:00:00 Naun Hernandez, DO: [place] [address] , Ph. [facility], DR. HERNANDEZ [id number] [facility] 2021 00:00:00 2021 00:00:00 Outpatient Naun Hernandez [facility] [id number] 2021-08-05 00:00:00 2021-08-05 00:00:00 Naun Hernandez, DO: [address] [place] [address] , Ph. [phone] [facility], DR. HERNANDEZ [id number] [facility] 2021-08-05 00:00:00 2021-08-05 00:00:00 Outpatient Naun Hernandez [facility] [id number] 2021-07-30 00:00:00 2021-07-30 00:00:00 Naun Hernandez, DO: [place] [address] , Ph. [phone] [facility], DR. HERNANDEZ [id number] [facility] 2021-07-30 00:00:00 2021-07-30 00:00:00 Outpatient Naun Hernandez [facility] [id number] 2021-07-09 00:00:00 2021-07-09 00:00:00 Telephone Swapna Feliz [facility] [id number] [facility] 2021-07-08 00:00:00 2021-07-08 00:00:00 Naun Hernandez, DO: [address] [place] [address] , Ph. [facility], DR. HERNANDEZ [id number] [facility] 2021-07-08 00:00:00 2021-07-08 00:00:00 Outpatient Naun Hernandez [facility] [id number] 2021-07-05 00:00:00 2021-07-05 00:00:00 Orders Only Doctor Unassigned, [place] [facility] [id number] [facility] 2021-06-27 00:00:00 2021-06-27 00:00:00 Naun Hernandez, DO: [address] [place], [place] [address] , Ph. [facility], DR. HERNANDEZ [id number] [facility] 2021-06-27 00:00:00 2021-06-27 00:00:00 Outpatient Naun Hernandez [facility] [id number] 2021-06-20 00:00:00 2021-06-20 00:00:00 Naun Hernandez, DO: [address] [place] [address] , Ph. [facility], DR. HERNANDEZ [id number] [facility] 2021-06-20 00:00:00 2021-06-20 00:00:00 Outpatient Naun Hernandez [facility] [id number] 2021-05-01 08:15:00 2021-05-01 08:30:00 Cracking Still Operator Visit Lab, Ang - [facility] 1.2.840.114 350.1.13.10 4.2.7.2.686 [id number] [facility] 2021-05-01 08:15:00 2021-05-01 08:15:00 Outpatient R [facility] [id number] [facility] 2021-05-01 08:15:00 2021-05-01 08:15:00 Outpatient R [facility] [id number] [facility] 2021-04-30 10:00:00 2021-04-30 11:17:01 [facility] [id number] [facility] 2021-04-30 10:00:00 2021-04-30 11:17:01 Office Visit Tray [facility] 1.2.840.114 350.1.13.10 4.2.7.2.686 [id number] [facility] 2021-04-30 00:00:00 2021-04-30 00:00:00 Orders Only Doctor Unassigned, [place] [facility] 1.2.840.114 350.1.13.10 4.2.7.2.686 [id number] [facility] 2021-04-22 00:00:00 2021-04-22 00:00:00 Outpatient Naun Hernandez [facility] [id number] 2021-04-22 00:00:00 2021-04-22 00:00:00 Naun Hernandez, DO: [address], [place] [address] , Ph. [phone] [facility], DR. HERNANDEZ [id number] [facility] 2021-04-22 00:00:00 2021-04-22 00:00:00 Outpatient Naun Hernandez [facility] [id number] 2021-04-22 00:00:00 2021-04-22 00:00:00 Outpatient Naun Hernandez [facility] [id number] 2021-04-15 00:00:00 2021-04-15 00:00:00 Telephone Seymour Garcia [facility] 1..840.114 350.1.13.10 4.2.7.2.686 [id number] [facility] 2021-04-15 00:00:00 2021-04-15 00:00:00 Orders Only Doctor Unassigned, [place] [address].840.114 350.1.13.10 4.2.7.2.686 [id number] [facility] 2021-03-28 00:00:00 2021-03-28 00:00:00 Naun Hernandez, DO: [address], [address], [place] [address] , Ph. [phone] [place] [address], DR. HERNANDEZ [id number] [facility] 2021-03-22 00:00:00 2021-03-22 00:00:00 Telephone Swapna Feliz [facility] 1..840.114 350.1.13.10 4.2.7.2.686 [id number] [facility] 2021-03-22 00:00:00 2021-03-22 00:00:00 Orders Only Doctor Unassigned, [place] [address]114 350.1.13.10 4.2.7.2.686 [id number] [facility] 2021-02-18 00:00:00 2021-02-18 00:00:00 [facility] 1..840.114 350.1.13.10 4.2.7.2.686 [id number] [facility] 2021-01-15 00:00:00 2021-01-15 00:00:00 Patient Secure Msg Fel[facility] 1..840.114 350.1.13.10 4.2.7.2.686 [id number] [facility] 2021-01-14 00:00:00 2021-01-14 00:00:00 Naun Hernandez, DO: [address], [address], [place] [address] , Ph. [phone] [place] [address], DR. HERNANDEZ [id number] [facility] 2021-01-14 00:00:00 2021-01-14 00:00:00 Outpatient Naun Hernandez [facility] [id number] 2020-11-29 09:09:48 2020-11-29 09:24:48 Cracking Still Operator Visit Lab, Seymour Friedman [facility] 1..840.114 350.1.13.10 4.2.7.2.686 [id number] [facility] 2020-11-29 09:00:00 2020-11-29 09:00:00 Outpatient R [facility] [id number] [facility] 2020-11-28 10:05:17 2020-11-28 11:35:46 Office Visit FelizSwapna [facility]elle [facility] 1.2.840.114 350.1.13.10 4.2.7.2.686 [id number] [facility] 2020-11-28 10:00:00 2020-11-28 10:00:00 [facility] [id number] [facility] 2020-11-28 00:00:00 2020-11-28 00:00:00 Orders Only Doctor Unassigned, [place] [facility] 1.2.840.114 350.1.13.10 4.2.7.2.686 [id number] [facility] 2020-11-20 13:00:00 2020-11-20 13:00:00 Outpatient R [facility] [id number] [facility] 2020-08-20 10:00:00 2020-08-20 10:00:00 Outpatient R SEYMOUR GARCIA [facility] [id number] [facility] 2020-08-17 11:00:00 2020-08-17 11:00:00 Outpatient R SEYMOUR GARCIA [facility] [id number] [facility] 2020-07-17 14:30:00 2020-07-17 14:30:00 [facility] [id number] [facility] 2020-06-20 00:00:00 2020-06-20 00:00:00 Outpatient R RADIOLOGY [facility] [id number] [facility] 2020-06-12 16:00:00 2020-06-12 16:00:00 Outpatient R VERN ROMEO [facility] [id number] [facility] 2020-03-28 13:00:00 2020-03-28 13:00:00 Outpatient R [facility] [id number] [facility] 2020-03-27 09:20:00 2020-03-27 09:20:00 Outpatient R [facility] [id number] [facility] 2020-03-08 14:20:00 2020-03-08 14:20:00 Outpatient R DALIA PEGUERO [facility] [id number] [facility] 2020-02-20 09:15:00 2020-02-20 09:15:00 Outpatient R SEYMOUR GARCIA [facility] [id number] [facility] 2019-12-28 10:00:00 2019-12-28 10:00:00 Outpatient R TRAYSWAPNA [facility] [id number] [facility] 2019-12-19 11:00:00 2019-12-19 11:00:00 Outpatient R TRAYSWAPNA [facility] [id number] [facility] 2019-09-27 11:00:00 2019-09-27 11:00:00 Outpatient R TRAYSWAPNA [facility] [id number] [facility] 2019-07-06 10:40:00 2019-07-06 10:40:00 Outpatient R DALIA PEGUERO [facility] [id number] [facility] 2019-07-05 19:30:00 2019-07-05 19:30:00 Outpatient R MARCUS ENAMORADO [facility] [id number] [facility] 2019-05-16 11:21:26 2019-05-16 11:19:00 Outpatient R NIKOLE TRISTAN [facility] [id number] [facility] Results Test Description Test Time Test Comments Results Result Co mments Source [facility] (dipstick) panel - [id number] 11:37:00* Test Item Value Reference Range Interpretation Comme nts Leukocytes (test code = Leukocytes) Large Nitrite (test code = Nitrite) positive Urobilinogen (test code = Urobilinogen) .2 Protein (test code = Protein) 100 pH (test code = pH) 7.5 Blood (test code = Blood) Large Specific [place] (test code = Specific [place]) 1.005 Ketone (test code = Ketone) Negative Bilirubin (test code = Bilirubin) Small Glucose (test code = Glucose) Negative Appearance (test code = Appearance) Turbid Color (test code = Color) [facility] [id number] 10:49:00* Test Item Value Reference Range Interpretation Comme nts GLUCOSE BEDSIDE TESTING (lanie t code = GLUBED) 260 MG/DL 60-99 H GLUCOSE BEDSIDE [id number] 08:27:00* Test Item Value Reference Range Interpretation Comme nts GLUCOSE BEDSIDE TESTING (lanie t code = GLUBED) 254 MG/DL 60-99 H CBC W/AUTO [id number] 07:02:00* Test Item Value Reference Range Interpretation Comme nts WHITE BLOOD CELL (test code = WBC) 13.0 K/MM3 3.8-9.8 H RED BLOOD CELL (test code = RBC) 3.69 M/MM3 3.58-4.97 N HEMOGLOBIN (test code = HGB) 10.3 G/DL 11.2-14.9 L HEMATOCRIT (test code = HCT) 31.0 % 33.2-43.5 L MEAN CELL VOLUME (test code = MCV) 84 fL 80.7-99.1 N MEAN CELL HGB (test code = MCH) 27.9 pg 27.0-34.1 N MEAN CELL HGB CONCETRATION (test code = MCHC) 33.2 % 32.2-35.7 N RED CELL DISTRIBUTION WIDTH (test code = RDW) 13.8 % 12.1-15.2 N PLATELET COUNT (test code = PLT) 256 K/MM3 129-368 N MEAN PLATELET VOLUME (test c ode = MPV) 10.6 fl 7.4-10.4 H NEUTROPHIL % (test code = NT%) 75.1 % 43-75 H IMMATURE GRANULOCYTE % (test code = IG%) 0.9 % 0.0-2.0 N LYMPHOCYTE % (test code = LY%) 13.3 % 14-44 L MONOCYTE % (test code = MO%) 8.0 % 4-13 N EOSINOPHIL % (test code = EO%) 1.9 % 0-6 N BASOPHIL % (test code = BA%) 0.8 % 0-2 N NUCLEATED RBC % (test code = NRBC%) 0.0 % 0-1.0 N NEUTROPHIL # (test code = NT#) 9.72 K/mm3 2.0-7.6 H IMMATURE GRANULOCYTE # (test code = IG#) 0.12 x10 3/uL 0-0.03 H LYMPHOCYTE # (test code = LY#) 1.73 K/mm3 1.0-3.8 N MONOCYTE # (test code = MO#) 1.04 K/mm3 0.1-0.8 H EOSINOPHIL # (test code = EO#) 0.25 K/mm3 0.0-0.2 H BASOPHIL # (test code = BA#) 0.11 K/mm3 0.0-0.2 N NUCLEATED RBC # (test code = NRBC#) 0.00 K/mm3 0.0-0.1 N GLUCOSE BEDSIDE [id number] 22:53:00* Test Item Value Reference Range Interpretation Comme nts GLUCOSE BEDSIDE TESTING (lanie t code = GLUBED) 185 MG/DL 60-99 H GLUCOSE BEDSIDE [id number] 19:43:00* Test Item Value Reference Range Interpretation Comme nts GLUCOSE BEDSIDE TESTING (lanie t code = GLUBED) 194 MG/DL 60-99 H GLUCOSE BEDSIDE [id number] 17:09:00* Test Item Value Reference Range Interpretation Comme nts GLUCOSE BEDSIDE TESTING (lanie t code = GLUBED) 185 MG/DL 60-99 H GLUCOSE BEDSIDE [id number] 13:10:00* Test Item Value Reference Range Interpretation Comme nts GLUCOSE BEDSIDE TESTING (lanie t code = GLUBED) 265 MG/DL 60-99 H GLUCOSE BEDSIDE [id number] 09:08:00* Test Item Value Reference Range Interpretation Comme nts GLUCOSE BEDSIDE TESTING (lanie t code = GLUBED) 347 MG/DL 60-99 HH BASIC METABOLIC [id number] 07:48:00* Test Item Value Reference Range Interpretation Comme nts SODIUM (test code = NA) 133 MMOL/L 137-145 L POTASSIUM (test code = K) 4.0 MMOL/L 3.5-5.1 N CHLORIDE (test code = CL) 102 MMOL/L 98-107 N CARBON DIOXIDE (test code = CO2) 23 MMOL/L 22-30 N GLUCOSE (test code = GLU) 186 MG/DL 74-106 H BLOOD UREA NITROGEN (test code = BUN) 9 MG/DL 7-17 N GLOMERULAR FILTRATION RATE (test code = GFR) > 60 The Glomerular Filtration Rate is a calculated parameterbased on serum Creatinine, patient age and sex. GFR valuesless than 60 mL/min/1.73 square meters are indicative ofChronic Kidney Disease. Values less than 15 mL/min/1.73square meters indicate Kidney failure. The calculation forGFR is based on the CKD-EPI (202) calculation. This formulais race indifferent and is the recommended formula for GFRby the National Kidney Foundation for Adults.The GFR will not calculate if the sex is unknown or if thepatient's age is <18 years. CREATININE (test code = CREAT) 0.80 MG/DL 0.52-1.04 N CALCIUM (test code = CA) 8.7 MG/DL 8.4-10.2 N CBC W/AUTO [id number] 07:38:00* Test Item Value Reference Range Interpretation Comme nts WHITE BLOOD CELL (test code = WBC) 11.4 K/MM3 3.8-9.8 H RED BLOOD CELL (test code = RBC) 3.73 M/MM3 3.58-4.97 HEMOGLOBIN (test code = HGB) 10.3 G/DL 11.2-14.9 L HEMATOCRIT (test code = HCT) 31.3 % 33.2-43.5 L MEAN CELL VOLUME (test code = MCV) 84 fL 80.7-99.1 N MEAN CELL HGB (test code = MCH) 27.6 pg 27.0-34.1 N MEAN CELL HGB CONCETRATION (test code = MCHC) 32.9 % 32.2-35.7 N RED CELL DISTRIBUTION WIDTH (test code = RDW) 13.7 % 12.1-15.2 N PLATELET COUNT (test code = PLT) 266 K/MM3 129-368 N MEAN PLATELET VOLUME (test c ode = MPV) 10.5 fl 7.4-10.4 H NEUTROPHIL % (test code = NT%) 61.7 % 43-75 N IMMATURE GRANULOCYTE % (test code = IG%) 0.9 % 0.0-2.0 N LYMPHOCYTE % (test code = LY%) 22.9 % 14-44 N MONOCYTE % (test code = MO%) 11.6 % 4-13 N EOSINOPHIL % (test code = EO%) 1.8 % 0-6 N BASOPHIL % (test code = BA%) 1.1 % 0-2 N NUCLEATED RBC % (test code = NRBC%) 0.0 % 0-1.0 N NEUTROPHIL # (test code = NT#) 7.05 K/mm3 2.0-7.6 N IMMATURE GRANULOCYTE # (test code = IG#) 0.10 x10 3/uL 0-0.03 H LYMPHOCYTE # (test code = LY#) 2.61 K/mm3 1.0-3.8 N MONOCYTE # (test code = MO#) 1.32 K/mm3 0.1-0.8 H EOSINOPHIL # (test code = EO#) 0.20 K/mm3 0.0-0.2 N BASOPHIL # (test code = BA#) 0.12 K/mm3 0.0-0.2 N NUCLEATED RBC # (test code = NRBC#) 0.00 K/mm3 0.0-0.1 N GLUCOSE BEDSIDE [id number] 23:51:00* Test Item Value Reference Range Interpretation Comme nts GLUCOSE BEDSIDE TESTING (lanie t code = GLUBED) 298 MG/DL 60-99 H GLUCOSE BEDSIDE [id number] 21:31:00* Test Item Value Reference Range Interpretation Comme nts GLUCOSE BEDSIDE TESTING (lanie t code = GLUBED) 393 MG/DL 60-99 HH HGB [id number] 21:16:00* Test Item Value Reference Range Interpretation Comme nts HEMOGLOBIN (test code = HGB) 9.3 G/DL 11.2-14.9 L HEMATOCRIT (test code = HCT) 28.0 % 33.2-43.5 L GLUCOSE BEDSIDE [id number] 16:03:00* Test Item Value Reference Range Interpretation Comme nts GLUCOSE BEDSIDE TESTING (lanie t code = GLUBED) 226 MG/DL 60-99 H GLUCOSE BEDSIDE [id number] 11:00:00* Test Item Value Reference Range Interpretation Comme nts GLUCOSE BEDSIDE TESTING (lanie t code = GLUBED) 203 MG/DL 60-99 H COMPREHENSIVE METABOLIC [id number] 08:00:00* Test Item Value Reference Range Interpretation Comme nts SODIUM (test code = NA) 134 MMOL/L 137-145 L POTASSIUM (test code = K) 3.8 MMOL/L 3.5-5.1 N CHLORIDE (test code = CL) 105 MMOL/L 98-107 N CARBON DIOXIDE (test code = CO2) 20 MMOL/L 22-30 L ANION GAP (test code = GAP) 13 MMOL/L 14-24 L GLUCOSE (test code = GLU) 120 MG/DL 74-106 H BLOOD UREA NITROGEN (test code = BUN) 14 MG/DL 7-17 N GLOMERULAR FILTRATION RATE (test code = GFR) > 60 The Glomerular Filtration Rate is a calculated parameterbased on serum Creatinine, patient age and sex. GFR valuesless than 60 mL/min/1.73 square meters are indicative ofChronic Kidney Disease. Values less than 15 mL/min/1.73square meters indicate Kidney failure. The calculation forGFR is based on the CKD-EPI (2020) calculation. This formulais race indifferent and is the recommended formula for GFRby the National Kidney Foundation for Adults.The GFR will not calculate if the sex is unknown or if thepatient's age is <18 years. CREATININE (test code = CREAT) 0.90 MG/DL 0.52-1.04 N TOTAL PROTEIN (test code = PROT) 5.5 G/DL 6.3-8.2 L Ortho Clinical D iagnostic has made us aware of newinformation regarding the potential interference ofEltrombopag (a bone marrow stimulant used to treatthrombocytonmenia and aplastic anemia) with specific assayson the [employer] of which Total Protein is one of thoseassays performed in our lab.Interference testing performed at Ortho determined thatEltrombopag does interfere with Vitros Total Protein asfollowsEltrombopag Interference for Vitros Product Total Protein: Eltrombopag Max Observed Avg. BiasConcentration Concentration Concentration 2.5 mg/dl 6.0 g/dl +0.41 +0.34 3.5 mg/dl 6.0 g/dl +0.50 +0.45 5 mg/dl 6.0 g/dl +0.73 +0.65 2.5 mg/dl 8.0 g/dl +0.44 +0.41 3.5 mg/dl 8.0 g/dl +0.55 +0.52 5 mg/dl 8.0 g/dl +0.86 +0.77 ALBUMIN (test code = ALB) 3.2 G/DL 3.5-5.0 L CALCIUM (test code = CA) 8.2 MG/DL 8.4-10.2 L BILIRUBIN TOTAL (test code = BILT) 0.4 MG/DL 0.2-1.3 Eltrombopag Inte rference for Vitros Product TBil, BuBc: Assay Eltrombopag Analyte/ Max Observed Avg. Bias Concentration Concentration Concentration TBil 7mg/dl TBil/ 1.2mg/dl +0.23mg.dl +0.20mg/dlBuBc 3.5mg/dl Bu/0.8mg/dl +0.25mg/dl +0.24mg/dlBuBc 7 mg/dl Bu/14.2mg/dl +0.38mg/dl +0.25mg/dlBuBc 5mg/dl Bc/0mg/dl +0.25mg/dl +0.15mg/dlBuBc 3.5mg/dl Bc/2.8mg/dl +0.25mg/dl +0.23mg/dl SGOT/AST (test code = AST) 22 UNITS/L 14-36 SGPT/ALT (test code = ALT) 14 UNITS/L 0-34 N ALKALINE PHOSPHATASE (test code = ALKP) 60 UNITS/L 38-126 N CBC W/AUTO [id number] 07:37:00* Test Item Value Reference Range Interpretation Comme nts WHITE BLOOD CELL (test code = WBC) 11.1 K/MM3 3.8-9.8 H RED BLOOD CELL (test code = RBC) 2.69 M/MM3 3.58-4.97 L HEMOGLOBIN (test code = HGB) 7.5 G/DL 11.2-14.9 L HEMATOCRIT (test code = HCT) 23.2 % 33.2-43.5 L MEAN CELL VOLUME (test code = MCV) 86 fL 80.7-99.1 N MEAN CELL HGB (test code = MCH) 27.9 pg 27.0-34.1 N MEAN CELL HGB CONCETRATION (test code = MCHC) 32.3 % 32.2-35.7 N RED CELL DISTRIBUTION WIDTH (test code = RDW) 13.7 % 12.1-15.2 N PLATELET COUNT (test code = PLT) 278 K/MM3 129-368 MEAN PLATELET VOLUME (test c ode = MPV) 10.3 fl 7.4-10.4 N NEUTROPHIL % (test code = NT%) 72.3 % 43-75 N IMMATURE GRANULOCYTE % (test code = IG%) 0.5 % 0.0-2.0 N LYMPHOCYTE % (test code = LY%) 16.0 % 14-44 N MONOCYTE % (test code = MO%) 9.8 % 4-13 N EOSINOPHIL % (test code = EO%) 0.7 % 0-6 N BASOPHIL % (test code = BA%) 0.7 % 0-2 N NUCLEATED RBC % (test code = NRBC%) 0.0 % 0-1.0 N NEUTROPHIL # (test code = NT#) 8.03 K/mm3 2.0-7.6 H IMMATURE GRANULOCYTE # (test code = IG#) 0.06 x10 3/uL 0-0.03 H LYMPHOCYTE # (test code = LY#) 1.78 K/mm3 1.0-3.8 N MONOCYTE # (test code = MO#) 1.09 K/mm3 0.1-0.8 H EOSINOPHIL # (test code = EO#) 0.08 K/mm3 0.0-0.2 N BASOPHIL # (test code = BA#) 0.08 K/mm3 0.0-0.2 N NUCLEATED RBC # (test code = NRBC#) 0.00 K/mm3 0.0-0.1 N GLUCOSE BEDSIDE [id number] 07:01:00* Test Item Value Reference Range Interpretation Comme nts GLUCOSE BEDSIDE TESTING (lanie t code = GLUBED) 126 MG/DL 60-99 H - CT ABD PELVIS W/O [id number] 22:09:00 [facility] : 1950 Sex: F Patient Name: ALISHA MATTHEWS Unit No: [id number] Report Has Been Amended EXAMS: CPT CODE: [id number] CT ABD PELVIS W/O CONT 93382 Addendum - 03/19/2022 SIGNED 03/19/2022 ADDENDUM: [id number] CT/CTABPLWO Findings were communicated to BARRINGTON Brown by telephone on 03/19/2022 10:01 PM. Electronically Signedby Anand Menendez MD on 03/19/2022 at 2200 Reported and signed by: Anand Menendez MD Transcribed: 1 05/20/2021 (2208) [email or web address] Report EXAM: - CT ABD PELVIS W/O CONT LOCATION: C3 HISTORY: RLE PAIN POST [facility] COMPARISON: None available at the time of interpretation. TECHNIQUE: Contrast - No IV contrast was given. No oral contrast was given Noncontrast phase - abdomen and pelvis including all of kidneys Reconstructions - coronal and sagittal planes Unless otherwise specified, incidental findings do not require dedicated imaging follow-up. This exam was performed according to our departmental dose-optimization program, which includes automated exposure control, adjustment of the mA and/or kV according to patient size and/or use of iterative reconstruction technique FINDINGS: Statements: Lack of intravenous contrast compromises evaluation of abdominopelvic organs and vasculature. Lack of oral contrast compromises evaluation of bowel. Thoracic: Subsegmental atelectasis in the left lower lobe. Hepatobiliary: The liver is normal without focal lesion. Status post cholecystectomy. No biliarydilation. Pancreas: Normal. Spleen: Normal. Adrenals: Normal. Genitourinary: The kidneys are normal. There is no evidence of [facility] [place] NAME: ALISHA MATTHEWS [id number] PHYS: [place] [address] : 1950 AGE: 71 SEX: F LOC: Z.438 A PHONE #: [phone] EXAM DATE: 03/19/2022 STATUS: ADM IN FAX #: [phone] RAD #: D/C DT PAGE 1 Signed Report (CONTINUED) Patient Name: ALISHA MATTHEWS Unit No: [id number] Report Has Been Amended EXAMS: CPT CODE: [id number] CT ABD PELVIS W/O CONT 55202 (Continued) hydronephrosis of either kidney. There is no evidence of renal calculus. Evaluation of the bladder is limited, but no obvious bladder abnormality is present. Gastrointestinal: No bowel obstruction or perienteric inflammation. The appendix is not visualized. Vascular: Atherosclerotic calcifications are seen within the aorta and branch vessels. Lymphatics: No enlarged lymph nodes by CT size criteria. Bones/Soft Tissues: No acute osseous findings. 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 No ventral hernias. Peritoneum/Other: No extraluminal air. No extraluminal fluid. Large hematoma in the right extraperitoneal space measuring up to 11.6x 7.6 x 5.2 cm. IMPRESSION: 11.6 cm right extraperitoneal hematoma. at 2147 Reported and signed by: Anand Menendez MD CC: Onofre Puente; Alex Ruano Technologist: Winston Franco RTR; Sandra Ho CTDI: DLP: Trnscrpt: 03/19/2022 (2146) [email or web address] KACEY García NAME: ALISHA MATTHEWS PHYS: [place] [address] : 1950 AGE: 71 SEX: F LOC: Z.438 A PHONE #: [phone] EXAM DATE: 03/19/2022 STATUS: ADM IN FAX #: [phone] RAD #: D/C DT PAGE 2 Signed Report Patient Name: ALISHA MATTHEWS Unit No: [id number] Report Has Been Amended EXAMS: CPT CODE: [id number] CT ABDPELVIS W/O CONT 00593 (Continued) Orig Print D/T: S: 03/19/2022 (2149) AKCEY García NAME: ALISHA MATTHEWSmond PHYS: Alex Torres MD [place] [id number] : 1950 AGE: 71 SEX: F LOC: Z.438 A PHONE #: [phone] EXAM DATE: 03/19/2022 STATUS: ADM IN FAX #: [phone] RAD #: D/C DT PAGE 3 Signed ReportGLUCOSE BEDSIDE TESTING 2022-03-19 20:44:00* Test Item Value Reference Range Interpretation Comme nts GLUCOSE BEDSIDE TESTING (lanie t code = GLUBED) 256 MG/DL 60-99 H HGB [id number] 18:00:00* Test Item Value Reference Range Interpretation Comme nts HEMOGLOBIN (test code = HGB) 8.0 G/DL 11.2-14.9 L HEMATOCRIT (test code = HCT) 25.0 % 33.2-43.5 L GLUCOSE BEDSIDE [id number] 15:44:00* Test Item Value Reference Range Interpretation Comme nts GLUCOSE BEDSIDE TESTING (lanie t code = GLUBED) 227 MG/DL 60-99 H - XR CHEST [id number] 12:33:00 [facility] : 1950 Sex: F Patient Name: ALISHA MATTHEWS Unit No: [id number] EXAMS: CPT CODE: [id number] XR CHEST 1V 60142 HISTORY: Leukocytosis Location code: B2 FINDINGS: Frontal view of the chest demonstrates normal cardiomediastinalsilhouette. The trachea is midline. Mild patchy increased density left lung base. There is no effusion or pneumothorax. The bones are intact. IMPRESSION: Mild patchy pneumonia or atelectasis left lung base. at 1233 Reported and signed by: Refugio De La Cruz M.D. CC: Onofre Puente; Vipul Holliday MD Technologist: HASEEB GuidoRS, RT(R) Transcrpt Date/Tm/Trnsp: 03/19/2022 (1233) [id number] Orig Print D/T: S: 03/19/2022 (1236) [facility] NAME: ALISHA MUNGUIA [id number] [place] PHYS: [id number] Vipul Anderson MD [address] [address] : 1950 AGE: 71 SEX: F LOC: Z.438 A PHONE #: [phone] EXAM DATE: 03/19/2022 STATUS: ADM IN FAX #: [phone] RADIOLOGY NO: PAGE 1 Signed ReportGLUCOSE BEDSIDE [id number] 11:39:00* Test Item Value Reference Range Interpretation Comme nts GLUCOSE BEDSIDE TESTING (lanie t code = GLUBED) 245 MG/DL 60-99 H CBC W/AUTO [id number] 11:05:00* Test Item Value Reference Range Interpretation Comme nts WHITE BLOOD CELL (test code = WBC) 17.6 K/MM3 3.8-9.8 H RED BLOOD CELL (test code = RBC) 3.62 M/MM3 3.58-4.97 HEMOGLOBIN (test code = HGB) 9.9 G/DL 11.2-14.9 L HEMATOCRIT (test code = HCT) 31.6 % 33.2-43.5 L MEAN CELL VOLUME (test code = MCV) 87 fL 80.7-99.1 N MEAN CELL HGB (test code = MCH) 27.3 pg 27.0-34.1 N MEAN CELL HGB CONCETRATION (test code = MCHC) 31.3 % 32.2-35.7 L RED CELL DISTRIBUTION WIDTH (test code = RDW) 13.4 % 12.1-15.2 N PLATELET COUNT (test code = PLT) 353 K/MM3 129-368 N MEAN PLATELET VOLUME (test c ode = MPV) 10.6 fl 7.4-10.4 H NEUTROPHIL % (test code = NT%) 86.4 % 43-75 H IMMATURE GRANULOCYTE % (test code = IG%) 0.7 % 0.0-2.0 N LYMPHOCYTE % (test code = LY%) 7.1 % 14-44 L MONOCYTE % (test code = MO%) 5.4 % 4-13 N EOSINOPHIL % (test code = EO%) 0.0 % 0-6 N BASOPHIL % (test code = BA%) 0.4 % 0-2 N NUCLEATED RBC % (test code = NRBC%) 0.0 % 0-1.0 N NEUTROPHIL # (test code = NT#) 15.21 K/mm3 2.0-7.6 H IMMATURE GRANULOCYTE # (test code = IG#) 0.13 x10 3/uL 0-0.03 H LYMPHOCYTE # (test code = LY#) 1.25 K/mm3 1.0-3.8 N MONOCYTE # (test code = MO#) 0.95 K/mm3 0.1-0.8 H EOSINOPHIL # (test code = EO#) 0.00 K/mm3 0.0-0.2 N BASOPHIL # (test code = BA#) 0.07 K/mm3 0.0-0.2 N NUCLEATED RBC # (test code = NRBC#) 0.00 K/mm3 0.0-0.1 N COMPREHENSIVE METABOLIC [id number] 10:02:00* Test Item Value Reference Range Interpretation Comme nts SODIUM (test code = NA) 131 MMOL/L 137-145 L POTASSIUM (test code = K) 4.8 MMOL/L 3.5-5.1 N CHLORIDE (test code = CL) 103 MMOL/L 98-107 N CARBON DIOXIDE (test code = CO2) 15 MMOL/L 22-30 L GLUCOSE (test code = GLU) 279 MG/DL 74-106 H BLOOD UREA NITROGEN (test code = BUN) 16 MG/DL 7-17 N GLOMERULAR FILTRATION RATE (test code = GFR) 60 The Glomerular Filtration Rate is a calculated parameterbased on serum Creatinine, patient age and sex. GFR valuesless than 60 mL/min/1.73 square meters are indicative ofChronic Kidney Disease. Values less than 15 mL/min/1.73square meters indicate Kidney failure. The calculation forGFR is based on the CKD-EPI (2020) calculation. This formulais race indifferent and is the recommended formula for GFRby the National Kidney Foundation for Adults.The GFR will not calculate if the sex is unknown or if thepatient's age is <18 years. CREATININE (test code = CREAT) 1.00 MG/DL 0.52-1.04 N TOTAL PROTEIN (test code = PROT) 6.5 G/DL 6.3-8.2 N [facility] Clinical D iagnostic has made us aware of newinformation regarding the potential interference ofEltrombopag (a bone marrow stimulant used to treatthrombocytonmenia and aplastic anemia) with specific assayson the [employer] of which Total Protein is one of thoseassays performed in our lab.Interference testing performed at Ortho determined thatEltrombopag does interfere with Vitros Total Protein asfollowsEltrombopag Interference for Vitros Product Total Protein: Eltrombopag Max Observed Avg. BiasConcentration Concentration Concentration 2.5 mg/dl 6.0 g/dl +0.41 +0.34 3.5 mg/dl 6.0 g/dl +0.50 +0.45 5 mg/dl 6.0 g/dl +0.73 +0.65 2.5 mg/dl 8.0 g/dl +0.44 +0.41 3.5 mg/dl 8.0 g/dl +0.55 +0.52 5 mg/dl 8.0 g/dl +0.86 +0.77 ALBUMIN (test code = ALB) 3.8 G/DL 3.5-5.0 N CALCIUM (test code = CA) 8.4 MG/DL 8.4-10.2 N BILIRUBIN TOTAL (test code = BILT) 0.5 MG/DL 0.2-1.3 N Eltrombopag Inte rference for Vitros Product TBil, BuBc: Assay Eltrombopag Analyte/ Max Observed Avg. Bias Concentration Concentration Concentration TBil 7mg/dl TBil/ 1.2mg/dl +0.23mg.dl +0.20mg/dlBuBc 3.5mg/dl Bu/0.8mg/dl +0.25mg/dl +0.24mg/dlBuBc 7 mg/dl Bu/14.2mg/dl +0.38mg/dl +0.25mg/dlBuBc 5mg/dl Bc/0mg/dl +0.25mg/dl +0.15mg/dlBuBc 3.5mg/dl Bc/2.8mg/dl +0.25mg/dl +0.23mg/dl SGOT/AST (test code = AST) 32 UNITS/L 14-36 N SGPT/ALT (test code = ALT) 16 UNITS/L 0-34 N ALKALINE PHOSPHATASE (test code = ALKP) 69 UNITS/L 38-126 N GLUCOSE BEDSIDE [id number] 07:37:00* Test Item Value Reference Range Interpretation Comme nts GLUCOSE BEDSIDE TESTING (lanie t code = GLUBED) 280 MG/DL 60-99 H GLUCOSE BEDSIDE [id number] 23:55:00* Test Item Value Reference Range Interpretation Comme nts GLUCOSE BEDSIDE TESTING (lanie t code = GLUBED) 195 MG/DL 60-99 H GLUCOSE BEDSIDE [id number] 22:24:00* Test Item Value Reference Range Interpretation Comme nts GLUCOSE BEDSIDE TESTING (lanie t code = GLUBED) 169 MG/DL 60-99 H [id number] 19:31:00* Test Item Value Reference Range Interpretation Comme nts ACT-ISTAT (test code = ACTI) 239 SEC 74-137 H GLUCOSE BEDSIDE [id number] 17:05:00* Test Item Value Reference Range Interpretation Comme nts GLUCOSE BEDSIDE TESTING (lanie t code = GLUBED) 145 MG/DL 60-99 H GLUCOSE BEDSIDE [id number] 11:47:00* Test Item Value Reference Range Interpretation Comme nts GLUCOSE BEDSIDE TESTING (lanie t code = GLUBED) 227 MG/DL 60-99 H BASIC METABOLIC [id number] 09:35:00* Test Item Value Reference Range Interpretation Comme nts SODIUM (test code = NA) 130 MMOL/L 137-145 L POTASSIUM (test code = K) 4.3 MMOL/L 3.5-5.1 N CHLORIDE (test code = CL) 98 MMOL/L 98-107 N CARBON DIOXIDE (test code = CO2) 24 MMOL/L 22-30 ANION GAP (test code = GAP) 12 MMOL/L 14-24 L GLUCOSE (test code = GLU) 170 MG/DL 74-106 H BLOOD UREA NITROGEN (test code = BUN) 16 MG/DL 7-17 N GLOMERULAR FILTRATION RATE (test code = GFR) > 60 The Glomerular Filtration Rate is a calculated parameterbased on serum Creatinine, patient age and sex. GFR valuesless than 60 mL/min/1.73 square meters are indicative ofChronic Kidney Disease. Values less than 15 mL/min/1.73square meters indicate Kidney failure. The calculation forGFR is based on the CKD-EPI (2020) calculation. This formulais race indifferent and is the recommended formula for GFRby the National Kidney Foundation for Adults.The GFR will not calculate if the sex is unknown or if thepatient's age is <18 years. CREATININE (test code = CREAT) 0.90 MG/DL 0.52-1.04 N CALCIUM (test code = CA) 9.0 MG/DL 8.4-10.2 N LIPID PROFILE (CORONARY RISK)2022-03-18 09:35:00* Test Item Value Reference Range Interpretation Comme nts TRIGLYCERIDES (test code = TRIG) 167 MG/DL 150-199 N TRIGLYCERIDES REFERENCE RANGE:Normal: <150 mg/dLBorderline High: 150-199 mg/dLHigh: 200-499 mg/dLVery High: >=500 mg/dL CHOLESTEROL (test code = CHOL) 272 MG/DL <200 HDL CHOLESTEROL (test code = HDL) 46 MG/DL 40-59 N LIPOPROTEIN LDL (test code = LDL) 174 MG/DL 0-99 H OPTIMAL......... <100 mg/dLNEAR OPTIMAL/ABOVE OPTIMAL.........100-12 9 mg/dL BORDERLINE HIGH.........130-159 mg/dL HIGH.........160-189 mg/dL VERY HIGH.........>/= 190 mg/dL CBC W/AUTO [id number] 08:47:00* Test Item Value Reference Range Interpretation Comme nts WHITE BLOOD CELL (test code = WBC) 9.6 K/MM3 3.8-9.8 N RED BLOOD CELL (test code = RBC) 4.74 M/MM3 3.58-4.97 N HEMOGLOBIN (test code = HGB) 12.8 G/DL 11.2-14.9 N HEMATOCRIT (test code = HCT) 39.8 % 33.2-43.5 N MEAN CELL VOLUME (test code = MCV) 84 fL 80.7-99.1 N MEAN CELL HGB (test code = MCH) 27.0 pg 27.0-34.1 N MEAN CELL HGB CONCETRATION (test code = MCHC) 32.2 % 32.2-35.7 N RED CELL DISTRIBUTION WIDTH (test code = RDW) 13.4 % 12.1-15.2 N PLATELET COUNT (test code = PLT) 354 K/MM3 129-368 N MEAN PLATELET VOLUME (test c ode = MPV) 10.5 fl 7.4-10.4 H NEUTROPHIL % (test code = NT%) 58.9 % 43-75 N IMMATURE GRANULOCYTE % (test code = IG%) 0.9 % 0.0-2.0 N LYMPHOCYTE % (test code = LY%) 28.3 % 14-44 N MONOCYTE % (test code = MO%) 8.6 % 4-13 N EOSINOPHIL % (test code = EO%) 1.8 % 0-6 N BASOPHIL % (test code = BA%) 1.5 % 0-2 N NUCLEATED RBC % (test code = NRBC%) 0.0 % 0-1.0 N NEUTROPHIL # (test code = NT#) 5.65 K/mm3 2.0-7.6 N IMMATURE GRANULOCYTE # (test code = IG#) 0.09 x10 3/uL 0-0.03 H LYMPHOCYTE # (test code = LY#) 2.71 K/mm3 1.0-3.8 N MONOCYTE # (test code = MO#) 0.82 K/mm3 0.1-0.8 H EOSINOPHIL # (test code = EO#) 0.17 K/mm3 0.0-0.2 N BASOPHIL # (test code = BA#) 0.14 K/mm3 0.0-0.2 N NUCLEATED RBC # (test code = NRBC#) 0.00 K/mm3 0.0-0.1 N GLUCOSE BEDSIDE [id number] 07:22:00* Test Item Value Reference Range Interpretation Comme nts GLUCOSE BEDSIDE TESTING (lanie t code = GLUBED) 170 MG/DL 60-99 H [id number] 21:03:00* Test Item Value Reference Range Interpretation Comme nts TROPONIN-I (test code = TROPI) 1.210 NG/ML 0.012-0.033 CALLED TO EVARISTO Boone& READBACK ON 03/17/22 AT 2103 BY Jerome Cruz GLUCOSE BEDSIDE [id number] 20:25:00* Test Item Value Reference Range Interpretation Comme nts GLUCOSE BEDSIDE TESTING (lanie t code = GLUBED) 277 MG/DL 60-99 H - NM MYOCRD SPECT R/S [id number] 17:13:00 [facility] : 1950 Sex: F Patient Name: ALSIHA MATTHEWS Unit No: [id number] EXAMS: CPT CODE: [id number] NM MYOCRD SPECT R/S MULT [id number] Location: NUCLEAR MEDICINE CARDIAC REST/STRESS IMAGING , conducted on 03/17/22 HISTORY: Chest pain,elevated troponin. COMPARISON EXAMS: CTA assessment of the chest of 03/17/22 TECHNIQUE: 10.3 mCi Tc-99m sestamibi are injected at rest with imaging acquired in various planes. Approximately 26 minutes minutes after injection of radioisotope the patient was imaged . Non- gated SPECT imaging is performed. The patient is stressed pharmacologically with Lexiscan, 0.4 mg, Subsequently, 30.2 mCi Tc-99m sestamibi injected IV with scanning . 23 minutes later the patient was imaged . Gated SPECT imaging and post-processing are accomplished. FINDINGS: The left ventricle is normal in size. Homogeneous myocardial perfusion is observed. No significant stress defects suspicious for ischemia or infarct areidentified. The computed calculated LVEF is 78%. Concentric wall motion is identified. No segmentalwall motion abnormality is seen. Quantitative analysis is within normal limits. IMPRESSION: 1. Negative for evidence of significant myocardial ischemia or infarct. 2. Normal left ventricular ejectionfraction and wall motion. Electronically Signed by Nano Webster MD on 2at 1713 Reported and signed by: Nano Webster MD CC: Rita Hernández DO; Simón Reinoso MD Technologist: Bk Green ARRT Transcrpt Date/Tm/Trnsp: 03/17/2022 (1712) [id number] Orig Print D/T: S: 03/17/2022 (563) [facility] NAME: ALISHA MATTHEWS [id number] PHYS: [place] [address] : 1950 AGE: 71 SEX: F LOC: Z.438 A PHONE #: [phone] EXAM DATE: 03/17/2022 STATUS: ADM IN FAX #: [phone] RADIOLOGY NO: PAGE 1Signed [id number] 17:05:00* Test Item Value Reference Range Interpretation Comme nts TROPONIN-I (test code = TROPI) 0.756 NG/ML 0.012-0.033 CALLED TO KATHLEEN Langley & READBACK ON 03/17/22 AT 1702 BY Elizabeth Flynn UNABLE TO DRAW BLOOD, REASON: IMAGING NOTIFIED PATIENT CARE STAFF: CHESTER 03/17/22 AT 1519 BY China Lou BEDSIDE [id number] 17:04:00* Test Item Value Reference Range Interpretation Comme nts GLUCOSE BEDSIDE TESTING (lanie t code = GLUBED) 143 MG/DL 60-99 H GLYCOSYLATED HEMOGLOBIN [id number] 16:46:00* Test Item Value Reference Range Interpretation Comme nts GLYCOSYLATED HEMOGLOBIN (HA1C) (test code = GLYHGB) 7.9 % 4.8-5.9 H Any condition th at shortens erythocyte survival or decreasesmean erythrocyte age (e.g., recovery from acute blood loss,hemolytic anemia) will falsely lower HGBA1c resultsregardless of the method used. HGBA1c results from patientswith HbSS, HbCC, and HbSc must be interpreted with cautiongiven the pathological processes, including anemia,increased red cell turnover, transfusion requirements, thatadversely impact HGBA1c as a marker of long-term glycemiccontrol. Alternative forms of testing such as fructosamineshould be considered for these patients. MEAN BLOOD GLUCOSE (test code = MBG) 180 MG/DL 70-110 H - CTA [id number] 12:35:00 [facility] : 1950 Sex: F Patient Name: ALISHA MATTHEWS Unit No: [id number] EXAMS: CPT CODE: [id number] CTA CHEST 62895 HISTORY: Aortic dissection COMPARISON:None TECHNIQUE: Axial tomograms through the chest, abdomen and pelvis were obtained after intravenous contrast utilizing a CTA protocol. Multiplanar MIP reformatted images are provided. One or more of the following dose reduction techniques were used: Automated exposure control, adjustment of the mA and/or kV according to patient size, and/or utilization of iterative reconstruction technique. FINDINGS: CTA chest: Aortic and coronary calcifications are present. No evidence of aortic aneurysm or dissection. Pulmonary arteries are well opacified with no evidence of pulmonary embolus. Basilar atelectasis is present. No focal airspace consolidation. No mediastinal mass or significant adenopathy identified. CTA abdomen and pelvis: Aortic calcifications are present. No evidence of aortic aneurysm or dissection. Aortic bifurcation is patent. The celiac and SMA are patent. There are patent renal arteries bilaterally. Liver: The liver is relatively homogeneous in appearance with no discrete liver lesion demonstrated. Spleen: No significant splenomegaly. No focal splenic lesion. Pancreas: No focal mass or significant peripancreatic stranding or fluid collection. Adrenals: Normal in appearance with no mass identified. Kidneys: No hydronephrosis. No solid renal mass. Gallbladder surgically absent. No abdominal fluid collection or adenopathy is demonstrated. Within thepelvis no fluid collection or pelvic adenopathy. No acute inflammatory process. No evidence of bowel obstruction. No free air or abscess. No evidence of focal colitis. [facility] NAME: ALISHA MATTHEWS PHYS: [place] [address] : 1950 AGE: 71 SEX: F LOC: [employer] PHONE #: [phone] EXAM DATE: 03/17/2022 STATUS: REG ER FAX #: [phone] RAD #: D/C DT PAGE 1 Signed Report (CONTINUED) Patient Name: ALISHA MATTHEWS Unit No: [id number] EXAMS: CPT CODE: [id number] CTA CHEST 78696 (Continued) IMPRESSION: 1. Scattered atherosclerotic plaque. No area of aortic aneurysm or dissection. 2. No other acute abnormalities identified. at 1235 Reported and signed by: Dinesh Clifford MD CC: Rita Hernández DO Technologist: iMke Nguyen, RT(R) CTDI: DLP: Trnscrpt: 03/17/2022 (123 5) t.SDR.[email or web address] [facility] NAME: ALISHA MATTHEWS PHYS: [place] [address] : 1950 AGE: 71 SEX: F LOC: [employer] PHONE #: [phone] EXAM DATE: 03/17/2022 STATUS: REG ER FAX #: [phone] RAD #: D/C DT PAGE 2 Signed Report Patient Name: ALISHA MATTHEWS Unit No: [id number] EXAMS: CPT CODE: [id number] CTA CHEST 67464 (Continued) Orig Print D/T: S: 03/17/2022 (1238) [facility] NAME: ALISHA MATTHEWS PHYS: [place] [address] : 1950 AGE: 71 SEX: F LOC: [employer] PHONE #:[phone] EXAM DATE: 03/17/2022 STATUS: REG ER FAX #: [phone] RAD #: D/C DT PAGE 3 Signed Report- CTA [id number] 12:35:00 [facility] : 1950 Sex: F Patient Name: ALISHA MATTHEWS Unit No: [id number] EXAMS: CPT CODE: [id number] CTA ABDOMEN 39402 HISTORY: Aortic dissection COMPARISON:None TECHNIQUE: Axial tomograms through the chest, abdomen and pelvis were obtained after intravenous contrast utilizing a CTA protocol. Multiplanar MIP reformatted images are provided. One or more of the following dose reduction techniques were used: Automated exposure contr ol, adjustment of the mA and/or kV according to patient size, and/or utilization of iterative reconstruction technique. FINDINGS: CTA chest: Aortic and coronary calcifications are present. No evidence of aortic aneurysm or dissection. Pulmonary arteries are well opacified with no evidence of pulmonary embolus. Basilar atelectasis is present. No focal airspace consolidation. No mediastinal mass or significant adenopathy identified. CTA abdomen and pelvis: Aortic calcifications are present. No evidence of aortic aneurysm or dissection. Aortic bifurcation is patent. The celiac and SMA are patent. There are patent renal arteries bilaterally. Liver: The liver is relatively homogeneous in appearance with no discrete liver lesion demonstrated. Spleen: No significant splenomegaly. No focal splenic lesion. Pancreas: No focal mass or significant peripancreatic stranding or fluid collection. Adrenals: Normal in appearance with no mass identified. Kidneys: No hydronephrosis. No solid renal mass. Gallbladder surgically absent. No abdominal fluid collection or adenopathy is demonstrated. Within the pelvis no fluid collection or pelvic adenopathy. No acute inflammatory process. No evidence of bowel obstruction. No free air or abscess. No evidence of focal colitis. [facility] NAME: ALISHA MATTHESW PHYS: Rita Ames [place] [id number] : 1950 AGE: 71 SEX:F LOC: Z.[employer] PHONE #: [phone] EXAM DATE: 03/17/2022 STATUS: REG ER FAX #: [phone] RAD #: D/C DT PAGE 1 Signed Report (CONTINUED) Patient Name: ALISHA MATTHEWS Unit No: [id number] EXAMS: CPT CODE: [id number] CTA ABDOMEN 86198 (Continued) IMPRESSION: 1. Scattered atherosc lerotic plaque. No area of aortic aneurysm or dissection. 2. No other acute abnormalities identified. at 1235 Reported and signed by: Dinesh Clifford MD CC: Rita Hernández DO Technologist: Mike Nguyen, RT(R) CTDI: DLP: Trnscrpt: 03/17/2022 (1235) t.SDR.RXC2 [facility] NAME: ALISHA MATTHEWS PHYS: [place] [address] : 1950 AGE: 71 SEX: F LOC: [employer] PHONE #: [phone] EXAM DATE: 03/17/2022 STATUS: REG ER FAX #: [phone] RAD #: D/C DT PAGE 2 Signed Report Patient Name: ALISHA MATTHEWS Unit No: [id number] EXAMS: CPT CODE: [id number] CTA ABDOMEN 95005 (Continued) Orig Print D/T: S: 03/17/2022 (1238) [facility] NAME: ALISHA MATTHEWS PHYS: [place] [address] : 1950 AGE: 71 SEX: F LOC: [employer] PHONE #: [phone] EXAM DATE: 03/17/2022 STATUS: REG ER FAX #: [phone] RAD #: D/C DT PAGE 3 Signed ReportBASIC METABOLIC [id number] 12:17:00* Test Item Value Reference Range Interpretation Comme nts SODIUM (test code = NA) 133 MMOL/L 137-145 L POTASSIUM (test code = K) 4.5 MMOL/L 3.5-5.1 N CHLORIDE (test code = CL) 98 MMOL/L 98-107 N CARBON DIOXIDE (test code = CO2) 29 MMOL/L 22-30 N GLUCOSE (test code = GLU) 136 MG/DL 74-106 H BLOOD UREA NITROGEN (test code = BUN) 16 MG/DL 7-17 N GLOMERULAR FILTRATION RATE (test code = GFR) > 60 The Glomerular Filtration Rate is a calculated parameterbased on serum Creatinine, patient age and sex. GFR valuesless than 60 mL/min/1.73 square meters are indicative ofChronic Kidney Disease. Values less than 15 mL/min/1.73square meters indicate Kidney failure. The calculation forGFR is based on the CKD-EPI (2020) calculation. This formulais race indifferent and is the recommended formula for GFRby the National Kidney Foundation for Adults.The GFR will not calculate if the sex is unknown or if thepatient's age is <18 years. CREATININE (test code = CREAT) 0.80 MG/DL 0.52-1.04 N CALCIUM (test code = CA) 9.4 MG/DL 8.4-10.2 N [id number] 12:17:00* Test Item Value Reference Range Interpretation Comme nts TROPONIN-I (test code = TROPI) 0.131 NG/ML 0.012-0.033 CALLED TO DUSTIN .Anson & READBACK ON 03/17/22 AT 1159 BY Stepan Zhang LIPOPROTEIN LDL [id number] 12:17:00* Test Item Value Reference Range Interpretation Comme nts LIPOPROTEIN LDL DIRECT (test code = LDLDIR) 166 mg/dL 100-129 H ========= R eference Interval: mg/dL mmol/L -----Optimal <100 <2.6Near/above optimal 100-129 2.6-3.3Borderline High 130-159 3.4-4.1High 160-189 4.1-4.9Very High >=190 >=4.9========= This LDL result is a direct measurement.======== = CBC W/O [id number] 11:00:00* Test Item Value Reference Range Interpretation Comme nts WHITE BLOOD CELL (test code = WBC) 8.4 K/MM3 3.8-9.8 N RED BLOOD CELL (test code = RBC) 4.43 M/MM3 3.58-4.97 N HEMOGLOBIN (test code = HGB) 12.1 G/DL 11.2-14.9 N HEMATOCRIT (test code = HCT) 37.5 % 33.2-43.5 N MEAN CELL VOLUME (test code = MCV) 85 fL 80.7-99.1 N MEAN CELL HGB (test code = MCH) 27.3 pg 27.0-34.1 N MEAN CELL HGB CONCETRATION (test code = MCHC) 32.3 % 32.2-35.7 N RED CELL DISTRIBUTION WIDTH (test code = RDW) 13.2 % 12.1-15.2 N PLATELET COUNT (test code = PLT) 370 K/MM3 129-368 H NEUTROPHIL # (test code = NT#) 5.37 K/mm3 2.0-7.6 N IMMATURE GRANULOCYTE # (test code = IG#) 0.04 x10 3/uL 0-0.03 H LYMPHOCYTE # (test code = LY#) 2.13 K/mm3 1.0-3.8 N MONOCYTE # (test code = MO#) 0.62 K/mm3 0.1-0.8 N EOSINOPHIL # (test code = EO#) 0.13 K/mm3 0.0-0.2 N BASOPHIL # (test code = BA#) 0.12 K/mm3 0.0-0.2 N NUCLEATED RBC # (test code = NRBC#) 0.00 K/mm3 0.0-0.1 N CARDIAC [id number] 05:00:00* Test Item Value Reference Range Interpretation Comme nts Total CK (test code = Total CK) 133 29-143 [facility] [id number] 05:00:00* Test Item Value Reference Range Interpretation Comme nts ASPARTATE TRANSAMINASE (test code = ASPARTATE TRANSAMINASE) 17 10-35 ALANINE AMINOTRANSFERASE (te st code = ALANINE AMINOTRANSFERASE) 14 6-29 [facility]lingenBovpvuzMNBMTZ5669-16-06 05:00:00* Test Item Value Reference Range Interpretation Comme nts Chol (test code = Chol) 305 HDL (test code = HDL) 56 Trig (test code = Trig) 97 LDL (Calculated) (test code = LDL (Calculated)) 226 CHD Risk (test code = CHD Risk) 5.4 Non HDL Chol (test code = Non HDL Chol) 249 [facility] HEMOGLOBIN A1C [id number] 16:42:00* Test Item Value Reference Range Interpretation Comme [facility] POCT HBA1C (test code = 4548-4) 8.3 % 4-6 A Lab Interpretation (test cod e = 08003-6) Abnormal [facility] HEMOGLOBIN A1C [id number] 16:42:00* Test Item Value Reference Range Interpretation Comme [facility] POCT HBA1C (test code = 4548-4) 8.3 % 4-6 A Lab Interpretation (test cod e = 36944-8) [facility]normal [facility] - Urine 2021-04-02 09:55:00[facility] ENZYMES 2019-03-24 17:01:00* Test Item Value Reference Range Interpretation Comme nts Total CK (test code = Total CK) 131 29-143 [facility] [id number] 17:01:00* Test Item Value Reference Range Interpretation Comme nts Sed Rate (test code = Sed Rate) 2 [facility] [id number] 17:01:00* Test Item Value Reference Range Interpretation Comme nts SATYA (test code = SATYA) NEGATIVE C-REACTIVE PROTEIN (test cod e = C-REACTIVE PROTEIN) 0.8 [facility] [id number] 13:58:00* Test Item Value Reference Range Interpretation Comme nts Total CK (test code = Total CK) 93 29-143 [facility]CHE[facility] [id number] 13:58:00* Test Item Value Reference Range Interpretation Comme nts ASPARTATE TRANSAMINASE (test code = ASPARTATE TRANSAMINASE) 21 10-35 ALANINE AMINOTRANSFERASE (te st code = ALANINE AMINOTRANSFERASE) 30 6-29 [facility] LancasterGlcthajVIOTGLNFUI6246-92-98 13:58:00* Test Item Value Reference Range Interpretation Comme nts WBC X 10x3 (test code = WBC X 10x3) 8.9 3.8-10.8 RBC X 10x6 (test code = RBC X 10x6) 4.25 3.80-5.10 Hgb (test code = Hgb) 12.2 11.7-15.5 Hct (test code = Hct) 35.7 35.0-45.0 MCV (test code = MCV) 84.0 80.0-100.0 MCH (test code = MCH) 28.7 pg 27.0-33.0 MCHC (test code = MCHC) 34.2 32.0-36.0 RDW (test code = RDW) 12.6 11.0-15.0 Platelet (test code = Platelet) 392 140-400 MPV (test code = MPV) 10.2 7.5-12.5 Neutrophils # (test code = Neutrophils #) 5830 8857-5628 Lymphocytes # (test code = Lymphocytes #) 2136 850-3900 Monocytes # (test code = Monocytes #) 596 200-950 Eosinophils # (test code = Eosinophils #) 169 15-500 Basophils # (test code = Basophils #) 169 <=200 Segs (test code = Segs) 65.5 Lymphocytes (test code = Lymphocytes) 24.0 Monocytes (test code = Monocytes) 6.7 Eosinophils (test code = Eosinophils) 1.9 Basophils (test code = Basophils) 1.9 Sed Rate (test code = Sed Rate) 2 [facility] LancasterTizxpiyZUDZCUVJQU1731-52-82 13:58:00* Test Item Value Reference Range Interpretation Comme nts C-REACTIVE PROTEIN (test cod e = C-REACTIVE PROTEIN) 0.2 [facility] [id number] 13:58:00* Test Item Value Reference Range Interpretation Comme nts Chol (test code = Chol) 99 HDL (test code = HDL) 48 Trig (test code = Trig) 77 LDL (Calculated) (test code = LDL (Calculated)) 35 CHD Risk (test code = CHD Risk) 2.1 Non HDL Chol (test code = Non HDL Chol) 51 [facility] [place] Notes Date/Time Note Provider Source Referral ID Status Reason Start Date Expiration Date Visits Requested Visits Authorized [id number] Authorized Specialty Services Required 10/04/2024 04/05/2025 5 5 [id number] 18:40:16* AUDIT-C Score Answer Date of Assessment Author 0 10/11/2024 1:31 PM CDT Jojo Mckeon MA * [id number] 18:40:16* Rosalie Aguiar MD - 10/11/2024 1:15 PM CDT Images from the original note were not included. Alisha Christiano 1950 Chief Complaint Patient presents with Consult Memory Loss Hx of stroke. But now having memory concerns. Assessment & Plan DISCUSSION: The patient definitely has had multiple strokes in the past the patient has had multiple strokes in the past and has multiple vascular risk factors. She is already on dual antiplatelet therapy and is on treatment for hypertension, diabetes, and hyperlipidemia. MoCA score today was quite preserved though clinically, she seems to have more cognitive deficits than this would seem to indicate. In review of records, there have been times when she has been noted to be much more confused in the absence of any acute infarct noted. I suspect that there is underlying psychiatric disease contributing to some of these ups and downs in cognitive functioning. She does not feel that she has any significant anxiety that needs to be treated right now. She is on an appropriate regimen to decrease stroke risk as long as she is compliant with these. Recent CTA does not show any evidence of significant extracranial arterial stenosis, aneurysm, or intracranial stenosis. Continue dual antiplatelet therapy. I would like to see neuropsychometric testing but she is not interested in pursuing this right now. We will monitor her cognitive function. Continue aspirin and Plavix. Continue follow-up with cardiology. Diagnoses and all orders for this visit:Arterial ischemic stroke, multifocal, multiple vascular territories, chronic Cognitive deficits Vascular dementia without behavioral disturbance, psychotic disturbance, mood disturbance, or anxiety, unspecified dementia severity (HCC) History of coronary artery disease History of anxiety History of sarcoidosis Comments: Reportedly in remission Other orders - Follow Up In Neurology; Future SubjectiveJudy Christiano is a 74-year-old female with a history of stroke and 2014 who expresses concern about cognitive changes. The patient and her are poor historians she had a stroke in 2013. I was able to review records from that hospitalization including imaging of the brain. She also reportedly had another stroke about a year ago, seen at [facility].. We do not have the records from the reported stroke last year- reportedly presented with AMS. I do see several other ER visits and hospitalizations with altered mental status with no new strokes identified. Most recently, she was seen in the hospital at [facility] with altered mental status and the workup with CT and CTA were negative. See below. On this event, she presented again with altered mental status and paresthesias in the hands. She reportedly stopped working in 2019 following hospitalization with possible stroke/hemorrhage. A CT scan done then suggested a possible aneurysm though repeat imaging the next day did not confirm any bleed or aneurysm. They were unable to get the CTA. The patient and her are vague about the events surrounding this. There was documentation that she had advanced dementia and that she was discharged on hospice. Family medicine notes shortly after that visit did not really address any of the concerns about altered mental status or hospice. She has since had imaging of the intracranial vasculature showing no reported aneurysms. The patient has had persistent cognitive deficits although the severity seemsto be variable over time. She notes STM. Loses track of what she is talking about. Struggles recalling appointments. She takes her own medication and denies problems with this. She continues to drive as well and denies problems with this. Her has ridden with her and did not observe any concerning issues with her driving. She feels like the memory issues started after one of the strokes though when this was changes over the course of today's visit. In general, however, she feels like she is better cognitively than she was a year or so ago. She has been able to start reading again. She feels like she focuses better than she was previously. Back to cleaning her own house and laundry. She manages her own finances while her manages his own.. She does not feel that she is struggling with her budgeting. She has a history of anxiety but denies depression. She feels like her anxiety is better recently. She is not under the care of psychiatry. Used to be on Cymbalta. She felt that this caused "zinging" in the head. The patient did bring in orders for labs from September 26, 2024 which included aBMP, magnesium level, urine microglobulin/creatinine ratio, hemoglobin A1c, and lipid panel. I do not have these results. I did review a lot of hospitalizations and clinic visits in [facility] as well as records she brought from her more recent hospitalization at [facility]. See below. Has CAD and sees cardiology. Has stents in place. Takes ASA and Plavix. Reported history of sarcoidosis which has "resolved." Not under the care of pulmonology or rheumatology. She says that her DM is controlled currently. Objective REVIEW OF TESTING:ER records reviewed from [facility] dated 09/07/2024: History of present illness: 74-year-old female with past medical history of hypertension, hyperlipidemia, diabetes and IL presents to the ER complaining of possible stroke. She reports that an old stroke was found on a head CT in August 2023. The patient reports that at 2 PM yesterday, she developed periorbital numbness and numbness of bilateral upper arms. She reports that the symptoms resolved by 3 PM. Reports that this started again at 7 AM and also reports an occipital headache. Denies speech changes, chest pain, weakness, visual changes or gait instability. Impression from the emergency room doctor indicates that the patient had no new concerning findings seen on diagnostics. They noted that she displayed no weakness, speech changes, or visual changes. On reevaluation, the patient admitted that she had been experiencing symptoms for the last several days and was feeling anxious/stressed. No focal neuro deficits seen on exam. She was able to ambulate with a steady gait and no ataxic movements. When staff was able to calmly de-escalate the patient, her blood pressure decreased and her symptoms improved. No signs of infection seen on labs. EKG and troponin showed no cardiac abnormality. Informed that the patient had an old infarct seen on the CT but no new large vessel obstruction. NIH stroke scale was 0 throughout the ER stay. She was kept on aspirin. Labs reviewed:CMP was remarkable for a mildly decreased sodium at 134, with a glucose of 117 and elevated BUN at 20 with a creatinine of 1.04. CBC unremarkable Pro time normal at 9.7 seconds with an INR of 0.96 and a PTT of 23.4 BMP was 140 with a troponin I of 10.3 Imaging:CT head without contrast 09/07/2024 Impression:1. No CT evidence of intracranial hemorrhage. 2. Nonspecific white matter changes which may represent chronic small vessel ischemia. 3. Generalized parenchymal volume loss. 4. Encephalomalacia from old infarct in the region of the right caudate. CTA head and neck09/07/2024 Impression:1. No hemodynamically significant stenoses of the cervical internal carotid or vertebral arteries. 2. No hemodynamically significant stenoses of the anterior, middle, or posterior cerebral arteries. 3. No aneurysm, occlusion, or dissection. EXAMINATION: CT HEAD WO [id number]/30/2019 CLINICAL HISTORY: fall COMPARISON: CT head 02/24/2016 TECHNIQUE: Noncontrast head CT performed using radiation dose reduction techniques. Technical factors are evaluated and adjusted to ensure appropriate moderation of exposure. Automated dose management technology is applied to adjust radiation exposure while achieving a diagnostic quality image. FINDINGS: No evidence of acute intracranial infarct, mass, mass effect, or midline shift. There is a 4 mm hyperdensity in the right sylvian fissure. encephalomalacia in the bilateral occipital, posterior temporal, and parietal lobes with ex vacuo dilatation of the lateral ventricles. Moderate chronic microvascular ischemic change. Intracranial vascular calcifications are present Calvarium is intact. Orbits are normal in appearance. No significant paranasal sinus mucosal thickening. Mastoid air cells are clear. IMPRESSION: 1. No CT evidence of acute intracranial abnormality.2. Possible 4 mm calcified or thrombosed aneurysm in the right sylvian fissure versus small focus of extra-axial hemorrhage. MRI/MRA brain could be performed for further assessment. EXAMINATION: CT HEAD WO [id number]/1/2019 CLINICAL INFORMATION: fallCOMPARISON: CT scan dated 03/05/2019 TECHNIQUE: CT imaging was performed with contrast using iterative reconstruction technique and/or automated exposure control to reduce radiation dose. CONTRAST: No IV contrast administered. FINDINGS: When compared with previous CT scan the following remarkable findings arenoted: *There is no evidence of acute intracranial hemorrhage, new territorialinfarct, mass effect, midline shift, hydrocephalus, brain edema or cerebral herniation *Interval stable multiple areas of chronic cortical infarction involving the bilateral parietal, occipital and temporal occipital regions, in addition to chronic perforating infarct in the right lentiform nucleus. *Unchanged moderate symmetric supratentorial volume loss. *Hyperdense nodular structure in the right sylvian fissure is not clearly visualized on the current exam *No other significant findings or abnormalities. IMPRESSION: 1. Exam shows no significant change when compared with previous CT scan dated 03/05/2019 Latest Reference Range & Units Most RecentALT 6 - 29 unit/L 14 09/20/21 00:00 AST 10 - 35 unit/L 17 09/20/21 00:00 Aldolase < OR = 8.1 unit/L 5.8 09/20/21 00:00 CK Total 29 - 143 unit/L 133 09/20/21 00:00 Chol <200 mg/dL 305 (H) 09/20/21 00:00 Trig <150 mg/dL 97 09/20/21 00:00 HDL Cholesterol > OR = 50 mg/dL 56 09/20/21 00:00 LDL (Calculated) mg/dL 226 (H) 09/20/21 00:00 Chol/HDL Ratio <5.0 (CALC) 5.4 (H) 09/20/21 00:00 Non HDL Chol <130 mg/dL 249 (H) 09/20/21 00:00 POC UA Turbid Clear Clear 09/04/22 15:16 POC UA Color Yellow Yellow 09/04/22 15:16 POC UA pH 5.0 - 8.0 7.0 09/04/22 15:16 POC UA SG <=1.030 1.015 09/04/22 15:16 POC UA Glu Negative mg/dL Negative 09/04/22 15:16 POC UA Bld Negative Negative 09/04/22 15:16 POC UA Ket Negative mg/dL Negative 09/04/22 15:16 POC UA Protein Negative mg/dL Negative 09/04/22 15:16 POC UA Uro 0.1 - 1.0 EU/dL 0.2 09/04/22 15:16 POC UA Bili Negative Negative 09/04/22 15:16 POC UA Leuk Est Negative Negative 09/04/22 15:16 POC UA Nit Negative Negative 09/04/22 15:16 CT cervical spine wo IV contrast Rpt (E) 03/05/19 21:21 CT brain wo IV contrast Rpt (E) 03/06/19 06:24 XR abdomen 1 view Rpt (E) 03/05/19 21:39 XR lumbar spine complete 4+ views Rpt (E) 07/24/10 16:29 Left screening mammogram with tomosynthesis Rpt (E) 02/24/17 11:44 MRI angiogram brain wo IV contrast Rpt (E) 03/29/14 17:05 MRI brain wo IV contrast Rpt (E) 02/23/16 17:46 MRI lumbar spine wo IV contrast Rpt (E) 02/23/16 18:20 (H): Data is abnormally high (E): External lab result Rpt: View report in Results Review for more information MRI brain wo IV contrast Order: [id number] Narrative TechniqueImages of the brain were made without contrast material. FindingsThere is an area of diffusion restriction in the paramedian posterior left frontal convexity consistent with an acute infarct in distal anterior cerebral artery branch territory. There is no abnormal signal in the same area on the conventional images. The total extent is approximately 5.6 cm. There is moderate overall cerebral volume loss. There are chronic insults in the posterior right frontal lobe, both parietal lobes, and both occipital lobe and the posterior lateral temporal lobes, slightly more extensive on the left, with hemosiderin deposition in multiple areas. There are scattered areas of high signal on diffusion images in both cerebellar hemispheres, mostly too small to resolve on the calculated diffusion coefficient images. Several of these have associated abnormal signal on conventional images. There are questionable punctate areas of diffusion restriction in the lateral right frontal lobe cortex and in the posterior superior right temporal lobe white matter. There are scattered small areas of abnormal signal in the basal nuclei. There is no intracranial mass effect or hydrocephalus. Impression1. Acute left anterior cerebral artery branch territory infarct in the paramedian left frontal lobe. 2. Punctate areas of acute ischemic change in the right posterior frontal lobe, the posterior superior right temporal lobe, and both cerebellar hemispheres. 3. Extensive chronic ischemic and post hemorrhagic changes, mostly in the posterior cerebral hemispheres, and small multiple chronic insults in the cerebellum and subcortical regions. MRA Neck Wo Ititkunm20/24/2014 Narrative Technique MR Angiographic images of the major arteries of the neck were madewithout contrast material. NASCET criteria were used to evaluate the carotid arteries. Maximum intensity three-dimensional views were created in multiple oblique projections. FindingsBoth cervical vertebral arteries are patent. There are origins are partially visible and unremarkable. The left vertebral artery is slightly dominant. The common, internal, and external carotid arteries are patent and somewhat tortuous. There is no evidence of stenosis at either common carotid artery bifurcation. An appearance of narrowing in the distal right cervical internal carotid artery is believed to be artifact related to its entry into the petrous bone, and this appearance is not present on the left because of tilt of the patient's head toward the right. ImpressionArterial tortuosity and otherwise unremarkable MRA of the neck. MRI angiogram brain wo IV contrast Order: [id number] Narrative Clinical HistoryEvaluate for stroke. ComparisonConcurrent brain MRI on 03/29/2014. TechniqueHead MRA using 3D [id number] technique with multiplanar MIP reconstruction. FindingsThere is normal flow-related signal with no significant stenosis or occlusion along bilateral intracranial ICAs, ACAs, and MCAs. In particular, there is no evidence of proximal left ROHAN stenosis or occlusion, although evaluation of distal ROHAN branches is limited by MRA technique. The anterior communicating artery complex is unremarkable. The left GRAVEDIGGER is attenuated in caliber with distal P3 and P4 segmentnot well visualized, probably physiologic given chronic left GRAVEDIGGER territorial infarction. There is normal flow-related signal with no significant stenosis or occlusion along bilateral vertebral arteries, basilar artery, cerebellar arteries, and right GRAVEDIGGER. The vertebral arteries are codominant. The right GRAVEDIGGER is -type with origin from prominent right posterior communicating artery. There is no evidence of cerebral aneurysm in the proximal [place] within limits of MRA technique. Impression1. Attenuated distal left P3-P4 GRAVEDIGGER, probably physiologic from chronic left GRAVEDIGGER territorial infarction. 2. No significant stenosis or occlusion in remainder of [place] of [place] within limits of MRA technique. Current Outpatient Medications:aspirin EC 81 MG EC tablet, 81 mg = 1 tab, PO, Daily, # 90 tab, 3 Refill(s), Disp: , Rfl: budesonide (Pulmicort) 0.5 MG/2ML nebulizer solution, USE WITH NEBULIZER 2 TIMES A DAY, Disp: , Rfl: Clopidogrel Bisulfate (PLAVIX PO), 75 mg, PO, Daily, 0 Refill(s), Disp: , Rfl: cyclobenzaprine (Flexeril) 10 MG tablet, TAKE 1 TABLET 3 TIMES A DAY BY ORAL ROUTE., Disp: , Rfl: ezetimibe (Zetia) 10 MG tablet, TAKE 1 TABLET BY MOUTH EVERY DAY, Disp: , Rfl: glimepiride (Amaryl) 4 MG tablet, 4 mg = 1 tab, PO, Breakfast, # 30 tab, 0 Refill(s), Disp: , Rfl: insulin degludec (Tresiba FlexTouch) 100 UNIT/ML injection, INJECT 26 UNITS UNDER THE SKIN EVERY MORNING. E10.9, Disp: , Rfl: lansoprazole (Prevacid) [address] capsule, 30 mg = 1 cap, PO, Daily, # 30 cap, 0 Refill(s), Disp: , Rfl: losartan (Cozaar) 50 MG tablet, TAKE 1 TABLET BY MOUTH EVERY DAY, Disp: , Rfl: metoprolol tartrate (Lopressor) 25 MG tablet, 25 mg = 1 tab, PO, BID, # 180 tab, 0 Refill(s), Disp: , Rfl: nitroglycerin (Nitrostat) 0.4 MG SL tablet, 0 Refill(s), Disp: , Rfl: AllergiesAllergen Reactions Codeine Other Reaction(s): Other (see comments), Unknown - See comments, Unknown - See comments Ferumoxides Other Reaction(s): Itching/Hives/Rash, Other (see comments), Unknown - See comments, Unknown - See comments Ibuprofen Past Medical History:Diagnosis Date ADD (attention deficit disorder) Anxiety Diabetes ([facility]) Difficulty walking 2023 GERD (gastroesophageal reflux disease) H/O heart artery stent Hypertension Memory loss 2017 Seizures ([facility]) 2017 Stroke (HCC) 2016 Past Surgical History:Procedure Laterality Date CERVICAL LAMINECTOMY 1991 CHOLECYSTECTOMY LAMINECTOMY MRI ANGIOGRAM BRAIN WO IV CONTRAST 03/29/2014 MRI ANGIOGRAM BRAIN WO IV CONTRAST 03/29/2014 PARTIAL HYSTERECTOMY TONSILLECTOMY TUBAL LIGATION Tobacco Use: Low Risk (09/26/2024) Received from [facility] Patient History Smoking Tobacco Use: Never Smokeless Tobacco Use: Never Passive Exposure: Not on file Alcohol Use: Not At Risk (10/11/2024)AUDIT-C Frequency of Alcohol Consumption: Never Average Number of Drinks: Patient does not drink Frequency of Binge Drinking: Never Physical Activity: Not on file Family History:Problem Relation Name Age of Onset Hypertension Mother Jessenia Diabetes Mother Jessenia Lung cancer Mother Jessenia Other (hypoglycemia) Mother Jessenia Stroke Mother Jessenia 60 - 69 Hypertension Father Hypotension Sister Mental illness Sister Diabetes Sister Kidney disease Brother Diabetes Brother Alzheimer's disease Maternal Grandmother stan mendieta Review of Systems Constitutional: Positive for activity change, diaphoresis and fever. Respiratory: Positive for shortness of breath. Cardiovascular: Positive for chest pain and palpitations. Gastrointestinal: Negative for abdominal pain, nausea and vomiting. Genitourinary: Positive for difficulty urinating. Musculoskeletal: Positive for back pain, gait problem, myalgias and neck stiffness. Neurological: Positive for dizziness, weakness, light-headedness and headaches. Psychiatric/Behavioral: Positive for confusion. All other systems reviewed and are negative. Examination: BP 132/74 | Pulse 68 | Ht 1.549 m (5' 1") | Wt 71.2 kg (157 lb) | BMI 29.66kg/m? Neurological ExamMental Status Awake, alert and oriented to person, place and time. Speech is normal. MoCA 26/30 today though attention is noted to be impaired. Very poor historian. Irritable. Cranial NervesCN II: Visual [place] full to confrontation. CN III, IV, : Extraocular movements intact bilaterally. Pupils equal round and reactive to light bilaterally. CN V: Facial sensation is normal. CN VII: Full and symmetric facial movement. CN VIII: Hearing is normal. CN IX, X: Palate elevates symmetrically CN XI: Shoulder shrug strength is normal. CN XII: Tongue midline without atrophy or fasciculations. MotorNormal muscle bulk throughout. Normal muscle tone. Strength is 5/5 throughout all four extremities. SensoryLight touch is normal in upper and lower extremities. Pinprick is normal in upper and lower extremities. Temperature is normal in upper and lower extremities. Vibration is normal in upper and lower extremities. Proprioception is normal in upper and lower extremities. ReflexesRight Left Brachioradialis 2+ 2+ Biceps 2+ 2+ Triceps 2+ 2+ Patellar 2+ 2+ Achilles 2+ 2+ Right Plantar: downgoing Left Plantar: downgoing Right pathological reflexes: Ankle clonus absent.Left pathological reflexes: Ankle clonus absent. CoordinationRight: [id number]-bi-[id number] normal. Rapid alternating movement normal.Left: [id number]-aw-[id number] normal. Rapid alternating movement normal. GaitNormal casual, toe, heel and tandem gait. Physical Examination GeneralNo apparent distress HENTAtraumatic. Anicteric. SkinVisible skin normal. RespirationBreathing is regular and unlabored. BILLING: On the day of this new patient evaluation, I personally spent 74 minutes performing selections from the following list: chart preparation, reviewing history, performing the medically necessary appropriate examination, counseling and education of the patient/family/caregiver, ordering medications, tests or procedures, referring and communicating with other health home day care provider (when not reported separately) documenting clinicall information in the electronic or other health record, independently interpreting results (not reported separately), communicating results to the patient/family/caregiver, and care coordination (not reported separately) This note utilized Dragon based dictation software. Please excuse any unintentional typographic errors as this note was transcribed with an electronic dictation device. FOLLOW UP:6 months Rosalie Aguiar MD [facility] [id number] [place] [id number] PH: [phone] [place] [id number] 18:40:16Upcoming Encounters Scheduled Referrals Name Type Priority Associated Diagnoses Order Schedule Ambulatory referral to Neurology Outpatient Referral Routine Memory loss Ordered: 10/11/2024 Health Maintenance Due Date Last Done Comments CT Colonography 1949 Colonoscopy 1949 Colorectal Cancer Screening 1949 FIT-DNA 1949 FIT 1949 FOBT 1950 Medicare Annual Wellness (AWV) 1950 Sigmoidoscopy 1949 Diabetes: Foot Exam 08/13/1959 Diabetes: Retinopathy Screening 08/13/1959 Diabetes: Urine Protein Screening 1968 Diabetes: Hemoglobin A1C 10/16/2020 021, 09/27/2019, 05/24/2019 Lipid Panel 09/20/2022 09/20/2021 Respiratory Syncytial Virus (RSV) Adult Series (1 - 1-dose 75+ series) 2024 Influenza Vaccine (#1) 2024 9, 01/04/2019, 02/24/2018 DTaP/Tdap/Td Vaccines (3 - T d or Tdap) 04/28/2029 04/28/2019, 04/21/2019 Mammogram Discontinued 02/24/2017 Pneumococcal Vaccine: 50+ Years Completed 04/06/2019, 01/12/2019 Bone Density Scan Completed 05/16/2019 Zoster Vaccines Completed 06/27/2019, 04/28/2019, 04/21/2019 HIB Vaccines Aged Out No longer eligi ble based on patient's age to complete this topic HPV Vaccines Aged Out No longer eligi ble based on patient's age to complete this topic Hepatitis A Vaccines Aged Out No long er eligible based on patient's age to complete this topic Hepatitis B Vaccines Aged Out No long er eligible based on patient's age to complete this topic IPV Vaccines Aged Out No longer eligi ble based on patient's age to complete this topic Meningococcal Vaccine Aged Out No shaun chetna eligible based on patient's age to complete this topic Rotavirus Vaccines Aged Out No longer eligible based on patient's age to complete this topic [id number] 18:40:16 Diagnosis Arterial ischemic stroke, mu ltifocal, multiple vascular territories, chronic - Primary Cognitive deficits Unspecified persistent mental disorders due to conditions classified elsewhere Vascular dementia without be havioral disturbance, psychotic disturbance, mood disturbance, or anxiety, unspecified dementia severity (HCC) History of coronary artery disease Personal history of other diseases of circulatory system History of anxiety History of sarcoidosis Personal history of endocrine, metabolic, and immunity disorders [id number] 18:40:16 [place] [id number] 09:48:45 03/01/2024 PT spoke with patient, she called earlier to state she thinks she is experiencing another mini stroke and was not able to cancel her appt. PT encouraged patient to go to the [facility]. She stated she has already contacted them and will go in, she wanted to know about returning to therapy. PT stated pt will need a new order from MD giving her clearance to return to PT. Pt verbalized understanding. Liberty Martinez PT, [facility] Con[employer] Wall Grinder Operator [email or web address]- [id number] [facility] ADC [phone] (phone) [phone] (fax) [employer] Liberty Jimenez [facility] [id number] 10:06:00 [facility] Cardiology Progress Note REPORT#:[id number] REPORT STATUS: Signed DATE:03/22/22 TIME: 1006 PATIENT: ALISHA MATTHEWS UNIT #: [id number] ROOM/BED: [address] : 49 AGE: 71 SEX: F ATTEND: Onofre Puente MD ADM AUTHOR: Alex Ruano MD * ALL edits or amendments must be made on the electronic/computer document * Subjective Chief complaint: Chest pain. Patient reports: No: chest pain, palpitations, shortness of breath. Objective General VS/I O: 24 hour I O ending at 0700: 03/22 0700 03/21 1900 Intake Total Output Total Balance Patient 71.668 kg Weight Vital Signs: Date Time Temp Pulse Resp B/P B/P Pulse O2 O2 Flow FiO2 Mean Ox Delivery Rate 03/22 0648 97.3 72 18 160/74 102.9 96 03/22 0312 97.3 73 17 158/73 101.5 94 Room air 03/21 2354 98.1 60 18 139/75 96.2 93 Room air 03/21 1933 97.9 71 16 118/65 82.5 93 Room air 03/21 1709 97.9 67 18 143/70 94.5 97 03/21 1312 98.2 66 18 134/68 89.8 98 PATIENT WEIGHT: Weight (lb): 158 Weight (oz): Weight (kg): 71.668 Medications: Active Meds + DC'd Last 24 Hrs Insulin Human Lispro (HumaLOG) HIGH DOSE SLIDING SCALE AC HS SUBQ Insulin Glargine (Lantus/Semglee) 30 UNITS DAILY SUBQ Ferric Sodium Gluconate Complex (FERRLECIT 62.5MG/5ML AMPUL) 125 MG DAILY IV Sodium Chloride (SODIUM CHLORIDE 0.9%) 100 ML Azithromycin (ZITHROMAX TAB) 500 MG DAILY@0630 PO Ceftriaxone Sodium (ROCEPHIN) 1,000 MG QAM IV Sodium Chloride (SODIUM CHLORIDE 0.9%) 10 ML Clopidogrel Bisulfate (PLAVIX) 75 MG DAILY PO Losartan Potassium (COZAAR) 50 MG DAILY PO Atorvastatin Calcium (LIPITOR) 80 MG BEDTIME PO (DA) Morphine Sulfate (morphine SULFATE (C-II)) 2 MG Q4H PRN PRN IV Nitroglycerin (NITROSTAT) 0.4 MG Q5M PRN PRN SL Aspirin (ASPIRIN EC) 81 MG DAILY PO Isosorbide Mononitrate (IMDUR) 30 MG DAILY PO Metoprolol Tartrate (LOPRESSOR) 25 MG BID PO Insulin Human Lispro (HumaLOG) MEDIUM DOSE SLIDING SCALE AC HS SUBQ (DC) Dextrose/Water (DEXTROSE 50% IN WATER) 12.5 GM ASDIR PRN IV Dextrose/Water (DEXTROSE 50% IN WATER) 25 GM ASDIR PRN IV Glucagon (GLUCAGON) 1 MG ASDIR PRN IM Acetaminophen (TYLENOL) 650 MG Q6H PRN PRN PO Hydralazine HCl (APRESOLINE) 10 MG Q6H PRN PRN IV Ondansetron HCl (ZOFRAN ODT) 4 MG Q6H PRN PRN SL Ondansetron HCl (ZOFRAN) 4 MG Q6H PRN PRN IV Physical Exam General appearance: alert, awake, oriented Head/Eyes: atraumatic, normocephalic ENT: moist mucosal membranes Neck: no JVD Cardiovascular: CV assessment: regular rate and rhythm Respiratory: clear to auscultation, no distress Lower extremity: LE assessment: no edema, Right groin - hematoma, tenderness. Cnmt bruit. Musculoskeletal: full range of motion Skin: dry, intact Psychiatry: normal affect, normal judgment/insight, normal mood Results Findings/Data: Laboratory Tests 03/22 03/21 03/21 03/21 03/21 0647 2251 1941 1701 1308 Chemistry POC Glucose (60 - 99 MG/DL) 254 H 185 H 194 H 185 H 265 H Laboratory Tests 03/22 0612 Hematology WBC (3.8 - 9.8 K/MM3) 13.0 H RBC (3.58 - 4.97 M/MM3) 3.69 Hgb (11.2 - 14.9 G/DL) 10.3 L Hct (33.2 - 43.5 %) 31.0 L MCV (80.7 - 99.1 fL) 84 MCH (27.0 - 34.1 pg) 27.9 MCHC (32.2 - 35.7 %) 33.2 RDW (12.1 - 15.2 %) 13.8 Plt Count (129 - 368 K/MM3) 256 MPV (7.4 - 10.4 fl) 10.6 H Neut % (Auto) (43 - 75 %) 75.1 H Lymph % (Auto) (14 - 44 %) 13.3 L Kern % (Auto) (4 - 13 %) 8.0 Eos % (Auto) (0 - 6 %) 1.9 Baso % (Auto) (0 - 2 %) 0.8 Neut # (Auto) (2.0 - 7.6 K/mm3) 9.72 H Lymph # (Auto) (1.0 - 3.8 K/mm3) 1.73 Kern # (Auto) (0.1 - 0.8 K/mm3) 1.04 H Eos # (Auto) (0.0 - 0.2 K/mm3) 0.25 H Baso # (Auto) (0.0 - 0.2 K/mm3) 0.11 Immature Gran % (0.0 - 2.0 %) 0.9 Nucleated RBC % (0 - 1.0 %) 0.0 Nucleated RBCs # (Man) (0.0 - 0.1 K/mm3) 0.00 Diagnosis, Assessment Plan Hospital course to date: IMPRESSION: 1. Non-ST segment elevation myocardial infarction with mildly elevated troponin. Symptoms resolved. Negative myocardial perfusion scan with LVEF - 78%. 2. Coronary artery disease -- status post PTCA and stent in 2016. s/p PTCA/stent RCA, LCx 3. Diabetes. 4. Hypertension. 5. Right groin hematoma. PLAN: Continue current medical rx. Discharge planning. at 0051 RPT #:[id number] END OF [id number] 06:49:00 [facility] ([facility] Hospitalist Discharge Summary REPORT#:[id number] REPORT STATUS: Signed DATE:03/22/22 TIME: 06 PATIENT: ALISHA MATTHEWS UNIT #: [id number] ROOM/BED: [address] : 49 AGE: 71 SEX: F ATTEND: Onofre Puente MD ADM AUTHOR: Vipul Dove DO R3 * ALL edits or amendments must be made on the electronic/computer document * Vipul Dove 03/22/22 0649: General Information Problem List/A P: 1. NSTEMI (non-ST elevated myocardial infarction) 2. Acute blood loss anemia 3. Hematoma of extraperitoneal space 4. CAD (coronary artery disease) 5. HTN (hypertension) 6. Type 1 diabetes mellitus 7. Headache 8. Leukocytosis 9. Anemia A P normocytic. Repeating to see if normal blood loss from IVF dilution or if acute blood loss. 10. Pneumonia Date of admission: Observation Start Date: Date of admission: 03/17/22 Discharge date: 03/18/22 Admission diagnosis: chest pain Discharge diagnosis: NSTEMI Hospital course: 71F with PMH of CAD s/p stent x 2 in 2016, HTN, Type 1 DM transferred here from [facility] for chest pain. Dx with NSTEMI with with troponin elevation initially .131. A stress test was performed and normal but Troponin elevated further to 1.210. She underwent cardiac catheterization on 03/18 and has placement of 2 total stents: RCA and circumflex/OM with Dr. Muñoz. She was started on DAPT with ASA and plavix. Postprocedural course was complicated with hematoma formation. Night following catheterization she had abdominal pain and CT abd/pelvis on 03/19 showed 11.6cm extraperitoneal hematoma. Admission Hgb 12.1 reached a low of 7.5. She received 2U of pRBC and hemoglobin stabilized at 10.3. Discharged to follow up with Cardiology. She was not restarted on statin due to hx of myopathy. Instead she is on Zetia. She is on insulin therapy 26U daily. Elevated glucose at hospital. Increase to 30U and instructed her to monitor at home and adjust insulin with PCP. She also experienced leukocytosis and atelectasis vs pneumonia on x-ray. She received 4 days of IV rocephin. Asymptomatic and afebrile at discharge. Consultants: cardiology Pt. condition on discharge: improved, stable Allergies: Allergies: No Known Allergies (Coded, 03/17/22) Free Text DxA P Notes Free text DxA P notes: 71F with PMH of CAD with prior stents admitted for NSTEMI. 03/18 -Followed by cardiology, Dr. Ruano -Continue full dose lovenox pending cardiac cath Med Rec Med Rec Discharge meds: Continue taking these medications: LOSARTAN (COZAAR) 50 MG TAB 50 MILLIGRAM ORAL DAILY. METOPROLOL TARTRATE (LOPRESSOR) 25 MG TAB 25 MILLIGRAM ORAL TWICE DAILY. LANSOPRAZOLE DR (PREVACID) 30 MG CAP.DR 30 MILLIGRAM ORAL DAILY. Instructions: BEFORE EATING CLOPIDOGREL (PLAVIX) 75 MG TAB 75 MILLIGRAM ORAL DAILY. ISOSORBIDE MONONITRATE SR (IMDUR) 30 MG TAB.SR.24H 30 MILLIGRAM ORAL DAILY. INSULIN DEGLUDEC (TRESIBA FLEXTOUCH U-100 (3mL)) 100 UNIT/ML (3 ML) PEN.INJCTR 26 UNITS SUBCUTANEOUS EVERY MORNING. Start taking the following new medications: ASPIRIN EC (ECOTRIN) 81 MG TAB.EC 81 MILLIGRAM ORAL DAILY. Qty = 30 No Refills FERROUS SULFATE ER (SLOW RELEASE IRON) 142 MG (45 MG IRON) TAB.ER 142 MILLIGRAM ORAL DAILY. Qty = 30 No Refills EZETIMIBE (ZETIA) 10 MG TAB 10 MILLIGRAM ORAL BEDTIME. Qty = 1 No Refills INSULIN ASPART (NovoLOG) 100 UNIT/ML VIAL 1 UNITS SUBCUTANEOUS DIRECTED. Qty = 10 No Refills Objective VS/I O Last Documented: Result Date Time Pulse Ox 96 03/22 648 B/P 160/74 03/22 648 B/P Mean 102.9 12/17 0648 Temp 97.3 03/22 0648 Pulse 72 03/22 0648 Resp 18 03/22 0648 O2 Delivery Room air 03/22 0312 O2 Flow Rate 2 03/19 2000 FiO2 36 03/18 2350 24 hour I O ending at 0700: 03/22 0700 03/21 1900 Intake Total Output Total Balance Patient 158 lb Weight General appearance: alert, awake, oriented Head/Eyes: atraumatic, EOMI ENT: moist mucosal membranes Neck: non-tender, supple/no meningismus Cardiovascular: normal heart sounds, regular rate rhythm Respiratory: aerating well, clear to auscultation, symmetric expansion Abdomen: tenderness (moderate), soft Extremities: moves all, no edema Neuro/CARRIER PACKER: alert, oriented X 3 Skin: dry Psychiatry: normal affect, normal judgment/insight Results Findings/Data: Laboratory Tests: 03/21 03/21 03/21 03/21 03/21 2251 1941 1701 1308 0903 Chemistry POC Glucose (60 - 99 MG/DL) 185 H 194 H 185 H 265 H 347 *H Discharge Instructions PCP PCP follow-up: PCP: No Primary or Family Physician Discharge to: Home/Self Care Additional Discharge Routines: PCP Follow-Up, [employer] Follow-Up Activity: Resume Normal Activity Notify PCP of these S/S: Chest Pain, Increased redness, Increased swelling, Increased tenderness/pain, Moderate/large bleeding, Numbness, Red line from wound, Shortness of breath, Temp. 101 or greater Prescriptions: e-prescribe Follow-up Appointments Consulting provider 1: Provider 1: Candice Muñoz MD Cardiology Quality: Discharge Current Medications Current medication review: I attest that the foregoing medication list in the medical record is true, accurate, and complete to the best of my knowledge. BMI Screening > 25 or < 18.5 BMI status/follow-up: abnl BMI, pt to F/U w/PCP Tobacco Use/Counseling Tobacco use/counseling: non tobacco user, no counseling needed HTN Screening/Follow-up B/P assess/follow-up: hypertensive;f/u PCP 1wk, pre-existing hx of HTN Attestations Attestation needed: teaching physician Onofre Puente 03/22/22 2005: Discharge Instructions Discharge management: greater than 30 mins, face to face encounter Time spent: Time spent on patient care (minutes): 42 Quality: Discharge Advanced Care Plan 65 or Older Discussed with: patient Discussion included: code status (full code) Attestations Teaching Physician Attestation F/U visit w/ resident: I saw the patient with the resident, Vipul Dove, PGY3 during rounds on 2021 and agree with the resident's findings and plan. at 1408 at 2005 RPT #:[id number] END OF [id number] 03:57:[id number] [place] [id number] PATIENT NAME: ALISHA MATTHEWS ADMIT DATE: 03/17/22 ACCOUNT NO: [id number] ROOM NO: Z.423 AGE: 71 REPORT TYPE: ELECTROCARDIOGRAM SEX: F ADMITTING PHYSICIAN:Onofre Puente MD ATTENDING PHYSICIAN:Onofre Puente MD Order: [id number] Test Reason : CAD/PCI Test Date/Time Stamp: ThuMar 22 2022 03:57:02 Blood Pressure : / mmHG Vent. Rate : 070 BPM Atrial Rate : 070 BPM P-R Int : 166 ms QRS Dur : 074 ms QT Int : 430 ms P-R-T Axes : 047 015 035 degrees QTc Int : 464 ms Normal sinus rhythm Normal ECG When compared with ECG of 21-MAR-2022 07:05, No significant change was found Confirmed by CANDICE MUÑOZ ([id number]) on 03/22/2022 9:20:06 AM Referred By: Onofre Puente Confirmed by:CANDICE MUÑOZ at 0920 PATIENT NAME: ALISHA MATTHEWS 07:05:[id number] [address] PATIENT NAME: ALISHA MATTHEWS ADMIT DATE: 03/17/22 ACCOUNT NO: [id number] ROOM NO: Z.423 AGE: 71 REPORT TYPE: ELECTROCARDIOGRAM SEX: F ADMITTING PHYSICIAN:Onofre Puente MD ATTENDING PHYSICIAN:Onofre Puente MD Order: [id number] Test Reason : CAD/PCI Test Date/Time Stamp: ThuMar 21 2022 07:05:09 Blood Pressure : / mmHG Vent. Rate : 068 BPM Atrial Rate : 068 BPM P-R Int : 164 ms QRS Dur : 076 ms QT Int : 444 ms P-R-T Axes : 029 003 048 degrees QTc Int : 472 ms Normal sinus rhythm Normal ECG When compared with ECG of 20-MAR-2022 06:14, Nonspecific T wave abnormality, improved in Anterolateral leads Confirmed by CANDICE MUÑOZ ([id number]) on 03/21/2022 5:12:37 PM Referred By: Onofre Puente Confirmed by:CANDICE MUÑOZ at 1712 PATIENT NAME: ALISHA MATTHEWS 06:39:00 [facility] Hospitalist Progress Note REPORT#:[id number] REPORT STATUS: Signed DATE:03/21/22 TIME: 638 PATIENT: ALISHA MATTHEWS UNIT #: [id number] ROOM/BED: [address] : 49 AGE: 71 SEX: F ATTEND: Onofre Puente MD ADM AUTHOR: Vipul Dove DO R3 * ALL edits or amendments must be made on the electronic/computer document * Vipul Dove 03/21/22 0639: Subjective Chief complaint: chest pain HPI: Received 2U of pRBC yesterday. Post transfusion Hgb 9.8. She does remain on DAPT due to recent stenting. She has been up to the restroom with family and PT/OT are consulted as well. Review of Systems Constitutional: Reports: generalized weakness. Denies: chills. Respiratory: Denies: SOB, wheezing. Cardiovascular: Denies: chest pain, DERAS (dyspnea on exertion). GI: Reports: abdominal pain. Denies: nausea, vomiting. All systems rev neg: except as marked Objective General VS/I O: Vital Signs: Date Time Temp Pulse Resp B/P B/P Pulse O2 O2 Flow FiO2 Mean Ox Delivery Rate 03/21 1312 98.2 66 18 134/68 89.8 98 03/21 0901 98.2 72 18 146/66 92.4 98 03/21 0354 97.5 70 16 133/73 92.9 94 03/21 0020 98.8 72 16 132/71 94 03/20 2346 99.1 72 16 124/71 88.5 94 03/20 2313 98.6 82 18 150/72 93 03/20 2200 98.8 86 18 149/72 93 03/20 2125 98.8 86 16 151/73 98.7 93 03/20 1848 98.8 94 14 156/72 100.3 91 03/20 1601 85 15 146/60 88.6 98 03/20 1524 98.8 85 14 130/60 97 03/20 1523 98.8 85 14 130/60 83.5 97 03/20 1450 98.9 87 14 142/68 93 03/20 1449 99.0 87 14 142/68 92.4 93 24 hour I O ending at 0700: 03/21 0700 03/20 1900 Intake Total 565 781 Output Total Balance 565 781 Intake, IV 50 500 Intake, Oral 240 Intake, 275 281 Packed Cells PATIENT WEIGHT: Weight (lb): Weight (oz): Weight (kg): 72.000 Medications: Active Meds + DC'd Last 24 Hrs Insulin Glargine (Lantus/Semglee) 30 UNITS DAILY SUBQ Ferric Sodium Gluconate Complex (FERRLECIT 62.5MG/5ML AMPUL) 125 MG DAILY IV Sodium Chloride (SODIUM CHLORIDE 0.9%) 100 ML Azithromycin (ZITHROMAX TAB) 500 MG DAILY@0630 PO Ceftriaxone Sodium (ROCEPHIN) 1,000 MG QAM IV Sodium Chloride (SODIUM CHLORIDE 0.9%) 10 ML Clopidogrel Bisulfate (PLAVIX) 75 MG DAILY PO Losartan Potassium (COZAAR) 50 MG DAILY PO (r) Atorvastatin Calcium (LIPITOR) 80 MG BEDTIME PO (DA) Morphine Sulfate (morphine SULFATE (C-II)) 2 MG Q4H PRN PRN IV Nitroglycerin (NITROSTAT) 0.4 MG Q5M PRN PRN SL Insulin Glargine (Lantus/Semglee) 26 UNITS DAILY SUBQ (DC) Aspirin (ASPIRIN EC) 81 MG DAILY PO Isosorbide Mononitrate (IMDUR) 30 MG DAILY PO Metoprolol Tartrate (LOPRESSOR) 25 MG BID PO Insulin Human Lispro (HumaLOG) MEDIUM DOSE SLIDING SCALE AC HS SUBQ Dextrose/Water (DEXTROSE 50% IN WATER) 12.5 GM ASDIR PRN IV Dextrose/Water (DEXTROSE 50% IN WATER) 25 GM ASDIR PRN IV Glucagon (GLUCAGON) 1 MG ASDIR PRN IM Acetaminophen (TYLENOL) 650 MG Q6H PRN PRN PO Hydralazine HCl (APRESOLINE) 10 MG Q6H PRN PRN IV Ondansetron HCl (ZOFRAN ODT) 4 MG Q6H PRN PRN SL Ondansetron HCl (ZOFRAN) 4 MG Q6H PRN PRN IV Physical Exam General appearance: alert, awake, oriented Head/Eyes: atraumatic, EOMI ENT: moist mucosal membranes Neck: non-tender, supple/no meningismus Cardiovascular: normal heart sounds, regular rate rhythm Respiratory: aerating well, clear to auscultation, symmetric expansion Abdomen: tenderness (moderate), soft Extremities: moves all, no edema Neuro/CARRIER PACKER: alert, oriented X 3 Skin: dry Psychiatry: normal affect, normal judgment/insight Results Findings/Data: Laboratory Tests 03/21 03/21 03/21 03/20 03/20 1308 0903 0646 2349 2129 Chemistry Sodium (137 - 145 MMOL/L) 133 L Potassium (3.5 - 5.1 MMOL/L) 4.0 Chloride (98 - 107 MMOL/L) 102 Carbon Dioxide (22 - 30 MMOL/L) 23 BUN (7 - 17 MG/DL) 9 Creatinine (0.52 - 1.04 MG/DL) 0.80 Glomerular Filtr Rate > 60 Glucose (74 - 106 MG/DL) 186 H POC Glucose (60 - 99 MG/DL) 265 H 347 *H 298 H 393 *H Calcium (8.4 - 10.2 MG/DL) 8.7 03/20 1601 Chemistry POC Glucose (60 - 99 MG/DL) 226 H Laboratory Tests 03/21 03/20 0646 2050 Hematology WBC (3.8 - 9.8 K/MM3) 11.4 H RBC (3.58 - 4.97 M/MM3) 3.73 Hgb (11.2 - 14.9 G/DL) 10.3 L 9.3 L Hct (33.2 - 43.5 %) 31.3 L 28.0 L MCV (80.7 - 99.1 fL) 84 MCH (27.0 - 34.1 pg) 27.6 MCHC (32.2 - 35.7 %) 32.9 RDW (12.1 - 15.2 %) 13.7 Plt Count (129 - 368 K/MM3) 266 MPV (7.4 - 10.4 fl) 10.5 H Neut % (Auto) (43 - 75 %) 61.7 Lymph % (Auto) (14 - 44 %) 22.9 Kern % (Auto) (4 - 13 %) 11.6 Eos % (Auto) (0 - 6 %) 1.8 Baso % (Auto) (0 - 2 %) 1.1 Neut # (Auto) (2.0 - 7.6 K/mm3) 7.05 Lymph # (Auto) (1.0 - 3.8 K/mm3) 2.61 Kern # (Auto) (0.1 - 0.8 K/mm3) 1.32 H Eos # (Auto) (0.0 - 0.2 K/mm3) 0.20 Baso # (Auto) (0.0 - 0.2 K/mm3) 0.12 Immature Gran % (0.0 - 2.0 %) 0.9 Nucleated RBC % (0 - 1.0 %) 0.0 Nucleated RBCs # (Man) (0.0 - 0.1 K/mm3) 0.00 Diagnosis, Assessment Plan Problem List/A P: 1. Acute blood loss anemia 2. Hematoma of extraperitoneal space 3. NSTEMI (non-ST elevated myocardial infarction) 4. CAD (coronary artery disease) 5. HTN (hypertension) 6. Type 1 diabetes mellitus 7. Headache 8. Leukocytosis 9. Anemia normocytic. Repeating to see if normal blood loss from IVF dilution or if acute blood loss. 10. Pneumonia Consultants: cardiology Free Text DxA P Notes Free text DxA P notes: 71F with PMH of CAD with prior stents admitted for NSTEMI. 03/18 -Followed by cardiology, Dr. Ruano -Continue full dose lovenox pending cardiac cath tomorrow -Continue B-marcello, ASA, statin -1 time dose fioricet for headache, tension type today -Continue insulin, monitor blood sugars 03/19 -Underwent LHC with stenting of RCA and OM. On DAPT ASA and plavix -Confusion overnight with urinary retention. Now voiding again. Due to confusion infection workup started. CXR shows mild patchy pneumonia vs atelectasis in L lung base. WBC increased from 9.6 to 17.6. Will cover with IV Rocephin for now. Repeat CBC in the am. UA to be collected as well. -Stat H H ordered due to Hgb decrease 12.8 to 9.9. -Vitals signs scanned show a HR of 172 at 15:39. Patient is on telemetry and they were called and reviewed telemetry strip and never showed evidence of tachycardia. I suspect this was an error on the vital signs machine 03/20 -Acute blood loss anemia from retroperitoneal hematoma. Will give 2U pRBC now. Monitor -IV iron -On ASA and plavix due to cardiac stentingx2 on 03/18 -IV antibiotics for possible pneumonia. WBC improving -PT/OT consulted 03/21 -Hgb now stable from post transfusion 9.3 then 10.3 -Blood sugars high, increase insulin to 30U tonight and HDSS -PT recommends abdominal binder -Plan likely dispo home tomorrow Quality: Gen Med Crit Care VTE Prophylaxis VTE prophylaxis initiated: yes Current Medications Current medication review: I attest that the foregoing medication list in the medical record is true, accurate, and complete to the best of my knowledge. BMI Screening > 25 or < 18.5 BMI status/follow-up: abnl BMI, pt to F/U w/PCP Tobacco Use/Counseling Tobacco use/counseling: non tobacco user, no counseling needed HTN Screening/Follow-up B/P assess/follow-up: hypertensive;f/u PCP 1wk, pre-existing hx of HTN Attestations Attestation needed: teaching physician Onofre Puente 03/21/22 0364: Attestations Teaching Physician Attestation F/U visit w/ resident: I saw the patient with the resident, Vipul Dove, PGY3 during rounds on 2021 and agree with the resident's findings and plan. at 1447 at 1749 RPT #:[id number] END OF [id number] 06:31:00 [facility] Cardiology Progress Note REPORT#:[id number] REPORT STATUS: Signed DATE:03/21/22 TIME: 06 PATIENT: ALISHA MATTHEWS UNIT #: [id number] ROOM/BED: [address] : 49 AGE: 71 SEX: F ATTEND: Onofre Puente MD ADM AUTHOR: Alex Ruano MD * ALL edits or amendments must be made on the electronic/computer document * Subjective Chief complaint: Chest pain. Patient reports: No: chest pain, palpitations, shortness of breath. Objective General VS/I O: 24 hour I O ending at 0700: 03/21 0700 03/20 1900 Intake Total 565 781 Output Total Balance 565 781 Intake, IV 50 500 Intake, Oral 240 Intake, 275 281 Packed Cells Vital Signs: Date Time Temp Pulse Resp B/P B/P Pulse O2 O2 Flow FiO2 Mean Ox Delivery Rate 03/21 0354 97.5 70 16 133/73 92.9 94 03/21 0020 98.8 72 16 132/71 94 03/20 2346 99.1 72 16 124/71 88.5 94 03/20 2313 98.6 82 18 150/72 93 03/20 2200 98.8 86 18 149/72 93 03/20 2125 98.8 86 16 151/73 98.7 93 03/20 1848 98.8 94 14 156/72 100.3 91 03/20 1601 85 15 146/60 88.6 98 03/20 1524 98.8 85 14 130/60 97 03/20 1523 98.8 85 14 130/60 83.5 97 03/20 1450 98.9 87 14 142/68 93 03/20 1449 99.0 87 14 142/68 92.4 93 03/20 0656 98.8 84 16 148/72 97.3 96 PATIENT WEIGHT: Weight (lb): Weight (oz): Weight (kg): 72.000 Medications: Active Meds + DC'd Last 24 Hrs Ferric Sodium Gluconate Complex (FERRLECIT 62.5MG/5ML AMPUL) 125 MG DAILY IV Sodium Chloride (SODIUM CHLORIDE 0.9%) 100 ML Azithromycin (ZITHROMAX TAB) 500 MG DAILY@0630 PO Ceftriaxone Sodium (ROCEPHIN) 1,000 MG QAM IV Sodium Chloride (SODIUM CHLORIDE 0.9%) 10 ML Clopidogrel Bisulfate (PLAVIX) 75 MG DAILY PO Losartan Potassium (COZAAR) 50 MG DAILY PO (DA) Atorvastatin Calcium (LIPITOR) 80 MG BEDTIME PO (DA) Morphine Sulfate (morphine SULFATE (C-II)) 2 MG Q4H PRN PRN IV Nitroglycerin (NITROSTAT) 0.4 MG Q5M PRN PRN SL Sodium Chloride (SODIUM CHLORIDE 0.9%) 1,000 ML .Q10H IV (DC) Insulin Glargine (Lantus/Semglee) 26 UNITS DAILY SUBQ Aspirin (ASPIRIN EC) 81 MG DAILY PO Isosorbide Mononitrate (IMDUR) 30 MG DAILY PO Metoprolol Tartrate (LOPRESSOR) 25 MG BID PO (r) Insulin Human Lispro (HumaLOG) MEDIUM DOSE SLIDING SCALE AC HS SUBQ Dextrose/Water (DEXTROSE 50% IN WATER) 12.5 GM ASDIR PRN IV Dextrose/Water (DEXTROSE 50% IN WATER) 25 GM ASDIR PRN IV Glucagon (GLUCAGON) 1 MG ASDIR PRN IM Acetaminophen (TYLENOL) 650 MG Q6H PRN PRN PO Hydralazine HCl (APRESOLINE) 10 MG Q6H PRN PRN IV Ondansetron HCl (ZOFRAN ODT) 4 MG Q6H PRN PRN SL Ondansetron HCl (ZOFRAN) 4 MG Q6H PRN PRN IV Physical Exam General appearance: alert, awake, oriented Head/Eyes: atraumatic, normocephalic ENT: moist mucosal membranes Neck: no JVD Cardiovascular: CV assessment: regular rate and rhythm Respiratory: clear to auscultation, no distress Lower extremity: LE assessment: no edema, Right groin - hematoma, tenderness. Cnmt bruit. Musculoskeletal: full range of motion Skin: dry, intact Psychiatry: normal affect, normal judgment/insight, normal mood Results Findings/Data: Laboratory Tests 03/20 03/20 03/20 03/20 03/20 2349 2129 1601 1059 0658 Chemistry POC Glucose (60 - 99 MG/DL) 298 H 393 *H 226 H 203 H 126 H Laboratory Tests 03/20 2050 Hematology Hgb (11.2 - 14.9 G/DL) 9.3 L Hct (33.2 - 43.5 %) 28.0 L Diagnosis, Assessment Plan Hospital course to date: IMPRESSION: 1. Non-ST segment elevation myocardial infarction with mildly elevated troponin. Symptoms resolved. Negative myocardial perfusion scan with LVEF - 78%. 2. Coronary artery disease -- status post PTCA and stent in 2016. s/p PTCA/stent RCA, LCx 3. Diabetes. 4. Hypertension. 5. Right groin hematoma. PLAN: Continue current medical rx. Review labs Continue monitoring. Discharge planning. at 0051 RPT #:[id number] END OF [id number] 06:41:00 [facility] ([facility]) Hospitalist Progress Note REPORT#:[id number] REPORT STATUS: Signed DATE:03/20/22 TIME: 640 PATIENT: ALISHA MATTHEWS UNIT #: [id number] ROOM/BED: [address] : 49 AGE: 71 SEX: F ATTEND: Onofre Puente MD ADM AUTHOR: Vipul Dove DO R3 * ALL edits or amendments must be made on the electronic/computer document * Vipul Dove 03/20/22 0641: Subjective Chief complaint: chest pain HPI: Seen at bedside Her hgb continued to drop yesterday initial 12.8 down to 8.0 s/p cardiac catheterization. CT abd/pelvis showed a large Rt groin hematoma. Cardiology recommends continued monitoring. No acute intervention. No blood transfused overnight. Will give the ordered unit and another for total of 2 this am. Patient is more alert today and joking with providers. Review of Systems Constitutional: Denies: chills. Respiratory: Denies: DERAS (dyspnea on exertion), SOB, wheezing. Cardiovascular: Reports: chest pain. GI: Reports: abdominal pain. Denies: nausea, vomiting. All systems rev neg: except as marked Objective General VS/I O: Vital Signs: Date Time Temp Pulse Resp B/P B/P Pulse O2 O2 Flow FiO2 Mean Ox Delivery Rate 03/20 0451 64 135/64 87.8 96 03/20 0424 99.3 97 18 168/78 107.8 96 03/19 2334 97.9 79 18 105/64 77.7 96 03/19 2004 98.4 86 18 101/55 70.6 93 03/19 1604 98.8 87 12 112/65 80.4 100 03/19 1539 98.2 172 16 113/65 80.6 96 03/19 1136 97.7 73 12 93/56 68.5 95 03/19 0730 98.2 94 16 110/67 81.4 100 PATIENT WEIGHT: Weight (lb): Weight (oz): Weight (kg): 72.000 Medications: Active Meds + DC'd Last 24 Hrs Iopamidol (ISOVUE-300) 0 .STK-MED ONE IV (DC) Azithromycin (ZITHROMAX TAB) 500 MG DAILY@0630 PO Ceftriaxone Sodium (ROCEPHIN) 1,000 MG QAM IV Sodium Chloride (SODIUM CHLORIDE 0.9%) 10 ML Clopidogrel Bisulfate (PLAVIX) 75 MG DAILY PO Losartan Potassium (COZAAR) 50 MG DAILY PO (DA) Nitroglycerin (NITRO-BID UD) 1 INCH Q6H WA TRANSDERM (DC) Atorvastatin Calcium (LIPITOR) 80 MG BEDTIME PO (DA) Morphine Sulfate (morphine SULFATE (C-II)) 2 MG Q4H PRN PRN IV Nitroglycerin (NITROSTAT) 0.4 MG Q5M PRN PRN SL Sodium Chloride (SODIUM CHLORIDE 0.9%) 1,000 ML .Q10H IV Insulin Glargine (Lantus/Semglee) 26 UNITS DAILY SUBQ Aspirin (ASPIRIN EC) 81 MG DAILY PO Isosorbide Mononitrate (IMDUR) 30 MG DAILY PO Metoprolol Tartrate (LOPRESSOR) 25 MG BID PO (DA) Insulin Human Lispro (HumaLOG) MEDIUM DOSE SLIDING SCALE AC HS SUBQ Dextrose/Water (DEXTROSE 50% IN WATER) 12.5 GM ASDIR PRN IV Dextrose/Water (DEXTROSE 50% IN WATER) 25 GM ASDIR PRN IV Glucagon (GLUCAGON) 1 MG ASDIR PRN IM Acetaminophen (TYLENOL) 650 MG Q6H PRN PRN PO Hydralazine HCl (APRESOLINE) 10 MG Q6H PRN PRN IV Ondansetron HCl (ZOFRAN ODT) 4 MG Q6H PRN PRN SL Ondansetron HCl (ZOFRAN) 4 MG Q6H PRN PRN IV Physical Exam General appearance: alert, awake, oriented Head/Eyes: atraumatic, EOMI ENT: moist mucosal membranes Neck: non-tender, supple/no meningismus Cardiovascular: normal heart sounds, regular rate rhythm Respiratory: aerating well, clear to auscultation, symmetric expansion Abdomen: tenderness (moderate), soft Extremities: moves all, no edema Neuro/CARRIER PACKER: alert, oriented X 3 Skin: dry Psychiatry: normal affect, normal judgment/insight Results Findings/Data: Laboratory Tests 03/19 1542 1138 0851 0734 Chemistry Sodium (137 - 145 MMOL/L) 131 L Potassium (3.5 - 5.1 MMOL/L) 4.8 Chloride (98 - 107 MMOL/L) 103 Carbon Dioxide (22 - 30 MMOL/L) 15 L BUN (7 - 17 MG/DL) 16 Creatinine (0.52 - 1.04 MG/DL) 1.00 Glomerular Filtr Rate 60 Glucose (74 - 106 MG/DL) 279 H POC Glucose (60 - 99 MG/DL) 256 H 227 H 245 H 280 H Calcium (8.4 - 10.2 MG/DL) 8.4 Total Bilirubin (0.2 - 1.3 MG/DL) 0.5 AST (14 - 36 UNITS/L) 32 ALT (0 - 34 UNITS/L) 16 Total Alk Phosphatase (38 - 126 69 UNITS/L) Total Protein (6.3 - 8.2 G/DL) 6.5 Albumin (3.5 - 5.0 G/DL) 3.8 Laboratory Tests 03/19 03/19 1711 0851 Hematology WBC (3.8 - 9.8 K/MM3) 17.6 H RBC (3.58 - 4.97 M/MM3) 3.62 Hgb (11.2 - 14.9 G/DL) 8.0 L 9.9 L Hct (33.2 - 43.5 %) 25.0 L 31.6 L MCV (80.7 - 99.1 fL) 87 MCH (27.0 - 34.1 pg) 27.3 MCHC (32.2 - 35.7 %) 31.3 L RDW (12.1 - 15.2 %) 13.4 Plt Count (129 - 368 K/MM3) 353 MPV (7.4 - 10.4 fl) 10.6 H Neut % (Auto) (43 - 75 %) 86.4 H Lymph % (Auto) (14 - 44 %) 7.1 L Kern % (Auto) (4 - 13 %) 5.4 Eos % (Auto) (0 - 6 %) 0.0 Baso % (Auto) (0 - 2 %) 0.4 Neut # (Auto) (2.0 - 7.6 K/mm3) 15.21 H Lymph # (Auto) (1.0 - 3.8 K/mm3) 1.25 Kern # (Auto) (0.1 - 0.8 K/mm3) 0.95 H Eos # (Auto) (0.0 - 0.2 K/mm3) 0.00 Baso # (Auto) (0.0 - 0.2 K/mm3) 0.07 Immature Gran % (0.0 - 2.0 %) 0.7 Nucleated RBC % (0 - 1.0 %) 0.0 Nucleated RBCs # (Man) (0.0 - 0.1 K/mm3) 0.00 Radiology data: Recent Impressions: RADIOLOGY - XR CHEST 1V 03/19 1200 Report Impression - Status: SIGNED Entered: 03/19/2022 1236 IMPRESSION: Mild patchy pneumonia or atelectasis left lung base. Impression By: [email or web address] - Refugio De La Cruz M.D. CAT SCAN - CT ABD PELVIS W/O CONT 03/195 Report Impression - Status: SIGNED Entered: 03/19/20222149 IMPRESSION: 11.6 cm right extraperitoneal hematoma. Impression By: [email or web address] - Anand Menendez MD Diagnosis, Assessment Plan Problem List/A P: 1. Acute blood loss anemia 2. Hematoma of extraperitoneal space 3. NSTEMI (non-ST elevated myocardial infarction) 4. CAD (coronary artery disease) 5. HTN (hypertension) 6. Type 1 diabetes mellitus 7. Headache 8. Leukocytosis 9. Anemia normocytic. Repeating to see if normal blood loss from IVF dilution or if acute blood loss. 10. Pneumonia Consultants: cardiology Free Text DxA P Notes Free text DxA P notes: 71F with PMH of CAD with prior stents admitted for NSTEMI. 03/18 -Followed by cardiology, Dr. Ruano -Continue full dose lovenox pending cardiac cath tomorrow -Continue B-marcello, ASA, statin -1 time dose fioricet for headache, tension type today -Continue insulin, monitor blood sugars 03/19 -Underwent LHC with stenting of RCA and OM. On DAPT ASA and plavix -Confusion overnight with urinary retention. Now voiding again. Due to confusion infection workup started. CXR shows mild patchy pneumonia vs atelectasis in L lung base. WBC increased from 9.6 to 17.6. Will cover with IV Rocephin for now. Repeat CBC in the am. UA to be collected as well. -Stat H H ordered due to Hgb decrease 12.8 to 9.9. -Vitals signs scanned show a HR of 172 at 15:39. Patient is on telemetry and they were called and reviewed telemetry strip and never showed evidence of tachycardia. I suspect this was an error on the vital signs machine 03/20 -Acute blood loss anemia from retroperitoneal hematoma. Will give 2U pRBC now. Monitor -IV iron -On ASA and plavix due to cardiac stentingx2 on 03/18 -IV antibiotics for possible pneumonia. WBC improving -PT/OT consulted Quality: Gen Med Crit Care VTE Prophylaxis VTE prophylaxis initiated: yes Current Medications Current medication review: I attest that the foregoing medication list in the medical record is true, accurate, and complete to the best of my knowledge. BMI Screening > 25 or < 18.5 BMI status/follow-up: abnl BMI, pt to F/U w/PCP Tobacco Use/Counseling Tobacco use/counseling: non tobacco user, no counseling needed HTN Screening/Follow-up B/P assess/follow-up: hypertensive;f/u PCP 1wk, pre-existing hx of HTN Attestations Attestation needed: teaching physician Onofre Puente 03/20/221927: Attestations Teaching Physician Attestation F/U visit w/ resident: I saw the patient with the resident, Vipul Dove, PGY3 during rounds on 2021 and agree with the resident's findings and plan. at 1340 at 1929 RPT #:[id number] END OF [id number] 06:20:00 [facility] Cardiology Progress Note REPORT#:[id number] REPORT STATUS: Signed DATE:03/20/22 TIME: 06 PATIENT: ALISHA MATTHEWS UNIT #: [id number] ROOM/BED: [address] : [address] AGE: 71 SEX: F ATTEND: Onofre Puente MD ADM AUTHOR: Alex Ruano MD * ALL edits or amendments must be made on the electronic/computer document * Subjective Chief complaint: Chest pain. Patient reports: No: chest pain, palpitations, shortness of breath. Objective General VS/I O: Vital Signs: Date Time Temp Pulse Resp B/P B/P Pulse O2 O2 Flow FiO2 Mean Ox Delivery Rate 03/20 0451 64 135/64 87.8 96 03/20 0424 99.3 97 18 168/78 107.8 96 03/19 2334 97.9 79 18 105/64 77.7 96 03/19 2004 98.4 86 18 101/55 70.6 93 03/19 1604 98.8 87 12 112/65 80.4 100 03/19 1539 98.2 172 16 113/65 80.6 96 03/19 1136 97.7 73 12 93/56 68.5 95 03/19 0730 98.2 94 16 110/67 81.4 100 PATIENT WEIGHT: Weight (lb): Weight (oz): Weight (kg): 72.000 Medications: Active Meds + DC'd Last 24 Hrs Iopamidol (ISOVUE-300) 0 .STK-MED ONE IV (DC) Azithromycin (ZITHROMAX TAB) 500 MG DAILY@0630 PO Ceftriaxone Sodium (ROCEPHIN) 1,000 MG QAM IV Sodium Chloride (SODIUM CHLORIDE 0.9%) 10 ML Clopidogrel Bisulfate (PLAVIX) 75 MG DAILY PO Losartan Potassium (COZAAR) 50 MG DAILY PO (DA) Nitroglycerin (NITRO-BID UD) 1 INCH Q6H WA TRANSDERM (DC) Atorvastatin Calcium (LIPITOR) 80 MG BEDTIME PO (DA) Morphine Sulfate (morphine SULFATE (C-II)) 2 MG Q4H PRN PRN IV Nitroglycerin (NITROSTAT) 0.4 MG Q5M PRN PRN SL Sodium Chloride (SODIUM CHLORIDE 0.9%) 1,000 ML .Q10H IV Insulin Glargine (Lantus/Semglee) 26 UNITS DAILY SUBQ Aspirin (ASPIRIN EC) 81 MG DAILY PO Isosorbide Mononitrate (IMDUR) 30 MG DAILY PO Metoprolol Tartrate (LOPRESSOR) 25 MG BID PO (DA) Insulin Human Lispro (HumaLOG) MEDIUM DOSE SLIDING SCALE AC HS SUBQ Dextrose/Water (DEXTROSE 50% IN WATER) 12.5 GM ASDIR PRN IV Dextrose/Water (DEXTROSE 50% IN WATER) 25 GM ASDIR PRN IV Glucagon (GLUCAGON) 1 MG ASDIR PRN IM Acetaminophen (TYLENOL) 650 MG Q6H PRN PRN PO Hydralazine HCl (APRESOLINE) 10 MG Q6H PRN PRN IV Ondansetron HCl (ZOFRAN ODT) 4 MG Q6H PRN PRN SL Ondansetron HCl (ZOFRAN) 4 MG Q6H PRN PRN IV Physical Exam General appearance: alert, awake, oriented Head/Eyes: atraumatic, normocephalic ENT: moist mucosal membranes Neck: no JVD Cardiovascular: CV assessment: regular rate and rhythm Respiratory: clear to auscultation, no distress Lower extremity: LE assessment: no edema, Right groin - hematoma, tenderness. Cnmt bruit. Musculoskeletal: full range of motion Skin: dry, intact Psychiatry: normal affect, normal judgment/insight, normal mood Results Findings/Data: Laboratory Tests 03/19 1542 1138 0851 0734 Chemistry Sodium (137 - 145 MMOL/L) 131 L Potassium (3.5 - 5.1 MMOL/L) 4.8 Chloride (98 - 107 MMOL/L) 103 Carbon Dioxide (22 - 30 MMOL/L) 15 L BUN (7 - 17 MG/DL) 16 Creatinine (0.52 - 1.04 MG/DL) 1.00 Glomerular Filtr Rate 60 Glucose (74 - 106 MG/DL) 279 H POC Glucose (60 - 99 MG/DL) 256 H 227 H 245 H 280 H Calcium (8.4 - 10.2 MG/DL) 8.4 Total Bilirubin (0.2 - 1.3 MG/DL) 0.5 AST (14 - 36 UNITS/L) 32 ALT (0 - 34 UNITS/L) 16 Total Alk Phosphatase (38 - 126 UNITS/L) 69 Total Protein (6.3 - 8.2 G/DL) 6.5 Albumin (3.5 - 5.0 G/DL) 3.8 Laboratory Tests 03/19 03/19 1711 0851 Hematology WBC (3.8 - 9.8 K/MM3) 17.6 H RBC (3.58 - 4.97 M/MM3) 3.62 Hgb (11.2 - 14.9 G/DL) 8.0 L 9.9 L Hct (33.2 - 43.5 %) 25.0 L 31.6 L MCV (80.7 - 99.1 fL) 87 MCH (27.0 - 34.1 pg) 27.3 MCHC (32.2 - 35.7 %) 31.3 L RDW (12.1 - 15.2 %) 13.4 Plt Count (129 - 368 K/MM3) 353 MPV (7.4 - 10.4 fl) 10.6 H Neut % (Auto) (43 - 75 %) 86.4 H Lymph % (Auto) (14 - 44 %) 7.1 L Kern % (Auto) (4 - 13 %) 5.4 Eos % (Auto) (0 - 6 %) 0.0 Baso % (Auto) (0 - 2 %) 0.4 Neut # (Auto) (2.0 - 7.6 K/mm3) 15.21 H Lymph # (Auto) (1.0 - 3.8 K/mm3) 1.25 Kern # (Auto) (0.1 - 0.8 K/mm3) 0.95 H Eos # (Auto) (0.0 - 0.2 K/mm3) 0.00 Baso # (Auto) (0.0 - 0.2 K/mm3) 0.07 Immature Gran % (0.0 - 2.0 %) 0.7 Nucleated RBC % (0 - 1.0 %) 0.0 Nucleated RBCs # (Man) (0.0 - 0.1 K/mm3) 0.00 Radiology data: Recent Impressions: RADIOLOGY - XR CHEST 1V 03/19 1200 Report Impression - Status: SIGNED Entered: 03/19/2022 1236 IMPRESSION: Mild patchy pneumonia or atelectasis left lung base. Impression By: [email or web address] Nessa De La Cruz M.D. CAT SCAN - CT ABD PELVIS W/O CONT 03/19 2115 Report Impression - Status: SIGNED Entered: 03/19/20222149 IMPRESSION: 11.6 cm right extraperitoneal hematoma. Impression By: [email or web address] - Anand Menendez MD Diagnosis, Assessment Plan Hospital course to date: IMPRESSION: 1. Non-ST segment elevation myocardial infarction with mildly elevated troponin. Symptoms resolved. Negative myocardial perfusion scan with LVEF - 78%. 2. Coronary artery disease -- status post PTCA and stent in 2016. s/p PTCA/stent RCA, LCx 3. Diabetes. 4. Hypertension. 5. Right groin hematoma. PLAN: Continue current medical rx. Review labs Continue monitoring. Consultants: cardiology at 1932 RPT #:[id number] END OF [id number] 06:14:[id number] [address] PATIENT NAME: ALISHA MATTHEWS ADMIT DATE: 03/17/22 ACCOUNT NO: [id number] ROOM NO: [facility] AGE: 71 REPORT TYPE: ELECTROCARDIOGRAM SEX: F ADMITTING PHYSICIAN:Onofre Puente MD ATTENDING PHYSICIAN:Onofre Puente MD Order: [id number] Test Reason : CAD/PCI Test Date/Time Stamp: ThuMar 20 2022 06:14:07 Blood Pressure : / mmHG Vent. Rate : 091 BPM Atrial Rate : 091 BPM P-R Int : 156 ms QRS Dur : 078 ms QT Int : 392 ms P-R-T Axes : 046 008 097 degrees QTc Int : 482 ms Normal sinus rhythm Nonspecific T wave abnormality Abnormal ECG When compared with ECG of 19-MAR-2022 05:06, Nonspecific T wave abnormality, worse in Anterolateral leads Confirmed by CANDICE MUÑOZ ([id number]) on 03/20/2022 7:53:12 PM Referred By: Onofre Puente Confirmed by:CANDICE MUÑOZ at 1953 PATIENT NAME: ALISHA MATTHEWS 17:14:00 [facility] Hospitalist Progress Note REPORT#:[id number] REPORT STATUS: Signed DATE:03/19/22 TIME: 1713 PATIENT: ALISHA MATTHEWS UNIT #: [id number] ROOM/BED: [address] : [address] AGE: 71 SEX: F ATTEND: Onofre Puente MD ADM AUTHOR: Vipul Dove DO R3 * ALL edits or amendments must be made on the electronic/computer document * iVpul Dove 03/19/22 1714: Subjective Chief complaint: chest pain HPI: 71F underwent LHC yesterday and had 2 stents placed. She had eventful overnight upon which it appears she became disoriented and had urinary retention requiring catheter insertion upon which she self removed. In the morning she was still confused not remembering events from previous night. Hgb level decreased from 12.[address] Ruano was contacted recommended repeat H H and infection workup. She complains of pain at the Rt groin insertion area. Review of Systems Constitutional: Reports: generalized weakness. Denies: chills. GI: Reports: abdominal pain. : Reports: urinary retention. Neuro: Reports: confusion. Denies: dizziness, lightheaded. Objective General VS/I O: Vital Signs: Date Time Temp Pulse Resp B/P B/P Pulse O2 O2 Flow FiO2 Mean Ox Delivery Rate 03/19 1604 98.8 87 12 112/65 80.4 100 03/19 1539 98.2 172 16 113/65 80.6 96 12/14 1136 97.7 73 12 93/56 68.5 95 12/14 0730 98.2 94 16 110/67 81.4 100 12/14 0500 98.0 84 20 111/72 85 100 12/14 0151 94 119/75 89.6 100 12/14 0146 93 121/76 90.8 100 12/14 0141 93 120/78 92.0 100 12/14 0136 90 122/79 93.1 100 12/14 0131 89 123/77 92.3 100 12/14 0126 91 127/79 95.0 100 12/14 0121 89 125/80 94.8 100 12/14 0121 89 125/80 94.8 100 12/14 0116 88 126/79 94.7 100 12/14 0116 88 126/79 94.7 100 12/14 0111 89 132/82 98.8 100 12/14 0111 89 132/82 98.8 100 12/14 0106 90 138/83 100.9 100 12/14 0106 90 138/83 100.9 100 12/14 0101 91 142/80 101.0 100 12/14 0101 91 142/80 101.0 100 12/14 0056 87 146/79 101.5 100 12/14 0056 87 146/79 101.5 100 12/14 0051 83 147/85 105.6 100 12/14 0051 83 147/85 105.6 100 12/14 0046 81 135/79 98.0 100 12/14 0046 81 135/79 98.0 100 12/14 0041 82 134/78 96.9 100 12/14 0041 82 134/78 96.9 100 12/14 0036 81 125/76 92.6 100 12/14 0036 81 125/76 92.6 100 12/14 0031 81 124/75 91.7 100 12/14 0031 81 124/75 91.7 100 12/14 0026 77 120/75 89.7 100 12/14 0026 77 120/75 89.7 100 12/14 0021 74 120/74 89.2 98 12/14 0021 74 120/74 89.2 98 12/14 0016 68 119/74 89.1 98 12/14 0016 68 119/74 89.1 98 12/14 0011 73 120/75 90.0 97 /14 0011 73 120/75 90.0 97 /13 2356 80 89/59 68.9 97 /13 2356 80 89/59 68.9 97 /13 2351 81 91/60 70.1 100 /13 2351 81 91/60 70.1 100 13 2350 98 Nasal 4 36 cannula 03/18 2348 89 58/41 47.1 /13 2348 89 58/41 47.1 /13 2343 84 67/46 52.8 /13 2343 84 67/46 52.8 /13 2341 87 94/62 72.7 /13 2341 87 94/62 72.7 13 2336 92 98 03/18 2336 92 98 03/18 2326 88 75/50 58.5 100 /13 2326 88 75/50 58.5 100 03/18 2321 79 91/60 70.3 100 03/18 2321 79 91/60 70.3 100 03/18 2316 94 81/56 64.1 99 03/18 2316 94 81/56 64.1 99 03/18 2313 79 98 03/18 2313 79 98 03/18 2306 87 87/59 68.0 97 03/18 2306 87 87/59 68.0 97 03/18 2256 102 96 03/18 2256 102 96 03/18 2251 95 94/65 74.4 97 03/18 2251 95 94/65 74.4 97 03/18 2246 89 106/72 83.3 98 03/18 2246 89 106/72 83.3 98 03/18 2244 98.2 86 18 113/74 87.4 99 03/18 2231 82 87/57 66.9 95 03/18 2231 82 87/57 66.9 95 03/18 2226 80 113/70 84.6 95 13 2226 80 113/70 84.6 95 03/18 2221 74 100/63 75.3 81 /13 2221 74 100/63 75.3 81 03/18 2219 81 79 03/18 2219 81 79 03/18 2218 85 106/64 77.9 83 13 2218 81 106/64 77.9 77 / 2218 85 106/64 77.9 83 12/13 2218 81 106/64 77.9 77 03/18 2217 80 104/64 77.3 85 03/18 2217 84 83 03/18 2217 80 104/64 77.3 85 03/18 2217 84 83 03/18 2216 86 88 03/18 2216 84 100/62 74.8 92 03/18 2216 86 88 03/18 2216 84 100/62 74.8 92 03/18 2206 78 98/63 74.8 100 03/18 2206 78 98/63 74.8 100 03/18 2204 81 104/68 79.9 89 03/18 2204 81 104/68 79.9 89 03/18 2201 78 104/68 79.9 98 03/18 2201 78 104/68 79.9 98 03/18 2156 76 123/72 89.5 98 03/18 2156 76 123/72 89.5 98 03/18 2151 91 132/72 91.8 98 03/18 2151 91 132/72 91.8 98 03/18 2146 69 121/77 91.3 98 03/18 2146 69 121/77 91.3 98 03/18 2141 72 121/69 86.4 99 03/18 2141 72 121/69 86.4 99 03/18 2136 75 146/78 100.7 99 03/18 2136 75 146/78 100.7 99 03/18 2134 73 145/74 97.8 100 03/18 2134 73 145/74 97.8 100 03/18 2042 64 171/77 108.6 99 24 hour I O ending at 0700: 03/19 0700 03/18 1900 Intake Total 2400.00 Output Total 850 Balance 1550.00 Intake, IV 2200.00 Intake, Oral 200 Output, Emesis Output, Urine 850 PATIENT WEIGHT: Weight (lb): Weight (oz): Weight (kg): 72.000 Medications: Active Meds + DC'd Last 24 Hrs Ceftriaxone Sodium (ROCEPHIN) 1,000 MG QAM IV Sodium Chloride (SODIUM CHLORIDE 0.9%) 10 ML Clopidogrel Bisulfate (PLAVIX) 75 MG DAILY PO Losartan Potassium (COZAAR) 50 MG DAILY PO Nitroglycerin (NITRO-BID UD) 1 INCH Q6H WA TRANSDERM Atorvastatin Calcium (LIPITOR) 80 MG BEDTIME PO Morphine Sulfate (morphine SULFATE (C-II)) 2 MG Q4H PRN PRN IV Nitroglycerin (NITROSTAT) 0.4 MG Q5M PRN PRN SL Sodium Chloride (SODIUM CHLORIDE 0.9%) 1,000 ML .Q10H IV Nitroglycerin (NITRO-BID UD) 0 .STK-MED ONE .ROUTE (DC) Midazolam HCl (VERSED (C-IV)) 0 .STK-MED ONE .ROUTE (DC) Clopidogrel Bisulfate (PLAVIX) 0 .STK-MED ONE .ROUTE (DC) Heparin Sodium (HEPARIN SODIUM) 0 .STK-MED ONE .ROUTE (DC) Aspirin (ECOTRIN) 0 .STK-MED ONE .ROUTE (DC) Midazolam HCl (VERSED (C-IV)) 0 .STK-MED ONE .ROUTE (DC) Fentanyl Citrate (SUBLIMAZE (C-II)) 0 .STK-MED ONE .ROUTE (DC) Heparin Sodium/Sodium Chloride (HEPARIN 1000 UNITS/NS 500ML) 1,000 ML .STK- MED ONE IV (DC) Iopamidol (ISOVUE-300) 0 .STK-MED ONE .ROUTE (DC) Lidocaine (XYLOCAINE 1%) 0 .STK-MED ONE .ROUTE (DC) Insulin Glargine (Lantus/Semglee) 26 UNITS DAILY SUBQ Atorvastatin Calcium (LIPITOR) 40 MG BEDTIME PO (DC) Enoxaparin Sodium (LOVENOX) 70 MG Q12HR SUBQ (DC) Aspirin (ASPIRIN EC) 81 MG DAILY PO Isosorbide Mononitrate (IMDUR) 30 MG DAILY PO Metoprolol Tartrate (LOPRESSOR) 25 MG BID PO Insulin Human Lispro (HumaLOG) MEDIUM DOSE SLIDING SCALE AC HS SUBQ Dextrose/Water (DEXTROSE 50% IN WATER) 12.5 GM ASDIR PRN IV Dextrose/Water (DEXTROSE 50% IN WATER) 25 GM ASDIR PRN IV Glucagon (GLUCAGON) 1 MG ASDIR PRN IM Acetaminophen (TYLENOL) 650 MG Q6H PRN PRN PO Hydralazine HCl (APRESOLINE) 10 MG Q6H PRN PRN IV Ondansetron HCl (ZOFRAN ODT) 4 MG Q6H PRN PRN SL Ondansetron HCl (ZOFRAN) 4 MG Q6H PRN PRN IV Physical Exam General appearance: alert, awake Head/Eyes: atraumatic, EOMI ENT: moist mucosal membranes Neck: non-tender, supple/no meningismus Cardiovascular: normal heart sounds, regular rate rhythm Respiratory: aerating well, clear to auscultation, symmetric expansion Abdomen: tenderness (moderate), soft Extremities: moves all, no edema Neuro/CARRIER PACKER: alert, oriented X 3 Skin: dry Psychiatry: normal affect, normal judgment/insight Results Findings/Data: Laboratory Tests 03/19 03/19 03/19 03/19 03/18 1542 1138 0851 0734 2353 Chemistry Sodium (137 - 145 MMOL/L) 131 L Potassium (3.5 - 5.1 MMOL/L) 4.8 Chloride (98 - 107 MMOL/L) 103 Carbon Dioxide (22 - 30 MMOL/L) 15 L BUN (7 - 17 MG/DL) 16 Creatinine (0.52 - 1.04 MG/DL) 1.00 Glomerular Filtr Rate 60 Glucose (74 - 106 MG/DL) 279 H POC Glucose (60 - 99 MG/DL) 227 H 245 H 280 H 195 H Calcium (8.4 - 10.2 MG/DL) 8.4 Total Bilirubin (0.2 - 1.3 MG/DL) 0.5 AST (14 - 36 UNITS/L) 32 ALT (0 - 34 UNITS/L) 16 Total Alk Phosphatase (38 - 126 UNITS/L) 69 Total Protein (6.3 - 8.2 G/DL) 6.5 Albumin (3.5 - 5.0 G/DL) 3.8 03/18 2223 Chemistry POC Glucose (60 - 99 MG/DL) 169 H Laboratory Tests 03/18 1923 Coagulation Activated Coag Time (74 - 137 SEC) 239 H Laboratory Tests 03/19 0851 Hematology WBC (3.8 - 9.8 K/MM3) 17.6 H RBC (3.58 - 4.97 M/MM3) 3.62 Hgb (11.2 - 14.9 G/DL) 9.9 L Hct (33.2 - 43.5 %) 31.6 L MCV (80.7 - 99.1 fL) 87 MCH (27.0 - 34.1 pg) 27.3 MCHC (32.2 - 35.7 %) 31.3 L RDW (12.1 - 15.2 %) 13.4 Plt Count (129 - 368 K/MM3) 353 MPV (7.4 - 10.4 fl) 10.6 H Neut % (Auto) (43 - 75 %) 86.4 H Lymph % (Auto) (14 - 44 %) 7.1 L Kern % (Auto) (4 - 13 %) 5.4 Eos % (Auto) (0 - 6 %) 0.0 Baso % (Auto) (0 - 2 %) 0.4 Neut # (Auto) (2.0 - 7.6 K/mm3) 15.21 H Lymph # (Auto) (1.0 - 3.8 K/mm3) 1.25 Kern # (Auto) (0.1 - 0.8 K/mm3) 0.95 H Eos # (Auto) (0.0 - 0.2 K/mm3) 0.00 Baso # (Auto) (0.0 - 0.2 K/mm3) 0.07 Immature Gran % (0.0 - 2.0 %) 0.7 Nucleated RBC % (0 - 1.0 %) 0.0 Nucleated RBCs # (Man) (0.0 - 0.1 K/mm3) 0.00 Radiology data: Recent Impressions: RADIOLOGY - XR CHEST 1V 03/19 1200 Report Impression - Status: SIGNED Entered: 03/19/2022 1236 IMPRESSION: Mild patchy pneumonia or atelectasis left lung base. Impression By: [email or web address] - Refugio De La Cruz M.D. Diagnosis, Assessment Plan Problem List/A P: 1. NSTEMI (non-ST elevated myocardial infarction) 2. CAD (coronary artery disease) 3. HTN (hypertension) 4. Type 1 diabetes mellitus 5. Headache 6. Leukocytosis 7. Anemia normocytic. Repeating to see if normal blood loss from IVF dilution or if acute blood loss. Consultants: cardiology Free Text DxA P Notes Free text DxA P notes: 71F with PMH of CAD with prior stents admitted for NSTEMI. 03/18 -Followed by cardiology, Dr. Ruano -Continue full dose lovenox pending cardiac cath tomorrow -Continue B-marcello, ASA, statin -1 time dose fioricet for headache, tension type today -Continue insulin, monitor blood sugars 03/19 -Underwent LHC with stenting of RCA and OM. On DAPT ASA and plavix -Confusion overnight with urinary retention. Now voiding again. Due to confusion infection workup started. CXR shows mild patchy pneumonia vs atelectasis in L lung base. WBC increased from 9.6 to 17.6. Will cover with IV Rocephin for now. Repeat CBC in the am. UA to be collected as well. -Stat H H ordered due to Hgb decrease 12.8 to 9.9. -Vitals signs scanned show a HR of 172 at 15:39. Patient is on telemetry and they were called and reviewed telemetry strip and never showed evidence of tachycardia. I suspect this was an error on the vital signs machine Quality: [facility] Crit Care VTE Prophylaxis VTE prophylaxis initiated: yes Current Medications Current medication review: I attest that the foregoing medication list in the medical record is true, accurate, and complete to the best of my knowledge. BMI Screening > 25 or < 18.5 BMI status/follow-up: abnl BMI, pt to F/U w/PCP Tobacco Use/Counseling Tobacco use/counseling: non tobacco user, no counseling needed HTN Screening/Follow-up B/P assess/follow-up: hypertensive;f/u PCP 1wk, pre-existing hx of HTN Attestations Attestation needed: teaching physician Onofre Puente [birth year]: Attestations Teaching Physician Attestation F/U visit w/ resident: I saw the patient with the resident, Vipul Dove, PGY3 during rounds on 2021 and agree with the resident's findings and plan. Hgb decreased to 8.0 Will transfuse 1 unit PRBCs; d/w Dr Ruano who recommended CT abd and pelvis without contrast to r/o hematoma. Will continue to monitor H and H. at 1725 at 1999 RPT #:[id number] END OF [id number] 06:22:00 [facility] ([facility] Cardiology Progress Note REPORT#:[id number] REPORT STATUS: Signed DATE:03/19/22 TIME: 621 PATIENT: ALISHA MATTHEWS UNIT #: [id number] ROOM/BED: [address] : 49 AGE: 71 SEX: F ATTEND: Onofre Puente MD ADM AUTHOR: Alex Ruano MD * ALL edits or amendments must be made on the electronic/computer document * Subjective Chief complaint: Chest pain. Patient reports: No: chest pain, palpitations, shortness of breath. Objective General VS/I O: 24 hour I O ending at 0700: 03/19 0700 03/18 1900 Intake Total 2400.00 Output Total 850 Balance 1550.00 Intake, IV 2200.00 Intake, Oral 200 Output, Emesis Output, Urine 850 Vital Signs: Date Time Temp Pulse Resp B/P B/P Pulse O2 O2 Flow FiO2 Mean Ox Delivery Rate 03/19 0500 98.0 84 20 111/72 85 100 03/18 2350 98 Nasal 4 36 cannula 03/18 2244 98.2 86 18 113/74 87.4 99 03/18 2042 64 171/77 108.6 99 03/18 1549 70 15 132/65 87.2 94 03/18 1212 72 15 120/70 86.4 92 03/18 0857 69 18 120/51 74.1 96 03/18 0719 97.5 63 15 106/65 78.6 96 PATIENT WEIGHT: Weight (lb): Weight (oz): Weight (kg): 72.000 Medications: Active Meds + DC'd Last 24 Hrs Clopidogrel Bisulfate (PLAVIX) 75 MG DAILY PO Losartan Potassium (COZAAR) 50 MG DAILY PO Nitroglycerin (NITRO-BID UD) 1 INCH Q6H WA TRANSDERM Atorvastatin Calcium (LIPITOR) 80 MG BEDTIME PO Morphine Sulfate (morphine SULFATE (C-II)) 2 MG Q4H PRN PRN IV Nitroglycerin (NITROSTAT) 0.4 MG Q5M PRN PRN SL Sodium Chloride (SODIUM CHLORIDE 0.9%) 1,000 ML .Q10H IV Nitroglycerin (NITRO-BID UD) 0 .STK-MED ONE .ROUTE (DC) Midazolam HCl (VERSED (C-IV)) 0 .STK-MED ONE .ROUTE (DC) Clopidogrel Bisulfate (PLAVIX) 0 .STK-MED ONE .ROUTE (DC) Heparin Sodium (HEPARIN SODIUM) 0 .STK-MED ONE .ROUTE (DC) Aspirin (ECOTRIN) 0 .STK-MED ONE .ROUTE (DC) Midazolam HCl (VERSED (C-IV)) 0 .STK-MED ONE .ROUTE (DC) Fentanyl Citrate (SUBLIMAZE (C-II)) 0 .STK-MED ONE .ROUTE (DC) Heparin Sodium/Sodium Chloride (HEPARIN 1000 UNITS/NS 500ML) 1,000 ML .STK- MED ONE IV (DC) Iopamidol (ISOVUE-300) 0 .STK-MED ONE .ROUTE (DC) Lidocaine (XYLOCAINE 1%) 0 .STK-MED ONE .ROUTE (DC) Insulin Glargine (Lantus/Semglee) 26 UNITS DAILY SUBQ Acetaminophen/Butalbital/Caffeine (ESGIC) 1 TAB NOW ONE PO (DC) Atorvastatin Calcium (LIPITOR) 40 MG BEDTIME PO (DC) Enoxaparin Sodium (LOVENOX) 70 MG Q12HR SUBQ (DC) Aspirin (ASPIRIN EC) 81 MG DAILY PO Isosorbide Mononitrate (IMDUR) 30 MG DAILY PO Metoprolol Tartrate (LOPRESSOR) 25 MG BID PO Insulin Human Lispro (HumaLOG) MEDIUM DOSE SLIDING SCALE AC HS SUBQ Dextrose/Water (DEXTROSE 50% IN WATER) 12.5 GM ASDIR PRN IV Dextrose/Water (DEXTROSE 50% IN WATER) 25 GM ASDIR PRN IV Glucagon (GLUCAGON) 1 MG ASDIR PRN IM Acetaminophen (TYLENOL) 650 MG Q6H PRN PRN PO Hydralazine HCl (APRESOLINE) 10 MG Q6H PRN PRN IV Ondansetron HCl (ZOFRAN ODT) 4 MG Q6H PRN PRN SL Ondansetron HCl (ZOFRAN) 4 MG Q6H PRN PRN IV Physical Exam General appearance: alert, awake, oriented Head/Eyes: atraumatic, normocephalic ENT: moist mucosal membranes Neck: no JVD Cardiovascular: CV assessment: regular rate and rhythm Respiratory: clear to auscultation, no distress Lower extremity: LE assessment: no edema Musculoskeletal: full range of motion Skin: dry, intact Psychiatry: normal affect, normal judgment/insight, normal mood Results Findings/Data: Laboratory Tests 03/18 03/18 03/18 03/18 03/18 2353 2223 1551 1146 0805 Chemistry Sodium (137 - 145 MMOL/L) 130 L Potassium (3.5 - 5.1 MMOL/L) 4.3 Chloride (98 - 107 MMOL/L) 98 Carbon Dioxide (22 - 30 MMOL/L) 24 Anion Gap (14 - 24 MMOL/L) 12 L BUN (7 - 17 MG/DL) 16 Creatinine (0.52 - 1.04 MG/DL) 0.90 Glomerular Filtr Rate > 60 Glucose (74 - 106 MG/DL) 170 H POC Glucose (60 - 99 MG/DL) 195 H 169 H 145 H 227 H Calcium (8.4 - 10.2 MG/DL) 9.0 Triglycerides (150 - 199 MG/DL) 167 Cholesterol (<200 MG/DL) 272 LDL Cholesterol Measurd (0 - 99 MG/DL) 174 H HDL Cholesterol (40 - 59 MG/DL) 46 03/18 0720 Chemistry POC Glucose (60 - 99 MG/DL) 170 H Laboratory Tests 03/18 1923 Coagulation Activated Coag Time (74 - 137 SEC) 239 H Laboratory Tests 03/18 0805 Hematology WBC (3.8 - 9.8 K/MM3) 9.6 RBC (3.58 - 4.97 M/MM3) 4.74 Hgb (11.2 - 14.9 G/DL) 12.8 Hct (33.2 - 43.5 %) 39.8 MCV (80.7 - 99.1 fL) 84 MCH (27.0 - 34.1 pg) 27.0 MCHC (32.2 - 35.7 %) 32.2 RDW (12.1 - 15.2 %) 13.4 Plt Count (129 - 368 K/MM3) 354 MPV (7.4 - 10.4 fl) 10.5 H Neut % (Auto) (43 - 75 %) 58.9 Lymph % (Auto) (14 - 44 %) 28.3 Kern % (Auto) (4 - 13 %) 8.6 Eos % (Auto) (0 - 6 %) 1.8 Baso % (Auto) (0 - 2 %) 1.5 Neut # (Auto) (2.0 - 7.6 K/mm3) 5.65 Lymph # (Auto) (1.0 - 3.8 K/mm3) 2.71 Kern # (Auto) (0.1 - 0.8 K/mm3) 0.82 H Eos # (Auto) (0.0 - 0.2 K/mm3) 0.17 Baso # (Auto) (0.0 - 0.2 K/mm3) 0.14 Immature Gran % (0.0 - 2.0 %) 0.9 Nucleated RBC % (0 - 1.0 %) 0.0 Nucleated RBCs # (Man) (0.0 - 0.1 K/mm3) 0.00 EKG Interpretation: normal sinus rhythm Diagnosis, Assessment Plan Hospital course to date: IMPRESSION: 1. Non-ST segment elevation myocardial infarction with mildly elevated troponin. Symptoms resolved. Negative myocardial perfusion scan with LVEF - 78%. 2. Coronary artery disease -- status post PTCA and stent in 2016. s/p PTCA/stent RCA, LCx 3. Diabetes. 4. Hypertension. 5. Confusion 6. Urinary retention - s/p cath. PLAN: Continue current medical rx. Review labs UA Abx. at 1932 RPT #:[id number] END OF [id number] 05:06:[id number] [address] PATIENT NAME: ALISHA MATTHEWS ADMIT DATE: 03/17/22 ACCOUNT NO: [id number] ROOM NO: Z.438 AGE: 71 REPORT TYPE: ELECTROCARDIOGRAM SEX: F ADMITTING PHYSICIAN:Onofre Puente MD ATTENDING PHYSICIAN:Onofre Puente MD Order: [id number] Test Reason : CAD/IL Test Date/Time Stamp: ThuMar 19 2022 05:06:14 Blood Pressure : / mmHG Vent. Rate : 097 BPM Atrial Rate : 097 BPM P-R Int : 156 ms QRS Dur : 072 ms QT Int : 396 ms P-R-T Axes : 035 -01 039 degrees QTc Int : 502 ms Normal sinus rhythm Possible Left atrial enlargement Prolonged QT Abnormal ECG When compared with ECG of 17-MAR-2022 17:34, No significant change was found Confirmed by CANDICE MUÑOZ ([id number]) on 03/19/2022 7:09:17 AM Referred By: Self Referred Confirmed by:CANDICE MUÑOZ at 0709 PATIENT NAME: ALISHA MATTHEWS 20:09:[id number]- [id number] [address] PATIENT NAME: ALISHA MATTHEWS ADMIT DATE: 03/17/22 ACCOUNT NO: [id number] [facility] 71 REPORT TYPE: CARDIAC CATHETERIZATION REPORT SEX: F ADMITTING PHYSICIAN:Onofre Puente MD ATTENDING PHYSICIAN:Onofre Puente MD PROCEDURE DATE: 03/18/2022 FIRE RANGER: MD Wanda REFERRING PHYSICIAN: Dr. Puente INDICATION FOR PROCEDURE: Acute non-ST wave myocardial infarction, coronary artery disease, previous stenting. TITLE OF PROCEDURES: 1. Left heart catheterization. 2. Drug-eluting stent of the right coronary artery. 3. PCI and drug-eluting stenting of the circumflex/OM. 4. Sealing device. ESTIMATED BLOOD LOSS: Minimal. COMPLICATIONS: None. CONTRAST: 130 mL ANESTHESIA: Conscious sedation with Versed and fentanyl. 1% lidocaine for local anesthesia. FINAL DIAGNOSIS: A 3-vessel coronary artery disease, patent LAD and diagonal stents. Elevated left ventricular end-diastolic pressure. The patient is now status post drug-eluting stent of the right coronary artery and PCI and drug-eluting stent of the circumflex/OM. PROCEDURE IN DETAIL: After informed consent, the patient was brought to the cardiac catheterization lab in a stable fasting nonsedated state. She was prepped and draped in the usual sterile fashion. After conscious sedation, 1% lidocaine was administered to the right common femoral artery area for local anesthesia. A 6-Jamaican sheath was placed in the right common femoral artery using standard techniques and fluoroscopy. After heparinization, left coronary angiogram showed calcified arteries. The LAD and diagonal stents are patent. The LAD after the stented area is 55% diseased. There is a very small first early diagonal and a very small obtuse marginal, but then the main obtuse marginal had an 80% lesion to start off and then 99% focal lesion with CARLOS 2 flow. The circumflex before the OM has a 65% lesion. Right coronary angiogram showed a 70% focal lesion with the PDA having 30% plaque and the PL has 55% PATIENT NAME: ALISHA MATTHEWS plaque. Left ventricular angiogram showed ejection fraction of 65%. Left ventricular end-diastolic pressure of 17. No wall motion abnormalities or aortic valve gradient. Proceeded with first stenting of the right coronary artery. The guide used was a JR4, the wire used was a hi-torque BMW. The lesion was primary stented with a [employer] Synergy 4 x 16, resulted in 0% residual. Then, I used another guide, the XB 3.5. We used the same wire to wire the obtuse marginal. I predilated the lesion with an Emerge 2.0 x 15 and then put a stent, a 2.25 x 24 [employer] Synergy that resulted in 0% residual. The patient tolerated the procedure well. There were no complications. The right groin was sealed using Angio-Seal. The patient was transferred back to her room for observation overnight. The patient did receive loading dose of Plavix, aspirin and adequate heparin with a good ACT. Dictated By: Candice Muñoz MD Date Dictated: 03/18/2022 20:09:13 Date Transcribed: 03/18/2022 21:47:47 SD/ROV Receipt ID: [id number] Authenticated by Candice Muñoz MD On 03/19/2022 07:13:36 AM at 0713 PATIENT NAME: ALISHA MATTHEWS 06:25:00 [facility] ([facility] Cardiology Progress Note REPORT#:[id number] REPORT STATUS: Signed DATE:03/18/22 TIME: 624 PATIENT: ALISHA MATTHEWS UNIT #: [id number] ROOM/BED: [address] : 49 AGE: 71 SEX: F ATTEND: Onofre Puente MD ADM AUTHOR: Alex Ruano MD * ALL edits or amendments must be made on the electronic/computer document * Subjective Chief complaint: Chest pain. Patient reports: No: chest pain, palpitations, shortness of breath. Objective General VS/I O: 24 hour I O ending at 0700: 03/18 0700 03/17 1900 Intake Total Output Total Balance Patient 72 kg Weight Weight Estimated Measurement Method Vital Signs: Date Time Temp Pulse Resp B/P B/P Pulse O2 O2 Flow FiO2 Mean Ox Delivery Rate 03/18 0449 97.3 62 18 101/62 75.1 95 Room air 03/18 0010 97.7 59 17 126/63 83.9 96 Room air 03/17 2026 98.2 71 18 155/85 107.9 97 Room air 03/17 1717 99.0 70 15 133/77 95.5 92 03/17 1400 71 16 138/78 98 98 Room air 03/17 1220 75 16 128/75 92 95 Room air 03/17 1046 99 03/17 0953 74 16 174/89 117 99 Room air PATIENT WEIGHT: Weight (lb): Weight (oz): Weight (kg): 72.000 Medications: Active Meds + DC'd Last 24 Hrs Insulin Glargine (Lantus/Semglee) 26 UNITS DAILY SUBQ Atorvastatin Calcium (LIPITOR) 40 MG BEDTIME PO Enoxaparin Sodium (LOVENOX) 70 MG Q12HR SUBQ Aspirin (ASPIRIN EC) 81 MG DAILY PO Isosorbide Mononitrate (IMDUR) 30 MG DAILY PO Metoprolol Tartrate (LOPRESSOR) 25 MG BID PO Insulin Human Lispro (HumaLOG) MEDIUM DOSE SLIDING SCALE AC HS SUBQ Dextrose/Water (DEXTROSE 50% IN WATER) 12.5 GM ASDIR PRN IV Dextrose/Water (DEXTROSE 50% IN WATER) 25 GM ASDIR PRN IV Glucagon (GLUCAGON) 1 MG ASDIR PRN IM Acetaminophen (TYLENOL) 650 MG Q6H PRN PRN PO Hydralazine HCl (APRESOLINE) 10 MG Q6H PRN PRN IV Ondansetron HCl (ZOFRAN ODT) 4 MG Q6H PRN PRN SL Ondansetron HCl (ZOFRAN) 4 MG Q6H PRN PRN IV Regadenoson (LEXISCAN) 0 .STK-MED ONE IV (DC) Iopamidol (ISOVUE-370) 0 .STK-MED ONE IV (DC) Physical Exam General appearance: alert, awake, oriented Head/Eyes: atraumatic, normocephalic ENT: moist mucosal membranes Neck: no JVD Cardiovascular: CV assessment: regular rate and rhythm Respiratory: clear to auscultation, no distress Lower extremity: LE assessment: no edema Musculoskeletal: full range of motion Skin: dry, intact Psychiatry: normal affect, normal judgment/insight, normal mood Results Findings/Data: Laboratory Tests 03/17 1044 Chemistry POC Glucose (60 - 99 MG/DL) 277 H 143 H Mean Blood Glucose (70 - 110 MG/DL) 180 H Hemoglobin A1c (4.8 - 5.9 %) 7.9 H Troponin I (0.012 - 0.033 NG/ML) 1.210 *H 0.756 *H 03/17 1044 Chemistry Sodium (137 - 145 MMOL/L) 133 L Potassium (3.5 - 5.1 MMOL/L) 4.5 Chloride (98 - 107 MMOL/L) 98 Carbon Dioxide (22 - 30 MMOL/L) 29 BUN (7 - 17 MG/DL) 16 Creatinine (0.52 - 1.04 MG/DL) 0.80 Glomerular Filtr Rate > 60 Glucose (74 - 106 MG/DL) 136 H Calcium (8.4 - 10.2 MG/DL) 9.4 Troponin I (0.012 - 0.033 NG/ML) 0.131 *H LDL Cholesterol (100 - 129 mg/dL) 166 H Laboratory Tests 03/17 1044 Hematology WBC (3.8 - 9.8 K/MM3) 8.4 RBC (3.58 - 4.97 M/MM3) 4.43 Hgb (11.2 - 14.9 G/DL) 12.1 Hct (33.2 - 43.5 %) 37.5 MCV (80.7 - 99.1 fL) 85 MCH (27.0 - 34.1 pg) 27.3 MCHC (32.2 - 35.7 %) 32.3 RDW (12.1 - 15.2 %) 13.2 Plt Count (129 - 368 K/MM3) 370 H Neut # (Auto) (2.0 - 7.6 K/mm3) 5.37 Lymph # (Auto) (1.0 - 3.8 K/mm3) 2.13 Kern # (Auto) (0.1 - 0.8 K/mm3) 0.62 Eos # (Auto) (0.0 - 0.2 K/mm3) 0.13 Baso # (Auto) (0.0 - 0.2 K/mm3) 0.12 Nucleated RBCs # (Man) (0.0 - 0.1 K/mm3) 0.00 Laboratory Tests 03/17 1620 1044 Chemistry Troponin I (0.012 - 0.033 NG/ML) 1.210 *H 0.756 *H 0.131 *H Radiology data: Recent Impressions: CAT SCAN - CTA ABDOMEN 03/17 1155 Report Impression - Status: SIGNED Entered: 03/17/2022 1238 IMPRESSION: 1. Scattered atherosclerotic plaque. No area of aortic aneurysm or dissection. 2. No other acute abnormalities identified. Impression By: Daniel Clifford MD CAT SCAN - CTA CHEST 03/17 1155 Report Impression - Status: SIGNED Entered: 03/17/2022 1238 IMPRESSION: 1. Scattered atherosclerotic plaque. No area of aortic aneurysm or dissection. 2. No other acute abnormalities identified. Impression By: Daniel Clifford MD NUCLEAR MEDICINE - NM MYOCRD SPECT R/S MULT 03/17 1330 Report Impression - Status: SIGNED Entered: 03/17/2022 1716 IMPRESSION: 1. Negative for evidence of significant myocardial ischemia or infarct. 2. Normal left ventricular ejection fraction and wall motion. Impression By: Nano Hernandez MD Diagnosis, Assessment Plan Hospital course to date: IMPRESSION: 1. Non-ST segment elevation myocardial infarction with mildly elevated troponin. Symptoms resolved. Negative myocardial perfusion scan with LVEF - 78%. 2. Coronary artery disease -- status post PTCA and stent in 2016. 3. Diabetes. 4. Hypertension. PLAN: With NSTEMI, will plan coronary angiography to rule out balanced ischemia. at 1639 RPT #:[id number] END OF [id number] 06:10:00 [facility] Hospitalist Progress Note REPORT#:[id number] REPORT STATUS: Signed DATE:03/18/22 TIME: 06 PATIENT: ALISHA MATTHEWS UNIT #: [id number] ROOM/BED: [facility] : 49 AGE: 71 SEX: F ATTEND: Onofre Puente MD ADM AUTHOR: Vipul Dove DO R3 * ALL edits or amendments must be made on the electronic/computer document * Vipul Dove 03/18/22 0610: Subjective Chief complaint: chest pain HPI: 71F with PMH of CAD initiall admitted due to chest pain. Troponins were found to be elevated and she was started on full dose lovenox therapy for NSTEMI. Cardiology has been consulted and C is considered. Review of Systems Constitutional: Denies: chills, fever. Cardiovascular: Denies: chest pain, DERAS (dyspnea on exertion). GI: Denies: abdominal pain, vomiting. All systems rev neg: except as marked Objective General VS/I O: Vital Signs: Date Time Temp Pulse Resp B/P B/P Pulse O2 O2 Flow FiO2 Mean Ox Delivery Rate 03/18 0449 97.3 62 18 101/62 75.1 95 Room air 03/18 0010 97.7 59 17 126/63 83.9 96 Room air 03/17 202 98.2 71 18 155/85 107.9 97 Room air 03/17 1717 99.0 70 15 133/77 95.5 92 03/17 1400 71 16 138/78 98 98 Room air 03/17 1220 75 16 128/75 92 95 Room air 03/17 1046 99 03/17 0953 74 16 174/89 117 99 Room air 24 hour I O ending at 0700: 03/18 0700 03/17 1900 Intake Total Output Total Balance Patient 159 lb Weight Weight Estimated Measurement Method PATIENT WEIGHT: Weight (lb): Weight (oz): Weight (kg): 72.000 Medications: Active Meds + DC'd Last 24 Hrs Insulin Glargine (Lantus/Semglee) 26 UNITS DAILY SUBQ Atorvastatin Calcium (LIPITOR) 40 MG BEDTIME PO Enoxaparin Sodium (LOVENOX) 70 MG Q12HR SUBQ Aspirin (ASPIRIN EC) 81 MG DAILY PO Isosorbide Mononitrate (IMDUR) 30 MG DAILY PO Metoprolol Tartrate (LOPRESSOR) 25 MG BID PO Insulin Human Lispro (HumaLOG) MEDIUM DOSE SLIDING SCALE AC HS SUBQ Dextrose/Water (DEXTROSE 50% IN WATER) 12.5 GM ASDIR PRN IV Dextrose/Water (DEXTROSE 50% IN WATER) 25 GM ASDIR PRN IV Glucagon (GLUCAGON) 1 MG ASDIR PRN IM Acetaminophen (TYLENOL) 650 MG Q6H PRN PRN PO Hydralazine HCl (APRESOLINE) 10 MG Q6H PRN PRN IV Ondansetron HCl (ZOFRAN ODT) 4 MG Q6H PRN PRN SL Ondansetron HCl (ZOFRAN) 4 MG Q6H PRN PRN IV Regadenoson (LEXISCAN) 0 .STK-MED ONE IV (DC) Iopamidol (ISOVUE-370) 0 .STK-MED ONE IV (DC) Physical Exam General appearance: alert, awake, oriented Head/Eyes: atraumatic, EOMI Neck: non-tender, supple/no meningismus Cardiovascular: normal heart sounds, regular rate rhythm Respiratory: aerating well, clear to auscultation, symmetric expansion Abdomen: non-tender, soft Extremities: moves all, no edema Neuro/CARRIER PACKER: alert, oriented X 3 Psychiatry: normal affect, normal judgment/insight Results Findings/Data: Laboratory Tests 03/17 164 1620 1044 Chemistry POC Glucose (60 - 99 MG/DL) 277 H 143 H Mean Blood Glucose (70 - 110 MG/DL) 180 H Hemoglobin A1c (4.8 - 5.9 %) 7.9 H Troponin I (0.012 - 0.033 NG/ML) 1.210 *H 0.756 *H 03/17 1044 Chemistry Sodium (137 - 145 MMOL/L) 133 L Potassium (3.5 - 5.1 MMOL/L) 4.5 Chloride (98 - 107 MMOL/L) 98 Carbon Dioxide (22 - 30 MMOL/L) 29 BUN (7 - 17 MG/DL) 16 Creatinine (0.52 - 1.04 MG/DL) 0.80 Glomerular Filtr Rate > 60 Glucose (74 - 106 MG/DL) 136 H Calcium (8.4 - 10.2 MG/DL) 9.4 Troponin I (0.012 - 0.033 NG/ML) 0.131 *H LDL Cholesterol (100 - 129 mg/dL) 166 H Laboratory Tests 03/17 1044 Hematology WBC (3.8 - 9.8 K/MM3) 8.4 RBC (3.58 - 4.97 M/MM3) 4.43 Hgb (11.2 - 14.9 G/DL) 12.1 Hct (33.2 - 43.5 %) 37.5 MCV (80.7 - 99.1 fL) 85 MCH (27.0 - 34.1 pg) 27.3 MCHC (32.2 - 35.7 %) 32.3 RDW (12.1 - 15.2 %) 13.2 Plt Count (129 - 368 K/MM3) 370 H Neut # (Auto) (2.0 - 7.6 K/mm3) 5.37 Lymph # (Auto) (1.0 - 3.8 K/mm3) 2.13 Kern # (Auto) (0.1 - 0.8 K/mm3) 0.62 Eos # (Auto) (0.0 - 0.2 K/mm3) 0.13 Baso # (Auto) (0.0 - 0.2 K/mm3) 0.12 Nucleated RBCs # (Man) (0.0 - 0.1 K/mm3) 0.00 Radiology data: Recent Impressions: CAT SCAN - CTA ABDOMEN 03/17 1155 Report Impression - Status: SIGNED Entered: 03/17/2022 1238 IMPRESSION: 1. Scattered atherosclerotic plaque. No area of aortic aneurysm or dissection. 2. No other acute abnormalities identified. Impression By: Daniel Clifford MD CAT SCAN - CTA CHEST 03/17 1155 Report Impression - Status: SIGNED Entered: 03/17/2022 1238 IMPRESSION: 1. Scattered atherosclerotic plaque. No area of aortic aneurysm or dissection. 2. No other acute abnormalities identified. Impression By: Daniel Clifford MD NUCLEAR MEDICINE - NM MYOCRD SPECT R/S MULT 03/17 1330 Report Impression - Status: SIGNED Entered: 03/17/2022 1716 IMPRESSION: 1. Negative for evidence of significant myocardial ischemia or infarct. 2. Normal left ventricular ejection fraction and wall motion. Impression By: Nano Hernandez MD Diagnosis, Assessment Plan Problem List/A P: 1. NSTEMI (non-ST elevated myocardial infarction) 2. CAD (coronary artery disease) 3. HTN (hypertension) 4. Type 1 diabetes mellitus 5. Headache Consultants: cardiology Free Text DxA P Notes Free text DxA P notes: 71F with PMH of CAD with prior stents admitted for NSTEMI. 03/18 -Followed by cardiology, Dr. Ruano -Continue full dose lovenox pending cardiac cath tomorrow -Continue B-marcello, ASA, statin -1 time dose fioricet for headache, tension type today -Continue insulin, monitor blood sugars Quality: Gen Med Crit Care VTE Prophylaxis VTE prophylaxis initiated: yes Current Medications Current medication review: I attest that the foregoing medication list in the medical record is true, accurate, and complete to the best of my knowledge. BMI Screening > 25 or < 18.5 BMI status/follow-up: abnl BMI, pt to F/U w/PCP Tobacco Use/Counseling Tobacco use/counseling: non tobacco user, no counseling needed HTN Screening/Follow-up B/P assess/follow-up: hypertensive;f/u PCP 1wk, pre-existing hx of HTN Onofre Puente 03/18/22 1718: Attestations Teaching Physician Attestation F/U visit w/ resident: I saw the patient with the resident, Vipul Dove, PGY3 during rounds on 2021 and agree with the resident's findings and plan. at 1402 at 1718 RPT #:[id number] END OF [id number] 02:42:[id number] [place] [address] PATIENT NAME: ALISHA MATTHEWS ADMIT DATE: 03/17/22 ACCOUNT NO: [id number] ROOM NO: Z.438 AGE: 71 REPORT TYPE: eSTRESS EKG REPORT SEX: F ADMITTING PHYSICIAN:Simón Reinoso MD ATTENDING PHYSICIAN:Simón Reinoso MD Acquisition Time: 2022-03-18 02:42:36 Test Date/Time Stamp:ThuMar 18 2022 02:42:36 Total Exercise Time: 00:01:14 Test Indications: Angina Medications: Protocol: LEXISCAN Max HR: 116 BPM 78% of Pred: 148 BPM Max BP: 181/084 mmHG Max Work Load: 1.0 METS Normal ECG regadenoson stress test; Normal hemodynamic regadenoson stress test. Myocardial PerFusion Scan to follow. Confirmed by MD JERRY, JAKE HALE ([id number]) on 03/17/2022 4:33:52 PM Referred By: Simón Reinoso Confirmed by:JAKE EDWARDS MD at 1633 PATIENT NAME: ALISHA MATTHEWS 20:44:[id number] [address] PATIENT NAME: ALISHA MATTHEWS ADMIT DATE: 03/17/22 ACCOUNT NO: [id number] ROOM NO: Z.423 AGE: 71 REPORT TYPE: CONSULTATION REPORT SEX: F ADMITTING PHYSICIAN:Onofre Puente MD ATTENDING PHYSICIAN:Onofre Puente MD CONSULTATION DATE: 03/17/2022 REFERRING PHYSICIAN: Dr. Puente. REASON FOR CONSULTATION: I was asked to evaluate this patient for chest pain. HISTORY OF PRESENT ILLNESS: This is a 71-year-old female with a history of coronary artery disease, status post PTCA and stent in 2015, who initially presented to the [facility] Emergency Room after waking this morning at approximately 04:30 with chest pain. She describes an 8/10 mid precordial chest pressure that radiated to the left shoulder, right upper extremity and the jaw. The patient woke with the discomfort. The pain is now resolved since being treated medically. PAST MEDICAL HISTORY: 1. Coronary artery disease, status post PTCA and stent in 2015 at [facility]. 2. Diabetes. 3. Hypertension. 4. Hyperlipidemia. ALLERGIES: NKDA. HOME MEDICATIONS: Clopidogrel 75 mg daily, isosorbide mononitrate SR 30 mg daily, losartan 50 mg daily, metoprolol tartrate 25 mg twice daily, lansoprazole 30 mg daily, insulin. FAMILY HISTORY: Positive for heart disease in her brother and mother. SOCIAL HISTORY: No tobacco. No alcohol. REVIEW OF SYSTEMS: CONSTITUTIONAL: No complaints of fever or chills. ENMT: No complaints of headache. EYES: No complaints of blurred vision. RESPIRATORY: No complaints of shortness of breath or cough. CARDIOVASCULAR: Chest pain as noted. GASTROINTESTINAL: No complaints of nausea or vomiting. GENITOURINARY: No complaints of urinary frequency or dysuria. MUSCULOSKELETAL: No complaints of joint pain. SKIN: No complaints of skin rash. NEUROLOGIC: No complaints of focal weakness. PATIENT NAME: ALISHA MATTHEWS PHYSICAL EXAMINATION: GENERAL: Elderly female, in no acute distress. VITAL SIGNS: Temperature 99, blood pressure 133/77, pulse 70, respiratory rate 15, O2 sats 92%. ENMT: Atraumatic. Normocephalic. RESPIRATORY: Normal effort. Clear to auscultation bilaterally. CARDIOVASCULAR: Normal S1 and S2. No S3 or S4. NECK: JVP is normal. There are no carotid bruits. EXTREMITIES: No edema. NEUROLOGIC: Cranial nerves II-XII intact. No focal motor deficits noted. LABORATORY DATA: White blood cell count 8.4, hemoglobin 12.1, platelets 370, sodium 133, potassium 4.5, chloride 90, CO2 of 29, BUN 16, creatinine 0.8, glucose 136, hemoglobin A1c 7.7. Troponin I of 0.131, 0.756. Electrocardiogram; normal sinus rhythm. No significant ST-T wave changes. IMPRESSION: 1. Non-ST segment elevation myocardial infarction with mildly elevated troponin. Symptoms resolved. 2. Coronary artery disease -- status post PTCA and stent in 2015. 3. Diabetes. 4. Hypertension. PLAN: Medical therapy with Lovenox, aspirin, nitroglycerin, and beta marcello. We will reassess in a.m. with further plans at that time. Dictated By: Alex Ruano MD Date Dictated: 03/17/2022 20:44:40 Date Transcribed: 03/17/2022 21:04:02 [facility]/ANAHI Receipt ID: [id number] Authenticated by Alex Ruano MD On 03/20/2022 07:27:28 PM at 0727 PATIENT NAME: ALISHA MATTHEWS [id number]:[id number] [address] PATIENT NAME: ALISHA MATTHEWS ADMIT DATE: 03/17/22 ACCOUNT NO: [id number] ROOM NO: [facility] AGE: 71 REPORT TYPE: ELECTROCARDIOGRAM SEX: F ADMITTING PHYSICIAN:Onofre Puente MD ATTENDING PHYSICIAN:Onofre Puente MD Order: [id number] Test Reason : CAD Test Date/Time Stamp: ThuMar 17 2022 17:34:10 Blood Pressure : / mmHG Vent. Rate : 076 BPM Atrial Rate : 076 BPM P-R Int : 172 ms QRS Dur : 074 ms QT Int : 418 ms P-R-T Axes : 055 015 066 degrees QTc Int : 470 ms Normal sinus rhythm Low voltage QRS Borderline ECG No previous ECGs available Confirmed by CANDICE MUÑOZ ([id number]) on 03/18/2022 7:11:18 AM Referred By: Self Referred Confirmed by:CANDIEC MUÑOZ at 0711 PATIENT NAME: ALISHA MATTHEWS 13:58:00 [facility] ([facility]) History Physical - Adult REPORT#:[id number] REPORT STATUS: Signed DATE:03/17/22 TIME: 1358 PATIENT: ALISHA MATTHEWS UNIT #: [id number] [facility] AGE: 71 SEX: F ATTEND: Onofre Puente MD ADM AUTHOR: Kiera Dale * ALL edits or amendments must be made on the electronic/computer document * Kiera Dale 03/17/22 1358: History of Present Illness HPI Chief complaint: Chest pain PCP: PCP: No Primary or Family Physician HPI: Ms. Matthews is a 71 year old female with a pmhx of CAD s/p stent x 2 in 2016, HTN, Type 1 DM who presented to the ED as a transfer from [facility] for admission for an NSTEMI. Patient reports she started having chest pain this morning at 4:30 AM while she was sleeping. The pain woke her up from sleep. The pain is midsternal in location and was a 9/10 in severity. She reports the pain radiates to her back, bilateral jaw, and shoulders and described it as sharp and a choking sensation. She went to [facility] and was seen in the ED there and had a cardiac workup performed that revealed an elevated high sensitivity troponin of 201. She was given aspirin and then transferred here for admission. She reports she took nitroglycerin prior to coming to the ED. Her pain is currently a 1/10 in severity. She denies shortness of breath, dizziness, nausea, vomiting. In our ER, EKG showd no ST elevation. Troponin was 0.131. Cardiology was consulted and stress test was ordered to be done today per Cardiology. Informant/historian: patient, family/other at bedside History Past medical history: Reports: Coronary artery disease, Diabetes mellitus, Hypertension. Past surgical history: Reports: PCI (with stent x 1). Family history: Reports: Heart disease. Denies: CAD < 40 yrs old. Alcohol use: Denies EtOH use Drug use: Denies recreational drugs Smoking status for patients 13 years old or older: Never Smoker Medication/Allergy-Vaccine Hx Allergies: Coded Allergies: No Known Allergies (03/17/22) Review of Systems Constitutional: Denies: chills, fatigue, fever. Skin: Denies: itching, rash, swelling. Eyes: Denies: redness, discharge, itching. Respiratory: Denies: DERAS (dyspnea on exertion), non productive cough, productive cough ( sputum), SOB. Cardiovascular: Reports: chest pain. Denies: DERAS (dyspnea on exertion), edema, palpitations. GI: Denies: abdominal pain, constipation, diarrhea, nausea, vomiting. Musculoskeletal: Other musculoskeletal: Denies: lumbar pain, neck pain, thoracic pain. Neuro: Denies: dizziness, headache, lightheaded. Physical Exam VS/I O Vital Signs: Date Time Temp Pulse Resp B/P B/P Pulse O2 O2 Flow FiO2 Mean Ox Delivery Rate 03/17 1046 99 03/17 0953 74 16 174/89 117 99 Room air PATIENT WEIGHT: Weight (lb): Weight (oz): Weight (kg): 72.000 General appearance: alert, awake, no acute distress, pleasant, conversational, no respiratory distress Head/Eyes: atraumatic, normocephalic, normal conjunctiva/sclera, normal eyelids/ periorb Neck: full range of motion, no JVD, no masses or swelling Cardiovascular: regular rate rhythm, normal heart sounds, no murmur Respiratory: clear to auscultation, no distress, aerating well, symmetric expansion Abdomen/GI: active bowel sounds, soft, non-tender, no distention Extremities: moves all, no clubbing, no cyanosis, no peripheral edema Musculoskeletal: normal inspection, no muscle spasm Neuro/CARRIER PACKER: alert, normal speech, no motor deficits Skin: dry, intact, no rash Results Findings/Data: Laboratory Tests: 03/17 1044 Chemistry Sodium (137 - 145 MMOL/L) 133 L Potassium (3.5 - 5.1 MMOL/L) 4.5 Chloride (98 - 107 MMOL/L) 98 Carbon Dioxide (22 - 30 MMOL/L) 29 BUN (7 - 17 MG/DL) 16 Creatinine (0.52 - 1.04 MG/DL) 0.80 Glomerular Filtr Rate > 60 Glucose (74 - 106 MG/DL) 136 H Calcium (8.4 - 10.2 MG/DL) 9.4 Troponin I (0.012 - 0.033 NG/ML) 0.131 *H LDL Cholesterol (100 - 129 mg/dL) 166 H Hematology WBC (3.8 - 9.8 K/MM3) 8.4 RBC (3.58 - 4.97 M/MM3) 4.43 Hgb (11.2 - 14.9 G/DL) 12.1 Hct (33.2 - 43.5 %) 37.5 MCV (80.7 - 99.1 fL) 85 MCH (27.0 - 34.1 pg) 27.3 MCHC (32.2 - 35.7 %) 32.3 RDW (12.1 - 15.2 %) 13.2 Plt Count (129 - 368 K/MM3) 370 H Neut # (Auto) (2.0 - 7.6 K/mm3) 5.37 Lymph # (Auto) (1.0 - 3.8 K/mm3) 2.13 Kern # (Auto) (0.1 - 0.8 K/mm3) 0.62 Eos # (Auto) (0.0 - 0.2 K/mm3) 0.13 Baso # (Auto) (0.0 - 0.2 K/mm3) 0.12 Nucleated RBCs # (Man) (0.0 - 0.1 K/mm3) 0.00 Radiology data: Recent Impressions: CAT SCAN - CTA ABDOMEN 03/17 115 Report Impression - Status: SIGNED Entered: 03/17/2022 1238 IMPRESSION: 1. Scattered atherosclerotic plaque. No area of aortic aneurysm or dissection. 2. No other acute abnormalities identified. Impression By: Daniel Clifford MD CAT SCAN - CTA CHEST 03/17 1155 Report Impression - Status: SIGNED Entered: 03/17/2022 1238 IMPRESSION: 1. Scattered atherosclerotic plaque. No area of aortic aneurysm or dissection. 2. No other acute abnormalities identified. Impression By: Daniel Clifford MD Treatment Prophylaxis Treatment Prophylaxis Urinary cath status: none Oxygen: room air Diagnosis, Assessment Plan Orders: Procedure Date/time Status CBC W/AUTO DIFF 03/18 0500 Active BASIC METABOLIC PANEL 03/18 0500 Active Medication Reconciliaton 03/17 1544 Active Consultants: cardiology Free Text DxA P Notes Free Text DxA P Notes: Assessment NSTEMI Acute chest pain Hx of CAD s/p PCI with 2 stents in 2016 Type 1 DM HTN Plan Admitted to Dr. Reinoso Asset Card Clerk consulted Stress test completed. Will follow up on results and further testing such as cardiac cath as indicated Trend troponins Tele monitoring Lovenox 1 mg/kg Statin Labs in the AM DVT Prophylaxis Cardiac diet Plan of care discussed with Dr. Reinoso Time spent > 50 minutes Quality: Gen Med Crit Care VTE Prophylaxis VTE prophylaxis initiated: yes Current Medications Current medication review: I attest that the foregoing medication list in the medical record is true, accurate, and complete to the best of my knowledge. BMI Screening > 25 or < 18.5 Patient's BMI: Current BMI: 26.4 BMI status/follow-up: abnl BMI, pt to F/U w/PCP Tobacco Use/Counseling Tobacco use/counseling: non tobacco user, no counseling needed HTN Screening/Follow-up Last documented vitals: Last Documented: Result Date Time Pulse Ox 99 03/17 1046 B/P 174/89 03/17 953 B/P Mean 117 03/17 953 O2 Delivery Room air 03/17 953 Pulse 74 03/17 953 Resp 16 03/17 953 B/P assess/follow-up: hypertensive;f/u PCP 1wk, pre-existing hx of HTN Simón Reinoso 03/17/222051: Attestations Physician Attestation Agree w/findings plan: Agree with the findings and plan as documented by RADHA Qureshi Patient is a 71 year old female with a pmhx of CAD s/p stent x 2 in 2016, HTN, Type 1 DM admitted for chest pain with elevated cardiac markers worrisome for NSTEMI Asa, statins, B marcello Will benefit from cardiac cath at 1612 at 2054 RPT #:[id number] END OF [id number] 11:07:00 [facility] ([facility]) EMERGENCY PROVIDER REPORT REPORT#:[id number] REPORT STATUS: Signed DATE:03/17/22 TIME: 1107 PATIENT: ALISHA MATTHEWS UNIT #: [id number] ROOM/BED: AGE: 71 SEX: F PCP PHYS: No Primary or Family Physician SERVICE AUTHOR: Rita Hernández DO LOCATION: [facility] * ALL edits or amendments must be made on the electronic/computer document * HPI-Chest Pain 40 and Over Free Text HPI Notes Free Text HPI Notes The patient is a 71 year old female with PMH CAD s/p stent in 2016, Hypertension , Type 1 Diabetes who presents to the ED as a transfer from [facility] for admission for an NSTEMI. Patient reports she started having chest pain this morning at 4:30 AM while she was sleeping. The pain woke her up from sleep. The pain is midsternal in location and was a 9/10 in severity. She reports the pain radiate to her back bilateral jaw and shoulders and described it as sharp and a choking sensation. She went to [facility] and was seen in the ED there and had a cardiac workup performed that revealed an elevated high sensitivity troponin of 201. She was given aspirin and then transferred here for admission. She reports she took nitroglycerin prior to coming to the ED. Her pain is currently a 1/10 in severity. She denies shortness of breath, dizziness, nausea, vomiting General Initial Greet Date/Time 03/17/22 0954 Presentation Chief Complaint Chest pain Hx Obtained From Patient Sudden in Onset? Yes Onset Occurred Today Symptom Duration Since onset Progression since Onset Resolved Location Substernal Quality Sharp Radiation Neck, Shoulder R, Shoulder L. )( Migration/Movement Chest to back Exacerbated by Nothing Relieved by Nothing Risk-Chest Pain 40 and Over Risk Stratification )( Coronary Artery Disease Risk factors reviewed, Diabetes mellitus, Hypertension, Known CAD )( Thoracic Aortic Dissection Risk factors reviewed, Hypertension )( Pulmonary Embolism Risk factors reviewed, No risk factors )( AMI-Aspirin Aspirin Last 24 Hrs 324 mg, At [facility] )( HEART for MACE )( HEART for MACE Response Value History Mod index of suspicion 1 ECG Interpretation Normal ECG 0 Age Age 65 or over 2 Risk Factors for CAD 3+ CAD risk factors 2 Troponin 1 to 3x NL troponin 1 Total 6 HEART Score for MACE 4-7 (mod risk 12%-16.6%) HEART Score Reference Resource material only. Click 'Cancel' button and information will not be inserted into or become part of the medical record Risk factors considered for determining a patient's HEART Score include: hypercholesterolemia (hyperlipidemia), hypertension, diabetes mellitus, cigarette smoking, positive family history and obesity. Major Adverse Cardiac Events (MACE) include: acute myocardial infarction, ischaemic stroke, coronary arterial occlusion and . References: Fabian BERGERON, Tammy DUMONT, et al. Chest pain in the emergency room: value of the HEART score. Neth Heart J. 2008 Albert:16(6):191-6. PubMed PMID: 28173066; PubMed Central PMCID: [id number]. Tammy DUMONT, Fabian BERGERON, et al. A prospective validation of the HEART score for chest pain patients at the emergency department. Int J Cardiol. 2013 Jan 3:168(3):2153 -8. Doi: 10.1016/j.ijcard.2013..255. Ep2012Jun 10. PubMed PMID: 82410103. Review of Systems ROS Statements All systems rev neg except as marked. Complete sys rev neg except as marked. Focused Review of Systems Respiratory Denies: Cough, non-productive, Shortness of breath. Cardiovascular Reports: Chest pain. Denies: Syncope. GI Denies: Abdominal pain, Diarrhea, Nausea, Vomiting. Musculoskeletal Reports: Neck pain. Past Medical History - Adult Stated Complaint NSTEMI Allergies Coded Allergies: No Known Allergies (03/17/22) Review of Nursing Notes Triage notes reviewed Alcohol Use Denies EtOH use Drug Use Denies recreational drugs Smoking status for patients 13 years old or older: Never Smoker Physical Exam Vital Signs Vital Signs First Documented: Result Date Time Pulse Ox 99 03/17 0953 B/P 174/89 03/17 0953 B/P Mean 117 03/17 0953 O2 Delivery Room air 03/17 0953 Pulse 74 03/17 0953 Resp 16 03/17 0953 Last Documented: Result Date Time Pulse Ox 99 03/17 1046 B/P 174/89 03/17 0953 B/P Mean 117 03/17 0953 O2 Delivery Room air 03/17 0953 Pulse 74 03/17 0953 Resp 16 03/17 0953 Review of Vital Signs Reviewed Free Text PE Notes Free Text PE Notes Constitutional: The patient is well appearing. Non toxic appearing. No acute distress. Head: Atraumatic. Normocephalic. Neck: Supple. Full range of motion is intact. Eyes: Pupils are equal, round and reactive to Light. Extraocular movement is intact. No scleral icterus. Oropharynx: Airway is patent. Moist mucus membranes. Cardiac: Regular rate. Normal rhythm. Normal S1 and S2. There are strong radial pulses bilaterally. Respiratory: Lungs are clear to auscultation bilaterally. There is no wheezing, rhonchi or crackles. No respiratory distress is present. Abdomen: Soft. Non tender. Non distended. No palpable masses. No hernias. Negative Velasco's sign. Negative Mcburney's point. Musculoskeletal: Moves all four extremities without difficulty. Normal inspection of all four extremities. Skin: Warm. Dry. Capillary refill is less than 2 seconds. There is no jaundice, cyanosis or pallor. Neurological: Patient is alert. Oriented x 3. Speech is normal. There are no focal neurologic deficits. Psychiatric: Mood is appropriate. Affect is normal. Thought content is normal and appropriate. Interpretation Diagnostics Lab Results Interpretation Considerations Independ review imaging, Reviewed prior records Results Laboratory Tests 03/17/22 1044: [Embedded Image Not Available] Laboratory Tests: 03/17 1044 Chemistry Sodium (137 - 145 MMOL/L) 133 L Potassium (3.5 - 5.1 MMOL/L) 4.5 Chloride (98 - 107 MMOL/L) 98 Carbon Dioxide (22 - 30 MMOL/L) 29 BUN (7 - 17 MG/DL) 16 Creatinine (0.52 - 1.04 MG/DL) 0.80 Glomerular Filtr Rate > 60 Glucose (74 - 106 MG/DL) 136 H Calcium (8.4 - 10.2 MG/DL) 9.4 Troponin I (0.012 - 0.033 NG/ML) 0.131 *H LDL Cholesterol (100 - 129 mg/dL) 166 H Hematology WBC (3.8 - 9.8 K/MM3) 8.4 RBC (3.58 - 4.97 M/MM3) 4.43 Hgb (11.2 - 14.9 G/DL) 12.1 Hct (33.2 - 43.5 %) 37.5 MCV (80.7 - 99.1 fL) 85 MCH (27.0 - 34.1 pg) 27.3 MCHC (32.2 - 35.7 %) 32.3 RDW (12.1 - 15.2 %) 13.2 Plt Count (129 - 368 K/MM3) 370 H Neut # (Auto) (2.0 - 7.6 K/mm3) 5.37 Lymph # (Auto) (1.0 - 3.8 K/mm3) 2.13 Kern # (Auto) (0.1 - 0.8 K/mm3) 0.62 Eos # (Auto) (0.0 - 0.2 K/mm3) 0.13 Baso # (Auto) (0.0 - 0.2 K/mm3) 0.12 Nucleated RBCs # (Man) (0.0 - 0.1 K/mm3) 0.00 Recent Impressions: CAT SCAN - CTA ABDOMEN 03/17 1155 Report Impression - Status: SIGNED Entered: 03/17/2022 1238 IMPRESSION: 1. Scattered atherosclerotic plaque. No area of aortic aneurysm or dissection. 2. No other acute abnormalities identified. Impression By: [email or web address] Nessa Clifford MD CAT SCAN - CTA CHEST 03/17 1155 Report Impression - Status: SIGNED Entered: 03/17/2022 1238 IMPRESSION: 1. Scattered atherosclerotic plaque. No area of aortic aneurysm or dissection. 2. No other acute abnormalities identified. Impression By: [email or web address] Nessa Clifford MD Lab Imaging Statement Laboratory radiographic studies reviewed and considered in the medical decision-making. Point of Care Testing Pulse Oximetry Pulse Ox % 98 On: Room air Interpretation Interpreted by me, Pulse oximetry normal Time 1133 ECG #1 Interpretation Text/Dict Note Rate: 64 bpm Rhythm: Normal sinus rhythm [place]: Normal axis QTc: [address] segment elevations or depressions ECG Documented in MUSE Yes Date 03/17/22 Time 1134 Interpreted by and reviewed by me Re-Evaluation MDM Free Text MDM Notes Free Text MDM Notes The patient is a 71-year-old female with a PMH of CAD, hypertension, type 1 diabetes presenting to the emergency department with a chief complaint of substernal chest pain with radiation to her back, neck and bilateral shoulders. She is afebrile and hypertensive. Her other vitals are within normal limits. Patient was sent here for admission for NSTEMI from [facility] after she was found to have an elevated high sensitivity troponin to 201. Differential diagnosis considered at this time includes but is not limited to: Unstable angina, Stable angina, NSTEMI, Acute coronary syndrome, aortic dissection, Esophageal spasm, Gastritis. I reviewed the patient's paperwork from [facility]. We will obtain repeat labs and a CTA chest/abdomen to evaluate for aortic dissection. Re-Evaluation/Progress #1 Text/Dict Note CTA chest was negative for aortic dissection. I independently reviewed and interpreted the patient's laboratory results. CBC shows no leukocytosis or anemia. Chemistry shows a mild hyponatremia of Na 133 and otherwise normal electrolytes and normal renal function. Troponin is elevated to 0.131. Patient was subsequently given Lovenox. She will need inpatient admission for further evaluation of NSTEMI. Discussed with Dr. Arleth Qureshi's physician veterinary technician assistant and patient will be admitted under Dr. Reinoso. Time of Re-Eval 1311 Re-Eval Status Unchanged ED Course Medication(s) Ordered Medication(s) Ordered: Diagnostic Agents Sig/Ousmane Start time Last Medication Dose Route Stop Time Status Admin Iopamidol 0 .STK-MED ONE 03/17 1136 DC 03/17 IV 1219 Consultation Consultation Referral/Consult Name Jake Edwards MD [employer] Supervisor Called Cardiology Requested Call Time 1318 Requested Call Date 03/17/22 Call Returned Call returned Call Returned Time 1318 Call Returned Date 03/17/22 Plastics Fabrication Supervisor Will see patient Patient Discharge Departure Vital Signs/Condition Vital Signs First Documented: Result Date Time Pulse Ox 99 03/17 0953 B/P 174/89 03/17 0953 B/P Mean 117 03/17 0953 O2 Delivery Room air 03/17 0953 Pulse 74 03/17 0953 Resp 16 03/17 0953 Last Documented: Result Date Time Pulse Ox 99 03/17 1046 B/P 174/89 03/17 0953 B/P Mean 117 03/17 0953 O2 Delivery Room air 03/17 0953 Pulse 74 03/17 0953 Resp 16 03/17 0953 All vital signs available at the time of this entry have been reviewed. Condition Stable Clinical Impression Clinical Impression Primary Impression: NSTEMI (non-ST elevated myocardial infarction) Secondary Impressions: Chest pain, Elevated troponin Disposition Decision Admit Admit Physician Name Simón Reinoso MD Admit Physician Hospitalist Request Time 1316 Request Date 03/17/22 )( Admission Accepts Yes )( Accepted Time 1316 )( Accepted Date 03/17/22 Call Information will see patient, agrees with eval, agrees with plan Discharge/Care Plan Counseled Regarding Diagnosis, Lab results, Imaging studies, Need for admission Admit Note I have spoken with the patient and/or caregivers. I have explained the patient's condition, diagnoses and treatment plan based on the information available to me at this time. I have answered the patient's and/or caregiver's questions and addressed any concerns. The patient and/or caregivers have as good an understanding of the patient's diagnosis, condition and treatment plan as can be expected at this point. The patient has been stabilized within the capability of the emergency department. The patient will be transported for further care and management or will be moved to an observation or inpatient service. I have communicated with the staff or medical practitioner taking over this patient's care. Critical Care Time Spent (minutes): 35 Services Performed Patient management by me, Time spent at bedside, Reviewing test results, Reviewing imaging, Discussing patient care, Documentation in record, Time with fam/surrogate Separately billable procedures excluded from time. Patient was critically ill due to: NSTEMI, ELEVATED TROPONIN, CHEST PAIN My treatment and management were: Lovenox Admission to the hospital Consultation with audio visual secretary CC Note 1 Total critical care time [35] minutes. Total critical care time documented does not include time spent on separately billed procedures or the services of residents, students, nurses or physician assistants. I personally saw and examined the patient. I have reviewed all diagnostic interpretations and treatment plans as written. I was present for the costello portions of any procedures performed and the inclusive time noted in any critical care statement. Critical care time includes patient management by me, time spent at the patients bedside, time to review lab and imaging results, discussing patient care, documentation in the medical record, and time spent with the family or caregiver. CC Note 2 The high probability of sudden, clinically significant deterioration in the patient's condition required the highest level of my preparedness to intervene urgently. The services I provided to this patient were to treat and/or prevent clinically significant deterioration that could result in severe disability or . Services included the following: chart data review, reviewing nursing notes and/ or old charts, documentation time, party plan sales consultant collaboration regarding findings and treatment options, medication orders and management, direct patient care, re -evaluations, vital sign assessments and ordering, interpreting and reviewing diagnostic studies/lab tests. Aggregate critical care time was [35] minutes, which includes only time during which I was engaged in work directly related to the patient's care, as described above, whether at the bedside or elsewhere in the Emergency Department. It did not include time spent performing other reported procedures or the services of residents, students, nurses or physician assistants. at 1318 [facility] #:[id number] END OF REPORTHCAWU
[2025-01-04 17:08] LABS: Absolute Lymphocytes (CBC) 2.4 K/uL (0.7-4.9); Hematocrit 37.6 % (36.0-45.0); Hemoglobin 12.4 g/dL (12.0-15.0); MCH 28.1 pg (27.0-35.0); MCHC 33.1 g/dL (32.0-36.0); MCV 85.1 fL (80-100); MPV 8.4 fL (7.6-11.3); Nucleated RBC Absolute Count 0.0 (0-0); Nucleated Red Blood Cells % 0.0 % (0-0); RBC Red Blood Cell Count 4.43 M/uL (3.86-4.86); White Blood Count 10.40 thou/uL (4.3-10.9)
[2025-01-04 17:27] LABS: Anion Gap 9.0 mEq/L (5.0-15.0); BUN Blood Urea Nitrogen 21.0 mg/dL (7-18); Glucose Level 212.0 mg/dL (74-106); Potassium 4.0 mEq/L (3.5-5.1)
[2025-01-04 17:33] LABS: Troponin High Sensitivity 3519.3 pg/mL (<58.9)
--- NOTE | 2025-01-04 17:39 | RAD REPORT ---
EXAMINATION: ONE VIEW CHEST XR CLINICAL INDICATION: Female, 74 years old.,CHEST PAIN TECHNIQUE: Frontal chest projection is submitted. Examination is limited by patient positioning and t echnique. COMPARISON: 12/06/2023. FINDINGS: The lungs are well inflated and clear. No pneumothorax or sizable effusion. The heart is normal in s ize. Mediastinal contours are unremarkable. IMPRESSION: No acute intrathoracic abnormalities.
[2025-01-04] MEDS ORDERED: ONDANSETRON 4 MG/2 ML VIAL ONE (17:48)
[2025-01-04] MEDS ORDERED: ASPIRIN 81 MG CHEWABLE TABLET ONE (17:49)
[2025-01-04] MEDS ORDERED: MORPHINE 4 MG/ML SYR ONE (17:49)
[2025-01-04] MEDS ORDERED: HEPARIN/D5W 25,000 UNIT/500 ML BAG IV ONE (19:20)
[2025-01-04] MEDS ORDERED: HEPARIN 5000 UNIT/ML 1 ML VIAL ONE (19:20)
[2025-01-04 19:26] LABS: PT Prothrombin Time 11.5 SECONDS (10-13.0); PTT, Activated Partial Thromb 27.4 SECONDS (27.2-37.4); Protime INR 1.02
--- NOTE | 2025-01-04 19:26 | EDPHYS ---
Physician Documentation [facility] Name: Kylee Alvarado Age: 74 yrs Sex: Female : 1950 Arrival Date: 01/04/2025 Time: 16:01 Bed 6 Private MD: ED Physician Doni Mederos HPI: 01/04 18:54 This 74 yrs old Female presents to ER via Ambulatory with complaints of Back dr5 Pain, Chest Tightness. 18:54 Onset: The symptoms/episode began/occurred yesterday, at 16:00. Onset: The dr5 symptoms/episode began/occurred yesterday. Patient is a 74-year-old female with history of CVA, hypertension, diabetes, NE with 4 stents coming in for chest pain that started yesterday afternoon at 1600. Patient reports the reason for her chest pain with her [id number] stressed her out at home. Patient states that she has had substernal chest discomfort for the past year that worsened yesterday. Patient states that she was admitted and was diagnosed with anxiety. Patient denies radiation of pain. Patient reports taking 81 mg baby aspirin daily as well as 75 mg of Plavix.. Historical: - Allergies: 16:37 pheradex; dd2 - PMHx: 16:37 Cerebrovascular accident; Hypertension; Diabetes - IDDM; Myocardial infarction; dd2 - PSHx: 16:37 cardiac stent (di); Appendectomy; Cholecystectomy; Tonsillectomy; dd2 - Immunization history:: Adult Immunizations unknown. - Infectious Disease History:: Denies. - Social history:: Smoking status: Patient denies any tobacco usage or history of. ROS: 18:54 Constitutional: as per hpi dr5 Exam: 18:54 Constitutional: This is a well developed, well nourished patient who is awake, alert, dr5 and in no acute distress. Head/Face: Normocephalic, atraumatic. Eyes: Pupils equal round and reactive to light, extra-ocular motions intact. Lids and lashes normal. Conjunctiva and sclera are non-icteric and not injected. Cornea within normal limits. Periorbital areas with no swelling, redness, or edema. ENT: Nares patent. No nasal discharge, no septal abnormalities noted. Tympanic membranes are normal and external auditory canals are clear. Oropharynx with no redness, swelling, or masses, exudates, or evidence of obstruction, uvula midline. Mucous membranes moist. Neck: Trachea midline, no thyromegaly or masses palpated, and no cervical lymphadenopathy. Supple, full range of motion without nuchal rigidity, or vertebral point tenderness. No Meningismus. Chest/axilla: Normal chest wall appearance and motion. Nontender with no deformity. No lesions are appreciated. Cardiovascular: Regular rate and rhythm with a normal S1 and S2. Normal PMI, no JVD. No pulse deficits. Respiratory: Lungs have equal breath sounds bilaterally, clear to auscultation. No rales, rhonchi or wheezes noted. No increased work of breathing, no retractions or nasal flaring. Back: No spinal tenderness. No costovertebral tenderness. Full range of motion. Skin: Warm, dry with normal turgor. Normal color with no rashes, no lesions, and no evidence of cellulitis. MS/ Extremity: Pulses equal, no cyanosis. Neurovascular intact. Full, normal range of motion. Neuro: Awake and alert, GCS 15, oriented to person, place, time, and situation. Cranial nerves II-XII grossly intact. Motor strength 5/5 in all extremities. Sensory grossly intact. Cerebellar exam normal. Normal gait. Vital Signs: 16:32 BP 122 / 71; Pulse 84; Resp 17; Temp 98.2; Pulse Ox 100% on R/A; Weight 70.76 kg; Pain dd2 4/10; 18:45 BP 119 / 74; Pulse 76; Resp 18; Pulse Ox 96% ; db 19:11 BP 122 / 86; Pulse 75; Resp 16; Pulse Ox 98% on R/A; jb4 19:13 Weight 70.5 kg (M); jb4 20:00 BP 123 / 81; Pulse 73; Resp 16; Pulse Ox 94% on R/A; jb4 21:00 BP 119 / 77; Pulse 85; Resp 16; Pulse Ox 98% on R/A; jb4 16:32 Pain Scale: Adult dd2 MDM: 16:12 Medical Screening Exam initiated dr5 18:54 Differential diagnosis: STEMI, NSTEMI, PNA, Costochondritis, Anxiety. Data reviewed: dr5 vital signs, nurses notes, lab test result(s), cardiac enzymes, troponin i, CBC, white blood cell count, hemoglobin, hematocrit, platelets, electrolytes, sodium, potassium, chloride, serum bicarbonate, BUN, creatinine, serum glucose. Consideration of Admission/Observation Patient was admitted/placed on observation. Management of patient was discussed with the following: Hospitalist: Dr. Diaz. Hospitalist Nocturnist Physician: Dr. Alvares - Texted him case and EKG as well as called and spoke with him. Recommended heparin drip and will see in hospital.. I considered the following discharge prescriptions or medication management in the emergency department I discussed and recommended Over The Counter medications, Medications were administered in the Emergency Department. See MAR. Independent interpretation of the following test(s) in the Emergency Department X-Ray: My interpretation is Independent rotation of x-ray does not reveal pneumonia. Historians other than the Patient: Spouse/Significant Other: Spouse. Care significantly affected by the following chronic conditions: Diabetes, Hypertension, NE, CVA. Care significantly affected by the following Social Determinants of Health: Poor access to healthcare and/or lack of insurance, Poor access to transportation, Problems related to employment. Scoring Tools HEART Score: History: ECG: Age: Risk Factors: Troponin: Total Score = 7. Counseling: I had a detailed discussion with the patient and/or guardian regarding the historical points, exam findings, and any diagnostic results supporting the discharge/admit diagnosis, the presence of at least one elevated blood pressure reading (>120/80) during this emergency department visit, lab results, radiology results, the need for further work-up and treatment in the hospital. Medication response: ASA, Morphine, Heparin. Response to treatment: the patient's symptoms have mildly improved after treatment. Special discussion: Based on the patient's history, exam, and Dx evaluation, there is no indication for emergent intervention or inpatient Tx. It is understood by the patient/guardian that if the Sx's persist or worsen they need to return immediately for re-evaluation. ED course: Will admit patient for chest pain and elevated troponin. Patient stable.. 01/04 16:41 Order name: Basic Metabolic Panel; Complete Time: : dr5 01/04 16:41 Order name: CBC with Diff; Complete Time: 17:18 dr5 01/04 16:41 Order name: Troponin HS; Complete Time: 17:01/04 18:52 Order name: PT-INR; Complete Time: 19:01/04 18:52 Order name: Ptt, Activated; Complete Time: 19: dr5 01/04 20:06 Order name: Basic Metabolic Panel EDMS 01/04 20:06 Order name: Basic Metabolic Panel EDMS 01/04 20:06 Order name: Basic Metabolic Panel EDMS 01/04 20:06 Order name: Basic Metabolic Panel EDMS 01/04 20:06 Order name: CBC with Automated Diff EDMS 01/04 20:06 Order name: CBC with Automated Diff EDMS 01/04 20:06 Order name: CBC with Automated Diff EDMS 01/04 20:06 Order name: CBC with Automated Diff EDMS 01/04 20:06 Order name: Troponin High Sensitivity EDMS 01/04 20:06 Order name: Troponin High Sensitivity EDMS 01/04 20:06 Order name: Troponin High Sensitivity EDMS 01/04 20:06 Order name: Troponin High Sensitivity EDMS 01/04 20:06 Order name: Troponin High Sensitivity EDMS 01/04 20:11 Order name: Hemoglobin A1c EDMS 01/04 20:12 Order name: Magnesium EDMS 01/04 16:41 Order name: XRAY Chest (1 view); Complete Time: 17:54 dr5 01/04 20:06 Order name: Echo with Doppler EDMS 01/04 16:41 Order name: EKG; Complete Time: 16:41 dr5 01/04 20:06 Order name: EKG Electrocardiogram EDMS 01/04 20:06 Order name: EKG Electrocardiogram EDMS 01/04 20:06 Order name: EKG Electrocardiogram EDMS 01/04 20:06 Order name: EKG Electrocardiogram EDMS 01/04 16:41 Order name: Cardiac monitoring; Complete Time: 17: dr5 01/04 16:41 Order name: EKG - Nurse/Tech; Complete Time: 17: dr5 01/04 16:41 Order name: IV Saline Lock; Complete Time: 17: dr5 01/04 16:41 Order name: Labs collected and sent; Complete Time: 17: dr5 01/04 16:41 Order name: O2 Per Protocol; Complete Time: 17: dr5 01/04 16:41 Order name: O2 Sat Monitoring; Complete Time: 17: dr5 EC:46 Rate is 80 beats/min. Rhythm is regular. QRS [place] is Normal. OK interval is normal at dr5 154 msec. QRS interval is normal at 74 msec. QT interval is normal at 402 msec. Clinical impression: Normal ECG, No change from prior ECG, and No evidence of ischemia. Administered Medications: 17:55 Drug: Aspirin PO Chewable Tablet 324 mg PO once; 81 mg tablets x 4 Route: PO; bp 17:55 Drug: morphine IVP or IV 4 mg IVP once over 4 mins Route: IVP; Infused Over: 4 mins; bp Site: right antecubital; 17:55 Drug: Ondansetron IVP 4 mg IVP once; over 2 minutes Route: IVP; Site: right antecubital;bp 19:45 Drug: Heparin (NE-Bolus No thrombolytic) - HEParin IVP 60 units/kg IVP once; Max 5000 jb4 units {Co-Signature: dd2 (DEAN PAINTER RN).} Route: IVP; Site: right antecubital; 19:45 Drug: Heparin (NE Drip) 12 units/kg/[place] - ([place] [address] units, D5W IV 500 ml) IV at jb4 calculated rate Per protocol; Max initial rate 1000 units/hr {Co-Signature: dd2 (DEAN PAINTER RN).} Route: IV; Rate: calculated rate; Site: right antecubital; Disposition: 18:54 I was immediately available on-site in the Emergency Department for consultation in the ms3 care of the patient. Disposition Summary: 01/04/25 19:25 Hospitalization Ordered Notes: Hospitalization Status: Inpatient Admission dr5 Provider: Naun Diaz Location: Telemetry/MedSurg (Inpatient) dr5 Condition: Stable dr5 Problem: new dr5 Symptoms: have worsened dr5 Bed/Room Type: Standard dr5 Room Assignment: 408(01/04/25 20:15) Diagnosis - Chest pain, unspecified dr5 Forms: - Medication Reconciliation Form dr5 - SBAR form dr5 - Leadership Thank You Letter dr5 Signatures: Dispatcher [employer] EDZoya Gaitan RN RN kl Bryson, James, RN RN jb4 Irving Walton RN RN bp Sims, Marcus, DO DO ms3 Bernie Benoit RN RN db DAVIS, DIANA, RN RN dd2 Rod Orr FNP-Carmel DAIRY TECHNICIAN-Cdr5 DEAN PAINTER RN dd2 Corrections: (The following items were deleted from the chart) 18:57 18:53 An electrocardiogram was deferred on this patient dr5 dr5 20:15 19:25 dr5
--- NOTE | 2025-01-04 19:26 | ER ---
Nurse's Notes [facility] [place], [place] Name: Kylee Alvarado Age: 74 yrs Sex: Female : 1950 Arrival Date: 01/04/2025 Time: 16:01 Bed 6 Private MD: Diagnosis: Chest pain, unspecified Presentation: 01/04 16:32 Chief complaint: Patient states: NECK PRESSURE, FEELS LIKE SQUEEZING AND GOES INTO THE dd2 UPPER CHEST AND UPPER BACK PAIN THAT BEGAN AT 4PM YESTERDAY. PT REPORTS SHE HAS BEEN UNDER A LOT OF STRESS AND HAS A HX OF PANIC ATTACKS. Coronavirus screen: At this time, the client does not indicate any symptoms associated with coronavirus-19. Ebola Screen: No symptoms or risks identified at this time. Initial Sepsis Screen: Does the patient meet any 2 criteria? No. Patient's initial sepsis screen is negative. Does the patient have a suspected source of infection? No. Patient's initial sepsis screen is negative. Risk Assessment: Do you want to hurt yourself or someone else? Patient reports no desire to harm self or others. Onset of symptoms was January 03, 2025 at 16:00. 16:32 Method Of Arrival: Ambulatory dd2 16:32 Acuity: GERMAN 3 dd2 Triage Assessment: 16:38 General: Appears in no apparent distress. uncomfortable, Behavior is calm, cooperative, dd2 appropriate for age. Pain: Complains of pain in thoracic area, mid-sternal area and neck. EENT: No deficits noted. No signs and/or symptoms were reported regarding the EENT system. Historical: - Allergies: 16:37 pheradex; dd2 - PMHx: 16:37 Cerebrovascular accident; Hypertension; Diabetes - IDDM; Myocardial infarction; dd2 - PSHx: 16:37 cardiac stent (di); Appendectomy; Cholecystectomy; Tonsillectomy; dd2 - Immunization history:: Adult Immunizations unknown. - Infectious Disease History:: Denies. - Social history:: Smoking status: Patient denies any tobacco usage or history of. Screenin:33 [facility] ED Fall Risk Assessment (Adult) History of falling in the last 3 months, jb4 including since admission No falls in past 3 months (0 pts) Confusion or Disorientation No (0 pts) Intoxicated or Sedated No (0 pts) Impaired Gait No (0 pts) Mobility Assist Device Used No (0 pt) Altered Elimination No (0 pt) Score/Fall Risk Level 0 - 2 = Low Risk Oriented to surroundings, Maintained a safe environment. Abuse screen: Denies threats or abuse. Nutritional screening: No deficits noted. Tuberculosis screening: No symptoms or risk factors identified. Assessment: 19:11 Reassessment: Patient appears in no apparent distress at this time. Patient and/or jb4 family updated on plan of care and expected duration. Pain level reassessed. Patient is alert, oriented x 3, equal unlabored respirations, skin warm/dry/pink. 20:00 Reassessment: Patient appears in no apparent distress at this time. Patient and/or jb4 family updated on plan of care and expected duration. Pain level reassessed. Patient is alert, oriented x 3, equal unlabored respirations, skin warm/dry/pink. 21:00 Reassessment: Patient appears in no apparent distress at this time. Patient and/or jb4 family updated on plan of care and expected duration. Pain level reassessed. Patient is alert, oriented x 3, equal unlabored respirations, skin warm/dry/pink. Vital Signs: 16:32 BP 122 / 71; Pulse 84; Resp 17; Temp 98.2; Pulse Ox 100% on R/A; Weight 70.76 kg; Pain dd2 4/10; 18:45 BP 119 / 74; Pulse 76; Resp 18; Pulse Ox 96% ; db 19:11 BP 122 / 86; Pulse 75; Resp 16; Pulse Ox 98% on R/A; jb4 19:13 Weight 70.5 kg (M); jb4 20:00 BP 123 / 81; Pulse 73; Resp 16; Pulse Ox 94% on R/A; jb4 21:00 BP 119 / 77; Pulse 85; Resp 16; Pulse Ox 98% on R/A; jb4 16:32 Pain Scale: Adult dd2 ED Course: 16:11 Patient arrived in ED. im 16:11 Rod Orr FNP-C is PHCP. dr5 16:11 Doni Mederos DO is Attending Physician. dr5 16:37 Triage completed. dd2 16:39 Arm band placed on right wrist. dd2 16:58 Irving Walton, RN is Primary Nurse. bp 17:01 EKG done, by windows server support technician. reviewed by Rod DIEGO. ts3 17:01 Initial lab(s) drawn, by r and d lab technician, sent to lab. Inserted saline lock: 20 gauge in right ts3 antecubital area, using aseptic technique. Blood collected. Flushed with 10 mL NS. 17:08 XRAY Chest (1 view) In Process Unspecified. EDMS 19:25 Naun Diaz, RN is Hospitalizing Provider. dr5 21:33 Patient has correct armband on for positive identification. Side rails up X 1. Provided jb4 Education on: need for admit. 21:33 No provider procedures requiring assistance completed. Patient admitted, IV remains in jb4 place. Administered Medications: 17:55 Drug: Aspirin PO Chewable Tablet 324 mg PO once; 81 mg tablets x 4 Route: PO; bp 17:55 Drug: morphine IVP or IV 4 mg IVP once over 4 mins Route: IVP; Infused Over: 4 mins; bp Site: right antecubital; 17:55 Drug: Ondansetron IVP 4 mg IVP once; over 2 minutes Route: IVP; Site: right antecubital;bp 19:45 Drug: Heparin ([place]-Bolus No thrombolytic) - HEParin IVP 60 units/kg IVP once; Max 5000 jb4 units {Co-Signature: dd2 (DEAN PAINTER RN).} Route: IVP; Site: right antecubital; 19:45 Drug: Heparin ([place] Drip) 12 units/kg/[place] - ([place] [address] units, D5W IV 500 ml) IV at jb4 calculated rate Per protocol; Max initial rate 1000 units/hr {Co-Signature: dd2 (DEAN PAINTER RN).} Route: IV; Rate: calculated rate; Site: right antecubital; Outcome: 19:25 Decision to Hospitalize by Provider. dr5 21:33 Admitted to Tele accompanied by nurse, via wheelchair, room 408, with chart, jb4 21:33 Condition: stable 21:33 Discharge instructions given to patient, family, Instructed on the need for admit, Demonstrated understanding of instructions, 21:36 Patient left the ED. jb4 Signatures: Dispatcher [employer] EDWI Denys Iglesias RN RN jb4 Irving Walton RN RN bp Bernie Benoit RN RN db Mendoza, Itzel im DAVIS, DIANA, RN RN dd2 Rod Orr, NUTRITION COUNSELOR-C NUTRITION COUNSELOR-Cdr5 Jessica Banks ts3 DEAN PAINTER RN dd2
[2025-01-04] MEDS ORDERED: MORPHINE 4 MG/ML SYR IV PRN (19:59)
[2025-01-04] MEDS ORDERED: NITROGLYCERIN 0.4 MG/TAB SL PRN (19:59)
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
[2025-01-04 21:46] VITALS: BMI 30.4
[2025-01-04] MEDS ORDERED: HEPARIN/D5W 25,000 UNIT/500 ML BAG IV SCH (22:00)
[2025-01-04] MEDS: INSULIN REGULAR (HUMAN) 100 UNIT/ML SQ SCH ×2 (22:48→23:02)
[2025-01-05 00:02] LABS: Magnesium 2.0 mg/dL (1.6-2.4)
[2025-01-05 00:20] LABS: Troponin High Sensitivity 2226.7 pg/mL (<58.9)
[2025-01-05] MEDS ORDERED: FENTANYL CITR 100 MCG/2 ML IV PRN (02:45)
[2025-01-05 07:03] LABS: Absolute Lymphocytes (CBC) 2.8 K/uL (0.7-4.9); Hematocrit 35.7 % (36.0-45.0); Hemoglobin 11.8 g/dL (12.0-15.0); MCH 28.1 pg (27.0-35.0); MCHC 32.9 g/dL (32.0-36.0); MCV 85.2 fL (80-100); MPV 8.9 fL (7.6-11.3); Nucleated RBC Absolute Count 0.0 (0-0); Nucleated Red Blood Cells % 0.0 % (0-0); RBC Red Blood Cell Count 4.19 M/uL (3.86-4.86); White Blood Count 7.80 thou/uL (4.3-10.9)
[2025-01-05 07:18] LABS: Anion Gap 8.9 mEq/L (5.0-15.0); BUN Blood Urea Nitrogen 19.0 mg/dL (7-18); Glucose Level 194.0 mg/dL (74-106); Potassium 3.9 mEq/L (3.5-5.1)
[2025-01-05 08:15] VITALS: TEMP 97.5
[2025-01-05] MEDS: EZETIMIBE 10 MG TAB PO SCH (08:20)
[2025-01-05] MEDS: PANTOPRAZOLE 40MG TABLET PO SCH (08:20)
[2025-01-05] MEDS: FOLIC ACID 1 MG TABLET PO SCH (08:20)
[2025-01-05] MEDS: ASPIRIN EC 81 MG TAB PO SCH (08:21)
[2025-01-05] MEDS ORDERED: HOME MED 1 EA UNK (Lansoprazole [Lansoprazole] 30 MG Capsule.Dr) PO SCH (09:00)
[2025-01-05] MEDS ORDERED: HEPARIN 10,000 UNIT/10 ML VIAL IV ONE (10:28)
[2025-01-05] MEDS ORDERED: LIDOCAINE 1% 20 ML MDV ONE (10:28)
[2025-01-05] MEDS ORDERED: HEPA 1000U/500MLS 2,000 UNIT/1,000 ML BAG IV ONE (10:28)
[2025-01-05] MEDS ORDERED: ATROPINE SULF 1 MG/10 ML SYR IV ONE (10:28)
[2025-01-05] MEDS ORDERED: HEPARIN 5000 UNIT/ML 1 ML VIAL ONE (10:29)
[2025-01-05] MEDS ORDERED: NALOXONE 0.4 MG/ML VIAL ONE (10:29)
[2025-01-05] MEDS ORDERED: FLUMAZENIL 0.1 MG/ML (5 mL VIAL) IV ONE (10:29)
[2025-01-05] MEDS ORDERED: FENTANYL CITR 100 MCG/2 ML ONE (10:34)
[2025-01-05] MEDS ORDERED: NA CHLORIDE 0.9% 500 ML ONE (10:35)
[2025-01-05] MEDS ORDERED: MIDAZOLAM HCL 2 MG/2 ML INJ ONE (10:35)
--- NOTE | 2025-01-05 10:54 | P.CNS ---
Date of Consult: 01/05/25 Chief Complaint: NSTEMI History of Present Illness: Patient with PMH of CAD s/p multiple stents placement in the past, presented with worsening Chest pain since yesterday, pressure, mid chest, radiating to her back, denies any other cardiac symptoms. Allergies ferumoxides [From Feridex IV] Adverse Reaction (Verified 09/11/23 13:35) Itching/Hives/Rash Home medications list reviewed: Yes Home Medications: Aspirin [Aspir-Low] 81 mg PO DAILY 09/28/17 Duloxetine HCl [Cymbalta] 30 mg PO DAILY 09/28/17 Famciclovir [Famvir] 250 mg PO DAILY 09/28/17 Ezetimibe [Zetia*] 10 mg PO DAILY 06/04/23 Insulin Degludec [Tresiba Flextouch U-100] 28 units SQ DAILY 06/04/23 Losartan Potassium [Cozaar*] 50 mg PO BID #240 tab 08/01/23 Lansoprazole 30 mg PO DAILY 12/06/23 Clopidogrel Bisulfate [Plavix*] 75 mg PO DAILY 12/08/23 Folic Acid 1 mg PO DAILY 30 Days #30 tab 12/08/23 Buspirone HCl 5 mg PO DAILY 01/04/25 - Past Medical/Surgical History Diabetic: Yes -: Diabetes mellitus type 1, insulin-dependent -: ID x 2 with PCI -: Hypertension -: GERD -: anxiety -: CVA 01/2016, 07/2023 -: Hyponatremia followed by Dr. Myles/Julio -: Hyperlipidemia -: Cardiac Stents -: Appendectomy -: Cholecystectomy Psychosocial/ Personal History: Lives at home with her - Family History Mother Medical History: Heart disease, Hypertension, Lung disease - Social History Alcohol use: No CD- Drugs: No Caffeine use: Yes Place of Residence: Home Review of Systems 10-point ROS is otherwise unremarkable Physical Examination Temp Pulse Resp BP Pulse Ox 97.5 F 72 15 100/52 L 96 01/05/25 08:00 01/05/25 08:00 01/05/25 08:00 01/05/25 08:00 01/05/25 08:00 General: Alert, In no apparent distress HEENT: Atraumatic, PERRLA, Mucous membr. moist/pink, EOMI, Sclerae nonicteric Neck: Supple, 2+ carotid pulse no bruit, No LAD, Without JVD or thyroid abnormality Respiratory: Clear to auscultation bilaterally, Normal air movement Cardiovascular: Regular rate/rhythm, Normal S1 S2 Gastrointestinal: Normal bowel sounds, No tenderness Musculoskeletal: No tenderness Integumentary: No rashes Neurological: Normal gait, Normal speech, Normal tone, Normal affect Lymphatics: No axilla or inguinal lymphadenopathy Laboratory Data (last 24 hrs) 01/04/25 01/04/25 01/04/25 19:10 16:57 16:57 WBC 10.40 Hgb 12.4 Hct 37.6 Plt Count 336 PT 11.5 INR 1.02 APTT 27.4 Sodium 138 Potassium 4.0 BUN 21 H Creatinine 1.13 H Glucose 212 H - Problems (1) NSTEMI (non-ST elevated myocardial infarction) Current Visit: Yes Status: Acute Plan: typical angina with elevated cardiac enzymes NPO for coronary angiogram ASA 81 mg daily Plavix 75 mg daily Lipitor 40 mg daily get echo continue Heparin drip (2) HTN (hypertension) Current Visit: Yes Status: Acute Plan: resume home medications and monitor (3) HLD (hyperlipidemia) Current Visit: Yes Status: Acute Plan: lipitor and zetia
[2025-01-05 13:49] VITALS: BP 115/56
[2025-01-05 13:53] VITALS: O2SAT 96
--- NOTE | 2025-01-05 14:22 | P.DS ---
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 Patient was evaluated in the ED hide initial troponin elevated to 3519.3. EKG did not show any STEMI. Cardiology Dr. Alvares was informed by the ED physician and patient hospitalized for further management of NSTEMI. Hospital Course: Diagnosis NSTEMI History of coronary artery disease status post stent Insulin-dependent diabetes type 1 Hyperlipidemia Patient admitted to the medical floor. Troponin trended down. She was evaluated by cardiology Dr. Alvares who performed cardiac catheterization. According to Dr. Alvares, no significant coronary artery disease noted that warranted cardiac intervention. Patient deemed stable for discharge on DAPT per Dr. Alvares. Vital Signs/Physical Exam: Temp Pulse Resp BP Pulse Ox 97.5 F 65 13 115/56 L 96 01/05/25 08:00 01/05/25 13:15 01/05/25 13:15 01/05/25 13:15 01/05/25 08:00 General: Alert, In no apparent distress, Oriented x3 HEENT: Mucous membr. moist/pink Neck: JVD not distended Respiratory: Clear to auscultation bilaterally, Normal air movement Cardiovascular: Regular rate/rhythm, Normal S1 S2, No murmurs Gastrointestinal: Normal bowel sounds, Soft and benign, Non-distended, No tenderness Musculoskeletal: No swelling, No tenderness Integumentary: No rashes, No cyanosis Neurological: Normal speech, Normal strength at 5/5 x4 extr, Cranial nerves 3-12 intact Laboratory Data at Discharge: WBC 7.80 thou/uL (4.3-10.9) 01/05/25 06:31 Hgb 11.8 g/dL (12.0-15.0) L 01/05/25 06:31 Hct 35.7 % (36.0-45.0) L 01/05/25 06:31 Plt Count 279 thou/uL (152-406) 01/05/25 06:31 PT 11.5 SECONDS (10-13.0) 01/04/25 19:10 INR 1.02 01/04/25 19:10 APTT 41.4 SECONDS (27.2-37.4) H 01/05/25 08:48 Sodium 139 mEq/L (136-145) 01/05/25 06:31 Potassium 3.9 mEq/L (3.5-5.1) 01/05/25 06:31 BUN 19 mg/dL (7-18) H 01/05/25 06:31 Creatinine 1.05 mg/dL (0.55-1.02) H 01/05/25 06:31 Glucose 194 mg/dL (74-106) H 01/05/25 06:31 Magnesium 2.0 mg/dL (1.6-2.4) 01/04/25 23:25 Home Medications: Aspirin [Aspir-Low] 81 mg PO DAILY 09/28/17 Duloxetine HCl [Cymbalta] 30 mg PO DAILY 09/28/17 Famciclovir [Famvir] 250 mg PO DAILY 09/28/17 Ezetimibe [Zetia*] 10 mg PO DAILY 06/04/23 Insulin Degludec [Tresiba Flextouch U-100] 28 units SQ DAILY 06/04/23 Losartan Potassium [Cozaar*] 50 mg PO BID #240 tab 08/01/23 Lansoprazole 30 mg PO DAILY 12/06/23 Clopidogrel Bisulfate [Plavix*] 75 mg PO DAILY 12/08/23 Folic Acid 1 mg PO DAILY 30 Days #30 tab 12/08/23 Buspirone HCl 5 mg PO DAILY 01/04/25 Diet: ADA Activity: Ad denis Followup: Kiran Barajas MD [ACTIVE - CAN ADMIT] - 1-2 Weeks Krishna Leonard NP [Primary Care Provider] - 1-2 Weeks Time spent managing pt's care (in minutes): 32
--- NOTE | 2025-01-05 20:22 | OP ---
Date of Procedure: 01/05/2025 Surgeon: Anand Alvares Procedure Performed: Selective coronary angiogram. Indication For Procedure: [id number] MA with history of CAD, multiple stent placement. Complications: None. Estimated Blood Loss: Less than 50 cc. Access: Right radial, closed by TR band. Sedation Time: 20 minutes with 1 of Versed and 25 of fentanyl. Description Of Procedure: After risks, benefits, and alternatives were explained to the patient, the patient agreed to proceed with procedure and signed informed consent. The patient was brought back to the cathode ray tube assembler, prepped and draped in sterile fashion. Time-out was performed. Sedation was admini stered. Next, right radial access was obtained using ultrasound-guided micropuncture technique. Tig er 4 catheter was advanced over a J-wire to the aortic root. Selective angiogram was done using the same catheter. Also, LVEDP was obtained. Pullback did not show any gradient. Catheter was removed over a J-wire. Sheath was removed. TR band was applied. Hemostasis was achieved and the patient wa s moved back to recovery in stable condition. Findings: 1. Left main, normal. 2. LAD, proximal 40% to 50% disease, then mid stent patent with diffuse 10% ISR, then mid to distal a rtery is with diffuse atherosclerosis that got 20% to 30% disease. Epical LAD got 60% to 70% disease . 3. Left circ stent into the OM is patent with diffuse disease distally. 4. RCA, large, dominant, mid stent is patent, then distal mild luminal irregularities. 5. LVEDP is 8 mmHg. Assessment And Plan: 1. Mild to moderate proximal LAD disease with patent LAD, left circ into OM and RCA stent. 2. Plan is to continue medical management. PHILIP/JOEL Voice ID: [id number] Report ID: [id number]
== END 2025-01-05 15:54 | disposition home or self-care (01) | DRG 282 ==
LOC: ER 16:01 → ERHOLD 19:58 → 4TH 20:53
PROVIDERS: ADMIT Internal Medicine; ATTEND Internal Medicine
PROC: 4A023N7 Measurement of Cardiac Sampling and Pressure, Left Heart, Percutaneous Approach (ICD-10-PCS; principal; 2025-01-05)
PROC: B2111ZZ Fluoroscopy of Multiple Coronary Arteries using Low Osmolar Contrast (ICD-10-PCS; 2025-01-05)
DX: I21.4 Non-ST elevation (NSTEMI) myocardial infarction (principal); I10 Essential (primary) hypertension; F41.9 Anxiety disorder, unspecified; E78.00 Pure hypercholesterolemia, unspecified; E10.9 Type 1 diabetes mellitus without complications; I25.2 Old myocardial infarction; K21.9 Gastro-esophageal reflux disease without esophagitis; I25.119 Atherosclerotic heart disease of native coronary artery with unspecified angina pectoris; Z95.5 Presence of coronary angioplasty implant and graft; Z86.73 Personal history of transient ischemic attack (TIA), and cerebral infarction without residual deficits; Z88.8 Allergy status to other drugs, medicaments and biological substances; Z90.49 Acquired absence of other specified parts of digestive tract; Z59.71 Insufficient health insurance coverage; Z56.0 Unemployment, unspecified; Z59.82 Transportation insecurity; Z79.82 Long term (current) use of aspirin; Z79.4 Long term (current) use of insulin; Z79.02 Long term (current) use of antithrombotics/antiplatelets; Z79.899 Other long term (current) drug therapy
CPT/HCPCS: 36415; 71045; 76937; 80048; 82947; 83036; 83735; 84484; 85025; 85610; 85730; 93005; 93306; 93458; 96374; 96375; 99152; 99285; C1893; J0461; J1644; J1815; J2003; J2250; J2312; J2405; J3010; J7040; Q9966

== ENCOUNTER 2025-01-08 20:59 | Inpatient (IN) | payer OTHER ==
--- OUTSIDE RECORDS SUMMARY | 2025-01-08 21:06 | XMS REPORT | Continuity of Care Document ---
Author Name Unknown Address [address] [place] [address] [facility] [place] Address 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 Name Role Phone Luz EMERY, Seymour Recinos Primary Care Physician ROSALIE AGUIAR Attending Clinician Unav Rosalie Waters MD Attending Clinician + VIOLA BUNN Attending Clinician UnavailVIOLA Reyes Attending Clinician UnavailLiberty Weaver PT Attending Clinician Un available Marta Dove PTA Attending Clinician Unavail Viola Yun MD Attending Clinician [phone] Irving Wells MD Attending Clinician Dinesh Dove PTA Attending Clinician UnavailBridget Norman PT Attending Clinician UnavailIRVING Harmon Attending Clinician Unavailable Doctor Unassigned, [place] Attending Clinician U navailable CRISTOBAL_F Attending Clinician Unavailable DAVID_Elina Attending Clinician Unavailable Swapna Feliz MD Attending Clinician [phone] Kwame, Onofre Attending Clinician Unavailable Naun Hernandez Attending Clinician [phone] Seymour Garcia MD Attending Clinician [phone]- [phone] SWAPNA FELIZ Attending Clinician Unavailable Juancarlos, Ang - Db Attending Clinician Unavailable Fide Quiñones Attending Clinician [phone] FIDE DOVE Attending Clinician Unavailable SEYMOUR GARCIA Attending Clinician Nannette perales RADIOLOGY Attending Clinician Unavailable VERN LEE Attending Clinician UnavaDALIA Lara Attending Clinician Unavailable MARCUS ENAMORADO Attending Clinician Unava ilNIKOLE Prieto Attending Clinician Unavailable CRISTOBAL_F Admitting Clinician Unavailable DAVID_Elina Admitting Clinician Unavailable Kwame, Onofre Admitting Clinician Unavailable NIKOLE TRISTAN Admitting Clinician Unavailable Payers Payer Name Policy Type Policy Number Effective Date Expirati on Date Source MEDICARE PART A AND B Medicare [id number] 2023 00:00:00 [employer] Other [id number] 2024 00:00:00 MEDICARE PART A \\T\\ B [id number] 2014 00:00:00 [employer] [id number] 2018 00:00:00 [place] [employer] [id number] 2014 00:00:00 [employer] (MEDICARE SUPPLEMENT) [id number] 2018 00:00:00 Problems Condition Name Condition Details Condition Category Status Onset Date Resolution Date Last Treatment Date Treating Clinician Comments Source Varicose veins of lower extremity Varicose Veins of Lower Extremity Problem Active 7-14 00:00: 00 [facility] Osteopenia Osteopenia Problem Active 1-19 00:00: 00 [facility] Hypoosmola rity Hypoosmola rity Problem Active 8-27 00:00: 00 [facility] History of cerebrovas cular accident History of Cerebrovas cular Accident Problem Active 5-07 00:00: 00 [facility] Mass of left breast Mass of Left Breast Problem Active 1-18 00:00: 00 [facility] Hyperkalem ia Hyperkalem ia Problem Active 1-18 00:00: 00 [facility] Sciatica Sciatica Problem Active 7-18 00:00: 00 [facility] History of headache History of Headache Problem Active 4-27 00:00: 00 [facility] Mixed anxiety and depressive disorder Mixed Anxiety and Depressive Disorder Problem Active 2-20 00:00: 00 [facility] Placement of stent in cardiac conduit Placement of Stent in Cardiac Conduit Problem Active 2021-04 2-15 00:00: 00 [facility] Urinary incontinen ce Urinary Incontinen ce Problem Active 9-29 00:00: 00 [facility] Degenerati on of interverte bral disc Degenerati on of Interverte bral Disc Problem Active 7-26 00:00: 00 [facility] Hyponatrem ia Hyponatrem ia Problem Active 5-09 00:00: 00 [facility] Chronic kidney disease stage 3A Chronic Kidney Disease Stage 3a Problem Active 3-17 00:00: 00 [facility] Dyslipidem ia Dyslipidem ia Disease Active 1-25 00:00: 00 [facility] Mixed hyperlipid emia Mixed Hyperlipid emia Problem Active 1-17 00:00: 00 [facility] Asthma Asthma Problem Active 1-17 00:00: 00 [facility] Herpesviru s infection Herpesviru s Infection Problem Active 2020-04 2-23 00:00: 00 [facility] Sarcoidosi s Sarcoidosi s Problem Active 2020-04 0-11 [facility]:00: 00 [facility] Diabetes mellitus Diabetes Mellitus Problem Active 2020-04 00:00: 00 [facility] Diabetic peripheral neuropathy Diabetic Peripheral Neuropathy Problem Active 2020-04 00:00: 00 [facility] Hypertensi ve disorder Hypertensi ve Disorder Problem Active 2020-04 00:00: 00 [facility] Gastroesop hageal reflux disease Gastroesop hageal Reflux Disease Problem Active 2020-04 00:00: 00 [facility] Intraocula r pressure right eye Intraocula r Pressure Right Eye Problem Active 2020-04 00:00: 00 [facility] History of myocardial infarction History of Myocardial Infarction Problem Active 2020-04 00:00: 00 [facility] History of polyp of colon History of Polyp of Colon Problem Active 2020-04 00:00: 00 [facility] History of SARS-CoV-2 History of SARS-CoV-2 Problem Active 2019-04 2 00:00: 00 [facility] Acute viral syndrome Acute viral syndrome Disease Active 4- 00:00: 00 [facility] Fever, unspecifie d fever cause Fever, unspecifie d fever cause Disease Active 4- 00:00: 00 [facility] Cough Cough Disease Active 4- 00:00: 00 [facility] Other headache syndrome Other headache syndrome Disease Active - 00:00: 00 [facility] Seasonal allergic rhinitis, unspecifie d trigger Seasonal allergic rhinitis, unspecifie d trigger Disease Active 4- 00:00: 00 [facility] Cerebrovas cular accident Cerebrovas cular Accident Problem Active 12-02 00:00: 00 [facility] Well woman exam with routine gynecologi whitney exam Well woman exam with routine gynecologi whitney exam Disease Active 1-08 00:00: 00 [facility] Acute myocardial infarction Acute myocardial infarction Disease Active 2015-04 00:00: 00 Overview: Formattin g of this note might be different from the original. 6 [facility] Coronary artery disease Coronary artery disease Disease Active 2015-04 00:00: 00 [facility] Anemia Anemia Disease Active 12-17 00:00: 00 [facility] Herpes simplex infection Herpes simplex infection Disease Active 12-12 00:00: 00 [facility] Type I diabetes mellitus with complicati on, uncontroll ed Type I diabetes mellitus with complicati on, uncontroll ed Disease Active 08-23 00:00: 00 [facility] Depression Depression Disease Active 08-23 00:00: 00 [facility] Essential hypertensi on Essential hypertensi on Disease Active 08-23 00:00: 00 [facility] Neck pain Neck pain Disease Active 08-23 00:00: 00 [facility] Hyperchole sterolemia Hyperchole sterolemia Disease Active 08-23 00:00: 00 [facility] Dupuytren' s contractur e (disorder) Dupuytren' s contractur e (disorder) Active Problem 10/03/2022 [facility] Problem Active 2022-10-03 23:54:38 [facility] Finding of body mass index (finding) Finding of body mass index (finding) Active Problem 10/03/2022 [facility] her [facility] Problem Active 2022-10-03 23:54:38 [facility] Headache (finding) Headache (finding) Active Problem 10/03/2022 [facility] her [facility] Problem Active 2022-10-03 23:54:38 [facility] Hyperlipid emia (disorder) Hyperlipid emia (disorder) Active Problem 10/03/2022 [facility] her [facility] Problem Active 2022-10-03 23:54:38 Marcella Palomo Hypothyroi dism (disorder) Hypothyroi dism (disorder) Active Problem 10/03/2022 [facility] Problem Active 2022-10-03 23:54:38 Marcella Palomo Muscle pain (finding) Muscle pain (finding) Active Problem 10/03/2022 [facility] Problem Active 2022-10-03 23:54:38 Marcella Palomo Pain in thumb (finding) Pain in thumb (finding) Active Problem 10/03/2022 [facility] Problem Active 2022-10-03 23:54:38 Marcella Palomo Pain in wrist (finding) Pain in wrist (finding) Active Problem 10/03/2022 [facility] her [facility] Problem Active 2022-10-03 23:54:38 Marcella Palomo Paresthesi a (finding) Paresthesi a (finding) Active Problem 10/03/2022 [facility] Problem Active 2022-10-03 23:54:38 Marcella Palomo Paresthesi a of foot (finding) Paresthesi a of foot (finding) Active Problem 10/03/2022 [facility] Problem Active 2022-10-03 23:54:38 Marcella Palomo Prolapsed thoracic interverte bral disc (disorder) Prolapsed thoracic interverte bral disc (disorder) Active Problem 10/03/2022 [facility] Problem Active 2022-10-03 23:54:38 Marcella Palomo Transient ischemic attack (disorder) Transient ischemic attack (disorder) Active Problem 10/03/2022 [facility] her [facility] Problem Active 2022-10-03 23:54:38 Marcella Palomo Incontinen ce of feces (finding) Incontinen ce of feces (finding) Active Problem 10/03/2022 [facility] Problem Active 2022-10-03 23:54:38 Marcella Palomo Overactive bladder Overactive bladder Active Problem 10/03/2022 [facility] Problem Active 2022-10-03 23:54:38 Marcella Palomo Urge incontinen ce of urine (finding) Urge incontinen ce of urine (finding) Active Problem 10/03/2022 [facility] Problem Active 2022-10-03 23:54:38 Marcella Palomo Carpal tunnel syndrome (disorder) Carpal tunnel syndrome (disorder) Active Problem 10/03/2022 [facility] Problem Active 2022-10-03 23:54:38 Marcella Palomo Cervical radiculopa thy (disorder) Cervical radiculopa thy (disorder) Active Problem 10/03/2022 [facility] Problem Active 2022-10-03 23:54:38 Marcella Palomo Cervical spondylosi s (disorder) Cervical spondylosi s (disorder) Active Problem 10/03/2022 [facility] Problem Active 2022-10-03 23:54:38 Marcella Palomo Disease caused by 2019-nCoV Disease caused by 2019-nCoV Active Problem 10/03/2022 [facility] Problem Active 2022-10-03 23:54:38 Marcella Palomo Cramp (finding) Cramp (finding) Active Problem 10/03/2022 [facility] Problem Active 2022-10-03 23:54:38 Marcella Palomo Diabetes mellitus type 2 (disorder) Diabetes mellitus type 2 (disorder) Active Problem 10/03/2022 Automatica lly added by Discern Expert with order of Add Problem Diabetes Type II on May 04, 2019 14:10:44 [employer] with order ID: [id number] 3.0 entered by Jean Crooks. [facility] Problem Active 2022-10-03 23:54:38 Marcella Palomo Tubular adenoma of colon Tubular adenoma of colon Disease Resolve d 2015-04 00:00: 00 2016-02-07 00:00:00 2016-02-07 12:32:09 [facility] Allergies, Adverse Reactions, Alerts Allergy Name Allergy Type Status Severity Reaction(s) Onset Date Inactive Date Treating Clinician Comments Source No Known Allergie s DA Active U 2021-04 00:00: 00 [facility] Codeine Propensi ty to adverse reaction s Active 2018-04 00:00: 00 Other Reaction( s): Other (see comments) , Unknown - See comments, Unknown - See comments Marcella Iniguez Codeine Sulfate Propensi ty to adverse reaction s Active Unknown - See comments 2018-04 00:00: 00 [facility] CODEINE SULFATE DRUG INGREDI Active Unknown-Cmnt 2018-04 00:00: 00 [facility] Ibuprofe n Propensi ty to adverse reaction s Active 2015-04 00:00: 00 Marcella Iniguez Ferumoxi bernard Propensi ty to adverse reaction s Active 2007-04 00:00: 00 Other Reaction( s): Itching/H bella/Rash , Other (see comments) , Unknown - See comments, Unknown - See comments Marcella Palomo Epic Ferumoxi bernard Propensi ty to adverse reaction s Active Unknown - See comments 2007-04 00:00: 00 [facility] FERUMOXI BERNARD DRUG INGREDI Active Unknown-Cmnt 2007-04 00:00: 00 [facility] No Known Medicati on Allergie s No Known Medicati on Allergie s Active Marcella Palomo Social History Social Habit Start Date Stop Date Quantity Comments Source Gender identity 2023-06-27 18:46:13 Identifies as female gender (finding) Kush Iniguez ASSERTION Possible Kush Iniguez Sexual orientation [facility] Exposure to SARS-CoV-2 (event) Not sure [facility] Alcoholic beverage intake 2024-10-11 00:00:00 2024-10-11 00:00:00 Lifetime non-drinker (finding) Kush Iniguez History of Social function 2024-10-11 00:00:2024-10-11 00:00:00 [facility] Tobacco use and exposure 2023-12-08 00:00:00 2023-12-08 00:00:00 Smokeless tobacco non-user [facility] Sex 2023-06-27 18:46:13 2023-06-27 18:46:13 Female (finding) [facility] Alcohol intake 2021-04-30 00:00:00 2021-04-30 00:00:00 Current non-drinker of alcohol (finding) [facility] Sex assigned at 1950 00:00:00 1950 00:00:00 [facility] Smoking Status Start Date Stop Date Source [...] TAKE 1 TABLET BY MOUTH EVERY DAY [facility] lansoprazol e 30 mg capsule 09-04 00:00: 00 Yes [id number] TAKE 1 CAPSULE BY MOUTH EVERY DAY [facility] cyclobenzap rine 10 mg oral tablet 08-15 [...] (3 mL) InPn 04-30 00:00: 00 Yes [id number] 26U inject 26 Units under the skin every morning. E10.9 [facility] ezetimibe 10 mg tablet 2022-0 1-25 00:00: 00 Yes [id number] 10mg Take 1 tablet by mouth daily. [facility] latanoprost 0.005 % ophthalmic drops 1-24 00:00: 00 Yes [facility] metoprolol tartrate 25 mg tablet 1-11 00:00: 00 Yes [facility] clopidogreL 75 mg tablet 2020-04 2- 00:00: 00 Yes [facility] NOVOLOG FLEXPEN U-100 INSULIN 100 unit/mL (3 mL) injection 2020-04 1-17 00:00: 00 09-04 00:00 :00 No [id number] INJECT 6-14 UNITS UNDER THE SKIN 3 (THREE) TIMES DAILY BEFORE MEALS. E10.9 [facility] nitroglycer in 0.4 mg sublingual tablet 2020-04 0-29 00:00: 00 Yes [facility] ezetimibe 10 mg tablet 8 00:00: 00 04-30 00:00 :00 No [id number] 10mg Take 1 tablet by mouth daily. [facility] losartan 50 mg tablet 14 00:00: 00 Yes [id number] 50mg Take 1 tablet by mouth daily. [facility] lansoprazol e 30 mg capsule 08-17 00:00: 00 09-04 00:00 :00 No [id number] TAKE 1 CAPSULE ONCE DAILY [facility] latanoprost 0.05 MG/ML Ophthalmic Solution 08-03 15:09: [...] NEBULIZER 2 TIMES A DAY Marcella Palomo [facility] TRESIBA FLEXTOUCH U-100 100 unit/mL (3 mL) InPn 07-17 00:00: 00 04-30 00:00 :00 No [id number] 26U inject 26 Units under the skin every morning. E10.9 [facility] albuterol (PROAIR HFA) 90 mcg/actuati on inhaler 2019-04 2-03 00:00: 00 Yes [id number] 2{puff} Inhale 2 Puffs every 6 (six) hours as needed for Wheezing. [facility] flash glucose scanning reader (FREESTYLE JASVIR 2 READER) Misc 12-27 00:00: 00 04-30 00:00 :00 No [id number] 1{each} 1 Each daily. [facility] flash glucose sensor (FREESTYLE JASVIR 2 SENSOR) Kit 12-27 00:00: 00 04-30 00:00 :00 No [id number] 1{each} 1 Each every 14 (fourteen) days. [facility] Insulin [place], Disposable, (PEN NEEDLE) 30 gauge x 5/16" Ndle 09-26 00:00: 00 Yes [id number] Use as directed 4 times a day [facility] Insulin [place], Disposable, (PEN NEEDLE) 30 gauge x 5/16" Ndle 09-26 00:00: 00 Yes [id number] Use as directed 4 times a day [facility] Nitroglycer in 0.4 MG Sublingual Tablet 08-09 16:23: 00 Yes 0 Refill(s) [facility] Pal[facility] nitroglycer in 0.4 mg sublingual tablet 08-09 16:23: 00 Yes 0 Refill(s) Marcella Palomo gabapentin 100 MG Oral Capsule 08-09 16:22: 00 Yes 100 mg = 1 cap, PO, BID, # 60 cap, 3 Refill(s), Pharmacy: [id number] Marcella Palomo nitroglycer in (Nitrostat) 0.4 MG SL tablet nitroglycer in (Nitrostat) 0.4 MG SL tablet 08-09 00:00: 00 Yes 0 Refill(s) Marcella Palomo Epic aspirin 81 mg chewable tablet 07-05 10:56: 10 Yes 81mg Take 81 mg by mouth daily. [facility] Plavix 2018-04 15:19: 00 Yes PO, 0 Refill(s) Marcella Palomo Plavix 2018-04 15:19: 00 Yes 75 mg, PO, Daily, 0 Refill(s) [facility] Palomo Clopidogrel Bisulfate (PLAVIX PO) Clopidogrel Bisulfate (PLAVIX PO) 2019-1 2-19 00:00: 00 Yes 75mg 75 mg, PO, Daily, 0 Refill(s) Ravishakeel Palomo Epic baclofen 10 mg oral tablet 2018-04 007 15:34: 29 Yes = 1 tab, PO, Bedtime, # 90 tab, 3 Refill(s), Pharmacy: [facility] #[id number] Marcella Palomo NovoLog 08-13 15:31: 00 Yes 3 unit, SUB-Q, TID-Before Meals, 0 Refill(s) Marcella Palomo NovoLOG 08-13 15:31: 00 Yes 3 unit, SUB-Q, TID-Before Meals, 0 Refill(s) Marcella Palomo baclofen 10 mg oral tablet 08-13 15:27: 00 Yes 10 mg = 1 tab, PO, Bedtime, # 30 tab, 3 Refill(s), Pharmacy: [facility] #[id number] Marcella Palmoo atorvastati n 20 mg oral tablet 08-13 15:22: 12 Yes 20 mg = 1 tab, PO, Daily, # 30 tab, 3 Refill(s), Pharmacy: [facility] #[id number] Marcella Palomo ticagrelor (BRILINTA) 90 mg tablet 16 00:00: 00 Yes [id number] 90mg Take 1 tablet by mouth 2 (two) times daily. [facility] DULOXETINE 30 mg capsule 2017-04 00:00: 00 Yes TAKE 1 CAPSULE TWICE DAILY (MAKE AN APPOINTMEN T FOR FURTHER REFILLS) [facility] aspirin 81 mg tablet, enteric coated 10-08 [...] cyanocobala min 10-08 20:25: 00 Yes See Sari casillas, 1,000 microgram SUB-Q once a month, [...] blood glucose for ICD code of E11.9 [facility] blood sugar diagnostic (ONETOUCH ULTRA TEST) strip 08-27 00:00: 00 Yes Using once a day and as needed to monitor blood glucose for ICD code of E11.9 [facility] Quan Bautista U-100 Insulin 100 unit/mL (3 [...] by subcutaneo us route for 28 days. [facility] famciclovir 250 mg tablet TAKE 1 TABLET BY MOUTH EVERY DAY DIRECTED famciclovir 250 mg tablet TAKE 1 TABLET BY MOUTH EVERY DAY DIRECTED No 1 Q1D famciclovi r 250 mg tablet TAKE 1 TABLET BY MOUTH EVERY DAY DIRECTED [facility] buspirone 5 mg tablet Take 1 tablet every day by oral route as directed for 30 days, for Anxiety. buspirone 5 mg tablet Take 1 tablet every day by oral route as directed for 30 days, for Anxiety. No 1 Q1D buspirone 5 mg tablet Take 1 tablet every day by oral route as directed for 30 days, for Anxiety. [facility] Novolog FlexPen U-100 Insulin aspart 100 unit/mL [...] recheck BG level 1 hour after eating. [facility] Immunizations Ordered Immunization Name Filled Immunization Name Date Status Comments Source Pneumococcal Polysaccharide, PPSV23 (PNEUMOVAX) 2023-05-04 00:00:00 Completed [facility] Influenza Virus Vaccine Quad .5 mL IM 6+ MO (FLUZONE/FLULAVAL/FL UARIX) 2023-05-04 00:00:00 Completed [facility] TDAP 2023-05-04 00:00:00 Completed [facility] Zoster(Zostavax)(Amrguerite ngles) 2023-05-04 00:00:00 Completed [facility] Zoster Vaccine Recombinant 2023-05-04 00:00:00 Completed [facility] Pneumococcal 13 Conjugate, PCV13 (Prevnar 13) 2023-05-04 00:00:00 Completed [facility] Influenza High Dose 2023-05-04 00:00:00 Completed [facility] Zoster Vaccine Recombinant 2019-06-27 00:00:00 Completed [facility] Zoster Vaccine Recombinant 2019-06-27 00:00:00 Completed [facility] Zoster Vaccine Recombinant 2019-06-27 00:00:00 Completed [facility] Zoster Vaccine Recombinant 2019-06-27 00:00:00 Completed [facility] Zoster Vaccine Recombinant 2019-06-27 00:00:00 Completed [facility] Zoster Vaccine Recombinant 2019-06-27 00:00:00 Completed [facility] Zoster Vaccine Recombinant 2019-06-27 00:00:00 Completed [facility] Zoster Vaccine Recombinant 2019-06-27 00:00:00 Completed [facility] Zoster Vaccine Recombinant 2019-06-27 00:00:00 Completed [facility] Zoster Vaccine Recombinant 2019-06-27 00:00:00 Completed [facility] Zoster Vaccine Recombinant 2019-06-27 00:00:00 Completed TDAP 2019-04-28 00:00:00 Completed [facility] Zoster Vaccine Recombinant 2019-04-28 00:00:00 Completed [facility] TDAP 2019-04-28 00:00:00 Completed [facility] Zoster Vaccine Recombinant 2019-04-28 00:00:00 Completed [facility] TDAP 2019-04-28 00:00:00 Completed [facility] Zoster Vaccine Recombinant 2019-04-28 00:00:00 Completed [facility] TDAP 2019-04-28 00:00:00 Completed [facility] Zoster Vaccine Recombinant 2019-04-28 00:00:00 Completed [facility] TDAP 2019-04-28 00:00:00 Completed [facility] Zoster Vaccine Recombinant 2019-04-28 00:00:00 Completed [facility] TDAP 2019-04-28 00:00:00 Completed [facility] Zoster Vaccine Recombinant 2019-04-28 00:00:00 Completed [facility] TDAP 2019-04-28 00:00:00 Completed [facility] Zoster Vaccine Recombinant 2019-04-28 00:00:00 Completed [facility] TDAP 2019-04-28 00:00:00 Completed [facility] Zoster Vaccine Recombinant 2019-04-28 00:00:00 Completed [facility] TDAP 2019-04-28 00:00:00 Completed [facility] Zoster Vaccine Recombinant 2019-04-28 00:00:00 Completed [facility] TDAP 2019-04-28 00:00:00 Completed [facility] Zoster Vaccine Recombinant 2019-04-28 00:00:00 Completed [facility] TDAP 2019-04-28 00:00:00 Completed [facility] Zoster Vaccine Recombinant 2019-04-28 00:00:00 Completed Zoster(Zostavax)(Marguerite ngles) 2019-04-21 00:00:00 Completed [facility] Zoster(Zostavax)(Marguerite ngles) 2019-04-21 00:00:00 Completed [facility] Zoster(Zostavax)(Marguerite ngles) 2019-04-21 00:00:00 Completed [facility] Zoster(Zostavax)(Marguerite ngles) 2019-04-21 00:00:00 Completed [facility] Zoster(Zostavax)(Marguerite ngles) 2019-04-21 00:00:00 Completed [facility] Zoster(Zostavax)(Marguerite ngles) 2019-04-21 00:00:00 Completed [facility] Zoster(Zostavax)(Marguerite ngles) 2019-04-21 00:00:00 Completed [facility] Zoster(Zostavax)(Marguerite ngles) 2019-04-21 00:00:00 Completed [facility] Zoster(Zostavax)(Marguerite ngles) 2019-04-21 00:00:00 Completed [facility] Zoster(Zostavax)(Marguerite ngles) 2019-04-21 00:00:00 Completed [facility] Zoster(Zostavax)(Marguerite ngles) 2019-04-21 00:00:00 Completed Pneumococcal Polysaccharide, PPSV23 (PNEUMOVAX) 2019-04-06 00:00:00 Completed [facility] Pneumococcal Polysaccharide, PPSV23 (PNEUMOVAX) 2019-04-06 00:00:00 Completed [facility] Pneumococcal Polysaccharide, PPSV23 (PNEUMOVAX) 2019-04-06 00:00:00 Completed [facility] Pneumococcal Polysaccharide, PPSV23 (PNEUMOVAX) 2019-04-06 00:00:00 Completed [facility] Pneumococcal Polysaccharide, PPSV23 (PNEUMOVAX) 2019-04-06 00:00:00 Completed [facility] Pneumococcal Polysaccharide, PPSV23 (PNEUMOVAX) 2019-04-06 00:00:00 Completed [facility] Pneumococcal Polysaccharide, PPSV23 (PNEUMOVAX) 2019-04-06 00:00:00 Completed [facility] Pneumococcal Polysaccharide, PPSV23 (PNEUMOVAX) 2019-04-06 00:00:00 Completed [facility] Pneumococcal Polysaccharide, PPSV23 (PNEUMOVAX) 2019-04-06 00:00:00 Completed [facility] Pneumococcal Polysaccharide, PPSV23 (PNEUMOVAX) 2019-04-06 00:00:00 Completed [facility] Pneumococcal Polysaccharide, PPSV23 (PNEUMOVAX) 2019-04-06 00:00:00 Completed [facility] Pneumococcal 13 Conjugate, PCV13 (Prevnar 13) 2019-01-12 00:00:00 Completed [facility] Influenza High Dose 2019-01-12 00:00:00 Completed [facility] Pneumococcal 13 Conjugate, PCV13 (Prevnar 13) 2019-01-12 00:00:00 Completed [facility] Influenza High Dose 2019-01-12 00:00:00 Completed [facility] Pneumococcal 13 Conjugate, PCV13 (Prevnar 13) 2019-01-12 00:00:00 Completed [facility] Influenza High Dose 2019-01-12 00:00:00 Completed [facility] Pneumococcal 13 Conjugate, PCV13 (Prevnar 13) 2019-01-12 00:00:00 Completed [facility] Influenza High Dose 2019-01-12 00:00:00 Completed [facility] Pneumococcal 13 Conjugate, PCV13 (Prevnar 13) 2019-01-12 00:00:00 Completed [facility] Influenza High Dose 2019-01-12 00:00:00 Completed [facility] Pneumococcal 13 Conjugate, PCV13 (Prevnar 13) 2019-01-12 00:00:00 Completed [facility] Influenza High Dose 2019-01-12 00:00:00 Completed [facility] Pneumococcal 13 Conjugate, PCV13 (Prevnar 13) 2019-01-12 00:00:00 Completed [facility] Influenza High Dose 2019-01-12 00:00:00 Completed [facility] Pneumococcal 13 Conjugate, PCV13 (Prevnar 13) 2019-01-12 00:00:00 Completed [facility] Influenza High Dose 2019-01-12 00:00:00 Completed [facility] Pneumococcal 13 Conjugate, PCV13 (Prevnar 13) 2019-01-12 00:00:00 Completed [facility] Influenza High Dose 2019-01-12 00:00:00 Completed [facility] Pneumococcal 13 Conjugate, PCV13 (Prevnar 13) 2019-01-12 00:00:00 Completed [facility] Influenza High Dose 2019-01-12 00:00:00 Completed [facility] Pneumococcal 13 Conjugate, PCV13 (Prevnar 13) 2019-01-12 00:00:00 Completed Influenza, High-Dose, Trivalent, PF (FLUZONE) 2019-01-12 00:00:00 Completed Influenza Virus Vaccine Quad .5 mL IM 6+ MO 2019-01-04 00:00:00 Completed [facility] Influenza Virus Vaccine Quad .5 mL IM 6+ MO 2019-01-04 00:00:00 Completed [facility] Influenza Virus Vaccine Quad .5 mL IM 6+ MO 2019-01-04 00:00:00 Completed [facility] Influenza Virus Vaccine Quad .5 mL IM 6+ MO 2019-01-04 00:00:00 Completed [facility] Influenza Virus Vaccine Quad .5 mL IM 6+ MO 2019-01-04 00:00:00 Completed [facility] Influenza Virus Vaccine Quad .5 mL IM 6+ MO 2019-01-04 00:00:00 Completed [facility] Influenza Virus Vaccine Quad .5 mL IM 6+ MO 2019-01-04 00:00:00 Completed [facility] Influenza Virus Vaccine Quad .5 mL IM 6+ MO 2019-01-04 00:00:00 Completed [facility] Influenza Virus Vaccine Quad .5 mL IM 6+ MO 2019-01-04 00:00:00 Completed [facility] Influenza Virus Vaccine Quad .5 mL IM 6+ MO 2019-01-04 00:00:00 Completed [facility] Influenza Virus Vaccine Quad .5 mL IM 6+ MO (FLUZONE/FLULAVAL/FL UARIX) 2019-01-04 00:00:00 Completed Influenza High Dose 2018-02-24 00:00:00 Completed [facility] Influenza High Dose 2018-02-24 00:00:00 Completed [facility] Influenza High Dose 2018-02-24 00:00:00 Completed [facility] Influenza High Dose 2018-02-24 00:00:00 Completed [facility] Influenza High Dose 2018-02-24 00:00:00 Completed [facility] Influenza High Dose 2018-02-24 00:00:00 Completed [facility] Influenza High Dose 2018-02-24 00:00:00 Completed [facility] Influenza High Dose 2018-02-24 00:00:00 Completed [facility] Influenza High Dose 2018-02-24 00:00:00 Completed [facility] Influenza High Dose 2018-02-24 00:00:00 Completed [facility] Influenza, High-Dose, Trivalent, PF (FLUZONE) 2018-02-24 00:00:00 Completed zoster recombinant zoster recombinant Unknown Completed [facility] Tdap Tdap Unknown Completed [facility] zoster live zoster live Unknown Completed [facility] pneumococcal polysaccharide PPV23 pneumococcal polysaccharide PPV23 Unknown Completed [facility] influenza, high dose seasonal influenza, high dose seasonal Unknown Completed [facility] pneumococcal conjugate PCV 13 pneumococcal conjugate PCV 13 Unknown Completed [facility] influenza, injectable, quadrivalent, preservative free influenza, injectable, quadrivalent, preservative free Unknown Completed [facility] Vital Signs Vital Name Observation Time Observation Value Comments Yecenia rush BP Systolic 2024-12-29 00:00:00 134 mm[Hg] [facility] BP Diastolic 2024-12-29 00:00:00 78 mm[Hg] [facility] BMI (Body Mass Index) 2024-12-29 00:00:00 28.1 kg/m2 [facility] Height 2024-12-29 00:00:00 62.5 [in_i] [facility] Body Weight 2024-12-29 00:00:00 2496 [oz_av] [facility] BP Diastolic 2024-12-27 00:00:00 78 mm[Hg] [facility] Height 2024-12-27 00:00:00 62.5 [in_i] [facility] Body Weight 2024-12-27 00:00:00 2503 [oz_av] [facility] BP Systolic 2024-12-27 00:00:00 125 mm[Hg] [facility] BMI (Body Mass Index) 2024-12-27 00:00:00 28.2 kg/m2 [facility] BP Diastolic 2024-10-24 00:00:00 60 mm[Hg] [facility] Body Weight 2024-10-24 00:00:00 2548.8 [oz_av] [facility] BP Systolic 2024-10-24 00:00:00 122 mm[Hg] [facility] Height 2024-10-24 00:00:00 62.5 [in_i] [facility] BMI (Body Mass Index) 2024-10-24 00:00:00 28.7 kg/m2 [facility] Systolic blood pressure 2024-10-11 13:28:00 132 mm[Hg] [facility] Diastolic blood pressure 2024-10-11 13:28:00 74 mm[Hg] [facility] Heart rate 2024-10-11 13:28:00 68 /min [facility] Body height 2024-10-11 13:28:00 154.9 cm Frank [facility]elnia [facility] Body weight 2024-10-11 13:28:00 71.215 kg [facility] BMI 2024-10-11 13:28:00 29.66 kg/m2 Frank[facility] Systolic blood pressure 2024-10-11 13:28:00 132 mm[Hg] [facility] Diastolic blood pressure 2024-10-11 13:28:00 74 mm[Hg] [facility] Heart rate 2024-10-11 13:28:00 68 /min [facility] Body height 2024-10-11 13:28:00 154.9 cm [facility] Body weight 2024-10-11 13:28:00 71.215 kg [facility] BMI 2024-10-11 13:28:00 29.66 kg/m2 [facility] Height 2024-09-12 00:00:00 62.5 [in_i] [facility] BMI (Body Mass Index) 2024-09-12 00:00:00 28.6 kg/m2 [facility] BP Diastolic 2024-09-12 00:00:00 68 mm[Hg] [facility] Body Weight 2024-09-12 00:00:00 2544 [oz_av] [facility] BP Systolic 2024-09-12 00:00:00 138 mm[Hg] [facility] Height 2024-07-25 00:00:00 62.5 [in_i] [facility] BMI (Body Mass Index) 2024-07-25 00:00:00 28.6 kg/m2 [facility] Body Weight 2024-07-25 00:00:00 2544 [oz_av] [facility] BP Diastolic 2024-07-25 00:00:00 72 mm[Hg] [facility] BP Systolic 2024-07-25 00:00:00 118 mm[Hg] [facility] BMI (Body Mass Index) 2024-06-28 00:00:00 28.6 kg/m2 [facility] BP Systolic 2024-06-28 00:00:00 142 mm[Hg] [facility] Height 2024-06-28 00:00:00 62.5 [in_i] [facility] Body Weight 2024-06-28 00:00:00 2544 [oz_av] [facility] BP Diastolic 2024-06-28 00:00:00 78 mm[Hg] [facility] Height 2024-05-31 00:00:00 62.5 [in_i] [facility] Body Weight 2024-05-31 00:00:00 2544 [oz_av] [facility] BP Systolic 2024-05-31 00:00:00 134 mm[Hg] [facility] BMI (Body Mass Index) 2024-05-31 00:00:00 28.6 kg/m2 [facility] BP Diastolic 2024-05-31 00:00:00 72 mm[Hg] [facility] Height 2024-05-17 00:00:00 62.5 [in_i] [facility] BP Systolic 2024-05-17 00:00:00 148 mm[Hg] [facility] BP Diastolic 2024-05-17 00:00:00 78 mm[Hg] [facility] Body Weight 2024-05-17 00:00:00 2544 [oz_av] [facility] BMI (Body Mass Index) 2024-05-17 00:00:00 28.6 kg/m2 [facility] BP Systolic 2024-05-09 00:00:00 130 mm[Hg] [facility] BP Diastolic 2024-05-09 00:00:00 72 mm[Hg] [facility] Height 2024-05-09 00:00:00 62.5 [in_i] [facility] BMI (Body Mass Index) 2024-04-25 00:00:00 29.9 kg/m2 [facility] Body Weight 2024-04-25 00:00:00 2656 [oz_av] [facility] BP Diastolic 2024-04-25 00:00:00 68 mm[Hg] [facility] BP Systolic 2024-04-25 00:00:00 130 mm[Hg] [facility] Height 2024-04-25 00:00:00 62.5 [in_i] [facility] Height 2024-03-01 00:00:00 62.5 [in_i] [facility] BP Systolic 2024-03-01 00:00:00 116 mm[Hg] [facility] BP Diastolic 2024-03-01 00:00:00 62 mm[Hg] [facility] BP Diastolic 2024-02-24 00:00:00 78 mm[Hg] [facility] BP Systolic 2024-02-24 00:00:00 132 mm[Hg] [facility] Body Weight 2024-02-24 00:00:00 2432 [oz_av] [facility] BMI (Body Mass Index) 2024-02-24 00:00:00 27.4 kg/m2 [facility] Height 2024-02-24 00:00:00 62.5 [in_i] [facility] Height 2024-01-25 00:00:00 62.5 [in_i] [facility] BP Diastolic 2024-01-25 00:00:00 64 mm[Hg] [facility] BP Systolic 2024-01-25 00:00:00 124 mm[Hg] [facility] BP Systolic 2023-11-12 00:00:00 134 mm[Hg] [facility] Body Weight 2023-11-12 00:00:00 2464 [oz_av] [facility] Height 2023-11-12 00:00:00 62.5 [in_i] [facility] BMI (Body Mass Index) 2023-11-12 00:00:00 27.7 kg/m2 [facility] BP Diastolic 2023-11-12 00:00:00 74 mm[Hg] [facility] Height 2023-11-02 00:00:00 62.5 [in_i] [facility] BP Systolic 2023-11-02 00:00:00 116 mm[Hg] [facility] BMI (Body Mass Index) 2023-11-02 00:00:00 27.5 kg/m2 [facility] BP Diastolic 2023-11-02 00:00:00 72 mm[Hg] [facility] Body Weight 2023-11-02 00:00:00 2448 [oz_av] [facility] BP Diastolic 2023-10-22 00:00:00 78 mm[Hg] [facility] Height 2023-10-22 00:00:00 62.5 [in_i] [facility] BP Systolic 2023-10-22 00:00:00 118 mm[Hg] [facility] Height 2023-08-11 00:00:00 62.5 [in_i] [facility] BP Diastolic 2023-08-11 00:00:00 98 mm[Hg] [facility] BP Systolic 2023-08-11 00:00:00 170 mm[Hg] [facility] Height 2023-06-15 00:00:00 62.5 [in_i] [facility] BP Systolic 2023-06-15 00:00:00 118 mm[Hg] [facility] Body Weight 2023-06-15 00:00:00 2544 [oz_av] [facility] BP Diastolic 2023-06-15 00:00:00 74 mm[Hg] [facility] BMI (Body Mass Index) 2023-06-15 00:00:00 28.6 kg/m2 [facility] BMI (Body Mass Index) 2023-04-23 00:00:00 28.8 kg/m2 [facility] BP Systolic 2023-04-23 00:00:00 124 mm[Hg] [facility] Body Weight 2023-04-23 00:00:00 2560 [oz_av] [facility] Height 2023-04-23 00:00:00 62.5 [in_i] [facility] BP Diastolic 2023-04-23 00:00:00 84 mm[Hg] [facility] BMI (Body Mass Index) 2023-03-04 00:00:00 29.2 kg/m2 [facility] Height 2023-03-04 00:00:00 62.5 [in_i] [facility] BP Diastolic 2023-03-04 00:00:00 76 mm[Hg] [facility] BP Systolic 2023-03-04 00:00:00 142 mm[Hg] [facility] Body Weight 2023-03-04 00:00:00 2592 [oz_av] [facility] BP Diastolic 2022-10-21 00:00:00 64 mm[Hg] [facility] Height 2022-10-21 00:00:00 62.5 [in_i] [facility] BMI (Body Mass Index) 2022-10-21 00:00:00 29.2 kg/m2 [facility] BP Systolic 2022-10-21 00:00:00 116 mm[Hg] [facility] Body Weight 2022-10-21 00:00:00 2592 [oz_av] [facility] BP Diastolic 2022-10-03 00:00:00 68 mm[Hg] [facility] Height 2022-10-03 00:00:00 62.5 [in_i] [facility] BMI (Body Mass Index) 2022-10-03 00:00:00 29 kg/m2 [facility] BP Systolic 2022-10-03 00:00:00 126 mm[Hg] [facility] Body Weight 2022-10-03 00:00:00 2576 [oz_av] [facility] BP Diastolic 2022-09-23 00:00:00 74 mm[Hg] [facility] Height 2022-09-23 00:00:00 62.5 [in_i] [facility] BMI (Body Mass Index) 2022-09-23 00:00:00 28.4 kg/m2 [facility] BP Systolic 2022-09-23 00:00:00 122 mm[Hg] [facility] Body Weight 2022-09-23 00:00:00 2528 [oz_av] [facility] BP Diastolic 2022-08-26 00:00:00 74 mm[Hg] [facility] Height 2022-08-26 00:00:00 62.5 [in_i] [facility] BP Systolic 2022-08-26 00:00:00 124 mm[Hg] [facility] BP Diastolic 2022-07-31 00:00:00 72 mm[Hg] [facility] Height 2022-07-31 00:00:00 62.5 [in_i] [facility] BMI (Body Mass Index) 2022-07-31 00:00:00 28.8 kg/m2 [facility] BP Systolic 2022-07-31 00:00:00 116 mm[Hg] [facility] Body Weight 2022-07-31 00:00:00 2560 [oz_av] [facility] BP Diastolic 2022-04-22 00:00:00 72 mm[Hg] [facility] Height 2022-04-22 00:00:00 62.5 [in_i] [facility] BMI (Body Mass Index) 2022-04-22 00:00:00 28.3 kg/m2 [facility] BP Systolic 2022-04-22 00:00:00 112 mm[Hg] [facility] Body Weight 2022-04-22 00:00:00 2512 [oz_av] [facility] BP Diastolic 2022-03-24 00:00:00 64 mm[Hg] [facility] Height 2022-03-24 00:00:00 62.5 [in_i] [facility] BP Systolic 2022-03-24 00:00:00 108 mm[Hg] [facility] BP Diastolic 2022-01-14 00:00:00 62 mm[Hg] [facility] Height 2022-01-14 00:00:00 62.5 [in_i] [facility] BMI (Body Mass Index) 2022-01-14 00:00:00 28.4 kg/m2 [facility] BP Systolic 2022-01-14 00:00:00 106 mm[Hg] [facility] Body Weight 2022-01-14 00:00:00 2528 [oz_av] [facility] BP Diastolic 2022-01-02 00:00:00 72 mm[Hg] [facility] Height 2022-01-02 00:00:00 62.5 [in_i] [facility] BMI (Body Mass Index) 2022-01-02 00:00:00 28.6 kg/m2 [facility] BP Systolic 2022-01-02 00:00:00 110 mm[Hg] [facility] Body Weight 2022-01-02 00:00:00 2544 [oz_av] [facility] BP Diastolic 2021-10-29 00:00:00 80 mm[Hg] [facility] Height 2021-10-29 00:00:00 62.5 [in_i] [facility] BMI (Body Mass Index) 2021-10-29 00:00:00 28.6 kg/m2 [facility] BP Systolic 2021-10-29 00:00:00 114 mm[Hg] [facility] Body Weight 2021-10-29 00:00:00 2544 [oz_av] [facility] BP Diastolic 2021 00:00:00 82 mm[Hg] [facility] Height 2021 00:00:00 62.5 [in_i] [facility] BMI (Body Mass Index) 2021 00:00:00 28.8 kg/m2 [facility] BP Systolic 2021 00:00:00 118 mm[Hg] [facility] Body Weight 2021 00:00:00 2560 [oz_av] [facility] BP Diastolic 2021-08-05 00:00:00 78 mm[Hg] [facility] Height 2021-08-05 00:00:00 62.5 [in_i] [facility] BMI (Body Mass Index) 2021-08-05 00:00:00 28.3 kg/m2 [facility] BP Systolic 2021-08-05 00:00:00 118 mm[Hg] [facility] Body Weight 2021-08-05 00:00:00 2512 [oz_av] [facility] BP Diastolic 2021-07-30 00:00:00 72 mm[Hg] [facility] Height 2021-07-30 00:00:00 62.5 [in_i] [facility] BMI (Body Mass Index) 2021-07-30 00:00:00 28.8 kg/m2 [facility] BP Systolic 2021-07-30 00:00:00 114 mm[Hg] [facility] Body Weight 2021-07-30 00:00:00 2560 [oz_av] [facility] BP Diastolic 2021-07-08 00:00:00 82 mm[Hg] [facility] Height 2021-07-08 00:00:00 62.5 [in_i] [facility] BMI (Body Mass Index) 2021-07-08 00:00:00 28.8 kg/m2 [facility] BP Systolic 2021-07-08 00:00:00 146 mm[Hg] [facility] Body Weight 2021-07-08 00:00:00 2560 [oz_av] [facility] BP Diastolic 2021-06-27 00:00:00 74 mm[Hg] [facility] Height 2021-06-27 00:00:00 62.5 [in_i] [facility] BMI (Body Mass Index) 2021-06-27 00:00:00 28.8 kg/m2 [facility] BP Systolic 2021-06-27 00:00:00 134 mm[Hg] [facility] Body Weight 2021-06-27 00:00:00 2560 [oz_av] [facility] BP Diastolic 2021-06-20 00:00:00 84 mm[Hg] [facility] Height 2021-06-20 00:00:00 62.5 [in_i] [facility] BMI (Body Mass Index) 2021-06-20 00:00:00 28.6 kg/m2 [facility] BP Systolic 2021-06-20 00:00:00 122 mm[Hg] [facility] Body Weight 2021-06-20 00:00:00 2544 [oz_av] [facility] Systolic blood pressure 2021-04-30 16:37:00 144 mm[Hg] [facility] Diastolic blood pressure 2021-04-30 16:37:00 70 mm[Hg] [facility] Heart rate 2021-04-30 16:37:00 53 /min [facility] Body height 2021-04-30 16:36:00 160 cm [facility] Body weight 2021-04-30 16:36:00 73.982 kg [facility] BMI 2021-04-30 16:36:00 28.89 kg/m2 [facility] Oxygen saturation in Arterial blood by Pulse oximetry 2021-04-30 16:36:00 99 /min [facility] BP Diastolic 2021-04-22 00:00:00 80 mm[Hg] [facility] Height 2021-04-22 00:00:00 62.5 [in_i] [facility] BMI (Body Mass Index) 2021-04-22 00:00:00 28.6 kg/m2 [facility] BP Systolic 2021-04-22 00:00:00 138 mm[Hg] [facility] Body Weight 2021-04-22 00:00:00 2544 [oz_av] [facility] BP Diastolic 2021-01-14 00:00:00 70 mm[Hg] [facility] Height 2021-01-14 00:00:00 62.5 [in_i] [facility] BMI (Body Mass Index) 2021-01-14 00:00:00 28.4 kg/m2 [facility] BP Systolic 2021-01-14 00:00:00 112 mm[Hg] [facility] Body Weight 2021-01-14 00:00:00 2528 [oz_av] [facility] Systolic (mm Hg) 2021-10-11 14:41:00 [facility] Diastolic (mm Hg) 2021-10-11 14:41:00 [facility] Heart Rate 2021-10-11 14:41:00 [facility] Respitory Rate 2021-10-11 14:41:00 [facility] Height 2021-10-11 14:41:00 157.48 cm [facility] Weight 2021-10-11 14:41:00 [facility] BMI Calculated 2021-10-11 14:41:00 [facility] Systolic (mm Hg) 2021-09-18 20:57:00 [facility] Diastolic (mm Hg) 2021-09-18 20:57:00 [facility] Heart Rate 2021-09-18 20:57:00 [facility] Respitory Rate 2021-09-18 20:57:00 [facility] Height 2021-09-18 20:57:00 156.21 cm [facility] Weight 2021-09-18 20:57:00 [facility] BMI Calculated 2021-09-18 20:57:00 [facility] Systolic (mm Hg) 2021-08-15 15:13:00 [facility] Diastolic (mm Hg) 2021-08-15 15:13:00 [facility] Heart Rate 2021-08-15 15:13:00 [facility] Respitory Rate 2021-08-15 15:13:00 [facility] Height 2021-08-15 15:13:00 157.48 cm [facility] Weight 2021-08-15 15:13:00 [facility] BMI Calculated 2021-08-15 15:13:00 [facility] Systolic (mm Hg) 2020-09-14 19:31:00 [facility] Diastolic (mm Hg) 2020-09-14 19:31:00 [facility] Heart Rate 2020-09-14 19:31:00 [facility] Respitory Rate 2020-09-14 19:31:00 [facility] Height 2020-09-14 19:31:00 160.02 cm [facility] Weight 2020-09-14 19:31:00 [facility] BMI Calculated 2020-09-14 19:31:00 [facility] Systolic (mm Hg) 2020-08-03 14:34:00 [facility] Diastolic (mm Hg) 2020-08-03 14:34:00 [facility] Heart Rate 2020-08-03 14:34:00 [facility] Respitory Rate 2020-08-03 14:34:00 [facility] Height 2020-08-03 14:34:00 160.02 cm [facility] Weight 2020-08-03 14:34:00 [facility] BMI Calculated 2020-08-03 14:34:00 [facility] Systolic (mm Hg) 2019-08-10 15:56:00 [facility] Diastolic (mm Hg) 2019-08-10 15:56:00 [facility] Heart Rate 2019-08-10 15:56:00 [facility] Respitory Rate 2019-08-10 15:56:00 [facility] Height 2019-08-10 15:56:00 157.48 cm [facility] Weight 2019-08-10 15:56:00 [facility] BMI Calculated 2019-08-10 15:56:00 [facility] Systolic (mm Hg) 2019-05-04 19:23:00 [facility] Diastolic (mm Hg) 2019-05-04 19:23:00 [facility] Heart Rate 2019-05-04 19:23:00 [facility] Respitory Rate 2019-05-04 19:23:00 [facility] Height 2019-05-04 19:23:00 160.02 cm [facility] Weight 2019-05-04 19:23:00 [facility] BMI Calculated 2019-05-04 19:23:00 [facility] Systolic (mm Hg) 2019-03-24 15:07:00 [facility] Diastolic (mm Hg) 2019-03-24 15:07:00 [facility] Heart Rate 2019-03-24 15:07:00 [facility] Respitory Rate 2019-03-24 15:07:00 [facility] Height 2019-03-24 15:07:00 157.48 cm [facility] Weight 2019-03-24 15:07:00 [facility] BMI Calculated 2019-03-24 15:07:00 [facility] Heart Rate 2018-12-24 14:24:00 [facility] Respitory Rate 2018-12-24 14:24:00 [facility] Height 2018-12-24 14:24:00 157.48 cm [facility] Weight 2018-12-24 14:24:00 [facility] BMI Calculated 2018-12-24 14:24:00 [facility] Systolic (mm Hg) 2018-12-24 14:24:00 [facility] Diastolic (mm Hg) 2018-12-24 14:24:00 [facility] BMI Calculated 2018-09-24 14:59:00 [facility] Respitory Rate 2018-09-24 14:59:00 [facility] Heart Rate 2018-09-24 14:59:00 [facility] Weight 2018-09-24 14:59:00 [facility] Height 2018-09-24 14:59:00 157.48 cm [facility] Systolic (mm Hg) 2018-09-24 14:59:00 [facility] Diastolic (mm Hg) 2018-09-24 14:59:00 [facility] BMI Calculated 2018-08-13 14:57:00 [facility] Weight 2018-08-13 14:57:00 [facility] Respitory Rate 2018-08-13 14:57:00 [facility] Heart Rate 2018-08-13 14:57:00 [facility] Height 2018-08-13 14:57:00 154.94 cm [facility] Systolic (mm Hg) 2018-08-13 14:57:00 [facility] Diastolic (mm Hg) 2018-08-13 14:57:00 [facility] Systolic (mm Hg) 2018-04-30 15:45:00 [facility] Diastolic (mm Hg) 2018-04-30 15:45:00 [facility] Heart Rate 2018-04-30 15:45:00 [facility] Respitory Rate 2018-04-30 15:45:00 [facility] Height 2018-04-30 15:45:00 154.94 cm [facility] Weight 2018-04-30 15:45:00 [facility] BMI Calculated 2018-04-30 15:45:00 [facility] Procedures Procedure Date / Time Performed Performing Clinician Source XR, toe(s), 2 or more view 2024-06-28 00:00:00 [facility] MAMMO, screening, bilateral 2024-04-25 00:00:00 [facility] CT, head, w/o contrast 2024-03-01 00:00:00 [facility] CT, head, w/o contrast 2023-11-02 00:00:00 [facility] electrocardiogram 2023-08-11 00:00:00 [facility] XR, chest, 2 view 2023-08-11 00:00:00 [facility] EXTERNAL PROVIDER RECORDS 2023-05-04 06:01:00 Do ctor Unassigned, [place] [facility] MAMMO, screening, bilateral 2023-04-23 00:00:00 [facility] DEXA, axial skeleton + vertebral fracture assessment 2023-04-23 00:00:00 [facility] MAMMO, diagnostic, digital, bilateral 2023-04-23 00:00:00 [facility] XR, hip + pelvis, unilateral, 2 or 3 view 2022-10-03 00:00:00 [facility] Measurement of post-voiding residual urine and/or bladder capacity by ultrasound, non-imaging 2022-09-04 20:10:00 Kush Palomo [id number] 2022-03-18 00:00:00 [facility] [id number] 2022-03-18 00:00:00 [facility] [id number] 2022-03-18 00:00:00 [facility] MRI, brain + brain stem, w/o contrast 2021 00:00:00 [facility] DME/SUPPLY JUSTIFICATION 2021-07-05 05:01:00 Doc tor Unassigned, [place] [facility] POCT HEMOGLOBIN A1C TEST 2021-04-30 16:42:00 Benny Feliz [facility] PATIENT QUESTIONNAIRE 2021-04-30 06:01:00 Doctor Unassigned, [place] [facility] REFERRAL- REQUEST/RESPONSE 2021-04-15 06:01:00 D alba Unassigned, [place] [facility] Ligation of Fallopian Tube [facility] Partial Hysterectomy [facility] Laminectomy [facility] Cholecystectomy [facility] Tonsilectomy/adenoids [facility] Encounters Start Date/Time End Date/Time Encounter Type Admission Type Attending Clinicians Care Facility Care Department Encounter ID Source 2022-03-17 07:55:00 Inpatient HCAWU GENARO [id number] [facility] 2024-12-29 00:00:00 2024-12-29 00:00:00 JOHNATHON Mosley: [address] [place] [address] , Ph. [phone] [facility], JOHNATHON MOSLEY [phone] 0925 [facility] 2024-12-27 00:00:00 2024-12-27 00:00:00 JOHNATHON Mosley: [address] [place] [address] , Ph. [phone] [facility], [facility], [facility]- 0923 [facility] 2024-10-24 00:00:00 2024-10-24 00:00:00 Nya Leonard [facility]: [address] [place] [address] , Ph. [facility], [facility], [facility] 0721 [facility] 2024-10-11 13:24:05 2024-10-11 14:33:36 Outpatient Elective ROSALIE AGUIAR [facility] [id number] 3 [facility] 2024-10-11 13:15:00 2024-10-11 14:33:36 Consult Rosalie Aguiar [place] [id number] 350.1.13.70 8.2.7.2.686 [id number] 3 [facility] 2024-09-12 00:00:00 2024-09-12 00:00:00 [facility]: [address] [place] [address] , Ph. [phone] [facility], [facility]- 0609 [facility] 2024-07-25 00:00:00 2024-07-25 00:00:00 [facility] [address] [place] [address] , Ph. [facility], [facility] [address] 0421 [facility] 2024-06-28 00:00:00 2024-06-28 00:00:00 Nya Leonard DONATION WORKER-C: [address], [place] [address] , Ph. [facility], [facility], DONATION WORKER-C [facility] [place] [facility] 2024-05-31 00:00:00 2024-05-31 00:00:00 Nya Leonard DONATION WORKER-C: [address], [place] [address] , Ph. [facility], [facility], DONATION WORKER-C 0225 [place] [facility] 2024-05-17 00:00:00 2024-05-17 00:00:00 Nya Leonard DONATION WORKER-C: [address], [place] [address] , Ph. [facility], [facility], DONATION WORKER-C 0211 [place] [facility] 2024-05-09 00:00:00 2024-05-09 00:00:00 Nya Leonard DONATION WORKER-C: [address], [place] [address] , Ph. [facility], DONATION WORKER-C 0203 [facility] 2024-04-25 00:00:00 2024-04-25 00:00:00 Nya Leonard DONATION WORKER-C: [address], [place] [address] , Ph. [phone] [facility], DONATION WORKER-C 0120 [facility] 2024-03-02 09:30:00 2024-03-02 09:30:00 Outpatient VIOLA KNAPP CRAIG [facility] [id number] [facility] 2024-03-01 00:00:00 2024-03-01 09:50:51 Telephone [place] Rosa Meisha [facility] 1.2.840.114 350.1.13.10 4.2.7.2.686 [id number] [facility] 2024-03-01 00:00:00 2024-03-01 00:00:00 JOHNATHON Mosley: [address], [place] [address] , Ph. [facility] DELANEY-Carmel 1125 [facility] 2024-02-24 10:15:00 2024-02-24 10:57:09 Ancillary Visit Marta Dove Craig L Brown, Melissa K [facility] 1.2.840.114 350.1.13.10 4.2.7.2.686 [id number] [facility] 2024-02-24 00:00:00 2024-02-24 00:00:00 JOHNATHON Mosley: [address] [place] [address] , Ph. [facility] JOHNATHON 1119 [facility] 2024-02-23 11:00:00 2024-02-23 11:12:15 Ancillary Visit Marta Dove Craig L Brown, Melissa K [facility] 1.2.840.114 350.1.13.10 4.2.7.2.686 [id number] [facility] 2024-02-18 14:30:00 2024-02-18 15:15:00 Ancillary Visit Marta Dove Brian A Brown, Melissa [facility] 1.2.840.114 350.1.13.10 4.2.7.2.686 [id number] [facility] 2024-02-15 14:30:00 2024-02-15 15:15:00 Ancillary Visit Dinesh Dove Brian A Brown, Robert F [facility] 1.2.840.114 350.1.13.10 4.2.7.2.686 [id number] [facility] 2024-02-11 16:00:00 2024-02-11 16:05:45 Ancillary Visit Bridget Zuniga Brian A Johanson [facility] BU[facility]ING 1.2.840.114 350.1.13.10 4.2.7.2.686 [id number] [facility] 2024-02-09 16:00:00 2024-02-09 16:45:00 Ancillary Visit Marta Dove Brian A Brown, Melissa K [facility] 1.2.840.114 350.1.13.10 4.2.7.2.686 [id number] [facility] 2024-02-04 13:00:00 2024-02-04 13:52:57 Outpatient R IRVING WELLS [facility] [id number] [facility] 2024-02-04 13:00:00 2024-02-04 13:52:57 Ancillary Visit Bridget Zuniga Brian A Johanson [facility] BUILDING 1.2.840.114 350.1.13.10 4.2.7.2.686 [id number] [facility] 2024-01-25 00:00:00 2024-01-25 00:00:00 CHRISTINA MosleyP-C: [address] [place] [address] , Ph. [phone] [facility], DONATION WORKER-C 1021 [facility] 2023-11-12 00:00:00 2023-11-12 00:00:00 Nya Leonard DELANEY-C: [address] [place] [address] , Ph. [facility], DONATION WORKER-C 0808 [facility] 2023-11-02 00:00:00 2023-11-02 00:00:00 Nya Leonard DELANEY-C: [address] [place] [address] , Ph. [phone] [facility], DONATION WORKER-C 0729 [facility] 2023-10-22 00:00:00 2023-10-22 00:00:00 Nya Leonard DELANEY-C: [address] [place] [address] , Ph. [phone] [facility], DONATION WORKER-C 0718 [facility] 2023-08-11 00:00:00 2023-08-11 00:00:00 Nya Leonard DELANEY-C: [address], [place] [address] , Ph. [facility], NYA LEONARD, DONATION WORKER-C [address] 0507 [facility] 2023-06-15 00:00:00 2023-06-15 00:00:00 DELANEY Mosley-C: [address], [place] [address] , Ph. [facility], DR. HERNANDEZ [id number] [facility] 2023-05-04 00:00:00 2023-05-04 00:00:00 Orders Only Doctor Unassigned, [place] [facility] 1.2.840.114 350.1.13.10 4.2.7.2.686 [id number] [facility] 2023-04-23 00:00:00 2023-04-23 00:00:00 DELANEY Mosley-C: [address], [place] [address] , Ph. [facility], DR. HERNANDEZ [id number] [facility] 2023-03-04 00:00:00 2023-03-04 00:00:00 DELANEY Carlton-C: [address], [place] [address] , Ph. [facility], DR. HERNANDEZ [id number] [facility] 2022-10-21 00:00:00 2022-10-21 00:00:00 Naun Hernandez, DO: [address], [place] [address] , Ph. [facility], DR. HERNANDEZ [id number] [facility] 2022-10-03 00:00:00 2022-10-03 00:00:00 Naun Hernandez, DO: [address], [place] [address] , Ph. [phone] [facility], DR. HERNANDEZ [id number] [facility] 2022-09-23 00:00:00 2022-09-23 00:00:00 Naun Hernandez, DO: [address], [place] [address] , Ph. [facility], DR. HERNANDEZ [id number] [facility] 2022-08-26 00:00:00 2022-08-26 00:00:00 Naun Hernandez, DO: [address], [place] [address] , Ph. [facility], DR. HERNANDEZ [id number] [facility] 2022-07-31 00:00:00 2022-07-31 00:00:00 Naun Hernandez, DO: [address], [place] [address] , Ph. [phone] [facility], DR. HERNANDEZ [id number] [facility] 2022-04-22 00:00:00 2022-04-22 00:00:00 Naun Hernandez, DO: [address], [place] [address] , Ph. [phone] [facility], DR. HERNANDEZ [id number] [facility] 2022-03-26 00:00:00 2022-03-26 00:00:00 Reflaureano Feliz [facility] 1.2.840.114 350.1.13.10 4.2.7.2.686 [id number] [facility] 2022-03-24 00:00:00 2022-03-24 00:00:00 Naun Hernandez, DO: [address] [place] [address] , Ph. [facility], DR. HERNANDEZ [id number] [facility] 2022-03-17 13:19:00 2022-03-22 14:45:00 Inpatient EM KwameOnofre [facility] [id number] [address] [place] [address] 2022-03-11 00:00:00 2022-03-11 00:00:00 John Feliz [facility] 1.2.840.114 350.1.13.10 4.2.7.2.686 [id number] [facility] 2022-01-14 00:00:00 2022-01-14 00:00:00 Naun Hernandez, DO: [place] [address] , Ph. [phone] [facility], DR. HERNANDEZ [id number] [facility] 2022-01-02 00:00:00 2022-01-02 00:00:00 Naun Hernandez, DO: [address] [place] [address] , Ph. [facility], DR. HERNANDEZ [id number] [facility] 2021-10-29 00:00:00 2021-10-29 00:00:00 Naun Heranndez, DO: [address] [place] [address] , Ph. [facility], DR. HERNANDEZ [id number] [facility] 2021-10-29 00:00:00 2021-10-29 00:00:00 Outpatient Naun Hernandez [facility] [id number] 2021-09-04 00:00:00 2021-09-04 00:00:00 Reflaureano Feliz [facility] 1.2.840.114 350.1.13.10 4.2.7.2.686 [id number] [facility] 2021-09-04 00:00:00 2021-09-04 00:00:00 Wendyill Seymour Garcia [facility] 1.2.840.114 350.1.13.10 4.2.7.2.686 [id number] [facility] 2021-08-28 10:30:00 2021-08-28 10:30:00 Outpatient SWAPNA OCONNOR [facility] [id number] [facility] 2021 00:00:00 2021 00:00:00 Naun Hernandez, DO: [address] [place] [address] , Ph. [phone] [facility], DR. HERNANDEZ [id number] [facility] 2021 00:00:00 2021 00:00:00 Outpatient Naun Hernandez [facility] [id number] 2021-08-05 00:00:00 2021-08-05 00:00:00 Naun Hernandez, DO: [address] [place] [address] , Ph. [facility], DR. HERNANDEZ [id number] [facility] 2021-08-05 00:00:00 2021-08-05 00:00:00 Outpatient Naun Hernandez [facility] [id number] 2021-07-30 00:00:00 2021-07-30 00:00:00 Naun Hernandez, DO: [place] [address] , Ph. [facility], DR. HERNANDEZ [id number] [facility] 2021-07-30 00:00:00 2021-07-30 00:00:00 Outpatient Naun Hernandez [facility] [id number] 2021-07-09 00:00:00 2021-07-09 00:00:[address] Feliz [facility] 1.2.840.114 350.1.13.10 4.2.7.2.686 [id number] [facility] 2021-07-08 00:00:00 2021-07-08 00:00:00 Naun Hernandez, DO: [address] [place] [address] , Ph. [facility], DR. HERNANDEZ [id number] [facility] 2021-07-08 00:00:00 2021-07-08 00:00:00 Outpatient Naun Hernandez [facility] [id number] 2021-07-05 00:00:00 2021-07-05 00:00:00 Orders Only Doctor Unassigned, [place] [facility] 1.2.840.114 350.1.13.10 4.2.7.2.686 [id number] [facility] 2021-06-27 00:00:00 2021-06-27 00:00:00 Naun Hernandez, DO: [address] [place] [address] , Ph. [facility], DR. HRENANDEZ [id number] [facility] 2021-06-27 00:00:00 2021-06-27 00:00:00 Outpatient Naun Hernandez [facility] [id number] 2021-06-20 00:00:00 2021-06-20 00:00:00 Naun Hernandez, DO: [address] [place] [address] , Ph. [phone] [facility], DR. HERNANDEZ [id number] [facility] 2021-06-20 00:00:00 2021-06-20 00:00:00 Outpatient Naun Hernandez [facility] [id number] 2021-05-01 08:15:00 2021-05-01 08:30:00 Medical Education Specialist Visit Lab, Darnell Dove [facility] 1.2.840.114 350.1.13.10 4.2.7.2.686 [id number] [facility] 2021-05-01 08:15:00 2021-05-01 08:15:00 Outpatient R [facility]LL [facility] [id number] [facility] 2021-05-01 08:15:00 2021-05-01 08:15:00 Outpatient R D[facility]RELL [facility] [id number] [facility] 2021-04-30 10:00:00 2021-04-30 11:17:01 Outpatient R [facility] [id number] [facility] 2021-04-30 10:00:00 2021-04-30 11:17:01 Office Visit Tray [facility] 1.2.840.114 350.1.13.10 4.2.7.2.686 [id number] [facility] 2021-04-30 00:00:00 2021-04-30 00:00:00 Orders Only Doctor Unassigned, [place] [facility] 1.2.840.114 350.1.13.10 4.2.7.2.686 [id number] [facility] 2021-04-22 00:00:00 2021-04-22 00:00:00 Outpatient Naun Hernandez [facility] [id number] 2021-04-22 00:00:00 2021-04-22 00:00:00 Naun Hernandez, DO: [address], [place] [address] , Ph. [phone] [facility], DR. HERNANDEZ [id number] [facility] 2021-04-22 00:00:00 2021-04-22 00:00:00 Outpatient Naun Hernandez [facility] [id number] 2021-04-22 00:00:00 2021-04-22 00:00:00 Outpatient David Naun Moraton [facility] [id number] 2021-04-15 00:00:00 2021-04-15 00:00:00 Telephone Seymour Garcia [facility] 1.2.840.114 350.1.13.10 4.2.7.2.686 [id number] [facility] 2021-04-15 00:00:00 2021-04-15 00:00:00 Orders Only Doctor Unassigned, [place] [facility] 1..840.114 350.1.13.10 4.2.7.2.686 [id number] [facility] 2021-03-28 00:00:00 2021-03-28 00:00:00 Naun Hernandez, DO: [address], [place] [address] , Ph. [phone] [place] [address], DR. HERNANDEZ [id number] [facility] 2021-03-22 00:00:00 2021-03-22 00:00:00 Telephone Swapna Feliz [facility] 1..840.114 350.1.13.10 4.2.7.2.686 [id number] [facility] 2021-03-22 00:00:00 2021-03-22 00:00:00 Orders Only Doctor Unassigned, [place] [address]..840.114 350.1.13.10 4.2.7.2.686 [id number] [facility] 2021-02-18 00:00:00 2021-02-18 00:00:00 [facility] 1..840.114 350.1.13.10 4.2.7.2.686 [id number] [facility] 2021-01-15 00:00:00 2021-01-15 00:00:00 Patient Secure Msg Tray [facility] 1..840.114 350.1.13.10 4.2.7.2.686 [id number] [facility] 2021-01-14 00:00:00 2021-01-14 00:00:00 Naun Hernandez, DO: [address], [facility], [place] [address] , Ph. [facility], DR. HERNANDEZ [id number] [facility] 2021-01-14 00:00:00 2021-01-14 00:00:00 Outpatient Naun Hernadnez [facility] [id number] 2020-11-29 09:09:48 2020-11-29 09:24:48 Medical Education Specialist Visit Lab, Seymour Friedman [facility] 1..840.114 350.1.13.10 4.2.7.2.686 [id number] [facility] 2020-11-29 09:00:00 2020-11-29 09:00:00 Outpatient R [facility] [id number] [facility] 2020-11-28 10:05:17 2020-11-28 11:35:46 [facility] [id number] [facility] 2020-11-28 10:00:00 2020-11-28 10:00:00 Outpatient R SWAPNA FELIZ [facility] [id number] [facility] 2020-11-28 00:00:00 2020-11-28 00:00:00 Orders Only Doctor Unassigned, [place] [facility] [id number] [facility] 2020-11-20 13:00:00 2020-11-20 13:00:00 Outpatient R SWAPNA FELIZ [facility] [id number] [facility] 2020-08-20 10:00:00 2020-08-20 10:00:00 Outpatient R SEYMOUR GARCIA [facility] [id number] [facility] 2020-08-17 11:00:00 2020-08-17 11:00:00 Outpatient R SEYMOUR GARCIA [facility] [id number] [facility] 2020-07-17 14:30:00 2020-07-17 14:30:00 Outpatient R SWAPNA FELIZ [facility] [id number] [facility] 2020-06-20 00:00:00 2020-06-20 00:00:00 Outpatient R RADIOLOGY [facility] [id number] [facility] 2020-06-12 16:00:00 2020-06-12 16:00:00 Outpatient R VERN ROMEO [facility] [id number] [facility] 2020-03-28 13:00:00 2020-03-28 13:00:00 Outpatient R SWAPNA FELIZ [facility] [id number] [facility] 2020-03-27 09:20:00 2020-03-27 09:20:00 Outpatient R [facility] [id number] [facility] 2020-03-08 14:20:00 2020-03-08 14:20:00 Outpatient R DALIA PEGUERO [facility] [id number] [facility] 2020-02-20 09:15:00 2020-02-20 09:15:00 Outpatient R SEYMOUR GARCIA [facility] [id number] [facility] 2019-12-28 10:00:00 2019-12-28 10:00:00 Outpatient R TRAYSWAPNA [facility] [id number] [facility] 2019-12-19 11:00:00 2019-12-19 11:00:00 Outpatient R TRAYSWAPNA [facility] [id number] [facility] 2019-09-27 11:00:00 2019-09-27 11:00:00 Outpatient R TRYA SWAPNA [facility] [id number] [facility] 2019-07-06 10:40:00 2019-07-06 10:40:00 Outpatient R MARIELENA DALIA [facility] [id number] [facility] 2019-07-05 19:30:00 2019-07-05 19:30:00 Outpatient R FEIMARCUS SHAFFER [facility] [id number] [facility] 2019-05-16 11:21:26 2019-05-16 11:19:00 Outpatient R NIKOLE TRISTAN [facility] [id number] [facility] Results Test Description Test Time Test Comments Results Result Co mments Source [facility] ([facility] panel - [id number] 11:37:00* Test Item Value Reference Range Interpretation Comme nts Leukocytes (test code = Leukocytes) Large Nitrite (test code = Nitrite) positive Urobilinogen (test code = Urobilinogen) .2 Protein (test code = Protein) 100 pH (test code = pH) 7.5 Blood (test code = Blood) Large Specific [place] (test code = Specific [place]) 1.005 Ketone (test code = Ketone) Negative Bilirubin (test code = Bilirubin) Small Glucose (test code = Glucose) Negative Appearance (test code = Appearance) Turbid Color (test code = Color) Yellow [facility] [id number] 10:49:00* Test Item Value Reference Range Interpretation Comme nts GLUCOSE BEDSIDE TESTING (lanie t code = GLUBED) 260 MG/DL 60-99 H GLUCOSE BEDSIDE [id number] 08:27:00* Test Item Value Reference Range Interpretation Comme nts GLUCOSE BEDSIDE TESTING (lanie t code = GLUBED) 254 MG/DL 60-99 H CBC W/AUTO [id number] 07:02:00* Test Item Value Reference Range Interpretation [...] NRBC#) 0.00 K/mm3 0.0-0.1 N GLUCOSE BEDSIDE [id number] 22:53:00* Test Item Value Reference Range Interpretation Comme nts GLUCOSE BEDSIDE TESTING (lanie t code = GLUBED) 185 MG/DL 60-99 H GLUCOSE BEDSIDE [id number] 19:43:00* Test Item Value Reference Range Interpretation Comme nts GLUCOSE BEDSIDE TESTING (lanie t code = GLUBED) 194 MG/DL 60-99 H GLUCOSE BEDSIDE [id number] 17:09:00* Test Item Value Reference Range Interpretation Comme nts GLUCOSE BEDSIDE TESTING (lanie t code = GLUBED) 185 MG/DL 60-99 H GLUCOSE BEDSIDE [id number] 13:10:00* Test Item Value Reference Range Interpretation Comme nts GLUCOSE BEDSIDE TESTING (lanie t code = GLUBED) 265 MG/DL 60-99 H GLUCOSE BEDSIDE [id number] 09:08:00* Test Item Value Reference Range Interpretation Comme nts GLUCOSE BEDSIDE TESTING (lanie t code = GLUBED) 347 MG/DL 60-99 HH BASIC METABOLIC [id number] 07:48:00* Test Item Value Reference Range Interpretation [...] CA) 8.7 MG/DL 8.4-10.2 N CBC W/AUTO [id number] 07:38:00* Test Item Value Reference Range Interpretation [...] NRBC#) 0.00 K/mm3 0.0-0.1 N GLUCOSE BEDSIDE [id number] 23:51:00* Test Item Value Reference Range Interpretation Comme nts GLUCOSE BEDSIDE TESTING (lanie t code = GLUBED) 298 MG/DL 60-99 H GLUCOSE BEDSIDE [id number] 21:31:00* Test Item Value Reference Range Interpretation Comme nts GLUCOSE BEDSIDE TESTING (lanie t code = GLUBED) 393 MG/DL 60-99 HH HGB [id number] 21:16:00* Test Item Value Reference Range Interpretation Comme nts HEMOGLOBIN (test code = HGB) 9.3 G/DL 11.2-14.9 L HEMATOCRIT (test code = HCT) 28.0 % 33.2-43.5 L GLUCOSE BEDSIDE [id number] 16:03:00* Test Item Value Reference Range Interpretation Comme nts GLUCOSE BEDSIDE TESTING (lanie t code = GLUBED) 226 MG/DL 60-99 H GLUCOSE BEDSIDE [id number] 11:00:00* Test Item Value Reference Range Interpretation Comme nts GLUCOSE BEDSIDE TESTING (lanie t code = GLUBED) 203 MG/DL 60-99 H COMPREHENSIVE METABOLIC [id number] 08:00:00* Test Item Value Reference Range Interpretation [...] and aplastic anemia) with specific assayson the [employer] 5600 of which Total Protein is one of thoseassays performed in our lab.Interference testing performed at [facility] [employer] determined thatEltrombopag does interfere with Vitros Total [...] ALKP) 60 UNITS/L 38-126 N CBC W/AUTO [id number] 07:37:00* Test Item Value Reference Range Interpretation [...] NRBC#) 0.00 K/mm3 0.0-0.1 N GLUCOSE BEDSIDE [id number] 07:01:00* Test Item Value Reference Range Interpretation Comme nts GLUCOSE BEDSIDE TESTING (lanie t code = GLUBED) 126 MG/DL 60-99 H - CT ABD PELVIS W/O [id number] 22:09:00 [facility] 1950 Sex: F Patient Name: ALISHA MATTHEWS Unit No: [id number] Report Has Been Amended EXAMS: CPT CODE: [id number] CTABD PELVIS W/O CONT 75964 Addendum - 03/19/2022 SIGNED 03/19/2022 ADDENDUM: [id number] CT/CTABPLWO Findings were communicated to BARRINGTON Brown by telephone on 03/19/2022 10:01 PM. at 2204 Reported and signed by: Anand Menendez MD Transcribed: 03/19/2022 (2208) [email or web address] Report EXAM: - CT ABD PELVIS W/O CONT LOCATION: C3 HISTORY: RLE PAIN [facility] COMPARISON: None available at the time of interpretation. TECHNIQUE: Contrast - No IV contrast was given. No oral contrast was given Noncontrast phase - abdomen and pelvis including all of kid neys Reconstructions - coronal and sagittal planes Unless otherwise specified, incidental findings do not require dedicated imaging follow-up. This exam was performed according to our departmental dose-optimization program, which includes automated exposure control, adjustment of the mA and/or kV according to patient size and/or use of iterative reconstruction technique FINDINGS: Statements: Lackof intravenous contrast compromises evaluation of abdominopelvic organs and vasculature. Lack of oral contrast compromises evaluation of bowel. Thoracic: Subsegmental atelectasis in the left lower lobe. Hepatobiliary: The liver is normal without focal lesion. Status post cholecystectomy. No biliary dilation. Pancreas: Normal. Spleen: Normal. Adrenals: Normal. Genitourinary: The kidneys are normal. There is no evidence of [facility] NAME: ALISHA MATTHEWS [address] [address] PHYS: [place] [address] : 1950 AGE: 71 SEX: F LOC: Z.438 A PHONE #: [phone] EXAM DATE: 03/19/2022 STATUS: ADM IN FAX #: [phone] RAD #: D/C DT PAGE 1 Signed Report (CONTINUED) Patient Name: ALISHA MATTHEWS Unit No: [id number] Report Has Been Amended EXAMS: CPT CODE: [id number] CT ABD PELVIS W/O CONT 08433 (Continued) hydronephrosis of either kidney. There is no evidence of renal calculus. Evaluation of the bladder is limited, but no obvious bladder abnorm ality is present. Gastrointestinal: No bowel obstruction or [...] the right extraperitoneal space measuring up to 11.6 x7.6 x 5.2 cm. IMPRESSION: 11.6 cm right extraperitoneal hematoma. at 2147 Reported and signed by: Anand Menendez MD CC: Onofre Puente; Alex Ruano Technologist: Winston Franco RTR; Sandra Crockett CTDI: DLP: Trnscrpt: 03/19/2022 (2146) [email or web address] [facility] NAME: ALISHA MATTHEWS [place] PHYS: [place] [address] : 1950 AGE: 71 SEX: F LOC: Z.438 A PHONE #: [phone] EXAM DATE: 03/19/2022 STATUS: ADM IN FAX #: [phone] RAD #: D/C DT PAGE 2 Signed Report Patient Name: ALISHA MATTHEWS Unit No: [id number] Report Has Been Amended EXAMS: CPT CODE: [id number] CT ABD PELVIS W/O CONT 95594 (Continued) Orig Print D/T: S: 03/19/2022 (2149) [facility] NAME: ALISHA MATTHEWS [place] PHYS: Alex Torres MD [place] [id number] : 1950 AGE: 71 SEX: F LOC: Z.438 A PHONE #: [phone] EXAM DATE: 03/19/2022 STATUS: ADM IN FAX #: [phone] RAD #: D/C DT PAGE 3 Signed ReportGLUCOSE BEDSIDE [id number] 20:44:00* Test Item Value Reference Range Interpretation Comme nts GLUCOSE BEDSIDE TESTING (lanie t code = GLUBED) 256 MG/DL 60-99 H HGB [id number] 18:00:00* Test Item Value Reference Range Interpretation Comme nts HEMOGLOBIN (test code = HGB) 8.0 G/DL 11.2-14.9 L HEMATOCRIT (test code = HCT) 25.0 % 33.2-43.5 L GLUCOSE BEDSIDE [id number] 15:44:00* Test Item Value Reference Range Interpretation Comme nts GLUCOSE BEDSIDE TESTING (lanie t code = GLUBED) 227 MG/DL 60-99 H - XR CHEST [id number] 12:33:00 [facility] : 1950 Sex: F Patient Name: ALISHA MATTHEWS Unit No: [id number] EXAMS: CPT CODE: [id number] XR CHEST 1V 48016 HISTORY: Leukocytosis Location code: B2 FINDINGS: Frontal view of the chest demonstrates normal cardiomediastinal silhouette. The trachea is midline. Mild patchy increased density left lung base. There is no effusion or pneumothorax. The bones are intact. IMPRESSION: Mild patchy pneumonia or atelectasis left lung base. at 1233 Reported and signed by: Refugio De La Cruz M.D. CC: Onofre Puente; Vipul Holliday MD Technologist: HASEEB GuidoRS, RT(R) TranscrptDate/Tm/Trnsp: 03/19/2022 (1233) [email or web address] Orig Print D/T: S: 03/19/2022 (1236) [facility] NAME: ALISHA MUNGUIA [address] [address] PHYS: [id number] - Vipul Holliday MD [address] [address] : 1950 AGE: 71 SEX: F LOC: Z.438 A PHONE #: [phone] EXAM DATE: 03/19/2022 STATUS: ADMIN FAX #: [phone] RADIOLOGY NO: PAGE 1 Signed ReportGLUCOSE BEDSIDE [id number] 11:39:00* Test Item Value Reference Range Interpretation Comme nts GLUCOSE BEDSIDE TESTING (lanie t code = GLUBED) 245 MG/DL 60-99 H CBC W/AUTO [id number] 11:05:00* Test Item Value Reference Range Interpretation [...] NRBC#) 0.00 K/mm3 0.0-0.1 N COMPREHENSIVE METABOLIC [id number] 10:02:00* Test Item Value Reference Range Interpretation [...] 6.5 G/DL 6.3-8.2 N Ortho Clinical D iagnNight & Day Studios has made us aware of newinformation regarding the potential interference ofEltrombopag (a bone marrow stimulant used to treatthrombocytonmenia and aplastic anemia) with specific assayson the [employer]00 of which Total Protein is one [...] ALKP) 69 UNITS/L 38-126 N GLUCOSE BEDSIDE [id number] 07:37:00* Test Item Value Reference Range Interpretation Comme nts GLUCOSE BEDSIDE TESTING (lanie t code = GLUBED) 280 MG/DL 60-99 H GLUCOSE BEDSIDE [id number] 23:55:00* Test Item Value Reference Range Interpretation Comme nts GLUCOSE BEDSIDE TESTING (lanie t code = GLUBED) 195 MG/DL 60-99 H GLUCOSE BEDSIDE [id number] 22:24:00* Test Item Value Reference Range Interpretation Comme nts GLUCOSE BEDSIDE TESTING (lanie t code = GLUBED) 169 MG/DL 60-99 H [id number] 19:31:00* Test Item Value Reference Range Interpretation Comme nts ACT-ISTAT (test code = ACTI) 239 SEC 74-137 H GLUCOSE BEDSIDE [id number] 17:05:00* Test Item Value Reference Range Interpretation Comme nts GLUCOSE BEDSIDE TESTING (lanie t code = GLUBED) 145 MG/DL 60-99 H GLUCOSE BEDSIDE [id number] 11:47:00* Test Item Value Reference Range Interpretation Comme nts GLUCOSE BEDSIDE TESTING (lanie t code = GLUBED) 227 MG/DL 60-99 H BASIC METABOLIC [id number] 09:35:00* Test Item Value Reference Range Interpretation [...] mg/dL VERY HIGH.........>/= 190 mg/dL CBC W/AUTO [id number] 08:47:00* Test Item Value Reference Range Interpretation [...] NRBC#) 0.00 K/mm3 0.0-0.1 N GLUCOSE BEDSIDE [id number] 07:22:00* Test Item Value Reference Range Interpretation Comme nts GLUCOSE BEDSIDE TESTING (lanie t code = GLUBED) 170 MG/DL 60-99 H [id number] 21:03:00* Test Item Value Reference Range Interpretation Comme nts TROPONIN-I (test code = TROPI) 1.210 NG/ML 0.012-0.033 CALLED TO EVARISTO Boone& READBACK ON 03/17/22 AT 2103 BY Jerome Cruz GLUCOSE BEDSIDE [id number] 20:25:00* Test Item Value Reference Range Interpretation Comme nts GLUCOSE BEDSIDE TESTING (lanie t code = GLUBED) 277 MG/DL 60-99 H - NM MYOCRD SPECT R/S [id number] 17:13:00 [facility] : 1950 Sex: F Patient Name: ALISHA MATTHEWS Unit No: [id number] EXAMS: CPT CODE: [id number] NM MYOCRD SPECT R/S MULT 69909 Location: NUCLEAR MEDICINE CARDIAC REST/STRESS IMAGING , conducted on 03/17/22 HISTORY: Chest pain, elevated troponin. COMPARISON EXAMS: CTA assessment of the chest of 03/17/22 TECHNIQUE: 10.3 mCi Tc-99m sestamibi are injected at rest with imaging acquired in various planes. Approximately 26 minutes minutes after injection of radioisotope the patient was imaged . Non- gated SPECT imaging is performed. The patient is stressed pharmacologically with Lexiscan, 0.4 mg, Subsequently, 30.2 mCi Tc-99msestamibi injected IV with scanning . 23 minutes later the patient was imaged . Gated SPECT imagingand post-processing are accomplished. FINDINGS: The left ventricle is normal in size. Homogeneous myocardial perfusion is observed. No significant stress defects suspicious for ischemia or infarct are identified. The computed calculated LVEF is 78%. Concentric wall motion is identified. No segmental wall motion abnormality is seen. Quantitative analysis is within normal limits. IMPRESSION: 1. Negative for evidence of significant myocardial ischemia or infarct. 2. Normal left ventricular ejection fraction and wall motion. at 1713 Reported and signed by: Nano Webster MD CC: Rita Hernández DO; Simón Brady MD Technologist: Bk Green ARRT Transcrpt Date/Tm/Trnsp: 03/17/2022 (0633) [email or web address] Orig Print D/T: S: 03/17/2022 (0079) [facility] NAME: ALISHA MATTHEWS [address] [address] PHYS: [place] [address] : 1950 AGE: 71 SEX: F LOC: ZJane A PHONE #: [phone] EXAM DATE: 03/17/2022 STATUS: ADM IN FAX #: [phone] RADIOLOGY NO: PAGE 1 Signed [id number] 17:05:00* Test Item Value Reference Range Interpretation Comme nts TROPONIN-I (test code = TROPI) 0.756 NG/ML 0.012-0.033 CALLED TO KATHLEEN Langley & READBACK ON 03/17/22 AT 1702 BY Elizabeth Flynn UNABLE TO DRAW BLOOD, REASON: IMAGING NOTIFIED PATIENT CARE STAFF: [place] 03/17/22 AT 1519 BY China Lou BEDSIDE [id number] 17:04:00* Test Item Value Reference Range Interpretation Comme nts GLUCOSE BEDSIDE TESTING (lanie t code = GLUBED) 143 MG/DL 60-99 H GLYCOSYLATED HEMOGLOBIN [id number] 16:46:00* Test Item Value Reference Range Interpretation [...] MBG) 180 MG/DL 70-110 H - CTA [id number] 12:35:00 [facility] : 1950 Sex: F Patient Name: ALISHA MATTHEWS Unit No: [id number] EXAMS: CPT CODE: [id number] CTA CHEST 06906 HISTORY: Aortic dissection COMPARISON:None TECHNIQUE: Axial tomograms [...] is patent. The celiac and SMA are patent.There are patent renal arteries bilaterally. Liver: The liver is relatively homogeneous in appearance with no discrete liver lesion demonstrated. Spleen: No significant splenomegaly. No focal spleniclesion. Pancreas: No focal mass or significant peripancreatic [...] or abscess. No evidence of focal colitis. [facility] NAME: ALISHA MATTHEWS PHYS: [place] [address] : 1950 AGE: 71 SEX: F LOC: Z.ERS PHONE #: [phone] EXAM DATE: 03/17/2022 STATUS: REG ER FAX #: [phone] RAD #: D/C DT PAGE 1 Signed Report (CONTINUED) Patient Name: ALISHA MATTHEWS Unit No: [id number] EXAMS: CPT CODE: [id number] CTA CHEST 10028 (Continued) IMPRESSION: 1. Scattered atherosclerotic plaque. No area of aortic aneurysm or dissection. 2. No other acute abnormalities identified. at 1235 Reported and signed by: Dinesh Clifford MD CC: Rita Hernández DO Technologist: Mike Nguyen, RT(R) CTDI: DLP: Trnscrpt: 03/17/2022 (1235) t.SDR.RXC2 [facility] NAME: ALISHA MATTHEWS PHYS: Rita Ames DO [place] [id number] : 1950 AGE: 71 SEX: F LOC: [employer] PHONE #: [phone] EXAM DATE: 03/17/2022 STATUS: REG ER FAX #: [phone] RAD #: D/C DT PAGE 2 Signed Report Patient Name: ALISHA MATTHEWS Unit No: [id number] EXAMS: CPT CODE: [id number] CTA CHEST 95107 (Continued) Orig Print D/T: S: 03/17/2022 (1238) [facility] NAME: ALISHA MATTHEWS PHYS: [place] [address] : 1950 AGE: 71 SEX: F LOC: [employer].ERS PHONE #: [phone] EXAM DATE: 03/17/2022 STATUS: REG ER FAX #: [phone] RAD #: D/C DT PAGE 3 SignedReport- CTA [id number] 12:35:00 [facility] : 1950 Sex: F Patient Name: ALISHA MATTHEWS Unit No: [id number] EXAMS: CPT CODE: [id number] CTA ABDOMEN 76303 HISTORY: Aorticdissection COMPARISON:None TECHNIQUE: Axial tomograms through the chest, [...] or abscess. No evidence of focal colitis. [facility] NAME: JAMEL MATTHEWSY[address] [place] PHYS: Rita Ames DO [place] [id number] : 1950 AGE: 71 SEX: F ACC T NO: [id number] LOC: [employer] PHONE #: [phone] EXAM DATE: 03/17/2022 STATUS: REG ER FAX #: [phone] RAD #: D/C DT PAGE 1 Signed Report (CONTINUED) Patient Name: ALISHA MATTHEWS Unit No: [id number] EXAMS: CPT CODE: [id number] CTA ABDOMEN 78528 (Continued) IMPRESSION: 1. Scattered atherosclerotic plaque. No area of aortic aneurysm or dissection. 2. No other acute abnormalities identified. at 1235 Reported and signed by: Dinesh Rodríguez CC: Rita Hernández DO Technologist: Mike Nguyen, RT(R) CTDI: DLP: Trnscrpt: 03/17/2022 (1235) t.SDR.RXC2 [facility] NAME: ALISHA MATTHEWS PHYS: Rita Ames DO [place] [id number] : 1950 AGE: 71 SEX: F LOC: [employer] PHONE #: [phone] EXAM DATE: 03/17/2022 STATUS: REG ER FAX #: [phone] RAD #: D/C DT PAGE 2 Signed Report Patient Name: ALISHA MATTHEWS Unit No: [id number] EXAMS: CPT CODE: [id number] CTA ABDOMEN 62406 (Continued) Orig Print D/T: S: 03/17/2022 (1238) KACEY García NAME: ALISHA MATTHEWS PHYS: [place] [address] : 1950 AGE: 71 SEX: F LOC: [employer] PHONE#: [phone] EXAM DATE: 03/17/2022 STATUS: REG ER FAX #: [phone] RAD #: D/C DT PAGE 3 Signed ReportBASIC METABOLIC [id number] 12:17:00* Test Item Value Reference Range Interpretation [...] code = CA) 9.4 MG/DL 8.4-10.2 N [id number] 12:17:00* Test Item Value Reference Range Interpretation Comme nts TROPONIN-I (test code = TROPI) 0.131 NG/ML 0.012-0.033 CALLED TO DUSTIN Jon & READBACK ON 03/17/22 AT 1159 BY Stepan Zhang LIPOPROTEIN LDL [id number] 12:17:00* Test Item Value Reference Range Interpretation Comme nts LIPOPROTEIN LDL DIRECT (test code = LDLDIR) 166 mg/dL 100-129 H ========= R eference Interval: mg/dL mmol/L -----Optimal <100 <2.6Near/above optimal 100-129 2.6-3.3Borderline High 130-159 3.4-4.1High 160-189 4.1-4.9Very High >=190 >=4.9========= This LDL result is a direct measurement.======== = CBC W/O [id number] 11:00:00* Test Item Value Reference Range Interpretation [...] = NRBC#) 0.00 K/mm3 0.0-0.1 N CARDIAC [id number] 05:00:00* Test Item Value Reference Range Interpretation Comme nts Total CK (test code = Total CK) 133 29-143 [facility] TylerannCHEM [id number] 05:00:00* Test Item Value Reference Range Interpretation Comme nts ASPARTATE TRANSAMINASE (test code = ASPARTATE TRANSAMINASE) 17 10-35 ALANINE AMINOTRANSFERASE (te st code = ALANINE AMINOTRANSFERASE) 14 6-29 [facility] LdikovpMRHTMB4509-68-29 05:00:00* Test Item Value Reference Range Interpretation Comme nts Chol (test code = Chol) 305 HDL (test code = HDL) 56 Trig (test code = Trig) 97 LDL (Calculated) (test code = LDL (Calculated)) 226 CHD Risk (test code = CHD Risk) 5.4 Non HDL Chol (test code = Non HDL Chol) 249 [facility] HEMOGLOBIN A1C [id number] 16:42:00* Test Item Value Reference Range Interpretation Comme [facility] POCT HBA1C (test code = 4548-4) 8.3 % 4-6 A Lab Interpretation (test cod e = 16838-4) Abnormal [facility] HEMOGLOBIN A1C [id number] 16:42:00* Test Item Value Reference Range Interpretation Comme [facility] POCT HBA1C (test code = 4548-4) 8.3 % 4-6 A Lab Interpretation (test cod e = 60440-5) [facility]normal [facility]inal[facility] (dipstick) [facility] - Urine 2021-[facility]-02 09:55[facility] GfimxwwXPNDRKQZGN2636-53-09 17:01:00* Test Item Value Reference Range Interpretation Comme nts SATYA (test code = SATYA) NEGATIVE C-REACTIVE PROTEIN (test cod e = C-REACTIVE PROTEIN) 0.8 [facility] HermannCARDIAC [id number] 17:01:00* Test Item Value Reference Range Interpretation Comme nts Total CK (test code = Total CK) 131 29-143 [facility] TylerYrdrivbDGKZOILSOT3733-40-13 17:01:00* Test Item Value Reference Range Interpretation Comme nts Sed Rate (test code = Sed Rate) 2 [facility] HermannCARDIAC [id number] 13:58:00* Test Item Value Reference Range Interpretation Comme nts Total CK (test code = Total CK) 93 29-143 [facility] CenterCHE[facility] [id number] 13:58:00* Test Item Value Reference Range Interpretation Comme nts ASPARTATE TRANSAMINASE (test code = ASPARTATE TRANSAMINASE) 21 10-35 ALANINE AMINOTRANSFERASE (te st code = ALANINE AMINOTRANSFERASE) 30 6-29 [facility] CenterWjankxwZDYLDQURJK4019-35-51 13:58:00* Test Item Value Reference Range Interpretation [...] # (test code = Neutrophils #) 5830 1575-7288 Lymphocytes # (test code = Lymphocytes #) [...] Rate (test code = Sed Rate) 2 [facility] CenterAbdojdiVIQCQIUFMI6710-13-60 13:58:00* Test Item Value Reference Range Interpretation Comme nts C-REACTIVE PROTEIN (test cod e = C-REACTIVE PROTEIN) 0.2 [facility] CenterOmprcorLARMGB1010-01-59 13:58:00* Test Item Value Reference Range Interpretation Comme nts Chol (test code = Chol) 99 HDL (test code = HDL) 48 Trig (test code = Trig) 77 LDL (Calculated) (test code = LDL (Calculated)) 35 CHD Risk (test code = CHD Risk) 2.1 Non HDL Chol (test code = Non HDL Chol) 51 [facility] Notes Date/Time Note Provider Source Referral ID Status Reason Start Date Expiration Date Visits Requested Visits Authorized [id number] Authorized Specialty Services Required 10/04/2024 04/05/2025 5 5 [facility] CenterWwpncpo0103-71-16 18:40:16* AUDIT-C Score Answer Date of Assessment Author 0 10/11/2024 1:31 PM CDT Jojo Mckeon MA * [facility] CenterUwdcebl0821-02-62 18:40:16* Rosalie Aguiar MD - 10/11/2024 1:15 PM CDT Images from the original note were not included. Alisha Matthews 1950 Chief Complaint Patient presents with Consult [...] stroke about a year ago, seen at [place] [facility] We do not have the records from the reported stroke last year- reportedly presented with AMS. I do see several other ER visits and hospitalizations with altered mental status with no new strokes identified. Most recently, she was seen in the hospital at [facility] with altered mental status and the workup [...] lot of hospitalizations and clinic visits in [facility] as well as records she brought from her more recent hospitalization at [facility]. See below. Has CAD and sees cardiology. Has stents in place. Takes ASA and Plavix. Reported history of sarcoidosis which has "resolved." Not under the care of pulmonology or rheumatology. She says that her DM is controlled currently. Objective REVIEW OF TESTING:ER records reviewed from [facility] dated 09/07/2024: History of present illness: 74-year-old female with past medical history of hypertension, hyperlipidemia, diabetes and CO presents to the ER complaining of possible [...] occlusion, or dissection. EXAMINATION: CT HEAD WO NFMMYDDH35/30/2019 CLINICAL HISTORY: fall COMPARISON: CT head 02/24/2016 [...] for further assessment. EXAMINATION: CT HEAD WO JUCCSBQD11/1/2019 CLINICAL INFORMATION: fallCOMPARISON: CT scan dated 03/05/2019 [...] information MRI brain wo IV contrast Order: [id number] Narrative TechniqueImages of the brain were made [...] cerebellum and subcortical regions. MRA Neck Wo Cvggnacg76/24/2014 Narrative Technique MR Angiographic images of the [...] MRI angiogram brain wo IV contrast Order: [id number] Narrative Clinical HistoryEvaluate for stroke. ComparisonConcurrent brain MRI on 03/29/2014. TechniqueHead MRA using 3D gwcu-dn-ulupvj technique with multiplanar MIP reconstruction. FindingsThere is normal flow-related signal with no significant stenosis or occlusion along bilateral intracranial ICAs, ACAs, and MCAs. In particular, there is no evidence of proximal left ROHAN stenosis or occlusion, although evaluation of distal ROHAN branches is limited by MRA technique. The anterior communicating artery complex is unremarkable. 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 There is normal flow-related signal with no significant stenosis or occlusion along bilateral vertebral arteries, basilar artery, cerebellar arteries, and right COMPOSITION WEATHERBOARD INSTALLER. The vertebral arteries are codominant. The right COMPOSITION WEATHERBOARD INSTALLER is -type with origin from prominent right posterior communicating artery. There is no evidence of cerebral aneurysm in the proximal t[place] of[place]is within limits of MRA technique. Impression1. 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 2. No significant stenosis or occlusion in remainder of tus[place]ora of [place] within limits of MRA technique. [...] Date ADD (attention deficit disorder) Anxiety Diabetes ([facility]) Difficulty walking 2023 GERD (gastroesophageal reflux disease) H/O heart artery stent Hypertension Memory loss 2017 Seizures ([facility]) 2017 Stroke (HCC) 2016 Past Surgical History:Procedure Laterality Date CERVICAL LAMINECTOMY 1991 CHOLECYSTECTOMY LAMINECTOMY MRI ANGIOGRAM BRAIN WO IV CONTRAST 03/29/2014 MRI ANGIOGRAM BRAIN WO IV CONTRAST 03/29/2014 PARTIAL HYSTERECTOMY TONSILLECTOMY TUBAL LIGATION Tobacco Use: Low Risk (09/26/2024) [facility] Patient History Smoking Tobacco Use: Never [...] absent.Left pathological reflexes: Ankle clonus absent. CoordinationRight: Rdpcqr-sz-qxib normal. Rapid alternating movement normal.Left: Bsiclj-xd-mgkh normal. Rapid alternating movement normal. GaitNormal casual, [...] procedures, referring and communicating with other health caretaker grounds (when not reported separately) documenting clinicall information in the electronic or other health record, independently interpreting results (not reported separately), communicating results to the patient/family/caregiver, and care coordination (not reported separately) This note utilized Dragon based dictation software. Please excuse any unintentional typographic errors as this note was transcribed with an electronic dictation device. FOLLOW UP:6 months Rosalie Aguiar MD [facility] [place] [facility] [address] [place] [address] PH: [phone] [place] [id number] 18:40:16Upcoming Encounters Scheduled Referrals Name Type Priority [...] on patient's age to complete this topic [facility] 18:40:16 Diagnosis Arterial ischemic stroke, mu ltifocal, [...] history of endocrine, metabolic, and immunity disorders [facility] CenterDppcfee2936-59-14 18:40:16 [place] [address]-11-26 09:48:45 03/01/2024 PT spoke with patient, she [...] PT. Pt verbalized understanding. Liberty Martinez PT, MPT Abrasive Wheel [email or web address] License- [id number] [facility] ADC [phone] (phone) [phone] (fax) CRAFTSMAN Liberty [facility] hospitalZriqxr2189-11-44 10:06:00 [facility] Cardiology Progress Note REPORT#:[id number] REPORT STATUS: Signed DATE:03/22/22 TIME: 1006 PATIENT: ALISHA MATTHEWS UNIT #: [id number] ROOM/BED: [address] : [address] AGE: 71 SEX: F [...] no edema, Right groin - hematoma, tenderness. Retail Support Associate bruit. Musculoskeletal: full range of motion Skin: [...] (Auto) (14 - 44 %) 13.3 L [place] % (Auto) (4 - 13 %) 8.0 Eos % (Auto) (0 - 6 %) 1.9 Baso % (Auto) (0 - 2 %) 0.8 Neut # (Auto) (2.0 - 7.6 K/mm3) 9.72 H Lymph # (Auto) (1.0 - 3.8 K/mm3) 1.73 [place] # (Auto) (0.1 - 0.8 K/mm3) 1.04 [...] medical rx. Discharge planning. at 0051 RPT #:[id number] END OF [id number] 06:49:00 [facility] ([facility] Hospitalist Discharge Summary REPORT#:[id number] REPORT STATUS: Signed DATE:03/22/22 TIME: 648 PATIENT: ALISHA MATTHEWS UNIT #: [id number] ROOM/BED: [address] : [address] AGE: 71 SEX: F [...] HTN, Type 1 DM transferred here from [facility] for chest pain. Dx with NSTEMI with [...] (moderate), soft Extremities: moves all, no edema Neuro/HOSPITAL PERSONNEL DIRECTOR: alert, oriented X 3 Skin: dry Psychiatry: normal affect, normal judgment/insight Results Findings/Data: Laboratory Tests: 03/21 03/21 03/21 03/21 03/21 2251 1941 1701 1308 0903 Chemistry POC Glucose (60 - 99 MG/DL) 185 H 194 H 185 H 265 H 347 *H Discharge Instructions PCP PCP follow-up: PCP: No Primary or Family Physician Discharge to: Home/Self Care Additional Discharge Routines: PCP Follow-Up, It Portfolio Manager Follow-Up Activity: Resume Normal Activity Notify PCP [...] and plan. at 1408 at 2005 RPT #:[id number] END OF REPORTOAUKA1711-10-25 03:57:174148-9155 [place] [id number] PATIENT NAME: ALISHA MATTHEWS ADMIT DATE: 03/17/22 ACCOUNT NO: [id number] ROOM NO: Z.423 AGE: 71 REPORT TYPE: ELECTROCARDIOGRAM SEX: F ADMITTING PHYSICIAN:Onofre Puente MD ATTENDING PHYSICIAN:Onofre Puente MD Order: [id number] Test Reason : CAD/PCI Test Date/Time Stamp: [...] MUÑOZ at 0920 PATIENT NAME: ALISHA MATTHEWS 07:05:999600- [address] [address] PATIENT NAME: ALISHA MATTHEWS ADMIT DATE: 03/17/22 ACCOUNT NO: [id number] ROOM NO: Z.423 AGE: 71 REPORT TYPE: ELECTROCARDIOGRAM SEX: F ADMITTING PHYSICIAN:Onofre Puente MD ATTENDING PHYSICIAN:Onofre Puente MD Order: [id number] Test Reason : CAD/PCI Test Date/Time Stamp: [...] at 1712 PATIENT NAME: ALISHA MATTHEWS 06:39:00 [facility] Hospitalist Progress Note REPORT#:[id number] REPORT STATUS: Signed DATE:03/21/22 TIME: 638 PATIENT: ALISAH MATTHEWS UNIT #: [id number] ROOM/BED: [address] : 49 AGE: 71 SEX: F ATTEND: Onofre Puente MD ADM AUTHOR: Vipul Dvoe DO R3 * ALL edits or amendments [...] (moderate), soft Extremities: moves all, no edema Neuro/HOSPITAL PERSONNEL DIRECTOR: alert, oriented X 3 Skin: dry Psychiatry: normal affect, normal judgment/insight Results Findings/Data: Laboratory Tests 03/21 03/21 03/21 03/20 03/20 1308 0903 0646 8779 2129 Chemistry Sodium (137 - 145 MMOL/L) [...] % (Auto) (14 - 44 %) 22.9 [place] % (Auto) (4 - 13 %) 11.6 Eos % (Auto) (0 - 6 %) 1.8 Baso % (Auto) (0 - 2 %) 1.1 Neut # (Auto) (2.0 - 7.6 K/mm3) 7.05 Lymph # (Auto) (1.0 - 3.8 K/mm3) 2.61 [place] # (Auto) (0.1 - 0.8 K/mm3) 1.32 [...] Attestation needed: teaching physician Onofre Puente 03/21/22 1148: Attestations Teaching Physician Attestation F/U visit w/ resident: I saw the patient with the resident, Vipul Dove, PGY3 during rounds on 2021 and agree with the resident's findings and plan. at 1447 at 1749 RPT #:[id number] END OF [id number] 06:31:00 [facility] Cardiology Progress Note REPORT#:[id number] REPORT STATUS: Signed DATE:03/21/22 TIME: 06 PATIENT: ALISHA MATTHEWS UNIT #: [id number] ROOM/BED: [address] : 49 AGE: 71 SEX: F [...] no edema, Right groin - hematoma, tenderness. Retail Support Associate bruit. Musculoskeletal: full range of motion Skin: [...] Continue monitoring. Discharge planning. at 0051 RPT #:[id number] END OF [id number] 06:41:00 [facility] ([facility]) Hospitalist Progress Note REPORT#:[id number] REPORT STATUS: Signed DATE:03/20/22 TIME: 640 PATIENT: ALISHA MATTHEWS UNIT #: [id number] ROOM/BED: [address] : 49 AGE: 71 SEX: F [...] (moderate), soft Extremities: moves all, no edema Neuro/HOSPITAL PERSONNEL DIRECTOR: alert, oriented X 3 Skin: dry Psychiatry: [...] (Auto) (14 - 44 %) 7.1 L [place] % (Auto) (4 - 13 %) 5.4 Eos % (Auto) (0 - 6 %) 0.0 Baso % (Auto) (0 - 2 %) 0.4 Neut # (Auto) (2.0 - 7.6 K/mm3) 15.21 H Lymph # (Auto) (1.0 - 3.8 K/mm3) 1.25 [place] # (Auto) (0.1 - 0.8 K/mm3) 0.95 [...] and plan. at 1340 at 1929 RPT #:[id number] END OF [id number] 06:20:00 [facility] Cardiology Progress Note REPORT#:[id number] REPORT STATUS: Signed DATE:03/20/22 TIME: 06 PATIENT: ALISHA MATTHEWS UNIT #: [id number] ROOM/BED: [address] : 49 AGE: 71 SEX: F ATTEND: nOofre Puente MD ADM AUTHOR: Alex Ruano MD [...] no edema, Right groin - hematoma, tenderness. Retail Support Associate bruit. Musculoskeletal: full range of motion Skin: [...] (Auto) (14 - 44 %) 7.1 L [place] % (Auto) (4 - 13 %) 5.4 Eos % (Auto) (0 - 6 %) 0.0 Baso % (Auto) (0 - 2 %) 0.4 Neut # (Auto) (2.0 - 7.6 K/mm3) 15.21 H Lymph # (Auto) (1.0 - 3.8 K/mm3) 1.25 [place] # (Auto) (0.1 - 0.8 K/mm3) 0.95 [...] Continue monitoring. Consultants: cardiology at 1932 RPT #:[id number] END OF [id number] 06:14:484319-[address] [address] PATIENT NAME: ALISHA MATTHEWS ADMIT DATE: 03/17/22 ACCOUNT NO: [id number] ROOM NO: [facility] AGE: 71 REPORT TYPE: ELECTROCARDIOGRAM SEX: F ADMITTING PHYSICIAN:Onofre Puente MD ATTENDING PHYSICIAN:Onofre Puente MD Order: [id number] Test Reason : CAD/PCI Test Date/Time Stamp: [...] at 1953 PATIENT NAME: ALISHA MATTHEWS 17:14:00 [facility] Hospitalist Progress Note REPORT#:[id number] REPORT STATUS: Signed DATE:03/19/22 TIME: 1713 PATIENT: ALISHA MATTHEWS UNIT #: [id number] ROOM/BED: [address] : 49 AGE: 71 SEX: F ATTEND: Onofre Puente MD ADM AUTHOR: Vipul Dove DO R3 * ALL edits or amendments must be made on the electronic/computer document * Vipul Dove 03/19/22 1714: Subjective Chief complaint: chest [...] 98 12/14 0011 73 120/75 90.0 97 03/19 0011 73 120/75 90.0 97 03/18 2356 80 89/59 68.9 97 03/18 2356 80 89/59 68.9 97 03/18 2351 81 91/60 70.1 100 / 2351 81 91/60 70.1 100 03/18 2350 98 Nasal 4 36 cannula 03/18 2348 89 58/41 47.1 03/18 2348 89 58/41 47.1 03/18 2343 84 67/46 52.8 13 2343 84 67/46 52.8 03/18 2341 87 94/62 72.7 03/18 2341 87 94/62 72.7 03/18 2336 92 98 03/18 2336 92 98 03/18 2326 88 75/50 58.5 100 03/18 2326 88 75/50 58.5 100 03/18 2321 [...] 95 03/18 2226 80 113/70 84.6 95 03/18 2226 80 113/70 84.6 95 03/18 2221 74 100/63 75.3 81 /13 2221 74 100/63 75.3 81 03/18 2219 81 79 03/18 2219 81 79 03/18 2218 85 106/64 77.9 83 13 2218 81 106/64 77.9 77 / 2218 85 106/64 77.9 83 03/18 2218 81 106/64 77.9 77 03/18 2217 [...] (moderate), soft Extremities: moves all, no edema Neuro/HOSPITAL PERSONNEL DIRECTOR: alert, oriented X 3 Skin: dry Psychiatry: [...] (Auto) (14 - 44 %) 7.1 L [place] % (Auto) (4 - 13 %) 5.4 Eos % (Auto) (0 - 6 %) 0.0 Baso % (Auto) (0 - 2 %) 0.4 Neut # (Auto) (2.0 - 7.6 K/mm3) 15.21 H Lymph # (Auto) (1.0 - 3.8 K/mm3) 1.25 [place] # (Auto) (0.1 - 0.8 K/mm3) 0.95 [...] error on the vital signs machine [facility] VTE Prophylaxis VTE prophylaxis initiated: yes Current [...] and H. at 1725 at 1999 RPT #:[id number] END OF [id number] 06:22:00 [facility] ([facility] Cardiology Progress Note REPORT#:[id number] REPORT STATUS: Signed DATE:03/19/22 TIME: 621 PATIENT: ALISHA MATTHEWS UNIT #: [id number] ROOM/BED: [address] : 49 AGE: 71 SEX: F [...] judgment/insight, normal mood Results Findings/Data: Laboratory Tests 03/18/13 2353 2223 1551 1146 0805 Chemistry Sodium [...] % (Auto) (14 - 44 %) 28.3 [place] % (Auto) (4 - 13 %) 8.6 Eos % (Auto) (0 - 6 %) 1.8 Baso % (Auto) (0 - 2 %) 1.5 Neut # (Auto) (2.0 - 7.6 K/mm3) 5.65 Lymph # (Auto) (1.0 - 3.8 K/mm3) 2.71 [place] # (Auto) (0.1 - 0.8 K/mm3) 0.82 [...] Review labs UA Abx. at 1932 RPT #:[id number] END OF [id number] 05:06:694283-7452 [place] [id number] PATIENT NAME: AILSHA MATTHEWS ADMIT DATE: 03/17/22 ACCOUNT NO: [id number] ROOM NO: [facility] AGE: 71 REPORT TYPE: ELECTROCARDIOGRAM SEX: F ADMITTING PHYSICIAN:Onofre Puente MD ATTENDING PHYSICIAN:Onofre Puente MD Order: [id number] Test Reason : CAD/CO Test Date/Time Stamp: ThuMar 19 2022 05:06:14 [...] MUÑOZ at 0709 PATIENT NAME: ALISHA MATTHEWS 20:09:00 [id number] [place] [id number] PATIENT NAME: ALISHA MATTHEWS ADMIT DATE: 03/17/22 ACCOUNT NO: [id number] ROOM NO: Z.438 AGE: 71 REPORT TYPE: CARDIAC CATHETERIZATION REPORT SEX: F ADMITTING PHYSICIAN:Onofre Puente MD ATTENDING PHYSICIAN:Onofre Puente MD PROCEDURE DATE: 03/18/2022 BOILER TENDER: MD Wanda REFERRING PHYSICIAN: Dr. Puente INDICATION [...] femoral artery area for local anesthesia. A 6-Albanian sheath was placed in the right common [...] The lesion was primary stented with a [employer] Synergy 4 x 16, resulted in 0% residual. Then, I used another guide, the XB 3.5. We used the same wire to wire the obtuse marginal. I predilated the lesion with an Emerge 2.0 x 15 and then put a stent, a 2.25 x 24 [employer] Synergy that resulted in 0% residual. The patient tolerated the procedure well. There were no complications. The right groin was sealed using Angio-Seal. The patient was transferred back to her room for observation overnight. The patient did receive loading dose of Plavix, aspirin and adequate heparin with a good ACT. Dictated By: Canidce Muñoz MD Date Dictated: 03/18/2022 20:09:13 Date Transcribed: 03/18/2022 21:47:47 SD/ROV Receipt ID: [id number] Authenticated by Candice Muñoz MD On 03/19/2022 07:13:36 AM at 0713 PATIENT NAME: ALISHA MATTHEWS 06:25:00 [facility] ([facility] Cardiology Progress Note REPORT#:[id number] REPORT STATUS: Signed DATE:03/18/22 TIME: 624 PATIENT: ALISHA MATTHEWS UNIT #: [id number] ROOM/BED: [address] : 49 AGE: 71 SEX: F [...] # (Auto) (1.0 - 3.8 K/mm3) 2.13 [place] # (Auto) (0.1 - 0.8 K/mm3) 0.62 [...] No other acute abnormalities identified. Impression By: AndrewRXHuma Clifford MD NUCLEAR MEDICINE - NM MYOCRD SPECT R/S MULT 03/17 1330 Report Impression - Status: SIGNED Entered: 03/17/2022 1716 IMPRESSION: 1. Negative for evidence of significant myocardial ischemia or infarct. 2. Normal left ventricular ejection fraction and wall motion. Impression By: AndrewDASNano Marquez MD Diagnosis, Assessment Plan Hospital course to date: IMPRESSION: 1. Non-ST segment elevation myocardial infarction with mildly elevated troponin. Symptoms resolved. Negative myocardial perfusion scan with LVEF - 78%. 2. Coronary artery disease -- status post PTCA and stent in 2015. 3. Diabetes. 4. Hypertension. PLAN: With NSTEMI, will plan coronary angiography to rule out balanced ischemia. at 1639 RPT #:[id number] END OF [id number] 06:10:00 [facility] Hospitalist Progress Note REPORT#:[id number] REPORT STATUS: Signed DATE:03/18/22 TIME: 06 PATIENT: ALISHA MATTHEWS UNIT #: [id number] ROOM/BED: [facility] : 49 AGE: 71 SEX: F ATTEND: [...] non-tender, soft Extremities: moves all, no edema Neuro/HOSPITAL PERSONNEL DIRECTOR: alert, oriented X 3 Psychiatry: normal affect, [...] # (Auto) (1.0 - 3.8 K/mm3) 2.13 [place] # (Auto) (0.1 - 0.8 K/mm3) 0.62 [...] ejection fraction and wall motion. Impression By: Amos - Nano Webster MD Diagnosis, Assessment Plan Problem List/A P: [...] and plan. at 1402 at 1718 RPT #:[id number] END OF [id number] 02:42:811514-3472 [place] [id number] PATIENT NAME: ALISHA MATTHEWS ADMIT DATE: 03/17/22 ACCOUNT NO: [id number] ROOM NO: [facility] AGE: 71 REPORT TYPE: eSTRESS EKG REPORT [...] MD at 1633 PATIENT NAME: ALISHA MATTHEWS 20:44:[id number]- 0124 [place] [id number] PATIENT NAME: ALISHA MATTHEWS ADMIT DATE: 03/17/22 ACCOUNT NO: [id number] ROOM NO: Z.423 AGE: 71 REPORT TYPE: [...] in 2015, who initially presented to the [facility] Emergency Room after waking this morning at approximately 04:30 with chest pain. She describes an 8/10 mid precordial chest pressure that radiated to the left shoulder, right upper extremity and the jaw. The patient woke with the discomfort. The pain is now resolved since being treated medically. PAST MEDICAL HISTORY: 1. Coronary artery disease, status post PTCA and stent in 2015 at [facility]. 2. Diabetes. 3. Hypertension. 4. [...] in 2016. 3. Diabetes. 4. Hypertension. PLAN: Medical therapy with Lovenox, aspirin, nitroglycerin, and beta marcello. We will reassess in a.m. with further plans at that time. Dictated By: Alex Ruano MD Date Dictated: 03/17/2022 20:44:40 Date Transcribed: 03/17/2022 21:04:02 Annie/ANAHI Receipt ID: [id number] Authenticated by Alex Ruano MD On 03/20/2022 07:27:28 PM at 0727 PATIENT NAME: ALISHA MATTHEWS 17:34:[id number]- [address] [address] PATIENT NAME: ALISHA MATTHEWS ADMIT DATE: 03/17/22 ACCOUNT NO: [id number] ROOM NO: [facility] AGE: 71 REPORT TYPE: ELECTROCARDIOGRAM SEX: F ADMITTING PHYSICIAN:Onofre Puente MD ATTENDING PHYSICIAN:Onofre Puente MD Order: [id number] Test Reason : CAD Test Date/Time Stamp: [...] 7:11:18 AM Referred By: Self Referred Confirmed by:CANDICE MUÑOZ at 0711 PATIENT NAME: ALISHA MATTHEWS 13:58:00 [facility] ([facility]) History Physical - Adult REPORT#:[id number] REPORT STATUS: Signed DATE:03/17/22 TIME: 1358 PATIENT: ALISHA MATTHEWS UNIT #: [id number] [facility] 71 SEX: F ATTEND: [...] to the ED as a transfer from [facility] for admission for an NSTEMI. Patient reports [...] and a choking sensation. She went to [facility] and was seen in the ED there [...] edema Musculoskeletal: normal inspection, no muscle spasm Neuro/HOSPITAL PERSONNEL DIRECTOR: alert, normal speech, no motor deficits Skin: [...] # (Auto) (1.0 - 3.8 K/mm3) 2.13 [place] # (Auto) (0.1 - 0.8 K/mm3) 0.62 [...] MD CAT SCAN - CTA CHEST 03/17 115 Report Impression - Status: SIGNED [...] DM HTN Plan Admitted to Dr. Reinoso Case Folder consulted Stress test completed. Will follow up [...] cardiac cath at 1612 at 2054 RPT #:[id number] END OF [id number] 11:07:00 [facility] ([facility]) EMERGENCY PROVIDER REPORT REPORT#:[id number] REPORT STATUS: Signed DATE:03/17/22 TIME: 1107 PATIENT: ALISHA MATTHEWS UNIT #: [id number] ROOM/BED: AGE: 71 SEX: F PCP PHYS: No Primary or Family Physician SERVICE AUTHOR: Rita Hernández DO LOCATION: [facility] * ALL edits or amendments must be made on the electronic/computer document * HPI-Chest Pain 40 and Over Free Text HPI Notes Free Text HPI Notes The patient is a 71 year old female with PMH CAD s/p stent in 2016, Hypertension , Type 1 Diabetes who presents to the ED as a transfer from [facility] for admission for an NSTEMI. Patient reports [...] and a choking sensation. She went to [facility] and was seen in the ED there [...] Aspirin Last 24 Hrs 324 mg, At [facility] )( HEART for MACE )( HEART for [...] Neth Heart J. 2008 Albert:16(6):191-6. PubMed PMID: 19781321; PubMed Central PMCID: [id number]. Tammy DUMONT, Fabian BERGERON, et al. A prospective validation of the HEART score for chest pain patients at the emergency department. Int J Cardiol. 2013 Jan 3:168(3):2153 -8. Doi: 10.1016/j.ijcard.2013..255. Ep2012Jun 10. PubMed PMID: 03097769. Review of Systems ROS Statements All systems [...] # (Auto) (1.0 - 3.8 K/mm3) 2.13 [place] # (Auto) (0.1 - 0.8 K/mm3) 0.62 Eos # (Auto) (0.0 - 0.2 K/mm3) 0.13 Baso # (Auto) (0.0 - 0.2 K/mm3) 0.12 Nucleated RBCs # (Man) (0.0 - 0.1 K/mm3) 0.00 Recent Impressions: CAT SCAN - CTA ABDOMEN 03/17 1155 Report Impression - Status: SIGNED Entered: 03/17/2022 7008 IMPRESSION: 1. Scattered atherosclerotic plaque. No area [...] Rate: 64 bpm Rhythm: Normal sinus rhythm Norton: Normal axis QTc: [address] [...] sent here for admission for NSTEMI from [facility] after she was found to have an elevated high sensitivity troponin to 201. Differential diagnosis considered at this time includes but is not limited to: Unstable angina, Stable angina, NSTEMI, Acute coronary syndrome, aortic dissection, Esophageal spasm, Gastritis. I reviewed the patient's paperwork from [facility]. We will obtain repeat labs and a [...] NSTEMI. Discussed with Dr. Arleth Qureshi's physician pharmacy assistant and patient will be admitted under Dr. Reinoso. Time of Re-Eval 1311 Re-Eval Status Unchanged ED Course Medication(s) Ordered Medication(s) Ordered: Diagnostic Agents Sig/Ousmane Start time Last Medication Dose Route Stop Time Status Admin Iopamidol 0 .STK-MED ONE 03/17 1136 DC 03/17 IV 1219 Consultation Consultation Referral/Consult Name Jake Edwards MD It Portfolio Manager Called Cardiology Requested Call Time 1318 Requested Call Date 03/17/22 Call Returned Call returned Call Returned Time 1318 Call Returned Date 03/17/22 It Portfolio Manager Will see patient Patient Discharge Departure Vital [...] Lovenox Admission to the hospital Consultation with entrance guard CC Note 1 Total critical care time [...] notes and/ or old charts, documentation time, financial management consultant collaboration regarding findings and treatment options, [...] students, nurses or physician assistants. at 1318 [facility] #:[id number] END OF REPORTHCAWU
[2025-01-08] MEDS ORDERED: FAMOTIDINE 20 MG/2 ML VIAL IV ONE (21:30)
[2025-01-08] MEDS ORDERED: MORPHINE 4 MG/ML SYR ONE (21:30)
[2025-01-08] MEDS ORDERED: ONDANSETRON 4 MG/2 ML VIAL ONE (21:30)
[2025-01-08 21:46] LABS: Absolute Lymphocytes (CBC) 2.0 K/uL (0.7-4.9); Hematocrit 37.3 % (36.0-45.0); Hemoglobin 12.2 g/dL (12.0-15.0); MCH 28.1 pg (27.0-35.0); MCHC 32.7 g/dL (32.0-36.0); MCV 85.8 fL (80-100); MPV 8.9 fL (7.6-11.3); Nucleated RBC Absolute Count 0.0 (0-0); Nucleated Red Blood Cells % 0.0 % (0-0); RBC Red Blood Cell Count 4.34 M/uL (3.86-4.86); White Blood Count 8.50 thou/uL (4.3-10.9)
[2025-01-08 21:55] LABS: PT Prothrombin Time 11.0 SECONDS (10-13.0); Protime INR 0.97
--- NOTE | 2025-01-08 22:00 | RAD REPORT ---
EXAM: Chest Single View HISTORY: 74 years Female CHEST PAIN COMPARISON: 01/04/2025 FINDINGS: LUNGS/PLEURA: The lungs are clear. No pleural effusions or pneumothorax. No pulmonary edema. CARDIAC/MEDIASTINUM: The cardiac silhouette is within normal limits. UPPER ABDOMEN: No significant abnormality. BONES: No acute abnormality. LINES/TUBES/OTHER: N/A IMPRESSION: No evidence of acute cardiopulmonary disease.
[2025-01-08 22:17] LABS: ALT/SGPT 31 U/L (13-56); AST/SGOT 21 U/L (15-37); Albumin 3.4 g/dL (3.4-5.0); Albumin/Globulin Ratio 1.1 (1.1-1.8); Alkaline Phosphatase 105 U/L (45-117); Anion Gap 11.2 mEq/L (5.0-15.0); BUN Blood Urea Nitrogen 19 mg/dL (7-18); Globulin 3.0 g/dL (2.3-3.5); Magnesium 2.1 mg/dL (1.6-2.4); NT PRO-BNP 2250 pg/mL (<450); Potassium 4.2 mEq/L (3.5-5.1)
[2025-01-08 22:18] LABS: Bilirubin Indirect, Calculated 0.1 mg/dL (0.2-0.8)
[2025-01-08 22:21] LABS: Glucose Level 432 mg/dL (74-106); Troponin High Sensitivity 197.5 pg/mL (<58.9)
[2025-01-08] MEDS ORDERED: INSULIN REGULAR (HUMAN) 100 UNIT/ML ONE (22:35)
--- NOTE | 2025-01-08 23:47 | RAD REPORT ---
INDICATION: chest pain, back pain COMPARISON: No existing relevant imaging studies are available TECHNIQUE: CT of the chest, abdomen, and pelvis was performed after the administration of intravenous contrast i n the arterial phase of enhancement. Multiplanar reconstructions and maximum intensity projections were provided. Dose reduction techniques were utilized for this exam including automated exposure control, adjustmen ts to mA and/or kV according to patient's size, and the use of iterative reconstruction techniques. FINDINGS: Vascular: CHEST: DISSECTION: No. ANEURYSM: Mild aortic atherosclerosis without aneurysmal dilatation. SUPRAAORTIC VESSELS: Patent proximally. PULMONARY ARTERIES: No evidence of pulmonary embolism. ABDOMEN / PELVIS: DISSECTION: No. ANEURYSM: Mild/moderate aortoiliac atherosclerosis without aneurysmal dilatation. BRANCHES: Celiac axis, superior mesenteric artery, and visualized inferior mesenteric artery are west nt. RENAL ARTERIES: Patent. Nonvascular: CHEST: HEART: Normal in size. Multivessel coronary arterial calcifications. No pericardial effusion or thick ening. ADENOPATHY: No pathologic intrathoracic or axillary adenopathy. LUNGS: Linear atelectasis within the bilateral lower lobes. No focal consolidation. No pleural effusi on or pneumothorax. ABDOMEN / PELVIS: LIVER: Unremarkable. SPLEEN: Unremarkable. PANCREAS: Unremarkable. ADRENALS: Unremarkable. KIDNEYS: Unremarkable. GALLBLADDER: Surgically absent. BOWEL: Colonic diverticulosis without evidence of diverticulitis. Bowel otherwise unremarkable. APPENDIX: No pericecal inflammatory changes to suggest appendicitis. FLUID: No free fluid or abnormal fluid collection. ADENOPATHY: No pathologic adenopathy. BLADDER: Unremarkable. PELVIS: Uterus is surgically absent. BONES: No acute bony abnormality. Multilevel degenerative changes throughout the spine. Bilateral L5 pars defects with grade 1 anterolisthesis of L5 on S1. SOFT TISSUES: Unremarkable. IMPRESSION: 1. Negative for aortic dissection, aneurysm or acute pulmonary thromboembolism. 2. No other acute findings within the chest, abdomen or pelvis. 3. Colonic diverticulosis without evidence of diverticulitis. Electronically signed by: Ishaan River DO 01/08/2025 11:43 PM CDT RP NR Due to temporary technical issues with the PACS/[employer] reporting system, reports are being delia d by the in-house radiologist without review as a courtesy to ensure prompt reporting the interpreting radiologist is fully responsible for the content of the report. Transcribed Date/Time: 01/08/2025 11:47 PM
[2025-01-09] MEDS ORDERED: ASPIRIN 81 MG CHEWABLE TABLET ONE (00:50)
--- NOTE | 2025-01-09 00:54 | ER ---
Nurse's Notes [facility] Name: Kylee Alvarado Age: 74 yrs Sex: Female : 1950 Arrival Date: 01/08/2025 Time: 20:59 Bed 2 Private MD: Diagnosis: Unstable angina;Abnormal levels of other serum enzymes Presentation: 01/08 21:05 Chief complaint: Patient states: just discharged home from here after having a mt1 heart cath with no intervention needed. This afternoon patient started having epigastric/midsternal cp that radiates to her back "burning", 5/10 now, was 9/10 earlier but patient some tylenol about 8 Pm. Reports feeling SOB earlier today but that resolved. At this time patient "feels like someone has their hand around my throat, strangling me". Coronavirus screen: Vaccine status: Patient reports being unvaccinated. Ebola Screen: No symptoms or risks identified at this time. Initial Sepsis Screen: Does the patient meet any 2 criteria? No. Patient's initial sepsis screen is negative. Does the patient have a suspected source of infection? No. Patient's initial sepsis screen is negative. Risk Assessment: Do you want to hurt yourself or someone else? Patient reports no desire to harm self or others. Onset of symptoms was January 08, 2025 at 13:00. 21:05 Method Of Arrival: Wheelchair mt1 21:05 Acuity: GERMAN 3 me1 Historical: - Allergies: 21:08 pheradex; me1 - PMHx: 21:08 Cerebrovascular accident; Diabetes - IDDM; Hypertension; Myocardial infarction; me1 - PSHx: 21:08 Appendectomy; cardiac stent; Cholecystectomy; Tonsillectomy; laminectomy (Unknown); me1 - Immunization history:: Adult Immunizations up to date. - Infectious Disease History:: Denies. - Social history:: Smoking status: Patient denies any tobacco usage or history of. Screenin:05 [facility] ED Fall Risk Assessment (Adult) History of falling in the last 3 months, ha1 including since admission No falls in past 3 months (0 pts) Confusion or Disorientation No (0 pts) Intoxicated or Sedated No (0 pts) Impaired Gait Yes (1 pt) Mobility Assist Device Used Yes (1 pt) Altered Elimination No (0 pt) Score/Fall Risk Level 0 - 2 = Low Risk Oriented to surroundings, Maintained a safe environment, Educated pt \\T\\ family on fall prevention, incl call for assistance when getting out of bed, Hourly rounding (assess needs \\T\\ fall precautionary measures) done. Abuse screen: Denies threats or abuse. Denies injuries from another. Nutritional screening: No deficits noted. Tuberculosis screening: No symptoms or risk factors identified. Assessment: 21:10 General: Appears uncomfortable, Behavior is calm, cooperative. Pain: Complains of pain ha1 in chest Pain radiates to right arm and left arm Pain currently is 9 out of 10 on a pain scale. Quality of pain is described as pressure, Pain began 2-3 days ago. Neuro: Level of Consciousness is awake, alert, obeys commands, Oriented to person, place, time, situation. Cardiovascular: Reports chest pain, Heart tones S1 S2 present Capillary refill < 3 seconds Patient's skin is warm and dry. Respiratory: Airway is patent Respiratory effort is even, unlabored, Respiratory pattern is regular, symmetrical. GI: Reports indigestion. : No signs and/or symptoms were reported regarding the genitourinary system. Derm: Skin is pink, warm \\T\\ dry. Musculoskeletal: Circulation, motion, and sensation intact. Range of motion: intact in all extremities. 22:10 Reassessment: Patient and/or family updated on plan of care and expected duration. Pain ha1 level reassessed. Patient is alert, oriented x 3, equal unlabored respirations, skin warm/dry/pink. 23:00 Reassessment: Patient and/or family updated on plan of care and expected duration. Pain ha1 level reassessed. Patient is alert, oriented x 3, equal unlabored respirations, skin warm/dry/pink. 01/09 00:00 Reassessment: Patient and/or family updated on plan of care and expected duration. Pain ha1 level reassessed. Patient is alert, oriented x 3, equal unlabored respirations, skin warm/dry/pink. 01:00 Reassessment: Patient and/or family updated on plan of care and expected duration. Pain ha1 level reassessed. Patient is alert, oriented x 3, equal unlabored respirations, skin warm/dry/pink. Patient denies pain at this time. Patient states feeling better. Patient states symptoms have improved. 01:30 Reassessment: Patient and/or family updated on plan of care and expected duration. Pain ha1 level reassessed. Patient is alert, oriented x 3, equal unlabored respirations, skin warm/dry/pink. 02:32 Reassessment: Patient and/or family updated on plan of care and expected duration. Pain ha1 level reassessed. Patient is alert, oriented x 3, equal unlabored respirations, skin warm/dry/pink. Vital Signs: 01/08 21:05 BP 134 / 76; Pulse 77; Resp 18; Temp 98.3; Pulse Ox 98% ; Weight 70.31 kg; Height 5 ft. me1 1 in. ; Pain 5/10; 22:14 BP 118 / 65; Pulse 60; Resp 14; Pulse Ox 95% on R/A; cc6 23:30 BP 117 / 60; Pulse 60; Resp 18 S; Pulse Ox 98% on R/A; ha1 01/09 00:30 BP 116 / 75; Pulse 60; Resp 18 S; Pulse Ox 98% on R/A; ha1 01:25 BP 130 / 66; Pulse 57; Resp 18; Pulse Ox 98% on R/A; ha1 02:33 BP 101 / 64; Pulse 60; Resp 16; Temp 97.9; Pulse Ox 96% on R/A; ha1 03:46 BP 109 / 72; Pulse 55; Resp 16; Pulse Ox 98% on R/A; kd3 01/08 21:05 Body Mass Index 29.29 (70.31 kg, 154.94 cm) me1 01/08 21:05 Pain Scale: Adult mt1 ED Course: 01/08 21:00 Patient arrived in ED. mr 21:02 Patient has correct armband on for positive identification. Bed in low position. Call ha1 light in reach. Side rails up X 1. Adult w/ patient. 21:02 Client placed on continuous cardiac and pulse oximetry monitoring. NIBP monitoring ha1 applied. land surveying party chief on. 21:06 Abundio Cota PA-C is PHCP. cp 21:06 Fabio Birmingham MD is Attending Physician. cp 21:08 Triage completed. me1 21:08 Arm band placed on Patient placed in an exam room. me1 21:10 EKG done, by lead neurodiagnostic technologist. reviewed by Abundio Cota PA-C. ts3 21:20 Inserted saline lock: 24 gauge in right forearm, using aseptic technique. Blood ha1 collected. Flushed with 10 mL NS. 21:20 Patient maintains SpO2 saturation greater than 95% on room air. ha1 21:58 XRAY Chest (1 view) In Process Unspecified. EDMS 22:02 Troponin HS Sent. ha1 22:02 NT PRO-BNP Sent. ha1 22:02 Magnesium Sent. ha1 22:02 LFT's Sent. ha1 22:02 Basic Metabolic Panel Sent. ha1 22:09 Ashley Mancini, [place] is Primary Nurse. ha1 23:07 CT Aorta for Dissection In Process Unspecified. EDMS 01/09 00:50 Marina Marvin MD is Hospitalizing Provider. cp 00:50 Catalino Foss is Hospitalizing Provider. cp 03:46 Provided Education on: admitting . kd3 03:46 No provider procedures requiring assistance completed. Patient admitted, IV remains in kd3 place. Administered Medications: 01/08 21:40 Drug: Ondansetron IVP 4 mg IVP once; over 2 minutes Route: IVP; Site: right forearm; 1 01/09 03:48 Follow up: Response: No adverse reaction kd3 01/08 21:40 Drug: Famotidine IVP 20 mg IVP once; dilute with 10 mL 0.9% NaCl; give over 2 minutes ha1 Route: IVP; Site: right forearm; 01/09 03:49 Follow up: Response: No adverse reaction kd3 01/08 21:45 Drug: morphine IVP or IV 4 mg IVP once over 4 mins Route: IVP; Infused Over: 4 mins; 1 Site: right forearm; 01/09 03:48 Follow up: Response: No adverse reaction; Pain is decreased kd3 01/08 22:44 CANCELLED (Physician Discretion): insulin regular human15 units Sub-Q once cp 22:48 Drug: Insulin Regular Human Sub-Q 7 units Sub-Q once {Co-Signature: kd3 (Sandi Staton [facility] RN).} Route: Sub-Q; Site: left lower abdomen; 01/09 03:48 Follow up: Response: No adverse reaction kd3 01:00 Drug: Aspirin PO Chewable Tablet 162 mg PO once Route: PO; ha1 03:47 Follow up: Response: No adverse reaction kd3 01:30 Drug: Heparin (LA Drip) 12 units/kg/hr - ([place] [address] units, D5W IV 500 ml) IV at ha1 calculated rate Per protocol; Max initial rate 1000 units/hr {Co-Signature: tiffanie (Sandi Staton RN).} Route: IV; Rate: 800 units/hr; Site: right forearm; 03:49 Follow up: IV Status: Infusion continued upon admission kd3 02:08 Drug: Heparin (LA-Bolus with thrombolytic) - HEParin IVP 60 units/kg IVP once; Max 4000 ha1 units {Co-Signature: tiffanie (Sandi Staton RN).} Route: IVP; Site: right forearm; 02:30 Follow up: Response: No adverse reaction ha1 03:49 Follow up: Response: No adverse reaction kd3 Medication: 01/08 22:09 VIS not applicable for this client. ha1 Outcome: 01/09 00:53 Decision to Hospitalize by Provider. cp 03:46 Admitted to Med/surg accompanied by nurse, [email or web address] 03:46 Condition: stable 03:46 Discharge instructions given to patient, Instructed on the need for admit, 03:49 Patient left the ED. kd3 Signatures: Dispatcher [employer] EDAR Chelsy Bourgeois, Martinez Henriquez mr Abundio Cota PA-C PA-C cp Doucette, Kyli, RN RN kd3 Ashley Mancini RN RN ha1 Dasha Almanza RN RN mt1 Jesika Guy RN RN 6 Jessica Banks 3 Sandi Staton RN kd3 Corrections: (The following items were deleted from the chart) 02:08 01:30 Heparin ([place]rip) - ([place] [address] units, D5W IV 500 ml) IV at calculated rate ha1 in right forearm ha1
--- NOTE | 2025-01-09 00:54 | EDPHYS ---
Physician Documentation [facility] Name: Kylee Alvarado Age: 74 yrs Sex: Female : 1950 Arrival Date: 01/08/2025 Time: 20:59 Bed 2 Private MD: ED Physician Fabio Birmingham HPI: 01/08 21:24 This 74 yrs old Female presents to ER via Wheelchair with complaints of Chest Pain. cp 21:24 The patient or guardian reports chest pain that is located primarily in the substernal cp area. 21:24 Onset: pain has continued since recent discharge from this hospital after IA. Reports cp cardiac cath by DR Alvares with no intervention performed. Chest pain worse with exertion. The chest pain is described as waxing and waning. Historical: - Allergies: 21:08 pheradex; me1 - PMHx: 21:08 Cerebrovascular accident; Diabetes - IDDM; Hypertension; Myocardial infarction; me1 - PSHx: 21:08 Appendectomy; cardiac stent; Cholecystectomy; Tonsillectomy; laminectomy (Unknown); me1 - Immunization history:: Adult Immunizations up to date. - Infectious Disease History:: Denies. - Social history:: Smoking status: Patient denies any tobacco usage or history of. ROS: 21:27 Constitutional: Negative for body aches, chills, fever, poor PO intake, cp 21:27 Eyes: Negative for injury, pain, redness, and discharge, cp 21:27 Cardiovascular: Positive for chest pain, of the substernal, Negative for edema, palpitations, 21:27 Respiratory: Negative for cough, shortness of breath, wheezing, 21:27 Abdomen/GI: Negative for abdominal pain, vomiting, diarrhea, constipation, 21:27 Back: Positive for radiated pain, 21:27 Neuro: Negative for altered mental status, headache, speech changes, weakness, cp 21:27 All other systems are negative, Exam: 21:13 ECG was reviewed by the Attending Physician. cp 21:32 Constitutional: The patient appears in no acute distress, alert, awake, cp non-diaphoretic, non-toxic, well developed, well nourished, uncomfortable, 21:32 Head/Face: Normocephalic, atraumatic. cp 21:32 Eyes: Periorbital structures: appear normal, Conjunctiva: normal, no exudate, no injection, Sclera: no appreciated abnormality, Lids and lashes: appear normal, bilaterally, 21:32 ENT: External ear(s): are unremarkable, Nose: is normal, Mouth: Lips: moist, Oral mucosa: moist, Posterior pharynx: Airway: no evidence of obstruction, patent, Voice: is normal, 21:32 Neck: ROM/movement: is normal, is supple, without pain, no range of motions limitations, 21:32 Chest/axilla: Inspection: normal, 21:32 Cardiovascular: Rate: normal, Rhythm: regular, Edema: is not appreciated, JVD: is not appreciated, 21:32 Respiratory: the patient does not display signs of respiratory distress, Respirations: normal, no use of accessory muscles, no retractions, labored breathing, is not present, Breath sounds: are clear throughout, no decreased breath sounds, no stridor, no wheezing, 21:32 Abdomen/GI: Inspection: abdomen appears normal, Bowel sounds: active, all quadrants, Palpation: abdomen is soft and non-tender, in all quadrants, 21:32 Back: pain, that is moderate, 21:32 Neuro: Orientation: to person, place \T\ time. Mentation: is normal, Cerebellar function: is grossly normal, Motor: moves all fours, strength is normal, Sensation: is normal, Vital Signs: 21:05 BP 134 / 76; Pulse 77; Resp 18; Temp 98.3; Pulse Ox 98% ; Weight 70.31 kg; Height 5 ft. me1 1 in. ; Pain 5/10; 22:14 BP 118 / 65; Pulse 60; Resp 14; Pulse Ox 95% on R/A; cc6 23:30 BP 117 / 60; Pulse 60; Resp 18 S; Pulse Ox 98% on R/A; ha1 10/06 00:30 BP 116 / 75; Pulse 60; Resp 18 S; Pulse Ox 98% on R/A; ha1 01:25 BP 130 / 66; Pulse 57; Resp 18; Pulse Ox 98% on R/A; ha1 02:33 BP 101 / 64; Pulse 60; Resp 16; Temp 97.9; Pulse Ox 96% on R/A; ha1 03:46 BP 109 / 72; Pulse 55; Resp 16; Pulse Ox 98% on R/A; kd3 10/05 21:05 Body Mass Index 29.29 (70.31 kg, 154.94 cm) me1 01/08 21:05 Pain Scale: Adult me1 MDM: 01/08 21:06 Medical Screening Exam initiated cp 01/09 00:55 Data reviewed: vital signs, nurses notes, lab test result(s), EKG, radiologic studies, cp CT scan, plain films. 00:55 Differential diagnosis: abnormal EKG, acute myocardial infarction, pericarditis, cp pleurisy, pneumonia, pneumothorax, pulmonary embolus, stable angina, thoracic aortic disection, unstable angina. The patient was given aspirin in the Emergency Department. Management of patient was discussed with the following: Delimber Operator: DR Alvares who will consult after discussion and patient to be admitted to hospitalist service, MR Diaz, after discussion. I considered the following discharge prescriptions or medication management in the emergency department Medications were administered in the Emergency Department. See MAR. Independent interpretation of the following test(s) in the Emergency Department EKG: See my EKG interpretation above X-Ray: My interpretation is chest image negative for infiltrates. Care significantly affected by the following chronic conditions: Diabetes, Hypertension. Counseling: I had a detailed discussion with the patient and/or guardian regarding the historical points, exam findings, and any diagnostic results supporting the discharge/admit diagnosis, lab results, radiology results, the need for further work-up and treatment in the hospital. Response to treatment: the patient's symptoms have mildly improved after treatment. ED course: after discussion with hospitalist, MR Diaz, heparin requested to be started. 01/08 21:24 Order name: Basic Metabolic Panel; Complete Time: 22:25 cp 01/08 22:25 Interpretation: Normal except: NA 133; GLUC 432; BUN 19; CRE 1.21; GFR 47. cp 01/08 21:24 Order name: CBC with Diff; Complete Time: 22:25 cp 01/08 21:24 Order name: LFT's; Complete Time: 22:25 cp 01/08 21:24 Order name: Magnesium; Complete Time: 22:25 cp 01/08 21:24 Order name: NT PRO-BNP; Complete Time: 22:25 cp 01/08 21:24 Order name: PT-INR cp 01/08 21:24 Order name: Troponin HS; Complete Time: 22:25 cp 01/08 22:55 Order name: Glucose, Ancillary Testing; Complete Time: 23:20 EDMS 01/09 00:32 Order name: Glucose, Ancillary Testing; Complete Time: 00:54 EDMS 01/09 01:05 Order name: Troponin High Sensitivity ha1 01/09 01:08 Order name: PTT, Activated Partial Thromb EDMS 01/09 01:55 Order name: Basic Metabolic Panel EDMS 01/09 01:55 Order name: Basic Metabolic Panel EDMS 01/09 01:55 Order name: Basic Metabolic Panel EDMS 01/09 01:55 Order name: CBC with Automated Diff EDMS 01/09 01:55 Order name: CBC with Automated Diff EDMS 01/09 01:55 Order name: CBC with Automated Diff EDMS 01/09 01:55 Order name: Troponin High Sensitivity EDMS 01/09 01:55 Order name: Troponin High Sensitivity EDMS 01/09 01:55 Order name: Troponin High Sensitivity EDMS 01/09 01:55 Order name: Troponin High Sensitivity EDMS 01/09 01:55 Order name: Troponin High Sensitivity EDMS 01/08 21:24 Order name: XRAY Chest (1 view); Complete Time: 22:25 cp 01/08 21:59 Order name: CT Aorta for Dissection; Complete Time: 00:07 cp 01/08 21:24 Order name: EKG; Complete Time: 21:24 cp 01/09 01:55 Order name: EKG Electrocardiogram EDMS 01/09 01:55 Order name: EKG Electrocardiogram EDMS 01/09 01:55 Order name: EKG Electrocardiogram EDMS 01/09 01:55 Order name: EKG Electrocardiogram EDMS 01/08 21:24 Order name: Cardiac monitoring; Complete Time: 22:00 cp 01/08 21:24 Order name: EKG - Nurse/Tech; Complete Time: 22:00 cp 01/08 21:24 Order name: IV Saline Lock; Complete Time: 22:00 cp 01/08 21:24 Order name: Labs collected and sent; Complete Time: 22:00 cp 01/08 21:24 Order name: O2 Per Protocol; Complete Time: 22:00 cp 01/08 21:24 Order name: O2 Sat Monitoring; Complete Time: 22:00 cp EC/05 21:13 Rate is 72 beats/min. Rhythm is regular. [place] interval is normal. QRS interval is normal. cp QT interval is normal. T waves are Inverted in lead aVL. Interpreted by me. Reviewed by me. Administered Medications: 21:40 Drug: Ondansetron IVP 4 mg IVP once; over 2 minutes Route: IVP; Site: right forearm; ha1 01/09 03:48 Follow up: Response: No adverse reaction kd3 01/08 21:40 Drug: Famotidine IVP 20 mg IVP once; dilute with 10 mL 0.9% NaCl; give over 2 minutes ha1 Route: IVP; Site: right forearm; 01/09 03:49 Follow up: Response: No adverse reaction kd3 01/08 21:45 Drug: morphine IVP or IV 4 mg IVP once over 4 mins Route: IVP; Infused Over: 4 mins; ha1 Site: right forearm; 01/09 03:48 Follow up: Response: No adverse reaction; Pain is decreased kd3 01/08 22:44 CANCELLED (Physician Discretion): insulin regular human15 units Sub-Q once 22:48 Drug: Insulin Regular Human Sub-Q 7 units Sub-Q once {Co-Signature: tiffanie (Sandi Staton RN).} Route: Sub-Q; Site: left lower abdomen; 01/09 03:48 Follow up: Response: No adverse reaction kd3 01:00 Drug: Aspirin PO Chewable Tablet 162 mg PO once Route: PO; ha1 03:47 Follow up: Response: No adverse reaction kd3 01:30 Drug: Heparin (IA Drip) 12 units/kg/[place] - ([place] [address] units, D5W IV 500 ml) IV at ha1 calculated rate Per protocol; Max initial rate 1000 units/hr {Co-Signature: tiffanie (Sandi Staton RN).} Route: IV; Rate: 800 units/hr; Site: right forearm; 03:49 Follow up: IV Status: Infusion continued upon admission kd3 02:08 Drug: Heparin (IA-Bolus with thrombolytic) - HEParin IVP 60 units/kg IVP once; Max 4000 ha1 units {Co-Signature: tiffanie (Sandi Staton RN).} Route: IVP; Site: right forearm; 02:30 Follow up: Response: No adverse reaction ha1 03:49 Follow up: Response: No adverse reaction kd3 Disposition: 17:28 Critical Care:. cp 20:08 Co-signature as Attending Physician, Fabio Birmingham MD I agree with the assessment sp4 and plan of care. I reviewed the patient's care provided by the Advanced Practice Provider and agree with the diagnosis and treatment plan. Disposition Summary: 01/09/25 00:53 Hospitalization Ordered Notes: Hospitalization Status: Observation cp Provider: Catalino Foss cp Location: Telemetry/MedSurg (observation) cp Condition: Stable cp Problem: new cp Symptoms: have improved cp Bed/Room Type: Standard cp Room Assignment: 215(01/09/25 02:17) cg Diagnosis - Unstable angina cp - Abnormal levels of other serum enzymes cp Forms: - Medication Reconciliation Form cp - SBAR form cp - Leadership Thank You Letter cp Critical care time excluding procedures: 17:28 Critical care time: Bedside Care: 7 minutes, Consultation: 30 minutes, Family cp Intervention: 10 minutes. Total time: 47 minutes Signatures: Dispatcher [employer] EDAZ Abundio Cota PA-C PA-C cp Mona Christian, RN RN Ashley Mancini RN RN ha1 Fabio Birmingham MD MD sp4 Dasha Almanza RN RN me1 Sandi Staton RN kd3 Sandi Statno RN kd3 Corrections: (The following items were deleted from the chart) 01/08 22:44 22:26 Insulin Regular Human Sub-Q 15 units Sub-Q once ordered. cp cp 01/09 01:56 00:53 cp ha1 02:17 01:56 414 ha1
[2025-01-09 01:12] LABS: PTT, Activated Partial Thromb 29.9 SECONDS (27.2-37.4)
[2025-01-09] MEDS ORDERED: HEPARIN 5000 UNIT/ML 1 ML VIAL ONE (01:19)
[2025-01-09] MEDS ORDERED: HEPARIN/D5W 25,000 UNIT/500 ML BAG IV ONE (01:20)
[2025-01-09] MEDS ORDERED: NITROGLYCERIN 0.4 MG/TAB SL PRN (01:49)
[2025-01-09] MEDS ORDERED: MORPHINE 4 MG/ML SYR IV PRN (01:49)
--- NOTE | 2025-01-09 01:58 | P.HP ---
Certification for Inpatient Patient admitted to: Observation With expected LOS: <2 Midnights Patient will require the following post-hospital care: None Practitioner: I am a practitioner with admitting privileges, knowledge of patient current condition, hospital course, and medical plan of care. Services: Services provided to patient in accordance with Admission requirements found in Title 42 Section 412.3 of the Code of Federal Regulations Patient History Date of Service: 01/09/25 Reason for admission: NSTEMI. 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 Patient brought to the ER today complaining of severe midsternal chest pain radiating to her back with associated shortness of breath, nausea but no vomiting. 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 Alvares was consulted, and performed cardiac catheterization. Patient was discharged on 01/05/2025, and according to discharge summary, Dr. Alvares had cleared the patient to be discharge with no significant coronary artery disease that warranted cardiac intervention, and patient was then discharged home. According to the patient today, she states when she was discharged home, she still had some chest pain but it was not severe like when she was admitted. Patient states since she was discharged home, she have been having intermittent chest pain, states today when she went to eat lunch with her at the restaurant, states after they were done eating, she and the were walking to the car when she suddenly developed severe midsternal chest pain radiating to her back with associated shortness of breath, and nausea but no vomiting. Patient described the chest pain as pressure and sharp pain with initial pain scale intensity of 9/10. Patient states she went home and took some hydrocodone, states the pain completely went away, states in 6 hours the pain reoccurred, states she then took some Tylenol, the pain was relieved, but states the chest pain eventually came back more intense and severe which then prompted her to report to the ER. Patient initial workup in the ER troponin 197.5, BNP 2250, EKG with no ST elevation at this time. On admission assessment, patient was fully awake, alert and oriented x 3, states she felt much better at this time after receiving morphine intravenous. Patient denies having associated shortness of breath at this time. Denies of headache, nausea or vomiting. Report received from the RADHA Del Castillo in ER, states he consulted Dr. Alvares regarding patient condition, and he requested patient to be admitted for observation and will see patient in AM. Course in ER. (1) CTA chest, abdomen, and pelvis. Impression: (1) negative for aortic dissection, aneurysm, or acute pulmonary thromboembolism. (2) chest x- ray. Impression: No evidence of acute cardiopulmonary disease. Allergies ferumoxides [From Feridex IV] Adverse Reaction (Verified 09/11/23 13:35) Itching/Hives/Rash Home Medications: Aspirin [Aspir-Low] 81 mg PO DAILY 09/28/17 Duloxetine HCl [Cymbalta] 30 mg PO DAILY 09/28/17 Famciclovir [Famvir] 250 mg PO DAILY 09/28/17 Ezetimibe [Zetia*] 10 mg PO DAILY 06/04/23 Insulin Degludec [Tresiba Flextouch U-100] 28 units SQ DAILY 06/04/23 Losartan Potassium [Cozaar*] 50 mg PO BID #240 tab 08/01/23 Lansoprazole 30 mg PO DAILY 12/06/23 Clopidogrel Bisulfate [Plavix*] 75 mg PO DAILY 12/08/23 Folic Acid 1 mg PO DAILY 30 Days #30 tab 12/08/23 Buspirone HCl 5 mg PO DAILY 01/04/25 - Past Medical/Surgical History Diabetic: Yes -: Diabetes mellitus type 1, insulin-dependent -: [place] x 2 with PCI -: Hypertension -: GERD -: anxiety -: CVA 01/2016, 07/2023 -: Hyponatremia followed by Dr. Myles/Julio -: Hyperlipidemia -: Cardiac Stents x4 -: Appendectomy -: Cholecystectomy Psychosocial/ Personal History: Lives at home with her - Family History Mother -: Heart disease, Hypertension, Lung disease - Social History Smoking Status: Never smoker Smoking therapy provided: No Alcohol use: No CD- Drugs: No Caffeine use: Yes Review of Systems 10-point ROS is otherwise unremarkable Cardiovascular: Chest Pain (Radiates to her back) Physical Examination - Physical Exam General: Alert, In no apparent distress, Oriented x3 HEENT: Atraumatic, Normocephalic Neck: Supple, 2+ carotid pulse no bruit, JVD not distended, No Thyromegaly, Without JVD or thyroid abnormality Respiratory: Clear to auscultation bilaterally, Normal air movement Cardiovascular: No edema, Normal pulses, Regular rate/rhythm, Normal S1 S2, Abnormal S3, No gallops Capillary refill: <2 Seconds Gastrointestinal: Normal bowel sounds, Hypoactive, Soft and benign, Non- distended, W/out hepatomegaly, No ascites Musculoskeletal: No clubbing, No swelling, No contractures, No erythema, No tenderness, No warmth Integumentary: No rashes, No breakdown, No significant lesion, No tenderness/swelling, No erythema, No warmth, No cyanosis Neurological: Normal gait, Normal speech, Normal strength at 5/5 x4 extr, Normal tone, Sensation intact, Cranial nerves 3-12 intact, Normal reflexes 2+, Normal affect Lymphatics: No axilla or inguinal lymphadenopathy - Studies Laboratory Data (last 24 hrs) 01/08/25 01/08/25 01/08/25 21:28 21:28 21:28 WBC 8.50 Hgb 12.2 Hct 37.3 Plt Count 312 PT 11.0 INR 0.97 APTT 29.9 Sodium 133 L Potassium 4.2 BUN 19 H Creatinine 1.21 H Glucose 432 H* Magnesium 2.1 Total Bilirubin 0.3 AST 21 ALT 31 Alkaline Phosphatase 105 Female Exam - Breasts Breasts: Normal configuration, Normal contours, Symmetrical Assessment and Plan - Plan Patient is a 74-year-old female brought to the ER complaining of severe chest pain radiating to her back with associated shortness of breath, and nausea with no vomiting. Initial troponin 197.5. Patient admitted observation with diagnosis of NSTEMI. (1)NSTEMI. -Consult [employer] pro. -Serial troponin every 8 x 3. -Telemetry. -Started on heparin infusion, previous NSTEMI, with profound history of coronary artery disease including stents x 4. -Nitro 0.4 sublingual as needed every 5 minutes x 3. -Morphine 4 mg p.o. as needed every 4 hours. -EKG every 8 hours x 3. (2)Type 1 diabetes. -Moderate sliding scale/ACHS. -To resume patient insulin when reconciled. (3)Chronic GERD. -Continue lansoprazole p.o. daily. (4)Patient home medication resumed. (5)Explained the entire treatment plan to the patient, and present at the bedside, solicited questions answered and voiced understanding. Discharge Plan: Home Plan to discharge in: 72 Hours - Advance Directives Does patient have a Living Will: No Does patient have a Durable POA for Healthcare: No - Code Status/Comfort Care Code Status Assessed: Yes Code Status: Full Code Critical Care: No Time Spent Managing Pts Care (In Minutes): 55
[2025-01-09] MEDS ORDERED: HEPARIN/D5W 25,000 UNIT/500 ML BAG IV SCH (02:00)
[2025-01-09 04:29] VITALS: BMI 29.2
[2025-01-09] MEDS: PANTOPRAZOLE 40MG TABLET PO SCH (05:33)
[2025-01-09 05:44] LABS: HDL Cholesterol 53.0 mg/dL (40-60)
[2025-01-09 05:45] LABS: LDL Cholesterol, Calculated 105.0 mg/dL (<130); LDL Cholesterol,Calc NonReport 105.0
[2025-01-09] MEDS: DULOXETINE 30 MG CAP PO SCH (09:00)
[2025-01-09] MEDS: CLOPIDOGREL 75 MG TABLET PO SCH (09:17)
[2025-01-09] MEDS: LOSARTAN POTASSIUM 50 MG TABLET PO SCH (09:17)
[2025-01-09] MEDS: FOLIC ACID 1 MG TABLET PO SCH (09:17)
--- NOTE | 2025-01-09 10:49 | P.CNS ---
Date of Consult: 01/09/25 Chief Complaint: NSTEMI. History of Present Illness: Patient with PMH of CAD s/p multiple stents placement, was admitted last week for NSTEMI, coronary angiogram done and shown mild to moderate CAD, no intervention was done, presented this time with sharp pain, epigastric area, radiating to her back, she can pinpoint the pain with one finger, she is really frustrated about that pain, denies chest pain, neck pain or arm pain, no palpitations, no syncope. Allergies ferumoxides [From Feridex IV] Adverse Reaction (Intermediate, Verified 01/09/25 03:56) Itching/Hives/Rash Home medications list reviewed: Yes Home Medications: Aspirin [Aspir-Low] 81 mg PO DAILY 09/28/17 Famciclovir [Famvir] 250 mg PO DAILY 09/28/17 Ezetimibe [Zetia*] 10 mg PO DAILY 06/04/23 Insulin Degludec [Tresiba Flextouch U-100] 32 units SQ DAILY 06/04/23 Losartan Potassium [Cozaar*] 50 mg PO BID #240 tab 08/01/23 Clopidogrel Bisulfate [Plavix*] 75 mg PO DAILY 12/08/23 Folic Acid 1 mg PO DAILY 30 Days #30 tab 12/08/23 - Past Medical/Surgical History Diabetic: Yes -: Diabetes mellitus type 1, insulin-dependent -: [place] x 2 with PCI -: Hypertension -: GERD -: anxiety -: CVA 01/2016, 07/2023 -: Hyponatremia followed by Dr. Myles/Juilo -: Hyperlipidemia -: Cardiac Stents x4 -: Appendectomy -: Cholecystectomy Psychosocial/ Personal History: Lives at home with her - Family History Mother Medical History: Heart disease, Hypertension, Lung disease - Social History Alcohol use: No CD- Drugs: No Caffeine use: Yes Place of Residence: Home Review of Systems 10-point ROS is otherwise unremarkable Physical Examination Temp Pulse Resp BP Pulse Ox 97.5 F 74 12 117/57 L 98 01/09/25 08:00 01/09/25 08:00 01/09/25 08:00 01/09/25 08:00 01/09/25 08:00 General: Alert, In no apparent distress HEENT: Atraumatic, PERRLA, Mucous membr. moist/pink, EOMI, Sclerae nonicteric Neck: Supple, 2+ carotid pulse no bruit, No LAD, Without JVD or thyroid abnormality Respiratory: Clear to auscultation bilaterally, Normal air movement Cardiovascular: Regular rate/rhythm, Normal S1 S2 Gastrointestinal: Normal bowel sounds, No tenderness Musculoskeletal: No tenderness Integumentary: No rashes Neurological: Normal gait, Normal speech, Normal tone, Normal affect Lymphatics: No axilla or inguinal lymphadenopathy Laboratory Data (last 24 hrs) 01/08/25 01/08/25 01/08/25 21:28 21:28 21:28 WBC 8.50 Hgb 12.2 Hct 37.3 Plt Count 312 PT 11.0 INR 0.97 APTT 29.9 Sodium 133 L Potassium 4.2 BUN 19 H Creatinine 1.21 H Glucose 432 H* Magnesium 2.1 Total Bilirubin 0.3 AST 21 ALT 31 Alkaline Phosphatase 105 - Problems (1) HLD (hyperlipidemia) Current Visit: No Status: Acute Plan: continue statins and zetia (2) HTN (hypertension) Current Visit: No Status: Acute Plan: add Isordil 10 mg po BID Continue to monitor (3) NSTEMI (non-ST elevated myocardial infarction) Current Visit: No Status: Acute Plan: Patient had a coronary angiogram done recently that shown mild proximal LAD di sease before stent that is patent, diffuse disease distally, no option for intervention, patent LCX stent and RCA stent patient troponin are trending down from last admission chest pain is atypical and look gastric in nature, will need GI evaluation continue ASA and Plavix add Isordil 10 mg po BID add Ranexa 500 mg po BID add PPI and follo up with GI.
--- NOTE | 2025-01-09 16:27 | P.PN ---
Date of Service: 01/09/25 Patient seen and examined. Patient reports intermittent chest pain radiating to the back, most recent episode occurred after a meal. Patient also reports history of upper back pain. Cardiology Dr. Alvares input appreciated, chest pain considered atypical however patient has significant history of coronary artery disease and his symptoms could be angina. Patient started on Ranexa and Imdur. She is also started on a trial of sucralfate for GERD. Will obtain MRI of the thoracic spine to assess for radiculopathy. Continue other home medications including Plavix and Zetia.
[2025-01-09] MEDS: SUCRALFATE 1GM/10ML UCUP PO SCH (16:30)
[2025-01-09] MEDS: ASPIRIN EC 81 MG TAB PO SCH (18:28)
[2025-01-09] MEDS ORDERED: HOME MED 1 EA UNK (Insulin Degludec [Tresiba Flextouch U-100] 100 UNIT/ML Insuln.Pen) SQ SCH (18:28)
[2025-01-09] MEDS: BUSPIRONE HCL 5 MG TABLET PO SCH (21:11)
[2025-01-09] MEDS: EZETIMIBE 10 MG TAB PO SCH (21:12)
[2025-01-09] MEDS ORDERED: GLUCAGON 1 MG/VIAL IM PRN (21:13)
[2025-01-09] MEDS ORDERED: D10W 125 ML IV PRN (21:13)
[2025-01-10 05:31] LABS: Absolute Lymphocytes (CBC) 2.0 K/uL (0.7-4.9); Hematocrit 35.6 % (36.0-45.0); Hemoglobin 12.1 g/dL (12.0-15.0); MCH 29.0 pg (27.0-35.0); MCHC 34.0 g/dL (32.0-36.0); MCV 85.1 fL (80-100); MPV 8.9 fL (7.6-11.3); Nucleated RBC Absolute Count 0.0 (0-0); Nucleated Red Blood Cells % 0.0 % (0-0); RBC Red Blood Cell Count 4.18 M/uL (3.86-4.86); White Blood Count 7.60 thou/uL (4.3-10.9)
[2025-01-10 05:56] LABS: Anion Gap 11.5 mEq/L (5.0-15.0); BUN Blood Urea Nitrogen 19.0 mg/dL (7-18); Potassium 4.5 mEq/L (3.5-5.1)
[2025-01-10 05:58] LABS: Glucose Level 433.0 mg/dL (74-106)
[2025-01-10] MEDS: INSULIN REGULAR (HUMAN) 100 UNIT/ML SQ SCH (06:19)
[2025-01-10] MEDS: ISOSORBIDE MONO SR 30 MG TAB PO SCH (08:58)
[2025-01-10] MEDS: PANTOPRAZOLE 40MG TABLET PO SCH (08:59)
[2025-01-10] MEDS: FAMCICLOVIR 250 MG PO SCH (08:59)
[2025-01-10] MEDS ORDERED: INSULIN GLARGINE 100 UNIT/ML SQ SCH (09:00)
[2025-01-10] MEDS: INSULIN GLARGINE 100 UNIT/ML SQ SCH (09:00)
[2025-01-10 09:07] VITALS: O2SAT 97
--- NOTE | 2025-01-10 10:25 | P.PN ---
Date of Service: 01/10/25 Subjective: reports chest pain radiating to back after meal yesterday deals some chronic back pain at home vitals stable afebrile Physical Exam: Gen: Alert, Oriented, NAD CV: Regular rate and rhythm, no edema Pulm: Nonlabored respirations on room air, clear bilaterally Abdomen: Soft, nontender, nondistended Integumentary: No rashes Neuro: Normal strength, normal affect Problem List: Atypical chest pain CAD s/p PCI x4 GERD BRINDA, mild NIDDM2 with severe hyperglycemia Hypertension Hyperlipidemia Anxiety Hx multiple CVA with short-term memory deficits (2015, 2023) Atypical chest pain CAD s/p PCI x4 GERD on admission, presents with chest pain associated with SOB and nausea. Recent LHC on 01/05: mild proximal LAD disease before stent that is patent, diffuse disease distally, no option for intervention, patent LCX stent and RCA stent CT was negative for any acute findings. CXR negative Cardiology consulted, suspects GI etiology Troponins trending down from last hospitalization. Monitor on telemetry. kate Leggett started this hospitalization MRI thoracic spine ordered to assess for radiculopathy Chest pain atypical in nature. Possibly related to GERD. carafate, PPI added will likely need outpatient GI follow up Diet as tolerated BRINDA, mild monitor renal function, electrolytes NIDDM2 with severe hyperglycemia a1c 8.3 on 01/04 accu-cheks, SSI glc in 400s Start semglee 32u daily; titrate as needed Hypertension Hyperlipidemia Anxiety Hx multiple CVA with short-term memory deficits (2023) resume home famvir, asa 81mg, losartan, folic acid, plavix, buspirone, zetia VTE: s/p heparin drip Code: Full Dispo: Home
--- NOTE | 2025-01-10 11:32 | P.PN ---
Subjective Date of Service: 01/10/25 Chief Complaint: NSTEMI. Subjective: No new changes, No C/O voiced, Tolerating diet, Ambulating Review of Systems 10-point ROS is otherwise unremarkable Physical Examination - Vital Signs Temperature: 98.3 F Blood Pressure: 124/62 Pulse: 69 Respirations: 16 Pulse Ox (%): 96 - Physical Exam General: Alert, In no apparent distress HEENT: Atraumatic, PERRLA, EOMI Neck: Supple, JVD not distended Respiratory: Clear to auscultation bilaterally, Normal air movement Cardiovascular: Regular rate/rhythm, Normal S1 S2 Gastrointestinal: Normal bowel sounds, No tenderness Musculoskeletal: No tenderness Integumentary: No rashes Neurological: Normal speech, Normal tone, Normal affect Lymphatics: No axilla or inguinal lymphadenopathy - Studies Laboratory Data (last 24 hrs) 01/10/25 01/10/25 01/10/25 04:41 04:41 04:41 WBC 7.60 Hgb 12.1 Hct 35.6 L Plt Count 296 APTT 56.5 H Sodium 132 L Potassium 4.5 BUN 19 H Creatinine 1.10 H Glucose 433 H* 01/09/25 01/09/25 01/09/25 22:20 18:40 13:48 WBC Hgb Hct Plt Count APTT 62.0 H 51.8 H 46.0 H Sodium Potassium BUN Creatinine Glucose Medications List Reviewed: Yes Assessment And Plan - Current Problems (Diagnosis) (1) HLD (hyperlipidemia) Current Visit: No Status: Acute Plan: continue statins and zetia (2) HTN (hypertension) Current Visit: No Status: Acute Plan: Imdur 30 mg daily Losartan 50 mg daily Continue to monitor (3) NSTEMI (non-ST elevated myocardial infarction) Current Visit: No Status: Acute Plan: Patient had a coronary angiogram done recently that shown mild proximal LAD disease before stent that is patent, diffuse disease distally, no option for intervention, patent LCX stent and RCA stent patient troponin are trending down from last admission chest pain is atypical and look gastric in nature, will need GI evaluation continue ASA and Plavix continue Imdur 30 mg daily continue Ranexa 500 mg po BID add PPI and follo up with GI.
--- NOTE | 2025-01-10 11:58 | P.DS ---
Admission Date: 01/10/25 Discharge Date: 01/10/25 Disposition: ROUTINE DISCHARGE Discharge Condition: GOOD Reason for Admission: NSTEMI. Consultations: Cardiology - Dr. 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 Patient brought to the ER today complaining of severe midsternal chest pain radiating to her back with associated shortness of breath, nausea but no vomiting. Patient was recently admitted on 01/04/2025 with similar symptoms of chest pain, was diagnosed with NSTEMI, and licensed professional counselor Dr. Alvares was cons ulted, and performed cardiac catheterization. Patient was discharged on 01/05/2025, and according to discharge summary, Dr. Alvares had cleared the patient to be discharge with no significant coronary artery disease that warranted cardiac intervention, and patient was then discharged home. According to the patient today, she states when she was discharged home, she still had some chest pain but it was not severe like when she was admitted. Patient states since she was discharged home, she have been having intermittent chest pain, states today when she went to eat lunch with her at the restaurant, states after they were done eating, she and the were walking to the car when she suddenly developed severe midsternal chest pain radiating to her back with associated shortness of breath, and nausea but no vomiting. Patient described the chest pain as pressure and sharp pain with initial pain scale intensity of 9/10. Patient states she went home and took some hydrocodone, states the pain completely went away, states in 6 hours the pain reoccurred, states she then took some Tylenol, the pain was relieved, but states the chest pain eventually came back more intense and severe which then prompted her to report to the ER. Patient initial workup in the ER troponin 197.5, BNP 2250, EKG with no ST elevation at this time. On admission assessment, patient was fully awake, alert and oriented x 3, states she felt much better at this time after receiving morphine intravenous. Patient denies having associated shortness of breath at this time. Denies of headache, nausea or vomiting. Report received from the RADHA Del Castillo in ER, states he consulted Dr. Alvares regarding patient condition, and he requested patient to be admitted for observation and will see patient in AM. Hospital Course: Problem List: Atypical chest pain likely related to GERD CAD s/p PCI x4 BRINDA, mild NIDDM2 with severe hyperglycemia Hypertension Hyperlipidemia Anxiety Hx multiple CVA with short-term memory deficits (2015, 2023) Physician discharge instructions: Patient presented with chest pain associated with SOB and nausea. Suspect GI etiology possibly related to GERD. CT dissection was negative for any acute findings. Chest xray was negative. Cardiology was consulted and felt chest pain to be atypical in nature. No further cardiac work up given recent left heart cath a few days ago on Jan 05. Troponins were mildly elevated but trended flat. Suspect troponins still downtrending from Jan 04 (1999-3000s). She was started on trial of carafate and protonix, and had mild improvement of her symptoms. Recommend following up with GI in the near future for further evaluation. Patient was deemed stable for discharge. She brought up having ongoing chronic back pain as well, separate from her anterior chest pain. An MRI was ordered to further evaluate, however, she was unable to complete this test due to her claustrophobia. On review of her symptoms and pain, the MRI did not seem like it would be very helpful with her current symptoms, so this was not attempted again. Discussed signs/symptoms to look for and to further discuss with PCP if needs one in the near future as outpatient. On describing her pain, there did seem to be a component of her anxiety contributing to the severity. Unclear if contributing a small % or a much larger percentage. She was started on Buspar here at bedtime and will be discharged with this medication. In addition, she was started on ranexa and imdur to help treat from the cardiac side - if having some chronic component to her angina. Medications: for GI / GERD - pantoprazole twice daily, and as needed carafate before meals/bedtime Anxiety - started buspar at bedtime Chronic angina - started ranexa and imdur Follow up: PCP 3-5 days Cardiology in a few weeks GI in the near future Please call to schedule / confirm appointments Physical Exam: Gen: Alert, Oriented, NAD CV: Regular rate and rhythm, no edema Pulm: Nonlabored respirations on room air, clear bilaterally Abdomen: Soft, nontender, nondistended Neuro: Normal strength, normal affect Vital Signs/Physical Exam: Temp Pulse Resp BP Pulse Ox 98.3 F 69 16 124/62 96 01/10/25 11:32 01/10/25 11:32 01/10/25 11:32 01/10/25 11:32 01/10/25 11:32 Laboratory Data at Discharge: WBC 7.60 thou/uL (4.3-10.9) 01/10/25 04:41 Hgb 12.1 g/dL (12.0-15.0) 01/10/25 04:41 Hct 35.6 % (36.0-45.0) L 01/10/25 04:41 Plt Count 296 thou/uL (152-406) 01/10/25 04:41 PT 11.0 SECONDS (10-13.0) 01/08/25 21:28 INR 0.97 01/08/25 21:28 APTT 56.5 SECONDS (27.2-37.4) H 01/10/25 04:41 Sodium 132 mEq/L (136-145) L 01/10/25 04:41 Potassium 4.5 mEq/L (3.5-5.1) 01/10/25 04:41 BUN 19 mg/dL (7-18) H 01/10/25 04:41 Creatinine 1.10 mg/dL (0.55-1.02) H 01/10/25 04:41 Glucose 433 mg/dL (74-106) H* 01/10/25 04:41 Magnesium 2.1 mg/dL (1.6-2.4) 01/08/25 21:28 Total Bilirubin 0.3 mg/dL (0.2-1.0) 01/08/25 21:28 AST 21 U/L (15-37) 01/08/25 21:28 ALT 31 U/L (13-56) 01/08/25 21:28 Alkaline Phosphatase 105 U/L (45-117) 01/08/25 21:28 Triglycerides 63 mg/dL (<150) 01/09/25 04:42 Cholesterol 171 mg/dL (<200) 01/09/25 04:42 HDL Cholesterol 53 mg/dL (40-60) 01/09/25 04:42 Cholesterol/HDL Ratio 3.23 01/09/25 04:42 Home Medications: Aspirin [Aspir-Low] 81 mg PO DAILY 09/28/17 Famciclovir [Famvir] 250 mg PO DAILY 09/28/17 Ezetimibe [Zetia*] 10 mg PO DAILY 06/04/23 Insulin Degludec [Tresiba Flextouch U-100] 32 units SQ DAILY 06/04/23 Losartan Potassium [Cozaar*] 50 mg PO BID #240 tab 08/01/23 Clopidogrel Bisulfate [Plavix*] 75 mg PO DAILY 12/08/23 Folic Acid 1 mg PO DAILY 30 Days #30 tab 12/08/23 Buspirone HCl [Buspar*] 5 mg PO BEDTIME 30 Days #30 tab 01/10/25 Isosorbide Mononitrate [Isosorbide Mononitrate ER] 30 mg PO DAILY 30 Days #30 ta b 01/10/25 Pantoprazole [Protonix Tab*] 40 mg PO BID 30 Days #60 tab 01/10/25 Ranolazine [Ranolazine ER] 500 mg PO BID 30 Days #60 tab 01/10/25 Sucralfate [Carafate -Tab] 1 gm PO ACHS 30 Days #120 tab 01/10/25 New Medications: Buspirone HCl [Buspar*] 5 mg PO BEDTIME 30 Days #30 tab Sucralfate [Carafate -Tab] 1 gm PO ACHS 30 Days #120 tab Isosorbide Mononitrate [Isosorbide Mononitrate ER] 30 mg PO DAILY 30 Days #30 tab Pantoprazole [Protonix Tab*] 40 mg PO BID 30 Days #60 tab Ranolazine [Ranolazine ER] 500 mg PO BID 30 Days #60 tab Physician Discharge Instructions: Physician discharge instructions: Patient presented with chest pain associated with SOB and nausea. Suspect GI etiology possibly related to GERD. CT dissection was negative for any acute findings. Chest xray was negative. Cardiology was consulted and felt chest pain to be atypical in nature. No further cardiac work up given recent left heart cath a few days ago on Jan 05. Troponins were mildly elevated but trended flat. Suspect troponins still downtrending from Jan 04 (2000-3000s). She was started on trial of carafate and protonix, and had mild improvement of her symptoms. Recommend following up with GI in the near future for further evaluation. Patient was deemed stable for discharge. She brought up having ongoing chronic back pain as well, separate from her anterior chest pain. An MRI was ordered to further evaluate, however, she was unable to complete this test due to her claustrophobia. On review of her symptoms and pain, the MRI did not seem like it would be very helpful with her current symptoms, so this was not attempted again. Discussed signs/symptoms to look for and to further discuss with PCP if needs one in the near future as outpatient. On describing her pain, there did seem to be a component of her anxiety contributing to the severity. Unclear if contributing a small % or a much larger percentage. She was started on Buspar here at bedtime and will be discharged with this medication. In addition, she was started on ranexa and imdur to help treat from the cardiac side - if having some chronic component to her angina. Medications: for GI / GERD - pantoprazole twice daily, and as needed carafate before meals/bedtime Anxiety - started buspar at bedtime Chronic angina - started ranexa and imdur Follow up: PCP 3-5 days Cardiology in a few weeks GI in the near future Please call to schedule / confirm appointments Followup: Krishna Leonard NP [Primary Care Provider] - 1-2 Weeks Time spent managing pt's care (in minutes): 45
[2025-01-10 13:05] VITALS: BP 124/59; TEMP 97.5
== END 2025-01-10 15:00 | disposition home or self-care (01) | DRG 392 ==
LOC: ER 20:59 → 4TH 01-09 01:47 → 2ND 01-09 02:24 → OBSVTOIN 01-10 10:07
PROVIDERS: ADMIT Internal Medicine; ATTEND Hospitalist
DX: K21.9 Gastro-esophageal reflux disease without esophagitis (principal); N17.9 Acute kidney failure, unspecified; I10 Essential (primary) hypertension; E78.00 Pure hypercholesterolemia, unspecified; E11.65 Type 2 diabetes mellitus with hyperglycemia; F41.9 Anxiety disorder, unspecified; I25.2 Old myocardial infarction; I25.119 Atherosclerotic heart disease of native coronary artery with unspecified angina pectoris; Z95.5 Presence of coronary angioplasty implant and graft; Z90.49 Acquired absence of other specified parts of digestive tract; Z86.73 Personal history of transient ischemic attack (TIA), and cerebral infarction without residual deficits; Z79.82 Long term (current) use of aspirin; Z79.4 Long term (current) use of insulin; Z79.02 Long term (current) use of antithrombotics/antiplatelets; Z79.899 Other long term (current) drug therapy
CPT/HCPCS: 36415; 71045; 71275; 74175; 80048; 80061; 80076; 82947; 83735; 83880; 84484; 85025; 85610; 85730; 93005; 96365; 96366; 96372; 96375; 99285; G0378; J1644; J1815; J2405; Q9967